=== PATIENT | male | born 1950 | race Caucasian/White ===

== ENCOUNTER 2016-12-05 16:22 | Inpatient (IN) | payer OTHER, MEDICARE ==
[~2016-12-05] VITALS: Ht 162.6 cm; Wt 85.6 kg
[~2016-12-05 16:22] MED LIST: CLOP1TAB54 PO; DOCU100C31 PO; GLIP10TA9 PO; ISOS30TA35 PO; LISI-729 PO; METF-384 PO; METO25TA56 PO; RIVA1TAB4 PO; ROSU20TA PO; VENL225T27 PO; XRL15 PO
[2016-12-05] MEDS ORDERED: SODIUM CHLORIDE 0.9% 1000ML 1,000 ML IV ONE (16:30)
--- NOTE | 2016-12-05 16:30 | EMERGENCY ROOM VISIT NOTE ---
History Report prepared by Trey: Padmini Spencer Under the Supervision of: Dr. Rashaad Meza M.D. 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 Associated symptoms include a headache and lower back pain. Per the EMS staff, the patient was found to be unresponsive in the bathroom at [facility]. Upon EMS arrival to scene, the patient was found to be awake and alert, but confused. The patient was unable to answer where he was at this time. His blood sugar was found to be 592. The patient has a history of diabetes. He denies insulin use. HPI limited d/t: AMS. 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 Past Medical & Surgical Medical Problems: (1) CAD (coronary artery disease) (2) DM type 2 (diabetes mellitus, type 2) (3) Hyperglycemia (4) Syncope Surgical Problems: (1) History of angioplasty (2) S/P CABG x 5 Family History Unknown Social History Smokeless Tobacco Use: No Drug Use: none Current/Historical Medications Scheduled Aspirin (Aspirin EC Low Dose), 81 MG PO DAILY Glipizide (Glucotrol), 10 MG PO BID Lisinopril (Prinivil), 5 MG PO DAILY Metformin Hcl (Glucophage), 1,000 MG PO DAILY Rosuvastatin Calcium (Crestor), 20 MG PO DAILY Venlafaxine Hcl (Effexor Xr), 150 MG PO DAILY Allergies Coded Allergies: No Known Allergies (Unverified , 03/23/16) Physical Exam Vital Signs Date Time Temp Pulse Resp B/P Pulse Ox O2 Delivery O2 Flow Rate FiO2 12/05/16 18:14 92 20 142/81 96 Room Air 12/05/16 17:30 91 21 165/102 97 Room Air 12/05/16 16:59 99 22 164/99 99 Room Air 12/05/16 16:33 92 Room Air 12/05/16 16:33 92 Room Air 12/05/16 16:33 36.5 103 15 181/115 93 Room Air 12/05/16 16:28 105 Physical Exam GENERAL: Patient awake, alert, oriented x 3. Patient follows commands. Patient does not appear toxic. Patient is adequately hydrated and well- nourished. SKIN: No erythema, pallor, cyanosis or rash HEENT: Right parietal scalp hematoma. pupils equal, reactive to light and accommodation. Ears normal. Oral cavity and posterior pharynx appear normal. Neck: C-collared. Nontender. No step off. Without adenopathy, no neck vein distention. LUNGS: Clear to auscultation. No wheezes, no rales, no rhonchi. HEART: No murmurs. No gallops. No rubs CHEST WALL: Large, well healed midline sternotomy scar. ABDOMEN: No masses, no rebound, no hepatomegaly or splenomegaly. EXTREMITIES: No signs of trauma. No pedal or pretibial edema. No calf or thigh tenderness. NEUROLOGIC: Confused, disoriented, frequently repeating same questions. Moves all extremities well. Appears no focal deficits. Medical Decision & Procedures ER Provider Diagnostic Interpretation: CT results are interpretations by the radiologist and per my review. CT OF THE HEAD WITHOUT CONTRAST CLINICAL HISTORY: Confusion. Head injury. COMPARISON STUDY: MRI of the brain March 25, 2016. TECHNIQUE: Helical axial images of the head were obtained without IV contrast. Automated exposure control was utilized for the study. FINDINGS: No acute intracranial hemorrhage, midline shift or mass effect is present. Ventricular system is unremarkable. Basilar cisterns are patent. There are no extra axial collections. There is an old infarct within left cerebellar hemisphere. There are scattered old lacunar infarcts. There is a left posterior scalp contusion. There is no calvarial fracture. IMPRESSION: 1. No acute intracranial findings. 2. Left posterior scalp contusion. No calvarial fracture. 3. Old left cerebellar infarct and scattered old lacunar infarcts. Electronically signed by: Lele Howard M.D. 12/05/2016 4:59 PM Dictated Date/Time: 12/05/2016 4:[address] OF THE CERVICAL SPINE WITHOUT CONTRAST CLINICAL HISTORY: Injury. COMPARISON STUDY: No previous studies for comparison. TECHNIQUE: Helical axial images of the cervical spine were obtained without IV contrast. Sagittal and coronal reconstructions were viewed. FINDINGS: Alignment of the cervical spine is anatomic. Vertebral body heights are maintained. There is no acute fracture. Craniocervical junction is intact. There is moderate disc space narrowing with osteophytosis at C5-C6. There is no prevertebral edema or pneumothorax within visualized portions of the lung apices. IMPRESSION: No acute cervical spine fracture or subluxation. Electronically signed by: Lele Howard M.D. 12/05/2016 5:05 PM Dictated Date/Time: 12/05/2016 5:02 PM X ray results are stated below per my interpretation and the radiologist's interpretation. CHEST ONE VIEW PORTABLE CLINICAL HISTORY: Confusion. COMPARISON STUDY: Chest radiograph and chest CT March 23, 2016. FINDINGS: There are median sternotomy wires. Cardiomediastinal silhouette is stable. There is no pneumothorax or pleural effusion. This study is mildly compromised by motion artifact. IMPRESSION: No acute cardiopulmonary findings. Electronically signed by: Lele Howard M.D. 12/05/2016 6:35 PM Dictated Date/Time: 12/05/2016 6:33 PM Laboratory Results 12/05/16 16:35 Red Blood Count 5.47, Mean Corpuscular Volume 88.3, Mean Corpuscular Hemoglobin 30.2, Mean Corpuscular Hemoglobin Concent 34.2, Mean Platelet Volume 9.1, Neutrophils (%) (Auto) 66.1, Lymphocytes (%) (Auto) 23.5, Monocytes (%) (Auto) 6.8, Eosinophils (%) (Auto) 2.0, Basophils (%) (Auto) 0.6, Neutrophils # (Auto) 5.51, Lymphocytes # (Auto) 1.96, Monocytes # (Auto) 0.57, Eosinophils # (Auto) 0.17, Basophils # (Auto) 0.05 12/05/16 16:35 Test 12/05/16 16:35 12/05/16 17:20 12/05/16 18:14 White Blood Count 8.34 K/uL (4.8-10.8) Red Blood Count 5.47 M/uL (4.7-6.1) Hemoglobin 16.5 g/dL (14.0-18.0) Hematocrit 48.3 % (42-52) Mean Corpuscular Volume 88.3 fL (80-100) Mean Corpuscular Hemoglobin 30.2 pg (25-34) Mean Corpuscular Hemoglobin Concent 34.2 g/dl (32-36) Platelet Count 240 K/uL (130-400) Mean Platelet Volume 9.1 fL (7.4-10.4) Neutrophils (%) (Auto) 66.1 % Lymphocytes (%) (Auto) 23.5 % Monocytes (%) (Auto) 6.8 % Eosinophils (%) (Auto) 2.0 % Basophils (%) (Auto) 0.6 % Neutrophils # (Auto) 5.51 K/uL (1.4-6.5) Lymphocytes # (Auto) 1.96 K/uL (1.2-3.4) Monocytes # (Auto) 0.57 K/uL (0.11-0.59) Eosinophils # (Auto) 0.17 K/uL (0-0.5) Basophils # (Auto) 0.05 K/uL (0-0.2) RDW Standard Deviation 40.6 fL (36.4-46.3) RDW Coefficient of Variation 12.6 % (11.5-14.5) Immature Granulocyte % (Auto) 1.0 % Immature Granulocyte # (Auto) 0.08 K/uL (0.00-0.02) Prothrombin Time 10.0 SECONDS (9.0-12.0) Prothromb Time International Ratio 0.9 (0.9-1.1) Activated Partial Thromboplast Time 23.6 SECONDS (21.0-31.0) Partial Thromboplastin Ratio 0.9 Anion Gap 9.0 mmol/L (3-11) Est Creatinine Clear Calc Drug Dose 59.3 ml/min Estimated GFR () 72.1 Estimated GFR (Non- 62.2 BUN/Creatinine Ratio 25.3 (10-20) Calcium Level 9.1 mg/dl (8.5-10.1) Total Bilirubin 0.7 mg/dl (0.2-1) Aspartate Amino Transf (AST/SGOT) 45 U/L (15-37) Alanine Aminotransferase (ALT/SGPT) 40 U/L (12-78) Alkaline Phosphatase 98 U/L (45-117) Troponin I 0.022 ng/ml (0-0.045) Total Protein 7.9 gm/dl (6.4-8.2) Albumin 3.9 gm/dl (3.4-5.0) Globulin 4.0 gm/dl (2.5-4.0) Albumin/Globulin Ratio 1.0 (0.9-2) Beta-Hydroxybutyric Acid 11.63 mg/dL (0.2-2.81) Urine Color YELLOW Urine Appearance CLEAR (CLEAR) Urine pH 5.0 (4.5-7.5) Urine Specific Alpine 1.032 (1.000-1.030) Urine Protein 1+ (NEG) Urine Glucose (UA) 3+ (NEG) Urine Ketones 1+ (NEG) Urine Occult Blood TRACE (NEG) Urine Nitrite NEG (NEG) Urine Bilirubin NEG (NEG) Urine Urobilinogen NEG (NEG) Urine Leukocyte Esterase NEG (NEG) Urine WBC (Auto) 0 /hpf (0-5) Urine RBC (Auto) 0-4 /hpf (0-4) Urine Hyaline Casts (Auto) 0 /lpf (0-5) Urine Epithelial Cells (Auto) 0-5 /lpf (0-5) Urine Bacteria (Auto) NEG (NEG) Urine Opiates Screen NEG (NEG) Urine Methadone, Qualitative NEG (NEG) Urine Barbiturates NEG (NEG) Urine Phencyclidine (PCP) Level NEG (NEG) Ur Amphetamine/Methamphetamine NEG (NEG) MDMA (Ecstasy) Screen NEG (NEG) Urine Benzodiazepines Screen NEG (NEG) Urine Cocaine Metabolite NEG (NEG) Urine Marijuana (THC) NEG (NEG) Venous Blood pH 7.38 (7.36-7.41) Venous Blood Partial Pressure CO2 42 mmHg (38.0-50.0) Venous Blood Partial Pressure O2 40 mmHg Venous Blood HCO3 24 mmol/L Venous Blood Oxygen Saturation 72.3 % Venous Blood Base Excess -0.8 mmol/L Lactic Acid Level 1.9 mmol/L (0.4-2.0) Ethyl Alcohol mg/dL < 3.0 mg/dl (0-3) Laboratory results as stated above per my review. Venous blood gas Ph within normal range. Patient not acidotic. Bicarb within normal range. Medications Administered Medications (Trade) Dose Ordered Sig/Nadine Route Start Time Stop Time Status Last Admin Dose Admin Sodium Chloride (Nss 1000ml) 1,000 ml @ 1,000 mls/hr Q1H ONCE IV 12/05/16 16:30 12/05/16 17:29 DC 12/05/16 17:02 1,000 MLS/HR Insulin Human Regular 10 units 10 units NOW STAT IV 12/05/16 17:11 12/05/16 17:13 DC 12/05/16 17:23 10 UNITS Sodium Chloride (Nss 1000ml) 1,000 ml @ 100 mls/hr Q10H IV 12/05/16 18:57 01/04/17 18:56 12/05/16 20:34 100 MLS/HR ECG Indication: syncope Rate (beats per minute): 105 Rhythm: sinus tachycardia Findings: RBBB ED Course 162: Past medical records reviewed. The patient was evaluated in room C4. A complete history and physical examination was performed. 1630: Ordered Sodium Chloride 1,000 ml @ 1,000 mls/hr IV. 171: Ordered Insulin Human Regular 10 units IV. 1713: Upon reevaluation, the patient is less confused. He is receiving insulin and fluids. 1755: I updated the patient and his family of the treatment plan. They are agreeable at this time. 181: I discussed the patient's case with Emerald Enamorado (Cristofer LEDESMA). She will evaluate the patient for further management and care. 184: Upon reevaluation, the patient's cognitive function seems to be improving. Medical Decision 66-year-old male who was found on bathroom floor in [facility]. Patient was very confused when he arrived but became much more coherent as we observed him here in the ED. Multiple labs, EKG and imaging were obtained. Differential diagnosis includes CVA, TIA, diabetes, DKA, metabolic disorder. The patient's initial blood sugar was in the mid 500s. The patient was given IV insulin and fluids. Potassium was not low. The patient is not acidotic but did have some ketones in his urine. CAT scan does not reveal any significant neuro pathology. I believe his confusion is related to the metabolic disorder and not to a direct neurologic event. I discussed care with the patient, his and the hospitalist. Consults Time Called: 1804 Consulting Physician: Emerald Enamorado (Cristofer LEDESMA) Returned Call: [phone] I discussed the patient's case with Emerald Dotson PA-C). She will evaluate the patient for further management and care. Impression Primary Impression: Diabetes mellitus out of control Additional Impression: Scalp hematoma Scribe Attestation The scribe's documentation has been prepared under my direction and personally reviewed by me in its entirety. I confirm that the note above accurately reflects all work, treatment, procedures, and medical decision making performed by me. Departure Information Dispostion Being Evaluated By Hospitalist Problem Qualifiers
--- NOTE | 2016-12-05 17:01 | DIAGNOSTIC IMAGING REPORT ---
CT OF THE HEAD WITHOUT CONTRAST CLINICAL HISTORY: Confusion. Head injury. COMPARISON STUDY: MRI of the brain March 25, 2016. TECHNIQUE: Helical axial images of the head were obtained without IV contrast. Automated exposure control was utilized for the study. FINDINGS: No acute intracranial hemorrhage, midline shift or mass effect is present. Ventricular system is unremarkable. Basilar cisterns are patent. There are no extra axial collections. There is an old infarct within left cerebellar hemisphere. There are scattered old lacunar infarcts. There is a left posterior scalp contusion. There is no calvarial fracture. IMPRESSION: 1. No acute intracranial findings. 2. Left posterior scalp contusion. No calvarial fracture. 3. Old left cerebellar infarct and scattered old lacunar infarcts. Electronically signed by: Lele Howard M.D. 12/05/2016 4:59 PM Dictated Date/Time: 12/05/2016 4:56 PM
[2016-12-05 17:07] LABS: BASO % 0.6 %; BASO ABS # 0.05 K/uL (0-0.2); COMPLETE YES; HEMATOCRIT 48.3 % (42-52); LYMPH % 23.5 %; LYMPH ABS # 1.96 K/uL (1.2-3.4); MEAN CELL VOLUME 88.3 fL (80-100); MEAN CORPUSCULAR HEMOGLOBIN 30.2 pg (25-34); MEAN CORPUSCULAR HGB CONC 34.2 g/dl (32-36); MEAN PLATELET VOLUME 9.1 fL (7.4-10.4); MONO % 6.8 %; NEUT % 66.1 %; PLATELET COUNT 240 K/uL (130-400); RED BLOOD COUNT 5.47 M/uL (4.7-6.1); WHITE BLOOD COUNT 8.34 K/uL (4.8-10.8)
--- NOTE | 2016-12-05 17:07 | DIAGNOSTIC IMAGING REPORT ---
CT OF THE CERVICAL SPINE WITHOUT CONTRAST CLINICAL HISTORY: Injury. COMPARISON STUDY: No previous studies for comparison. TECHNIQUE: Helical axial images of the cervical spine were obtained without IV contrast. Sagittal and coronal reconstructions were viewed. FINDINGS: Alignment of the cervical spine is anatomic. Vertebral body heights are maintained. There is no acute fracture. Craniocervical junction is intact. There is moderate disc space narrowing with osteophytosis at C5-C6. There is no prevertebral edema or pneumothorax within visualized portions of the lung apices. IMPRESSION: No acute cervical spine fracture or subluxation. Electronically signed by: Lele Howard M.D. 12/05/2016 5:05 PM Dictated Date/Time: 12/05/2016 5:02 PM
[2016-12-05] MEDS ORDERED: NovoLIN-R INSULIN PER UNIT CHARGE IV STA (17:11)
[2016-12-05 17:17] LABS: INR 0.9 (0.9-1.1); PARTIAL THROMBOPLASTIN RATIO 0.9
[2016-12-05 17:33] LABS: URINE APPEARANCE CLEAR (CLEAR); URINE BILIRUBIN NEG (NEG); URINE COLOR YELLOW; URINE EPITHELIAL CELL AUTO 0-5 /lpf (0-5); URINE NITRITE NEG (NEG); URINE SPECIFIC GRAVITY 1.032 (1.000-1.030); UROBILINOGEN NEG (NEG); ZZUR CULT IF INDIC CLEAN CATCH NO
[2016-12-05 17:35] LABS: MANUAL MICROSCOPIC REQUIRED? NO; REVIEW REQ? NO
[2016-12-05 17:59] LABS: BUN/CREATININE RATIO 25.3 (10-20); CALCIUM 9.1 mg/dl (8.5-10.1); CREATININE 1.2 mg/dl (0.60-1.40); POTASSIUM 4.9 mmol/L (3.5-5.1)
[2016-12-05 18:04] LABS: BENZODIAZEPINE, URINE NEG (NEG); COCAINE,URINE NEG (NEG); PHENCYCLIDINE, URINE NEG (NEG)
[2016-12-05 18:13] LABS: BETA-HYDROXYBUTYRATE 11.63 mg/dL (0.2-2.81)
[2016-12-05 18:26] LABS: VEN BLD GAS O2 SATURATION 72.3 %; VEN BLOOD GAS BASE EXCESS -0.8 mmol/L
--- NOTE | 2016-12-05 18:37 | DIAGNOSTIC IMAGING REPORT ---
CHEST ONE VIEW PORTABLE CLINICAL HISTORY: Confusion. COMPARISON STUDY: Chest radiograph and chest CT March 23, 2016. FINDINGS: There are median sternotomy wires. Cardiomediastinal silhouette is stable. There is no pneumothorax or pleural effusion. This study is mildly compromised by motion artifact. IMPRESSION: No acute cardiopulmonary findings. Electronically signed by: Lele Howard M.D. 12/05/2016 6:35 PM Dictated Date/Time: 12/05/2016 6:33 PM
[2016-12-05] MEDS ORDERED: VENL150C PO (18:45)
[2016-12-05] MEDS ORDERED: ROSU20TA PO (18:45)
[2016-12-05] MEDS ORDERED: ONDANSETRON INJ 2 MG/ML 2 ML VIAL IV PRN (19:00)
[2016-12-05] MEDS ORDERED: NITROGLYCERIN 0.4 MG SL PER TAB CHARGE SL PRN (19:00)
[2016-12-05] MEDS ORDERED: ASPEC81 PO (19:01)
[2016-12-05] MEDS ORDERED: PHARMACY GLYCEMIC MGMT CONSULT PRN (19:33)
--- NOTE | 2016-12-05 19:45 | History and Physical ---
History & Physical Date & Time of Service: Dec 05, 2016 at 19:07 Chief Complaint: Confusion Primary Care Physician: No Doctor, Assigned History of Present Illness Source: patient This is a 66y//o male with PMHx of DM 2, CAD s/p CABG, h/o CVA, HTN, Dyslipidemia who presents to the ED via EMS after he was found in a [employer] bathroom. Pt is a poor historian due to AMS and there are no witnesses to what transpire earlier today. The patient remembers feeling well earlier today when he went to the [employer]. The next thing he remembers is arriving at the emergency room. Patient was found by employees in the [employer] bathroom. He was alert but disoriented at the time. He is now complaining of headache. Pt mentions he has been drinking more than usual lately estimating he has been drinking 4 beers every day. He states he has "constant" stressors and a court date tomorrow. Pt denies recreational drug use. He has not taken his prescribed medications for at least 1 week because he has "not picked them up." Pt has a history of CAD s/p CABG x 5 in February 2016. 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 In the ED, BP elevated. Pt is afebrile with no leukocytosis. glucose 571. UA negative. Tox screen is negative. Blood gas- negative. Cervical Spine and head CT is negative. Pt received insulin and IVF in the ED. Pt will be admitted for further evaluation and treatment. Past Medical/Surgical History Medical Problems: (1) CAD (coronary artery disease) Status: Chronic (2) DM type 2 (diabetes mellitus, type 2) Status: Chronic Surgical Problems: (1) History of angioplasty Status: Chronic (2) S/P CABG x 5 Status: Chronic Family History Unknown Social History Smoking Status: Never Smoker Smokeless Tobacco Use: No Alcohol Use: 3-4 beers daily Drug Use: none Marital Status: single Housing status: lives alone Occupational Status: retired Allergies Coded Allergies: No Known Allergies (Unverified , 03/23/16) Home Medications Scheduled Aspirin (Aspirin EC Low Dose), 81 MG PO DAILY Glipizide (Glucotrol), 10 MG PO BID Lisinopril (Prinivil), 5 MG PO DAILY Metformin Hcl (Glucophage), 1,000 MG PO DAILY Rosuvastatin Calcium (Crestor), 20 MG PO DAILY Venlafaxine Hcl (Effexor Xr), 150 MG PO DAILY Review of Systems Constitutional: No chills, No fatigue, No fever, No sweats, No weakness Eyes: No diplopia, No worsening of vision ENT: No hearing loss Respiratory: No cough, No shortness of breath Cardiovascular: No chest pain, No claudication, No edema Abdomen: + nausea, No constipation, No diarrhea, No pain, No vomiting Musculoskeletal: No calf pain, No swelling Genitourinary - Male: No dysuria Neurologic: No weakness Psychiatric: No depression symptoms Endocrine: No fatigue Hematologic / Lymphatic: No abnormal bleeding/bruising Integumentary: No new/changing skin lesions Physical Exam Vital Signs Date Time Temp Pulse Resp B/P Pulse Ox O2 Delivery O2 Flow Rate FiO2 12/05/16 18:14 92 20 142/81 96 Room Air 12/05/16 17:30 91 21 165/102 97 Room Air 12/05/16 16:59 99 22 164/99 99 Room Air 12/05/16 16:33 92 Room Air 12/05/16 16:33 92 Room Air 12/05/16 16:33 36.5 103 15 181/115 93 Room Air 12/05/16 16:28 105 General Appearance: WD/WN, no apparent distress, + pertinent finding (Pt is laying in bed with daughter at bedside ) Head: normocephalic, atraumatic Eyes: normal inspection, PERRL, EOMI ENT: hearing grossly normal Neck: supple Respiratory/Chest: chest non-tender, lungs clear, normal breath sounds, no respiratory distress Cardiovascular: regular rate, rhythm, no edema, no murmur Abdomen/GI: normal bowel sounds, non tender, soft Back: normal inspection Extremities/Musculoskelatal: normal inspection, no calf tenderness, no pedal edema 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, no motor/sensory deficits, alert, normal mood/affect, + pertinent finding (only orineted to person) Skin: normal color, warm/dry Diagnostics Laboratory Results Results Past 24 Hours Test 12/05/16 16:29 12/05/16 16:35 12/05/16 17:20 12/05/16 17:50 Range/Units Bedside Glucose 516 424 70-99 mg/dl White Blood Count 8.34 4.8-10.8 K/uL Red Blood Count 5.47 4.7-6.1 M/uL Hemoglobin 16.5 14.0-18.0 g/dL Hematocrit 48.3 42-52 % Mean Corpuscular Volume 88.3 80-100 fL Mean Corpuscular Hemoglobin 30.2 25-34 pg Mean Corpuscular Hemoglobin Concent 34.2 32-36 g/dl Platelet Count 240 130-400 K/uL Mean Platelet Volume 9.1 7.4-10.4 fL Neutrophils (%) (Auto) 66.1 % Lymphocytes (%) (Auto) 23.5 % Monocytes (%) (Auto) 6.8 % Eosinophils (%) (Auto) 2.0 % Basophils (%) (Auto) 0.6 % Neutrophils # (Auto) 5.51 1.4-6.5 K/uL Lymphocytes # (Auto) 1.96 1.2-3.4 K/uL Monocytes # (Auto) 0.57 0.11-0.59 K/uL Eosinophils # (Auto) 0.17 0-0.5 K/uL Basophils # (Auto) 0.05 0-0.2 K/uL RDW Standard Deviation 40.6 36.4-46.3 fL RDW Coefficient of Variation 12.6 11.5-14.5 % Immature Granulocyte % (Auto) 1.0 % Immature Granulocyte # (Auto) 0.08 0.00-0.02 K/uL Prothrombin Time 10.0 9.0-12.0 SECONDS Prothromb Time International Ratio 0.9 0.9-1.1 Activated Partial Thromboplast Time 23.6 21.0-31.0 SECONDS Partial Thromboplastin Ratio 0.9 Sodium Level 133 136-145 mmol/L Potassium Level 4.9 3.5-5.1 mmol/L Chloride Level 98 98-107 mmol/L Carbon Dioxide Level 26 21-32 mmol/L Anion Gap 9.0 3-11 mmol/L Blood Urea Nitrogen 30 7-18 mg/dl Creatinine 1.20 0.60-1.40 mg/dl Est Creatinine Clear Calc Drug Dose 59.3 ml/min Estimated GFR () 72.1 Estimated GFR (Non- 62.2 BUN/Creatinine Ratio 25.3 10-20 Random Glucose 571 70-99 mg/dl Calcium Level 9.1 8.5-10.1 mg/dl Total Bilirubin 0.7 0.2-1 mg/dl Aspartate Amino Transf (AST/SGOT) 45 15-37 U/L Alanine Aminotransferase (ALT/SGPT) 40 12-78 U/L Alkaline Phosphatase 98 45-117 U/L Total Protein 7.9 6.4-8.2 gm/dl Albumin 3.9 3.4-5.0 gm/dl Globulin 4.0 2.5-4.0 gm/dl Albumin/Globulin Ratio 1.0 0.9-2 Beta-Hydroxybutyric Acid 11.63 0.2-2.81 mg/dL Urine Color YELLOW Urine Appearance CLEAR CLEAR Urine pH 5.0 4.5-7.5 Urine Specific Gregory 1.032 1.000-1.030 Urine Protein 1+ NEG Urine Glucose (UA) 3+ NEG Urine Ketones 1+ NEG Urine Occult Blood TRACE NEG Urine Nitrite NEG NEG Urine Bilirubin NEG NEG Urine Urobilinogen NEG NEG Urine Leukocyte Esterase NEG NEG Urine WBC (Auto) 0 0-5 /hpf Urine RBC (Auto) 0-4 0-4 /hpf Urine Hyaline Casts (Auto) 0 0-5 /lpf Urine Epithelial Cells (Auto) 0-5 0-5 /lpf Urine Bacteria (Auto) NEG NEG Urine Opiates Screen NEG NEG Urine Methadone, Qualitative NEG NEG Urine Barbiturates NEG NEG Urine Phencyclidine (PCP) Level NEG NEG Ur Amphetamine/Methamphetamine NEG NEG MDMA (Ecstasy) Screen NEG NEG Urine Benzodiazepines Screen NEG NEG Urine Cocaine Metabolite NEG NEG Urine Marijuana (THC) NEG NEG Test 12/05/16 18:14 Range/Units Venous Blood pH 7.38 7.36-7.41 Venous Blood Partial Pressure CO2 42 38.0-50.0 mmHg Venous Blood Partial Pressure O2 40 mmHg Venous Blood HCO3 24 mmol/L Venous Blood Oxygen Saturation 72.3 % Venous Blood Base Excess -0.8 mmol/L Lactic Acid Level 1.9 0.4-2.0 mmol/L Ethyl Alcohol mg/dL < 3.0 0-3 mg/dl Diagnostic Radiology CXR IMPRESSION: No acute cardiopulmonary findings. CT HEAD IMPRESSION: 1. No acute intracranial findings. 2. Left posterior scalp contusion. No calvarial fracture. 3. Old left cerebellar infarct and scattered old lacunar infarcts. CERVICAL SPINE CT IMPRESSION: No acute cervical spine fracture or subluxation Impression Assessment and Plan SUSPECTED SYNCOPE; UNWITNESSED pt found in [facility] bathroom; pt is poor historian -admit to telemetry -pt is afebrile with no leukocytosis -CT head and Cerv Spine CT is negative -obtain MRI brain for further evaluation -tox screen is negative -check EKG -obtain echo -monitor on telemetry for any arrhythmias -neuro checks q 4 hrs -monitor HYPERGLYCEMIA WITH H/O UNCONTROLLED DM 2 -glucose 571; pt received 10 units insulin in ED -blood gas-no gap -hold glipizide and metformin -start IVF -monitor BSG -pharmacy consult for glycemic mgmt CORONARY ARTERY DISEASE -s/p CABG x 15 February 2016 -cont ASA, BB and statin H/O CVA -cont ASA and statin HTN -BP stable -cont lisinopril and metoprolol -monitor DYSLIPIDEMIA -cont statin DVT PROPHYLAXIS -subq Lovenox CODE STATUS -FULL CODE per discussion with family upon admission DISPO Pt seen in collaboration with Dr. Wyman. Please see his addendum for further details. Thanks! -Pt will be seen by Dr. Ward tomorrow AM. VTE Prophylaxis VTE Risk Assessment Done? Y/N: Yes Risk Level: Moderate
[2016-12-05 19:57] VITALS: BP 171/92; PULSE 101; TEMP 36.6; O2SAT 97; BMI 31.7
--- NOTE | 2016-12-05 20:00 | Progress Note ---
Progress Note Date of Service Dec 05, 2016. Progress Note Patient was seen and evaluated with CALLIE Corbin. Patient was found in [facility] bathroom, unwitnessed. No preceding symptoms, doesnt recall what happened to him. 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 Lives in [place], came to [place] to go to his bank,. Has a court date tomorrow. Drove in his car. Denies any complaints now EXAM: GEN: AAOX3, no distress LUNGS- AEBE, no wheezing, rhonchi, crackles HEART- S1, S2 normal, No murmurs; CABG scar + NEURO- AAOX3, Power 5/5 all ext, Cranial nerves intact EXT- No edeam SKIN- CABG scar + A/P: 1. SYNCOPE- -Tele monitoring, MRI Brain, Echo, Trop -IVF 2. HYPERGLYCEMIA Secondary to not taking any medications 500s on admission, no signs of DKA -Insulin 10 units given in ER, -IVF, ISS, Pharmacy consult 3. HX OF CAD WITH CABG Not taking any of his meds and not following up with cardio or PCP -Will start him on aspirin, lisinopril, statin- got the list from his pharmacy DVT PROP Lovenox sq DISPOSITION Observation telemetry
[2016-12-05] MEDS: SODIUM CHLORIDE 0.9% 1000ML 1,000 ML IV SCH (20:34)
[2016-12-05] MEDS ORDERED: GLUCAGON FOR INJ 1 MG VIAL SQ PRN (20:45)
[2016-12-05] MEDS ORDERED: GLUCOSE 40% GEL 15 GM TUBE PO PRN (20:45)
[2016-12-05] MEDS ORDERED: DEXTROSE 50% 50 ML SYR IV PRN (20:45)
[2016-12-05] MEDS ORDERED: GLUCOSE 10 TABS/TUBE PO PRN (20:45)
--- NOTE | 2016-12-05 20:50 | Pharmacy Progress Note ---
Glycemic Control Intl Consult Date of Service Dec 05, 2016. Scope Glycemic Pharmacist consulted by Emerald Jackson PA-C on 12/05/16 for glycemic control and to write orders per [facility] inpatient glycemic control protocol Objective Weight (Kilograms): 83.000 Accuchecks BSG (last 24hrs): Test 12/05/16 16:29 12/05/16 16:35 12/05/16 17:50 12/05/16 20:18 Bedside Glucose 516 mg/dl (70-99) 424 mg/dl (70-99) 331 mg/dl (70-99) Random Glucose 571 mg/dl (70-99) Laboratory Data (last 24hrs) Test 12/05/16 16:35 Anion Gap 9.0 mmol/L BUN/Creatinine Ratio 25.3 Blood Urea Nitrogen 30 mg/dl Creatinine 1.20 mg/dl Potassium Level 4.9 mmol/L Sodium Level 133 mmol/L White Blood Count 8.34 K/uL Red Blood Count 5.47 M/uL Hemoglobin 16.5 g/dL Hematocrit 48.3 % Mean Corpuscular Volume 88.3 fL Mean Corpuscular Hemoglobin 30.2 pg Mean Corpuscular Hemoglobin Concent 34.2 g/dl Platelet Count 240 K/uL Mean Platelet Volume 9.1 fL Neutrophils (%) (Auto) 66.1 % Lymphocytes (%) (Auto) 23.5 % Monocytes (%) (Auto) 6.8 % Eosinophils (%) (Auto) 2.0 % Basophils (%) (Auto) 0.6 % Neutrophils # (Auto) 5.51 K/uL Lymphocytes # (Auto) 1.96 K/uL Monocytes # (Auto) 0.57 K/uL Eosinophils # (Auto) 0.17 K/uL Basophils # (Auto) 0.05 K/uL Recent Pertinent Medications Outpatient Anti-diabetic Regimen: * Metformin 1 g PO daily * Glipizide 10 mg PO BIDM * A1c outdated Risk Factors for Insulin Resistance: * Diet: T2DM Assessment & Plan ASSESSMENT: * 66 yo M admitted after being found down in [facility] bathroom, BSG on admission > 500 mg/dL * ED treated BSG 519 mg/dL with 10 units IV Regular insulin X 1, re-check 424 mg /dL * BHA is elevated, no signs of DKA * Suspect med noncompliance, check A1c with AM labs * Will hold oral agents for admission and utilize SQ basal bolus insulin regimen which is the recommended regimen for inpatient glycemic control. * Will initiate weight based insulin dosing (stress of 2) for insulin eduardo patient and titrate based on BSG trends. * ADA & AACE recommend a goal blood sugar range 140-180 mg/dl for the majority of critically ill & non-critically ill patients. However, more stringent targets may be selected in individual cases. Due to severe hyperglycemia, tighten to 120 -160 mg/mL to get BSGs under control. PLAN FOR INPATIENT GLYCEMIC CONTROL: * Holding outpatient oral diabetes medications * Basal insulin with LANTUS 14 units SQ BID * Correctional Insulin with NOVOLOG per scale ACHS + 00,04 to bring BSGs down * Goal Range: Low 110 mg/dL - High 150 mg/dL * Correction Factor: 30 mg/dL/unit * Nutritional / Prandial insulin per carb ratio of 1 unit per 10 grams CHO consumed * Please note that the plan above was derived based on current level of insulin resistance and hospital stress. These recommendations are appropriate for inpatient admission only. Plan of care upon discharge will need to be reassessed to avoid potential outpatient hypo/hyperglycemia. Thank you.
[2016-12-05] MEDS: INSULIN ASPART 100 UNITS/ML 3 ML PEN SC SCH (21:13)
[2016-12-05] MEDS: INSULIN GLARGINE SOLOSTAR 100 UNITS/ML 3 ML PEN SC SCH (21:13)
[2016-12-06] VITALS (8 sets, daily range): BP systolic 131–162; BP diastolic 74–124; PULSE 72–90; TEMP 36.6–37.1; O2SAT 95–98; Ht 162.6 cm; Wt 85.6 kg
[2016-12-06] MEDS: ACETAMINOPHEN 325 MG TAB PO PRN ×3 (00:12→11:45)
[2016-12-06] MEDS: INSULIN ASPART 100 UNITS/ML 3 ML PEN SC SCH ×6 (00:20→20:43)
[2016-12-06] MEDS ORDERED: GADAVIST IV PRN (00:45)
[2016-12-06] MEDS ORDERED: MECLIZINE HCL 12.5 MG TAB PO ONE (05:15)
[2016-12-06 06:16] LABS: HEMATOCRIT 44.1 % (42-52); MEAN CELL VOLUME 88.9 fL (80-100); MEAN CORPUSCULAR HEMOGLOBIN 31.3 pg (25-34); MEAN CORPUSCULAR HGB CONC 35.1 g/dl (32-36); PLATELET COUNT 226 K/uL (130-400); RED BLOOD COUNT 4.96 M/uL (4.7-6.1); WHITE BLOOD COUNT 7.49 K/uL (4.8-10.8)
[2016-12-06 06:21] LABS: ESTIMATED AVERAGE GLUCOSE 295 mg/dl; HA1C FLAG Normal (Normal)
--- NOTE | 2016-12-06 06:47 | DIAGNOSTIC IMAGING REPORT ---
MRI OF THE BRAIN WITHOUT AND WITH IV CONTRAST CLINICAL HISTORY: Syncope, head trauma, confusion. COMPARISON STUDY: Noncontrast head CT dated 12/05/2016 TECHNIQUE: MRI of the brain was performed from the vertex to the skull base utilizing various T1 and T2 weighted sequences. Following the IV administration of 8 mL of Gadavist contrast, additional enhanced images were obtained. FINDINGS: Sagittal T1, axial diffusion, proton density and T2 weighted axial, coronal FLAIR, and pre and post axial T1-weighted images were acquired. These were supplemented with post gadolinium coronal T1 weighted images. No intra or extra-axial mass lesions are visualized. There are tiny foci of restricted water diffusion within the left occipital lobe, posterior parietal lobe and centrum semiovale, consistent with acute infarcts. There is no evidence of ventricular dilatation. Proton density T2-weighted and FLAIR images reveal scattered foci of increased T2 signal within the white matter, likely on a small vessel basis. There is an old left cerebellar infarct. There are multiple old lacunar infarcts within the right cerebellar hemisphere. There was a lacunar infarct within the right basal ganglia. There are no abnormal flow voids. There is no evidence of pathologic enhancement. There is right parietal scalp edema. IMPRESSION: 1. Multiple small foci restricted water diffusion involving the left parietal lobe, left occipital lobe, and left centrum semiovale consistent with small acute infarcts 2. 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 No pathologically enhancing masses 4. Scalp edema Electronically signed by: Raul Contreras M.D. 12/06/2016 6:44 AM Dictated Date/Time: 12/06/2016 6:40 AM
[2016-12-06 06:53] LABS: BUN/CREATININE RATIO 21.2 (10-20); CALCIUM 8.5 mg/dl (8.5-10.1); CREATININE 0.82 mg/dl (0.60-1.40); POTASSIUM 3.6 mmol/L (3.5-5.1)
[2016-12-06] MEDS ORDERED: PERFLUTREN LIPID MICROSPHERE (DEFINITY) IV ONE (06:55)
[2016-12-06] MEDS: VENLAFAXINE HCL XR 150 MG CAPXR PO SCH (08:02)
[2016-12-06] MEDS: SODIUM CHLORIDE 0.9% 1000ML 1,000 ML IV SCH ×3 (08:02→20:42)
[2016-12-06] MEDS: CLOPIDOGREL BISULFATE 75 MG TAB PO SCH (08:02)
[2016-12-06] MEDS: ROSUVASTATIN CALCIUM 20 MG TAB PO SCH (08:03)
[2016-12-06] MEDS: LISINOPRIL 5 MG TAB PO SCH (08:03)
[2016-12-06] MEDS: ASPIRIN 81 MG ECTAB PO SCH (08:03)
[2016-12-06] MEDS: ENOXAPARIN 40 MG/0.4 ML SYR SC SCH (08:04)
[2016-12-06] MEDS: INSULIN GLARGINE SOLOSTAR 100 UNITS/ML 3 ML PEN SC SCH ×2 (08:07→20:43)
--- NOTE | 2016-12-06 08:35 | Clinical Documentation Query ---
CLINICAL DOCUMENTATION QUERY Dr. AGUILERA, In your clinical opinion is this patient being managed for: ( ) Small acute CVA involving the left parietal lobe, left occipital lobe, and left centrum semiovale ( ) Other explanation of clinical findings (Please Explain) ( ) Unable to determine (Please Define) ( ) Need to Discuss ( ) Not Agree The medical record reflects the following clinical findings, treatment, and risk factors. Clinical Indicators: 66 yo male presenting after being found unresponsive at local store. MRI brain showed multiple small foci restricted water diffusion involving the left parietal lobe, left occipital lobe, and left centrum semiovale consistent with small acute infarcts. BP 181/115 at time of ER presentation Treatment: tele, MRI brain, neurology consult, neuro checks, plavix, lovenox, restart home meds--lisinopril, ASA, IV fluids, Risk Factors: age, CAD, DM, medication noncompliance Please clarify and document your clinical opinion in the progress notes and discharge summary. Terms such as "probable", "suspected", "likely", "questionable", "possible", or "still to be ruled out" are acceptable. IF IN AGREEMENT, YOU MUST DOCUMENT ABOVE DIAGNOSTIC STATEMENT IN DAILY PROGRESS NOTES AND DISCHARGE SUMMARY. This document is not part of the patient's record. Thank You, Sarah Beth Meade RN [phone]
[2016-12-06 09:02] LABS: CHOLESTEROL/HDL RATIO 6.1
--- NOTE | 2016-12-06 09:29 | Pharmacy Progress Note ---
Glycemic Control: Progress Nt Date of Service Dec 06, 2016. Scope Glycemic Pharmacist consulted by Emerald Jackson on 12/05/16 for glycemic control and to write orders per [facility] inpatient glycemic control protocol. Objective Accuchecks BSG (last 24hrs): Test 12/05/16 16:29 12/05/16 16:35 12/05/16 17:50 12/05/16 20:18 Bedside Glucose 516 mg/dl (70-99) 424 mg/dl (70-99) 331 mg/dl (70-99) Random Glucose 571 mg/dl (70-99) Test 12/05/16 21:04 12/06/16 00:17 12/06/16 04:12 12/06/16 05:33 Bedside Glucose 342 mg/dl (70-99) 232 mg/dl (70-99) 180 mg/dl (70-99) Random Glucose 198 mg/dl (70-99) Test 12/06/16 06:31 Bedside Glucose 211 mg/dl (70-99) Laboratory Data (last 24hrs) Test 12/05/16 16:35 12/06/16 05:33 Anion Gap 9.0 mmol/L 8.0 mmol/L BUN/Creatinine Ratio 25.3 21.2 Blood Urea Nitrogen 30 mg/dl 17 mg/dl Creatinine 1.20 mg/dl 0.82 mg/dl Potassium Level 4.9 mmol/L 3.6 mmol/L Sodium Level 133 mmol/L 140 mmol/L White Blood Count 8.34 K/uL 7.49 K/uL Red Blood Count 5.47 M/uL Hemoglobin 16.5 g/dL Hematocrit 48.3 % Mean Corpuscular Volume 88.3 fL Mean Corpuscular Hemoglobin 30.2 pg Mean Corpuscular Hemoglobin Concent 34.2 g/dl Platelet Count 240 K/uL Mean Platelet Volume 9.1 fL Neutrophils (%) (Auto) 66.1 % Lymphocytes (%) (Auto) 23.5 % Monocytes (%) (Auto) 6.8 % Eosinophils (%) (Auto) 2.0 % Basophils (%) (Auto) 0.6 % Neutrophils # (Auto) 5.51 K/uL Lymphocytes # (Auto) 1.96 K/uL Monocytes # (Auto) 0.57 K/uL Eosinophils # (Auto) 0.17 K/uL Basophils # (Auto) 0.05 K/uL Hemoglobin A1c 11.9 % HbA1c: Test 12/06/16 05:33 Hemoglobin A1c 11.9 %(4.5-5.6) H Recent Pertinent Medications Outpatient Anti-diabetic Regimen: * metformin 1000mg PO daily (IR formulation clarified with patient's pharmacy) * glipizide 10mg PO BID patient admits to noncompliance * A1c = 7.7 % 03/2016 --> 11.9 % 11/2016 The patient is currently receiving: * Basal insulin: Lantus 14 units every 12 hours * Correctional Insulin: NovoLog Correction per scale AC/HS/ Goal Range: Low 120 mg/dL - High 160 mg/dL Correction Factor: 30 mg/dL/unit * Prandial insulin: Per carb ratio of 1 unit per 10 grams CHO consumed Risk Factors for Insulin Resistance: * IVF: NSS * Diet: T2DM/AHA * Other: Elevated A1c Assessment & Plan ASSESSMENT: Initial: * 66 yo M admitted after being found down in [facility] bathroom, BSG on admission > 500 mg/dL - BHA elevated, no signs of DKA * Suspect med noncompliance * Oral agents held on admission and utilize SQ basal bolus insulin regimen which is the recommended regimen for inpatient glycemic control. * ADA & AACE recommend a goal blood sugar range 140-180 mg/dl for the majority of critically ill & non-critically ill patients. However, more stringent targets may be selected in individual cases. Due to severe hyperglycemia, tighten to 120 -160 mg/mL to get BSGs under control. 12/06/16 * BSGs trending down nicely after SQ and IV insulin administration, not yet to goal. * Have not yet seen full effect of basal/bolus regimen * continue same doses for now and continue to monitor * A1c change shows decline in glycemic control over the past 8 months * May benefit from new regimen recommendations/care plan at discharge (GLP1 agonist for CV risk, +/- insulin) PLAN FOR INPATIENT GLYCEMIC CONTROL: * Holding outpatient oral diabetes medications * Basal insulin: * Lantus 14 units SQ BID * Bolus insulin * NovoLog SQ AC/HS/ * Goal Range: Low 110 mg/dL - High 150 mg/dL * Correction Factor: 25 mg/dL/unit * Carb ratio of 1 unit per 8 grams CHO consumed RECOMMENDATIONS FOR DISCHARGE: * awaited. * Mr. Todd is not open to the idea of insulin at this time * We may consider compliance to his current regimen +/- GLP1 with his risk of CAD + lifestyle/diet modifications * Goal A1c like around 7.5-8.5% * Please note that the plan above was derived based on current level of insulin resistance and hospital stress. These recommendations are appropriate for inpatient admission only. Plan of care upon discharge will need to be reassessed to avoid potential outpatient hypo/hyperglycemia. Thank you.
--- NOTE | 2016-12-06 10:16 | ECHOCARDIOGRAM REPORT ---
*NOTICE TO RECEIVING [employer]Y This information is strictly Confidential and protected under [place] law. [place] law prohibits you from making any further disclosure of this information unless further disclosure is expressly permitted by the written consent of the person to whom it pertains or is authorized by law. A general authorization for the release of medical or other information is not sufficient for this purpose. Hospital accepts no responsibility if the information is made available to any other person, INCLUDING THE PATIENT. Interpretation Summary * Conclusions -- * The left ventricle is grossly normal size. * Left ventricular systolic function is normal. * Ejection Fraction = 55-60%. * The right ventricular systolic function is normal. * The left atrial size is normal. * Right atrial size is normal. * No significant valvular pathology. Procedure Details * A complete two-dimensional transthoracic echocardiogram was performed (2D, M-mode, Doppler and color flow Doppler). * A contrast injection of Definity was performed to improve assessment of LV function. * Contrast was injected into an intravenous site in the right arm. * One vial of Definity ultrasound contrast was diluted in normal saline to a total volume of 10 ml. A total of '3' ml of solution was administered during imaging. * Lot # [id number] of Definity utilized for procedure. * Expiration date 11/28. Left Ventricle * The left ventricle is grossly normal size. * Ejection Fraction = 55-60%. * Left ventricular systolic function is normal. * The left ventricular wall motion is normal. Right Ventricle * The right ventricle is grossly normal size. * The right ventricular systolic function is normal. Atria * The left atrial size is normal. * Right atrial size is normal. * The interatrial septum is intact with no evidence for an atrial septal defect. Mitral Valve * The mitral valve is grossly normal. * There is trace mitral regurgitation. Tricuspid Valve * The tricuspid valve is not well visualized, but is grossly normal. * Significant tricuspid regurgitation is absent. Aortic Valve * The aortic valve is tricuspid. The leaflet thickness if normal. There is no aortic stenosis, and no significant insufficiency. * The aortic valve opens well. * There is no significant aortic regurgitation. Pulmonic Valve * The pulmonic valve is not well visualized. * There is no significant pulmonary regurgitation. Great Vessels * The aortic root and proximal ascending aorta are normal sized. Pericardium/Pleural * There is no pericardial effusion. Left Ventricular Diastolic Function * Grade I diastolic dysfunction, (abnormal relaxation pattern). MMode 2D Measurements and Calculations IVSd 1.7 cm IVSs 2.1 cm LVIDd 4.8 cm LVIDs 3.4 cm LVPWd 2.0 cm LVPWs 2.4 cm IVS/LVPW 0.84 FS 28.8 % EDV(Teich) 106.8 ml ESV(Teich) 47.7 ml EF(Teich) 55.4 % EDV(cubed) 109.6 ml ESV(cubed) 39.5 ml EF(cubed) 63.9 % % IVS thick 28.5 % % LVPW thick 19.1 % LV mass(C)d 408.0 grams LV mass(C)dI 213.2 grams/m\S\2 LV mass(C)s 378.6 grams LV mass(C)sI 197.8 grams/m\S\2 CO(Teich) 3.9 l/min CI(Teich) 2.0 l/min/m\S\2 SV(Teich) 59.1 ml SI(Teich) 30.9 ml/m\S\2 CO(cubed) 4.6 l/min CI(cubed) 2.4 l/min/m\S\2 SV(cubed) 70.1 ml SI(cubed) 36.6 ml/m\S\2 EPSS 1.2 cm ACS 1.6 cm asc Aorta Diam 3.2 cm LVOT diam 1.9 cm LVOT area 2.9 cm\S\2 LVAd ap4 34.6 cm\S\2 LVLd ap4 8.8 cm EDV(MOD-sp4) 110.0 ml LVAs ap4 21.8 cm\S\2 LVLs ap4 7.8 cm ESV(MOD-sp4) 50.0 ml EF(MOD-sp4) 54.5 % LVAd ap2 31.4 cm\S\2 LVLd ap2 8.4 cm EDV(MOD-sp2) 98.0 ml LVAs ap2 19.7 cm\S\2 LVLs ap2 7.7 cm ESV(MOD-sp2) 42.0 ml EF(MOD-sp2) 57.1 % CO(MOD-sp4) 4.0 l/min CI(MOD-sp4) 2.1 l/min/m\S\2 SV(MOD-sp4) 60.0 ml SI(MOD-sp4) 31.4 ml/m\S\2 CO(MOD-sp2) 3.7 l/min CI(MOD-sp2) 1.9 l/min/m\S\2 SV(MOD-sp2) 56.0 ml SI(MOD-sp2) 29.3 ml/m\S\2 Doppler Measurements and Calculations MV E max you 73.5 cm/sec MV A max you 99.7 cm/sec MV E/A 0.74 MV dec time 0.21 sec Ao V2 max 114.0 cm/sec Ao max PG 5.2 mmHg Ao max PG (full) 2.3 mmHg LISA(V,A) 2.2 cm\S\2 LISA(V,D) 2.2 cm\S\2 LV V1 max PG 2.9 mmHg LV V1 max 85.2 cm/sec PA V2 max 70.1 cm/sec PA max PG 2.0 mmHg TR max you 237.8 cm/sec
--- NOTE | 2016-12-06 13:02 | Progress Note ---
Medicine Progress Note Date & Time of Visit: Dec 06, 2016 at 12:32. Subjective Pt was seen and examined sitting in bed with no distress denies any chest pain, palpitation, dizziness and sob Objective Last 8 Hrs Date Time Temp Pulse Resp B/P Pulse Ox O2 Delivery O2 Flow Rate FiO2 12/06/16 12:00 Room Air 12/06/16 12:00 Room Air 12/06/16 10:37 36.9 88 20 151/74 95 Room Air 12/06/16 08:00 Room Air 12/06/16 07:48 37.1 84 20 161/87 97 161/107 Physical Exam: General-no acute distress Head- atraumatic Eyes- PERRL, EOMI ENT- oropharynx clear Neck- supple, no JVD Lungs- No wheezing Heart- regular rhythm; no murmur Abdomen- normal bowel sounds, soft Extremities- no calf tenderness Neuro- alert, oriented x 3; PERRL, EOMI; no facial palsy; no dysarthria; motor 5 /5 bilaterally Skin- warm & dry Laboratory Results: Last 24 Hours Test 12/05/16 16:29 12/05/16 16:35 12/05/16 17:20 12/05/16 17:50 Bedside Glucose 516 mg/dl 424 mg/dl White Blood Count 8.34 K/uL Red Blood Count 5.47 M/uL Hemoglobin 16.5 g/dL Hematocrit 48.3 % Mean Corpuscular Volume 88.3 fL Mean Corpuscular Hemoglobin 30.2 pg Mean Corpuscular Hemoglobin Concent 34.2 g/dl Platelet Count 240 K/uL Mean Platelet Volume 9.1 fL Neutrophils (%) (Auto) 66.1 % Lymphocytes (%) (Auto) 23.5 % Monocytes (%) (Auto) 6.8 % Eosinophils (%) (Auto) 2.0 % Basophils (%) (Auto) 0.6 % Neutrophils # (Auto) 5.51 K/uL Lymphocytes # (Auto) 1.96 K/uL Monocytes # (Auto) 0.57 K/uL Eosinophils # (Auto) 0.17 K/uL Basophils # (Auto) 0.05 K/uL RDW Standard Deviation 40.6 fL RDW Coefficient of Variation 12.6 % Immature Granulocyte % (Auto) 1.0 % Immature Granulocyte # (Auto) 0.08 K/uL Prothrombin Time 10.0 SECONDS Prothromb Time International Ratio 0.9 Activated Partial Thromboplast Time 23.6 SECONDS Partial Thromboplastin Ratio 0.9 Sodium Level 133 mmol/L Potassium Level 4.9 mmol/L Chloride Level 98 mmol/L Carbon Dioxide Level 26 mmol/L Anion Gap 9.0 mmol/L Blood Urea Nitrogen 30 mg/dl Creatinine 1.20 mg/dl Est Creatinine Clear Calc Drug Dose 59.3 ml/min Estimated GFR () 72.1 Estimated GFR (Non- 62.2 BUN/Creatinine Ratio 25.3 Random Glucose 571 mg/dl Calcium Level 9.1 mg/dl Total Bilirubin 0.7 mg/dl Aspartate Amino Transf (AST/SGOT) 45 U/L Alanine Aminotransferase (ALT/SGPT) 40 U/L Alkaline Phosphatase 98 U/L Troponin I 0.022 ng/ml Total Protein 7.9 gm/dl Albumin 3.9 gm/dl Globulin 4.0 gm/dl Albumin/Globulin Ratio 1.0 Beta-Hydroxybutyric Acid 11.63 mg/dL Urine Color YELLOW Urine Appearance CLEAR Urine pH 5.0 Urine Specific [place] 1.032 Urine Protein 1+ Urine Glucose (UA) 3+ Urine Ketones 1+ Urine Occult Blood TRACE Urine Nitrite NEG Urine Bilirubin NEG Urine Urobilinogen NEG Urine Leukocyte Esterase NEG Urine WBC (Auto) 0 /hpf Urine RBC (Auto) 0-4 /hpf Urine Hyaline Casts (Auto) 0 /lpf Urine Epithelial Cells (Auto) 0-5 /lpf Urine Bacteria (Auto) NEG Urine Opiates Screen NEG Urine Methadone, Qualitative NEG Urine Barbiturates NEG Urine Phencyclidine (PCP) Level NEG Ur Amphetamine/Methamphetamine NEG MDMA (Ecstasy) Screen NEG Urine Benzodiazepines Screen NEG Urine Cocaine Metabolite NEG Urine Marijuana (THC) NEG Test 12/05/16 18:14 12/05/16 20:18 12/05/16 21:04 12/06/16 00:17 Venous Blood pH 7.38 Venous Blood Partial Pressure CO2 42 mmHg Venous Blood Partial Pressure O2 40 mmHg Venous Blood HCO3 24 mmol/L Venous Blood Oxygen Saturation 72.3 % Venous Blood Base Excess -0.8 mmol/L Lactic Acid Level 1.9 mmol/L Ethyl Alcohol mg/dL < 3.0 mg/dl Bedside Glucose 331 mg/dl 342 mg/dl 232 mg/dl Test 12/06/16 04:12 12/06/16 05:33 12/06/16 06:31 12/06/16 11:38 Bedside Glucose 180 mg/dl 211 mg/dl 226 mg/dl White Blood Count 7.49 K/uL Red Blood Count 4.96 M/uL Hemoglobin 15.5 g/dL Hematocrit 44.1 % Mean Corpuscular Volume 88.9 fL Mean Corpuscular Hemoglobin 31.3 pg Mean Corpuscular Hemoglobin Concent 35.1 g/dl RDW Standard Deviation 42.7 fL RDW Coefficient of Variation 13.1 % Platelet Count 226 K/uL Mean Platelet Volume 9.0 fL Sodium Level 140 mmol/L Potassium Level 3.6 mmol/L Chloride Level 108 mmol/L Carbon Dioxide Level 24 mmol/L Anion Gap 8.0 mmol/L Blood Urea Nitrogen 17 mg/dl Creatinine 0.82 mg/dl Est Creatinine Clear Calc Drug Dose 85.4 ml/min Estimated GFR () 106.1 Estimated GFR (Non- 91.5 BUN/Creatinine Ratio 21.2 Random Glucose 198 mg/dl Estimated Average Glucose 295 mg/dl Hemoglobin A1c 11.9 % Calcium Level 8.5 mg/dl Troponin I 0.040 ng/ml Triglycerides Level 321 mg/dl Cholesterol Level 236 mg/dl HDL Cholesterol 39 mg/dl LDL Cholesterol, Calculated 133 mg/dl VLDL Cholesterol, Calculated 64 mg/dl Cholesterol/HDL Ratio 6.1 Assessment & Plan SYNCOPE Pt found in [place] bathroom Continue monitor in telemetry CT head and Cervical Spine CT negative MRI of the brain showed Multiple small foci restricted water diffusion involving the left parietal lobe, left occipital lobe, and left centrum semiovale consistent with small acute infarcts. Echo is normal No arrhythmia on tele monitor Continue neuro check ACUTE INFARCT LEFT PARIETAL AND OCCIPITAL AREA MRI of the brain showed Multiple small foci restricted water diffusion involving the left parietal lobe, left occipital lobe, and left centrum semiovale consistent with small acute infarcts. continue aspirin and statin was started on plavix neuro consulted- pending Will get a carotid doppler u/s of the neck Echo done today showed: Conclusions -- * The left ventricle is grossly normal size. * Left ventricular systolic function is normal. * Ejection Fraction = 55-60%. * The right ventricular systolic function is normal. * The left atrial size is normal. * Right atrial size is normal. * No significant valvular pathology. DM TYPE 2 uncontrolled Recent Hba1c 11.9 (12/06/16) Glucose on admission was 571 hold glipizide and metformin Lantus 14 units BID was started Continue monitor BSG Will consult diabetic education CORONARY ARTERY DISEASE s/p CABG x 15 February 2016 cont ASA, BB and statin asymptomatic Echo is normal H/O CVA cont ASA and statin HTN cont lisinopril and metoprolol monitor DYSLIPIDEMIA cont statin DVT PROPHYLAXIS subq Lovenox CODE STATUS FULL CODE DISPOSITION Daughter (Melida) was update about his care phone number#[phone] Consultants: Neurology Current Inpatient Medications: Current Inpatient Medications Medications (Trade) Dose Ordered Sig/Nadine Route Start Time Stop Time Status Last Admin Dose Admin Enoxaparin Sodium 40 mg 40 mg Q24H SC 12/06/16 09:00 01/05/17 08:59 12/06/16 08:04 40 MG Sodium Chloride (Nss 1000ml) 1,000 ml @ 100 mls/hr Q10H IV 12/05/16 18:57 01/04/17 18:56 12/06/16 08:02 100 MLS/HR Acetaminophen (Tylenol Tab) 650 mg Q4H PRN PO 12/05/16 19:00 01/04/17 18:59 12/06/16 11:45 650 MG Ondansetron HCl (Zofran Inj) 4 mg Q6H PRN IV 12/05/16 19:00 01/04/17 18:59 Nitroglycerin (Nitrostat Tab) 0.4 mg UD PRN SL 12/05/16 19:00 01/04/17 18:59 Miscellaneous Information (Consult Glycemic Management Pharmacy) 1 ea UD PRN N/A 12/05/16 19:33 01/04/17 19:32 Aspirin (Ecotrin Tab) 81 mg DAILY PO 12/06/16 09:00 01/05/17 08:59 12/06/16 08:03 81 MG Lisinopril (Zestril Tab) 5 mg DAILY PO 12/06/16 09:00 01/05/17 08:59 12/06/16 08:03 5 MG Rosuvastatin Calcium (Crestor Tab) 20 mg DAILY PO 12/06/16 09:00 01/05/17 08:59 12/06/16 08:03 20 MG Venlafaxine HCl (effeXOR EXTENDED REL CAP) 150 mg DAILY PO 12/06/16 09:00 01/05/17 08:59 12/06/16 08:02 150 MG Insulin Glargine (Lantus Solostar Pen) 14 unit BID SC 12/05/16 21:00 01/04/17 20:59 12/06/16 08:07 14 UNIT Glucose (Glucose 40% Gel) 15-30 GRAMS 15 GRAMS... UD PRN PO 12/05/16 20:45 01/04/17 20:44 Glucose (Glucose Chew Tab) 4-8 Tablets 4 Tabl... UD PRN PO 12/05/16 20:45 01/04/17 20:44 Dextrose (Dextrose 50% 50ML Syringe) 25-50ML OF 50% DW IV FOR... UD PRN IV 12/05/16 20:45 01/04/17 20:44 Glucagon (Glucagon Inj) 1 mg UD PRN SQ 12/05/16 20:45 01/04/17 20:44 Insulin Aspart (novoLOG ASPART) SLIDING SCALE ACHS SC 12/05/16 21:00 01/04/17 20:59 12/06/16 11:44 7 UNITS Insulin Aspart (novoLOG ASPART) SLIDING SCALE 0000,0400 SC 12/06/16 00:00 01/05/17 00:00 12/06/16 00:20 2 UNITS Gadobutrol (Gadavist) 8 mmol UD PRN IV 12/06/16 00:45 12/10/16 00:44 Clopidogrel Bisulfate (plAVix TAB) 75 mg QAM PO 12/06/16 09:00 01/05/17 08:59 12/06/16 08:02 75 MG
--- NOTE | 2016-12-06 14:38 | DIAGNOSTIC IMAGING REPORT ---
ULTRASOUND OF THE CAROTID ARTERIES CLINICAL HISTORY: Syncope. COMPARISON STUDY: No priors. TECHNIQUE: Real-time, grayscale, and color Doppler sonography of the carotid arteries is performed. Images are reviewed in the transverse and longitudinal planes. FINDINGS: Blood pressure in the right arm measures 132/73 and blood pressure in the left arm measures 195/92. The carotid arteries are patent bilaterally and demonstrate antegrade flow. There is mild/moderate echogenic shadowing atherosclerotic plaque seen bilaterally. Normal doppler arterial waveforms are seen throughout. Velocity measurements are listed below. Common carotid peak systolic velocity (cm/sec): RIGHT: 72 LEFT: 70 ICA proximal peak systolic velocity (cm/sec): RIGHT: 90 LEFT: 88 ICA mid peak systolic velocity (cm/sec): RIGHT: 88 LEFT: 67 ICA distal peak systolic velocity (cm/sec): RIGHT: 53 LEFT: 63 ICA/CC peak systolic ratio: RIGHT: 1.3 LEFT: 1.3 Antegrade flow was shown in the vertebral arteries. The external carotid arteries are patent. The subclavian arteries are patent bilaterally. Velocities in the proximal right subclavian artery appear mildly elevated measuring 255 cm/s. This suggests some degree of stenosis. IMPRESSION: 1. Atherosclerotic plaque with no sonographic evidence of hemodynamically significant stenosis in the right or left carotid arterial system. 2. Antegrade flow is shown in the vertebral arteries. Electronically signed by: Jose Rafael Tabares M.D. 12/06/2016 2:36 PM Dictated Date/Time: 12/06/2016 2:33 PM
--- NOTE | 2016-12-06 15:27 | Neurology Consultation ---
Neurology Consultation Date of Consultation: Dec 06, 2016. Attending Physician: Juan Ward M.D. Primary Care Physician: No Doctor, Assigned Reason for Consultation: CVA History of Present Illness Source: patient Solitario is a 66y//o male with PMH DM 2, CAD s/p CABG, h/o CVA, HTN, DL who was found down at [facility](no witnesses to the event) and brought to the ED. He remembers feeling well earlier in the day and getting a tea at [employer]. He does remember anything until he was in his hospital room. When he arrived in the ED he was alert but disoriented. Currently he has no complaints. He states he starting drinking 4 beers every week but ED reports 4 beers per day.He states he has "constant" stressors and a court date tomorrow and has not been sleeping well. He has not been taking his prescription medications and has not seen a MD for a while because his Dr in [place] retired. Pt has a history of CAD s/p CABG x 5 in February 2016. His blood pressure in the ED was 181/115, glucose was 571. He states he takes a baby aspirin daily and was on Plavix after his open heart surgery but was switched to aspirin only. Tox screen is negative. He state he has never had a similar event and does not have history of seizure disorder. however he states since the heart surgery he gets dizzy with standing and sometimes does not go away. denies headache, CP, SOB, abdominal pain, one sided numbness, weakness, tingling, N, V, vision changes, swallowing difficulty, word finding issues. Past Medical/Surgical History Medical Problems: (1) Diabetes mellitus out of control Status: Acute (2) Hypotension Status: Acute (3) Pulmonary embolism Status: Acute (4) Scalp hematoma Status: Acute (5) Weakness Status: Acute Social History Smokeless Tobacco Use: No Alcohol Use: 3-4 beers daily Drug Use: none Marital Status: single Housing Status: lives with family Occupation Status: retired Allergies Coded Allergies: No Known Allergies (Unverified , 03/23/16) Current Inpatient Medications Current Inpatient Medications Medications (Trade) Dose Ordered Sig/Nadine Route Start Time Stop Time Status Last Admin Dose Admin Enoxaparin Sodium 40 mg 40 mg Q24H SC 12/06/16 09:00 01/05/17 08:59 12/06/16 08:04 40 MG Sodium Chloride (Nss 1000ml) 1,000 ml @ 100 mls/hr Q10H IV 12/05/16 18:57 01/04/17 18:56 12/06/16 08:02 100 MLS/HR Acetaminophen (Tylenol Tab) 650 mg Q4H PRN PO 12/05/16 19:00 01/04/17 18:59 12/06/16 11:45 650 MG Ondansetron HCl (Zofran Inj) 4 mg Q6H PRN IV 12/05/16 19:00 01/04/17 18:59 Nitroglycerin (Nitrostat Tab) 0.4 mg UD PRN SL 12/05/16 19:00 01/04/17 18:59 Miscellaneous Information (Consult Glycemic Management Pharmacy) 1 ea UD PRN N/A 12/05/16 19:33 01/04/17 19:32 Aspirin (Ecotrin Tab) 81 mg DAILY PO 12/06/16 09:00 01/05/17 08:59 12/06/16 08:03 81 MG Lisinopril (Zestril Tab) 5 mg DAILY PO 12/06/16 09:00 01/05/17 08:59 12/06/16 08:03 5 MG Rosuvastatin Calcium (Crestor Tab) 20 mg DAILY PO 12/06/16 09:00 01/05/17 08:59 12/06/16 08:03 20 MG Venlafaxine HCl (effeXOR EXTENDED REL CAP) 150 mg DAILY PO 12/06/16 09:00 01/05/17 08:59 12/06/16 08:02 150 MG Insulin Glargine (Lantus Solostar Pen) 14 unit BID SC 12/05/16 21:00 01/04/17 20:59 12/06/16 08:07 14 UNIT Glucose (Glucose 40% Gel) 15-30 GRAMS 15 GRAMS... UD PRN PO 12/05/16 20:45 01/04/17 20:44 Glucose (Glucose Chew Tab) 4-8 Tablets 4 Tabl... UD PRN PO 12/05/16 20:45 01/04/17 20:44 Dextrose (Dextrose 50% 50ML Syringe) 25-50ML OF 50% DW IV FOR... UD PRN IV 4/25/17 20:45 01/04/17 20:44 Glucagon (Glucagon Inj) 1 mg UD PRN SQ 12/05/16 20:45 01/04/17 20:44 Insulin Aspart (novoLOG ASPART) SLIDING SCALE ACHS SC 12/05/16 21:00 01/04/17 20:59 12/06/16 11:44 7 UNITS Gadobutrol (Gadavist) 8 mmol UD PRN IV 12/06/16 00:45 12/10/16 00:44 Clopidogrel Bisulfate (plAVix TAB) 75 mg QAM PO 12/06/16 09:00 01/05/17 08:59 12/06/16 08:02 75 MG Insulin Aspart (novoLOG ASPART) SLIDING SCALE 0200 SC 12/07/16 02:00 01/06/17 01:59 Physical Exam Vital Signs (Past 24 Hrs): Date Time Temp Pulse Resp B/P Pulse Ox O2 Delivery O2 Flow Rate FiO2 12/06/16 12:00 Room Air 12/06/16 12:00 Room Air 12/06/16 10:37 36.9 88 20 151/74 95 Room Air 12/06/16 08:00 Room Air 12/06/16 07:48 37.1 84 20 161/87 97 161/107 12/06/16 04:08 36.8 79 18 151/82 96 Room Air 12/06/16 04:00 Room Air 12/06/16 00:13 36.9 90 18 162/88 97 Room Air 12/06/16 00:01 Room Air 12/05/16 19:57 36.6 101 24 171/92 97 Room Air 12/05/16 19:23 95 18 130/93 95 Room Air 12/05/16 18:14 92 20 142/81 96 Room Air 12/05/16 17:30 91 21 165/102 97 Room Air 12/05/16 16:59 99 22 164/99 99 Room Air 12/05/16 16:33 92 Room Air 12/05/16 16:33 92 Room Air 12/05/16 16:33 36.5 103 15 181/115 93 Room Air 12/05/16 16:28 105 Physical Exam: Constitutional: appearance nourished, healthy and obese Ears, Nose, Mouth and Throat: mucous membranes moist, sclera is injected Cardiovascular: normal S-1 and S-2 and regular rate and rhythm Respiratory: clear to auscultation (CTA) and no rales, rhonchi or wheeze Musculoskeletal: no peripheral edema and good distal pulses Skin: no stigmata of neurocutaneous disease noted and normal and intact Eyes: extraocular muscles intact (EOMI) and pupils equal, round and reactive to light (PERRL), miotic NEUROLOGIC EXAMINATION: Mental status: Alert and interactive Oriented to full date and location, president, [facility], he can recall everything prior to event and then in the hospital after the event Oriented to person Speech fluent with no evidence of aphasia Cranial Nerves smile and eye brow raise symmetric, tongue midline Reflexes: Deep tendon reflexes were symmetrical and graded 2/5. Plantar responses were flexor. Sensory: light touch, vibration, cool touch intact Coordination: finger to nose with out bi pass or tremor Gait/Stance: Posture lying in bed Motor: Negative for pronator drift of out stretched arms with eyes closed. Strength: biceps, triceps, deltoids, intrinsics bilaterally 5/5, hip flex patellar flex ext, plantar flex ext 5/5 bilaterally Laboratory Results Past 24 Hours: 12/06/16 05:33 12/06/16 05:33 Test 12/05/16 16:35 12/05/16 17:20 12/05/16 18:14 12/06/16 05:33 Immature Granulocyte % (Auto) 1.0 % White Blood Count 8.34 K/uL (4.8-10.8) Red Blood Count 5.47 M/uL (4.7-6.1) 4.96 M/uL (4.7-6.1) Hemoglobin 16.5 g/dL (14.0-18.0) Hematocrit 48.3 % (42-52) Mean Corpuscular Volume 88.3 fL (80-100) 88.9 fL (80-100) Mean Corpuscular Hemoglobin 30.2 pg (25-34) 31.3 pg (25-34) Mean Corpuscular Hemoglobin Concent 34.2 g/dl (32-36) 35.1 g/dl (32-36) Platelet Count 240 K/uL (130-400) Mean Platelet Volume 9.1 fL (7.4-10.4) 9.0 fL (7.4-10.4) Neutrophils (%) (Auto) 66.1 % Lymphocytes (%) (Auto) 23.5 % Monocytes (%) (Auto) 6.8 % Eosinophils (%) (Auto) 2.0 % Basophils (%) (Auto) 0.6 % Neutrophils # (Auto) 5.51 K/uL (1.4-6.5) Lymphocytes # (Auto) 1.96 K/uL (1.2-3.4) Monocytes # (Auto) 0.57 K/uL (0.11-0.59) Eosinophils # (Auto) 0.17 K/uL (0-0.5) Basophils # (Auto) 0.05 K/uL (0-0.2) Immature Granulocyte # (Auto) 0.08 K/uL (0.00-0.02) Prothrombin Time 10.0 SECONDS (9.0-12.0) Prothromb Time International Ratio 0.9 (0.9-1.1) Activated Partial Thromboplast Time 23.6 SECONDS (21.0-31.0) Partial Thromboplastin Ratio 0.9 Total Bilirubin 0.7 mg/dl (0.2-1) Aspartate Amino Transf (AST/SGOT) 45 U/L (15-37) Alanine Aminotransferase (ALT/SGPT) 40 U/L (12-78) Alkaline Phosphatase 98 U/L (45-117) Total Protein 7.9 gm/dl (6.4-8.2) Albumin 3.9 gm/dl (3.4-5.0) Globulin 4.0 gm/dl (2.5-4.0) Albumin/Globulin Ratio 1.0 (0.9-2) Beta-Hydroxybutyric Acid 11.63 mg/dL (0.2-2.81) Urine Color YELLOW Urine Appearance CLEAR (CLEAR) Urine pH 5.0 (4.5-7.5) Urine Specific [place] 1.032 (1.000-1.030) Urine Protein 1+ (NEG) Urine Glucose (UA) 3+ (NEG) Urine Ketones 1+ (NEG) Urine Occult Blood TRACE (NEG) Urine Nitrite NEG (NEG) Urine Bilirubin NEG (NEG) Urine Urobilinogen NEG (NEG) Urine Leukocyte Esterase NEG (NEG) Urine WBC (Auto) 0 /hpf (0-5) Urine RBC (Auto) 0-4 /hpf (0-4) Urine Hyaline Casts (Auto) 0 /lpf (0-5) Urine Epithelial Cells (Auto) 0-5 /lpf (0-5) Urine Bacteria (Auto) NEG (NEG) Urine Opiates Screen NEG (NEG) Urine Methadone, Qualitative NEG (NEG) Urine Barbiturates NEG (NEG) Urine Phencyclidine (PCP) Level NEG (NEG) Ur Amphetamine/Methamphetamine NEG (NEG) MDMA (Ecstasy) Screen NEG (NEG) Urine Benzodiazepines Screen NEG (NEG) Urine Cocaine Metabolite NEG (NEG) Urine Marijuana (THC) NEG (NEG) Venous Blood pH 7.38 (7.36-7.41) Venous Blood Partial Pressure CO2 42 mmHg (38.0-50.0) Venous Blood Partial Pressure O2 40 mmHg Venous Blood HCO3 24 mmol/L Venous Blood Oxygen Saturation 72.3 % Venous Blood Base Excess -0.8 mmol/L Lactic Acid Level 1.9 mmol/L (0.4-2.0) Ethyl Alcohol mg/dL < 3.0 mg/dl (0-3) RDW Standard Deviation 42.7 fL (36.4-46.3) RDW Coefficient of Variation 13.1 % (11.5-14.5) Anion Gap 8.0 mmol/L (3-11) Est Creatinine Clear Calc Drug Dose 85.4 ml/min Estimated GFR () 106.1 Estimated GFR (Non- 91.5 BUN/Creatinine Ratio 21.2 (10-20) Estimated Average Glucose 295 mg/dl Hemoglobin A1c 11.9 % (4.5-5.6) Calcium Level 8.5 mg/dl (8.5-10.1) Troponin I 0.040 ng/ml (0-0.045) Triglycerides Level 321 mg/dl (0-150) Cholesterol Level 236 mg/dl (0-200) HDL Cholesterol 39 mg/dl LDL Cholesterol, Calculated 133 mg/dl VLDL Cholesterol, Calculated 64 mg/dl Cholesterol/HDL Ratio 6.1 Test 12/06/16 11:38 Bedside Glucose 226 mg/dl (70-99) Imaging carotid doppler-Atherosclerotic plaque with no sonographic evidence of hemodynamically significant stenosis in the right or left carotid arterial system. Antegrade flow is shown in the vertebral arteries. MRI with and without brain- . Multiple small foci restricted water diffusion involving the left parietal lobe, left occipital lobe, and left centrum semiovale consistent with small acute infarcts Old left cerebellar infarct and scattered lacunar infarcts No pathologically enhancing masses Scalp edema right. CT c spine -No acute cervical spine fracture or subluxation. TTE- The left ventricle is grossly normal size. * Left ventricular systolic function is normal. * Ejection Fraction = 55-60%. * The right ventricular systolic function is normal. * The left atrial size is normal. * Right atrial size is normal. * No significant valvular pathology. NO ASD Impression 66 year old male s/p syncope unwitnessed event, CVA on MRI Plan 1. optimize DM/ HTN/ cholestrol managment 2. PT/OT speech- for discharge needs 3. orthostatic blood pressures-ordered 4. EEG- syncope event-ordered 5. currently on monitor- evaluate for irregular heart rate 6. if no afib would cardio net as out patient 7. was on aspirin prior to event, continue aspirin 81 mg daily and plavix 75 mg added, continue for 3 months and then aspirin for a lifetime. 8. MRA to evaluate for vascular causes of syncope I have seen and discussed above patient with Dr Mabel Beckman, neurology Pt seen and examined, hx reviewed. found down, amnestic, with ischemia in the L mca. Exam notable for minor L tongue lac. No speech or language dysfunction, no field cut, no hemiparesis. Imp L MCA infarct in setting of med noncompliance, severe hyperglycemia. would add EEG, mra [place]. Add Plavix to asa. As long as EEG is not frankly abnl would not treat for sz as event could have been provoked by hyperglycemia or stroke. LUIS MANUEL Beckman MD
--- NOTE | 2016-12-06 18:02 | DIAGNOSTIC IMAGING REPORT ---
Brain MRA HISTORY: stroke and syncope TECHNIQUE: 3-D [id number] MRA of the brain was performed without contrast. COMPARISON STUDY: Brain MRI 12/05/2016. FINDINGS: There is mild to moderate multifocal narrowing within the distal right intracranial internal carotid artery. There are severe focal narrowing within the left carotid siphon with additional areas of moderate multifocal narrowing within the left intracranial internal carotid artery. The vertebral arteries are faintly visualized and likely occluded distally. The proximal to mid basilar artery is not well visualized and also likely occluded. There is trace flow within the distal basilar artery. This may be due to reconstitution from the bilateral posterior communicating arteries which feed the patent bilateral EXECUTIVE ADMINISTRATIVE ASSISTANT. No significant stenosis or occlusion within the right MCA. There is mild narrowing of the proximal left MCA. The left A1 segment is only faintly visualized and may be severely stenosed. The right A1 segment is patent. The bilateral A2/A3 segments are patent. IMPRESSION: 1. Severe focal narrowing within the left carotid siphon with additional areas of moderate multifocal narrowing within the left intracranial internal carotid artery. 2. Mild/moderate multifocal narrowing within the distal right intracranial internal carotid artery. 3. 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 The posterior communicating arteries feeding the patent bilateral coverstitch elastic attacher. The distal bilateral vertebral arteries are also likely occluded. 4. Mild narrowing at the left M1 segment. 5. Severe stenosis within the left A1 segment. Electronically signed by: Esteban Lemus M.D. 12/06/2016 6:00 PM Dictated Date/Time: 12/06/2016 5:54 PM
[2016-12-07] VITALS (8 sets, daily range): BP systolic 113–147; BP diastolic 62–92; PULSE 72–90; TEMP 36.5–37.1; O2SAT 96–98
[2016-12-07] MEDS ORDERED: INSULIN ASPART 100 UNITS/ML 3 ML PEN SC SCH (02:00)
[2016-12-07] MEDS: SODIUM CHLORIDE 0.9% 1000ML 1,000 ML IV SCH ×2 (05:37→16:55)
[2016-12-07 06:15] LABS: BUN/CREATININE RATIO 17.8 (10-20); CALCIUM 8.1 mg/dl (8.5-10.1); CREATININE 0.78 mg/dl (0.60-1.40); MAGNESIUM 2.2 mg/dl (1.8-2.4); POTASSIUM 4.1 mmol/L (3.5-5.1)
[2016-12-07] MEDS: INSULIN ASPART 100 UNITS/ML 3 ML PEN SC SCH ×3 (09:28→16:55)
[2016-12-07] MEDS: INSULIN GLARGINE SOLOSTAR 100 UNITS/ML 3 ML PEN SC SCH (09:29)
[2016-12-07] MEDS: ROSUVASTATIN CALCIUM 20 MG TAB PO SCH (09:31)
[2016-12-07] MEDS: ASPIRIN 81 MG ECTAB PO SCH (09:32)
[2016-12-07] MEDS: CLOPIDOGREL BISULFATE 75 MG TAB PO SCH (09:32)
[2016-12-07] MEDS: VENLAFAXINE HCL XR 150 MG CAPXR PO SCH (09:32)
[2016-12-07] MEDS: LISINOPRIL 5 MG TAB PO SCH (09:32)
[2016-12-07] MEDS: ENOXAPARIN 40 MG/0.4 ML SYR SC SCH (09:33)
--- NOTE | 2016-12-07 10:43 | EEG Procedure Note ---
EEG Procedure Note Date of Service Dec 07, 2016. Home Medication List Scheduled Aspirin (Aspirin EC Low Dose), 81 MG PO DAILY Clopidogrel Bisulfate (Clopidogrel), 75 MG PO QAM Glipizide (Glucotrol), 10 MG PO BID Insulin Aspart (Novolog Flexpen), 0 UNITS SC ACHS Insulin Glargine (Lantus Solostar), 14 UNIT SC BID Lisinopril (Prinivil), 5 MG PO DAILY Metformin Hcl (Glucophage), 1,000 MG PO DAILY Rosuvastatin Calcium (Crestor), 20 MG PO DAILY Venlafaxine Hcl (Effexor Xr), 150 MG PO DAILY Inpatient Medication List Current Inpatient Medications Medications (Trade) Dose Ordered Sig/Nadine Route Start Time Stop Time Status Last Admin Dose Admin Enoxaparin Sodium 40 mg 40 mg Q24H SC 12/06/16 09:00 01/05/17 08:59 12/07/16 09:33 40 MG Sodium Chloride (Nss 1000ml) 1,000 ml @ 100 mls/hr Q10H IV 12/05/16 18:57 01/04/17 18:56 12/07/16 05:37 100 MLS/HR Acetaminophen (Tylenol Tab) 650 mg Q4H PRN PO 12/05/16 19:00 01/04/17 18:59 12/06/16 11:45 650 MG Ondansetron HCl (Zofran Inj) 4 mg Q6H PRN IV 12/05/16 19:00 01/04/17 18:59 Nitroglycerin (Nitrostat Tab) 0.4 mg UD PRN SL 12/05/16 19:00 01/04/17 18:59 Miscellaneous Information (Consult Glycemic Management Pharmacy) 1 ea UD PRN N/A 12/05/16 19:33 01/04/17 19:32 Aspirin (Ecotrin Tab) 81 mg DAILY PO 12/06/16 09:00 01/05/17 08:59 12/07/16 09:32 81 MG Lisinopril (Zestril Tab) 5 mg DAILY PO 12/06/16 09:00 01/05/17 08:59 12/07/16 09:32 5 MG Rosuvastatin Calcium (Crestor Tab) 20 mg DAILY PO 12/06/16 09:00 01/05/17 08:59 12/07/16 09:31 20 MG Venlafaxine HCl (effeXOR EXTENDED REL CAP) 150 mg DAILY PO 12/06/16 09:00 01/05/17 08:59 12/07/16 09:32 150 MG Insulin Glargine (Lantus Solostar Pen) 14 unit BID SC 12/05/16 21:00 01/04/17 20:59 12/07/16 09:29 14 UNIT Glucose (Glucose 40% Gel) 15-30 GRAMS 15 GRAMS... UD PRN PO 12/05/16 20:45 01/04/17 20:44 Glucose (Glucose Chew Tab) 4-8 Tablets 4 Tabl... UD PRN PO 12/05/16 20:45 01/04/17 20:44 Dextrose (Dextrose 50% 50ML Syringe) 25-50ML OF 50% DW IV FOR... UD PRN IV 12/05/16 20:45 01/04/17 20:44 Glucagon (Glucagon Inj) 1 mg UD PRN SQ 12/05/16 20:45 01/04/17 20:44 Insulin Aspart (novoLOG ASPART) SLIDING SCALE ACHS OR 12/05/16 21:00 01/04/17 20:59 12/07/16 09:28 7 UNITS Gadobutrol (Gadavist) 8 mmol UD PRN IV 12/06/16 00:45 12/10/16 00:44 Clopidogrel Bisulfate (plAVix TAB) 75 mg QAM PO 12/06/16 09:00 01/05/17 08:59 12/07/16 09:32 75 MG Insulin Aspart (novoLOG ASPART) SLIDING SCALE 0200 OR 12/07/16 02:00 01/06/17 01:59 Description This is a 21 electrode EEG with a single channel dedicated to limited EKG. The electrodes were placed in accordance with the International 10-20 system. Interpretation This is an abnormal routine EEG secondary to mild background slowing. There was no electrographic seizures or epileptiform discharges. Clinical Correlation This EEG indicates a mild encephalopathy of nonspecific etiology.
--- NOTE | 2016-12-07 10:46 | ELECTROENCEPHALOGRAPH REPORT ---
CLINICAL DIAGNOSIS: Question seizure disorder. EEG DIAGNOSIS: Essentially normal during wakefulness. DESCRIPTION OF TRACING: This EEG was obtained as a bedside recording with a simultaneous video analysis of patient movement and behavior. Photic stimulation was performed. Hyperventilation was not. Drowsiness and light sleep were not obtained. In general, the tracing was of good technical quality with few or no muscle movement artifacts. During wakefulness, there is evidence for a background rhythm in the alpha range of up to 9-10 Hz of maximum frequency and 30 microvolts of maximum amplitude. This is maximum posterior head regions and bilaterally symmetrical. Polymorphic mid frequency of modest amplitude theta activity is seen over all head regions with some predilection for the bifrontal and central regions in a symmetrical fashion. Anterior head region maximum bilaterally symmetrical low voltage fast activity in the beta range is present. Photic stimulation provokes a modest driving response without a photomyogenic or photoparoxysmal component. At no time during the waking tracing is there evidence for potentially epileptogenic activity in the form of polyspike or spike wave bursts, focal sharp waves or focal spikes. INTERPRETATION: This EEG is essentially normal during wakefulness without evidence for focal or generalized encephalopathy and without evidence for potentially epileptogenic activity.
--- NOTE | 2016-12-07 14:17 | Neurology Progress Notes ---
Neurology Progress Note Date of Service Dec 07, 2016. Junior Jerez is a 66y//o male with PMH DM 2, CAD s/p CABG, h/o CVA, HTN, DL who was found down at [facility](no witnesses to the event) and brought to the ED. He remembers feeling well earlier in the day and getting a tea at [employer]. He does remember anything until he was in his hospital room. When he arrived in the ED he was alert but disoriented. Currently he has no complaints. He states he starting drinking 4 beers every week but ED reports 4 beers per day.He states he has "constant" stressors and a court date tomorrow and has not been sleeping well. He has not been taking his prescription medications and has not seen a MD for a while because his Dr in [place] retired. Pt has a history of CAD s/p CABG x 5 in February 2016. His blood pressure in the ED was 181/115, glucose was 571. He states he takes a baby aspirin daily and was on Plavix after his open heart surgery but was switched to aspirin only. Tox screen is negative. He state he has never had a similar event and does not have history of seizure disorder. however he states since the heart surgery he gets dizzy with standing and sometimes does not go away. Today he states he is doing well. He is still getting dizzy/lightheaded with movement. no other complaints. denies headache, CP, SOB, abdominal pain, one sided numbness, weakness, tingling, N, V, vision changes, swallowing difficulty , word finding issues. Objective Date Time Temp Pulse Resp B/P Pulse Ox O2 Delivery O2 Flow Rate FiO2 12/07/16 11:29 Room Air 12/07/16 11:11 36.6 90 20 143/92 97 Room Air 12/07/16 08:07 37.1 84 20 113/73 97 Room Air 12/07/16 08:00 Room Air 12/07/16 04:05 36.6 72 22 120/62 98 Room Air 12/07/16 04:00 Room Air 12/07/16 00:14 90 143/90 12/07/16 00:10 90 141/78 12/07/16 00:04 36.5 84 19 138/82 97 Room Air 12/07/16 00:01 Room Air 12/06/16 20:00 96 Room Air 12/06/16 19:37 36.7 85 18 140/83 98 Room Air 86 131/75 90 149/84 12/06/16 16:00 95 Room Air 12/06/16 15:36 36.6 72 18 146/124 95 Room Air Last 24 Hours Test 12/06/16 16:07 12/06/16 20:05 12/07/16 01:48 12/07/16 05:22 Bedside Glucose 258 mg/dl 174 mg/dl 119 mg/dl Sodium Level 143 mmol/L Potassium Level 4.1 mmol/L Chloride Level 112 mmol/L Carbon Dioxide Level 28 mmol/L Anion Gap 3.0 mmol/L Blood Urea Nitrogen 14 mg/dl Creatinine 0.78 mg/dl Est Creatinine Clear Calc Drug Dose 89.8 ml/min Estimated GFR () 108.3 Estimated GFR (Non- 93.4 BUN/Creatinine Ratio 17.8 Random Glucose 133 mg/dl Calcium Level 8.1 mg/dl Magnesium Level 2.2 mg/dl Test 12/07/16 07:10 12/07/16 11:45 Bedside Glucose 126 mg/dl 188 mg/dl Imaging: EEG- This EEG indicates a mild encephalopathy of nonspecific etiology. MRA head- Severe focal narrowing within the left carotid siphon with additional areas of moderate multifocal narrowing within the left intracranial internal carotid artery. Mild/moderate multifocal narrowing within the distal right intracranial internal carotid artery. 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 The posterior communicating arteries feeding the patent bilateral flanging operator. The distal bilateral vertebral arteries are also likely occluded. Mild narrowing at the left M1 segment. Severe stenosis within the left A1 segment. Exam: Physical Exam: Constitutional: appearance nourished, healthy and obese Ears, Nose, Mouth and Throat: mucous membranes moist, no injection and skin normal, eyes normal Cardiovascular: normal S-1 and S-2 and regular rate and rhythm Respiratory: clear to auscultation (CTA) and no rales, rhonchi or wheeze Musculoskeletal: no peripheral edema and good distal pulses Skin: no stigmata of neurocutaneous disease noted and normal and intact Eyes: extraocular muscles intact (EOMI) and pupils equal, round and reactive to light (PERRL) NEUROLOGIC EXAMINATION: Mental status: Alert and interactive Oriented to full date and location Oriented to person Speech fluent with no evidence of aphasia Cranial Nerves smile eye brow raise symmetric, tongue midline Coordination: finger to nose with no bipass, or tremor Gait/Stance: Posture lying in bed Motor: Negative for pronator drift of out stretched arms with eyes closed. Strength: biceps triceps hand watch repair technician 5/5 bilaterally, hip flex plantar flex ext 5/5 bilaterally Current Inpatient Medications Medications (Trade) Dose Ordered Sig/Nadine Route Start Time Stop Time Status Last Admin Dose Admin Enoxaparin Sodium 40 mg 40 mg Q24H SC 12/06/16 09:00 01/05/17 08:59 12/07/16 09:33 40 MG Sodium Chloride (Nss 1000ml) 1,000 ml @ 100 mls/hr Q10H IV 12/05/16 18:57 01/04/17 18:56 12/07/16 05:37 100 MLS/HR Acetaminophen (Tylenol Tab) 650 mg Q4H PRN PO 12/05/16 19:00 01/04/17 18:59 12/06/16 11:45 650 MG Ondansetron HCl (Zofran Inj) 4 mg Q6H PRN IV 12/05/16 19:00 01/04/17 18:59 Nitroglycerin (Nitrostat Tab) 0.4 mg UD PRN SL 12/05/16 19:00 01/04/17 18:59 Miscellaneous Information (Consult Glycemic Management Pharmacy) 1 ea UD PRN N/A 12/05/16 19:33 01/04/17 19:32 Aspirin (Ecotrin Tab) 81 mg DAILY PO 12/06/16 09:00 01/05/17 08:59 12/07/16 09:32 81 MG Lisinopril (Zestril Tab) 5 mg DAILY PO 12/06/16 09:00 01/05/17 08:59 12/07/16 09:32 5 MG Rosuvastatin Calcium (Crestor Tab) 20 mg DAILY PO 12/06/16 09:00 01/05/17 08:59 12/07/16 09:31 20 MG Venlafaxine HCl (effeXOR EXTENDED REL CAP) 150 mg DAILY PO 12/06/16 09:00 01/05/17 08:59 12/07/16 09:32 150 MG Insulin Glargine (Lantus Solostar Pen) 14 unit BID SC 12/05/16 21:00 01/04/17 20:59 12/07/16 09:29 14 UNIT Glucose (Glucose 40% Gel) 15-30 GRAMS 15 GRAMS... UD PRN PO 12/05/16 20:45 01/04/17 20:44 Glucose (Glucose Chew Tab) 4-8 Tablets 4 Tabl... UD PRN PO 12/05/16 20:45 01/04/17 20:44 Dextrose (Dextrose 50% 50ML Syringe) 25-50ML OF 50% DW IV FOR... UD PRN IV 12/05/16 20:45 01/04/17 20:44 Glucagon (Glucagon Inj) 1 mg UD PRN SQ 12/05/16 20:45 01/04/17 20:44 Insulin Aspart (novoLOG ASPART) SLIDING SCALE ACHS SC 12/05/16 21:00 01/04/17 20:59 12/07/16 09:28 7 UNITS Gadobutrol (Gadavist) 8 mmol UD PRN IV 12/06/16 00:45 12/10/16 00:44 Clopidogrel Bisulfate (plAVix TAB) 75 mg QAM PO 12/06/16 09:00 01/05/17 08:59 12/07/16 09:32 75 MG Impression 66 year old male s/p syncope unwitnessed event, CVA on MRI Plan 1. optimize DM/ HTN/ cholestrol managment 2. PT/OT speech- for discharge needs 3. orthostatic blood pressures- not orthostatic 4. EEG- syncope event-no evidence of seizure activity 5. currently on monitor- evaluate for irregular heart rate 6. if no afib would cardio net as out patient 7. was on aspirin prior to event, continue aspirin 81 mg daily and plavix 75 mg added, continue for 3 months and then aspirin for a lifetime. 8. MRA to evaluate for vascular causes of syncope- severe stenosis and occlusion - likely causing dizziness, would liberalize blood pressure neurology 2-3 weeks after rehab Mabel Wren PAC schedule I have seen and discussed above patient with Dr Mabel Beckman, neurology Pt seen and examined. NO deficit of speech, language, doss, face, or motor. Symptomatic intracranial stenosis of the left carotid siphon. continue dual antiplt tx. Pt has been complaining of vague lightedness could be mildly symptomatic for basilar stenosis/occlusion if he hypoperfuses. Would avoid hypotension in this pt. He should arise slowly as well. LUIS MANUEL Beckman,
--- NOTE | 2016-12-07 17:01 | Progress Note ---
Medicine Progress Note Date & Time of Visit: Dec 07, 2016 at 16:25. Subjective Pt was seen and examined Lying in bed with no distress Pt said that he feels slightly dizzy today when standing Denies any chest pain, palpitation, SOB Objective Last 8 Hrs Date Time Temp Pulse Resp B/P Pulse Ox O2 Delivery O2 Flow Rate FiO2 12/07/16 11:29 Room Air 12/07/16 11:11 36.6 90 20 143/92 97 Room Air Physical Exam: General-no acute distress Head- atraumatic Eyes- PERRL, EOMI ENT- oropharynx clear Neck- supple, no JVD Lungs- No wheezing Heart- regular rhythm, no murmur Abdomen- normal bowel sounds, soft Extremities- no calf tenderness Neuro- alert, oriented x 3; PERRL, EOMI; no facial palsy; no dysarthria; motor 5 /5 bilaterally Skin- warm & dry Laboratory Results: Last 24 Hours Test 12/06/16 20:05 12/07/16 01:48 12/07/16 05:22 12/07/16 07:10 Bedside Glucose 174 mg/dl 119 mg/dl 126 mg/dl Sodium Level 143 mmol/L Potassium Level 4.1 mmol/L Chloride Level 112 mmol/L Carbon Dioxide Level 28 mmol/L Anion Gap 3.0 mmol/L Blood Urea Nitrogen 14 mg/dl Creatinine 0.78 mg/dl Est Creatinine Clear Calc Drug Dose 89.8 ml/min Estimated GFR () 108.3 Estimated GFR (Non- 93.4 BUN/Creatinine Ratio 17.8 Random Glucose 133 mg/dl Calcium Level 8.1 mg/dl Magnesium Level 2.2 mg/dl Test 12/07/16 11:45 Bedside Glucose 188 mg/dl Assessment & Plan SYNCOPE Pt found in [facility] bathroom Continue monitor in telemetry CT head and Cervical Spine CT negative MRI of the brain showed Multiple small foci restricted water diffusion involving the left parietal lobe, left occipital lobe, and left centrum semiovale consistent with small acute infarcts. Carotid U/S showed Atherosclerotic plaque with no sonographic evidence of hemodynamically significant stenosis in the right or left carotid arterial system. 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 Continue aspirin and statin Continue Plavix for at least 3 months No afib on tele monitor, would cardio net as out patient Echo done showed: Conclusions -- * The left ventricle is grossly normal size. * Left ventricular systolic function is normal. * Ejection Fraction = 55-60%. * The right ventricular systolic function is normal. * The left atrial size is normal. * Right atrial size is normal. * No significant valvular pathology. DIZZINESS Mildly. Possible due to Hypoperfusion from basilar and vertebral arteries occlusion Avoid hypotension Advised pt when standing to arise slowly Fall precaution DM TYPE 2 uncontrolled Recent Hba1c 11.9 (12/06/16) Glucose on admission was 571 hold glipizide and metformin during the hospital stay On Lantus 14 units BID Continue monitor BSG diabetic education consulted Will discharge on Lantus 14 units BID and titrate if needed Will D/C glipizide to avoid hypoglycemic episodes Continue Metformin Will do NovoLog ACHS for coverage with a goal of BS 110 to 150 Use Nicole Factor 25mg/dl and Carb ratio of 1 unit per 8g CORONARY ARTERY DISEASE s/p CABG x 15 February 2016 cont ASA, BB and statin asymptomatic Echo is normal H/O CVA cont ASA and statin HTN cont lisinopril and metoprolol Avoid hypotension monitor DYSLIPIDEMIA cont statin DVT PROPHYLAXIS subq Lovenox CODE STATUS FULL CODE DISPOSITION Will discharge to [facility] for rehab Daughter (Melida) was update about his care phone number#[phone] Consultants: Neurology Current Inpatient Medications: Current Inpatient Medications Medications (Trade) Dose Ordered Sig/Nadine Route Start Time Stop Time Status Last Admin Dose Admin Enoxaparin Sodium 40 mg 40 mg Q24H SC 12/06/16 09:00 01/05/17 08:59 12/07/16 09:33 40 MG Sodium Chloride (Nss 1000ml) 1,000 ml @ 100 mls/hr Q10H IV 12/05/16 18:57 01/04/17 18:56 12/07/16 05:37 100 MLS/HR Acetaminophen (Tylenol Tab) 650 mg Q4H PRN PO 12/05/16 19:00 01/04/17 18:59 12/06/16 11:45 650 MG Ondansetron HCl (Zofran Inj) 4 mg Q6H PRN IV 12/05/16 19:00 01/04/17 18:59 Nitroglycerin (Nitrostat Tab) 0.4 mg UD PRN SL 12/05/16 19:00 01/04/17 18:59 Miscellaneous Information (Consult Glycemic Management Pharmacy) 1 ea UD PRN N/A 12/05/16 19:33 01/04/17 19:32 Aspirin (Ecotrin Tab) 81 mg DAILY PO 12/06/16 09:00 01/05/17 08:59 12/07/16 09:32 81 MG Lisinopril (Zestril Tab) 5 mg DAILY PO 12/06/16 09:00 01/05/17 08:59 12/07/16 09:32 5 MG Rosuvastatin Calcium (Crestor Tab) 20 mg DAILY PO 12/06/16 09:00 01/05/17 08:59 12/07/16 09:31 20 MG Venlafaxine HCl (effeXOR EXTENDED REL CAP) 150 mg DAILY PO 12/06/16 09:00 01/05/17 08:59 12/07/16 09:32 150 MG Insulin Glargine (Lantus Solostar Pen) 14 unit BID SC 12/05/16 21:00 01/04/17 20:59 12/07/16 09:29 14 UNIT Glucose (Glucose 40% Gel) 15-30 GRAMS 15 GRAMS... UD PRN PO 12/05/16 20:45 01/04/17 20:44 Glucose (Glucose Chew Tab) 4-8 Tablets 4 Tabl... UD PRN PO 12/05/16 20:45 01/04/17 20:44 Dextrose (Dextrose 50% 50ML Syringe) 25-50ML OF 50% DW IV FOR... UD PRN IV 12/05/16 20:45 01/04/17 20:44 Glucagon (Glucagon Inj) 1 mg UD PRN SQ 12/05/16 20:45 01/04/17 20:44 Insulin Aspart (novoLOG ASPART) SLIDING SCALE ACHS SC 12/05/16 21:00 01/04/17 20:59 12/07/16 09:28 7 UNITS Gadobutrol (Gadavist) 8 mmol UD PRN IV 12/06/16 00:45 12/10/16 00:44 Clopidogrel Bisulfate (plAVix TAB) 75 mg QAM PO 12/06/16 09:00 01/05/17 08:59 12/07/16 09:32 75 MG
[2016-12-07] MEDS ORDERED: PLV75 PO (17:06)
[2016-12-07] MEDS ORDERED: INSDGIPEN SC (17:06)
[2016-12-07] MEDS ORDERED: NVLGIPEN SC (17:06)
--- NOTE | 2016-12-07 17:17 | Discharge Instructions ---
Discharge Instructions Date of Service Dec 07, 2016. Admission Reason for Admission: Hyperglycemia, Syncope Discharge Discharge Diagnosis / Problem: ACUTE INFARCT LEFT PARIETAL AND OCCIPITAL AREA, Uncontrolled DM II, Syncope Discharge Goals Goal(s): Decrease discomfort, Improve function, Improve disease control Activity Recommendations Activity Limitations: resume your previous activity (as tolerated) . Instructions / Follow-Up Instructions / Follow-Up Discharge to [facility] Schedule follow up appointment with your PCP once discharge from rehab Follow up appointment with Neurology Dr. Beckman in 2- 3 weeks after discharge from rehab Continue PT/OT Fall precaution Continue Plavix and aspirin Advised pt to arise slowly when standing to avoid any fall due to dizziness Follow up a low Carb diet and limited concentrated sugar Monitor blood sugar Starting on insulin (lantus), your physician will titrate it up or down according with your blood sugar Current Hospital Diet Patient's current hospital diet: Diabetes Type 2 Diet, AHA Diet (Heart Healthy) Discharge Diet Recommended Diet: AHA Diet (Heart Healthy), Diabetes Type 2 Diet Pending Studies Studies pending at discharge: no Laboratory Results Hemoglobin A1c Test 12/06/16 05:33 Range/Units Estimated Average Glucose 295 mg/dl Hemoglobin A1c 11.9 H 4.5-5.6 % Lipid Panel Test 12/06/16 05:33 Range/Units Triglycerides Level 321 H 0-150 mg/dl Cholesterol Level 236 H 0-200 mg/dl HDL Cholesterol 39 mg/dl Cholesterol/HDL Ratio 6.1 LDL Cholesterol, Calculated 133 mg/dl Medical Emergencies . Who to Call and When: Medical Emergencies: If at any time you feel your situation is an emergency, please call 911 immediately. . Non-Emergent Contact Non-Emergency issues call your: Primary Care Provider . . "Provider Documentation" section prepared by Juan Ward. . VTE Core Measure Inpt VTE Proph given/why not?: Enoxaparin (Lovenox)SQ
--- NOTE | 2016-12-09 18:10 | Discharge Summary ---
Discharge Summary Date of Service Dec 09, 2016. Discharge Summary Admission Date: Dec 05, 2016 at 19:00 Discharge Date: Dec 07, 2016 Discharge Disposition: Rehab Principal Diagnosis: ACUTE INFARCT LEFT PARIETAL AND OCCIPITAL AREA Secondary Diagnoses/Problems: Uncontrolled DM II Syncope CORONARY ARTERY DISEASE H/o CVA Dizziness HTN Dyslipidemia Procedures: Brain MRA HISTORY: stroke and syncope TECHNIQUE: 3-D [id number] MRA of the brain was performed without contrast. COMPARISON STUDY: Brain MRI 12/05/2016. FINDINGS: There is mild to moderate multifocal narrowing within the distal right intracranial internal carotid artery. There are severe focal narrowing within the left carotid siphon with additional areas of moderate multifocal narrowing within the left intracranial internal carotid artery. The vertebral arteries are faintly visualized and likely occluded distally. The proximal to mid basilar artery is not well visualized and also likely occluded. There is trace flow within the distal basilar artery. This may be due to reconstitution from the bilateral posterior communicating arteries which feed the patent bilateral GEOGRAPHIC ANALYST. No significant stenosis or occlusion within the right MCA. There is mild narrowing of the proximal left MCA. The left A1 segment is only faintly visualized and may be severely stenosed. The right A1 segment is patent. The bilateral A2/A3 segments are patent. IMPRESSION: 1. Severe focal narrowing within the left carotid siphon with additional areas of moderate multifocal narrowing within the left intracranial internal carotid artery. 2. Mild/moderate multifocal narrowing within the distal right intracranial internal carotid artery. 3. 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 The posterior communicating arteries feeding the patent bilateral production control scheduler. The distal bilateral vertebral arteries are also likely occluded. 4. Mild narrowing at the left M1 segment. 5. Severe stenosis within the left A1 segment. Electronically signed by: Esteban Lemus M.D. 12/06/2016 6:00 PM Dictated Date/Time: 12/06/2016 5:54 PM ULTRASOUND OF THE CAROTID ARTERIES CLINICAL HISTORY: Syncope. COMPARISON STUDY: No priors. TECHNIQUE: Real-time, grayscale, and color Doppler sonography of the carotid arteries is performed. Images are reviewed in the transverse and longitudinal planes. FINDINGS: Blood pressure in the right arm measures 132/73 and blood pressure in the left arm measures 195/92. The carotid arteries are patent bilaterally and demonstrate antegrade flow. There is mild/moderate echogenic shadowing atherosclerotic plaque seen bilaterally. Normal doppler arterial waveforms are seen throughout. Velocity measurements are listed below. Common carotid peak systolic velocity (cm/sec): RIGHT: 72 LEFT: 70 ICA proximal peak systolic velocity (cm/sec): RIGHT: 90 LEFT: 88 ICA mid peak systolic velocity (cm/sec): RIGHT: 88 LEFT: 67 ICA distal peak systolic velocity (cm/sec): RIGHT: 53 LEFT: 63 ICA/CC peak systolic ratio: RIGHT: 1.3 LEFT: 1.3 Antegrade flow was shown in the vertebral arteries. The external carotid arteries are patent. The subclavian arteries are patent bilaterally. Velocities in the proximal right subclavian artery appear mildly elevated measuring 255 cm/s. This suggests some degree of stenosis. IMPRESSION: 1. Atherosclerotic plaque with no sonographic evidence of hemodynamically significant stenosis in the right or left carotid arterial system. 2. Antegrade flow is shown in the vertebral arteries. Electronically signed by: Jose Rafael Tabares M.D. 12/06/2016 2:36 PM Dictated Date/Time: 12/06/2016 2:33 PM MRI OF THE BRAIN WITHOUT AND WITH IV CONTRAST CLINICAL HISTORY: Syncope, head trauma, confusion. COMPARISON STUDY: Noncontrast head CT dated 12/05/2016 TECHNIQUE: MRI of the brain was performed from the vertex to the skull base utilizing various T1 and T2 weighted sequences. Following the IV administration of 8 mL of Gadavist contrast, additional enhanced images were obtained. FINDINGS: Sagittal T1, axial diffusion, proton density and T2 weighted axial, coronal FLAIR, and pre and post axial T1-weighted images were acquired. These were supplemented with post gadolinium coronal T1 weighted images. No intra or extra-axial mass lesions are visualized. There are tiny foci of restricted water diffusion within the left occipital lobe, posterior parietal lobe and centrum semiovale, consistent with acute infarcts. There is no evidence of ventricular dilatation. Proton density T2-weighted and FLAIR images reveal scattered foci of increased T2 signal within the white matter, likely on a small vessel basis. There is an old left cerebellar infarct. There are multiple old lacunar infarcts within the right cerebellar hemisphere. There was a lacunar infarct within the right basal ganglia. There are no abnormal flow voids. There is no evidence of pathologic enhancement. There is right parietal scalp edema. IMPRESSION: 1. Multiple small foci restricted water diffusion involving the left parietal lobe, left occipital lobe, and left centrum semiovale consistent with small acute infarcts 2. 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 No pathologically enhancing masses 4. Scalp edema Electronically signed by: Raul Contreras M.D. 12/06/2016 6:44 AM Dictated Date/Time: 12/06/2016 6:[address] OF THE CERVICAL SPINE WITHOUT CONTRAST CLINICAL HISTORY: Injury. COMPARISON STUDY: No previous studies for comparison. TECHNIQUE: Helical axial images of the cervical spine were obtained without IV contrast. Sagittal and coronal reconstructions were viewed. FINDINGS: Alignment of the cervical spine is anatomic. Vertebral body heights are maintained. There is no acute fracture. Craniocervical junction is intact. There is moderate disc space narrowing with osteophytosis at C5-C6. There is no prevertebral edema or pneumothorax within visualized portions of the lung apices. IMPRESSION: No acute cervical spine fracture or subluxation. Electronically signed by: Lele Howard M.D. 12/05/2016 5:05 PM Dictated Date/Time: 12/05/2016 5:[address] OF THE HEAD WITHOUT CONTRAST CLINICAL HISTORY: Confusion. Head injury. COMPARISON STUDY: MRI of the brain March 25, 2016. TECHNIQUE: Helical axial images of the head were obtained without IV contrast. Automated exposure control was utilized for the study. FINDINGS: No acute intracranial hemorrhage, midline shift or mass effect is present. Ventricular system is unremarkable. Basilar cisterns are patent. There are no extra axial collections. There is an old infarct within left cerebellar hemisphere. There are scattered old lacunar infarcts. There is a left posterior scalp contusion. There is no calvarial fracture. IMPRESSION: 1. No acute intracranial findings. 2. Left posterior scalp contusion. No calvarial fracture. 3. Old left cerebellar infarct and scattered old lacunar infarcts. Electronically signed by: Lele Howard M.D. 12/05/2016 4:59 PM Dictated Date/Time: 12/05/2016 4:56 PM CHEST ONE VIEW PORTABLE CLINICAL HISTORY: Confusion. COMPARISON STUDY: Chest radiograph and chest CT March 23, 2016. FINDINGS: There are median sternotomy wires. Cardiomediastinal silhouette is stable. There is no pneumothorax or pleural effusion. This study is mildly compromised by motion artifact. IMPRESSION: No acute cardiopulmonary findings. Electronically signed by: Leel Howard M.D. 12/05/2016 6:35 PM Dictated Date/Time: 12/05/2016 6:33 PM Consultations: Neurology Medication Reconciliation New Medications: Clopidogrel Bisulfate (Clopidogrel) 75 Mg Tab 75 MG PO QAM for 30 Days, #30 TAB Insulin Aspart (Novolog Flexpen) 100 Units/Ml Inj 0 UNITS SC ACHS for 30 Days Insulin Glargine (Lantus Solostar) 100 Unit/Ml Inj 14 UNIT SC BID for 30 Days Continued Medications: Aspirin (Aspirin EC Low Dose) 81 Mg Ectab 81 MG PO DAILY Lisinopril (Prinivil) 5 Mg Tab 5 MG PO DAILY, TAB Metformin Hcl (Glucophage) 1,000 Mg Tab 1000 MG PO DAILY, TAB Rosuvastatin Calcium (Crestor) 20 Mg Tab 20 MG PO DAILY, TAB Venlafaxine Hcl (Effexor Xr) 150 Mg Cap 150 MG PO DAILY for 30 Days, #30 CAP 2 Refills Discontinued Medications: Glipizide (Glucotrol) 10 Mg Tab 10 MG PO BID, TAB Admission Information HPI (per Admitting provider): This is a 66y//o male with PMHx of DM 2, CAD s/p CABG, h/o CVA, HTN, Dyslipidemia who presents to the ED via EMS after he was found in a [employer] bathroom. Pt is a poor historian due to AMS and there are no witnesses to what transpire earlier today. The patient remembers feeling well earlier today when he went to the [employer]. The next thing he remembers is arriving at the emergency room. Patient was found by employees in the [employer] bathroom. He was alert but disoriented at the time. He is now complaining of headache. Pt mentions he has been drinking more than usual lately estimating he has been drinking 4 beers every day. He states he has "constant" stressors and a court date tomorrow. Pt denies recreational drug use. He has not taken his prescribed medications for at least 1 week because he has "not picked them up." Pt has a history of CAD s/p CABG x 5 in February 2016. 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 In the ED, BP elevated. Pt is afebrile with no leukocytosis. glucose 571. UA negative. Tox screen is negative. Blood gas- negative. Cervical Spine and head CT is negative. Pt received insulin and IVF in the ED. Pt will be admitted for further evaluation and treatment. 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 Carotid U/S showed Atherosclerotic plaque with no sonographic evidence of hemodynamically significant stenosis in the right or left carotid arterial system. 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 Continue aspirin and statin Continue Plavix for at least 3 months No afib on tele monitor, would cardio net as out patient Echo done showed: Conclusions -- * The left ventricle is grossly normal size. * Left ventricular systolic function is normal. * Ejection Fraction = 55-60%. * The right ventricular systolic function is normal. * The left atrial size is normal. * Right atrial size is normal. * No significant valvular pathology. DIZZINESS Mildly. Possible due to Hypoperfusion from basilar and vertebral arteries occlusion Avoid hypotension Advised pt when standing to arise slowly Fall precaution DM TYPE 2 uncontrolled Recent Hba1c 11.9 (12/06/16) Glucose on admission was 571 hold glipizide and metformin during the hospital stay On Lantus 14 units BID Continue monitor BSG diabetic education consulted Will discharge on Lantus 14 units BID and titrate if needed Will D/C glipizide to avoid hypoglycemic episodes Continue Metformin Will do NovoLog ACHS for coverage with a goal of BS 110 to 150 Use Nicole Factor 25mg/dl and Carb ratio of 1 unit per 8g CORONARY ARTERY DISEASE s/p CABG x 15 February 2016 cont ASA, BB and statin asymptomatic Echo is normal H/O CVA cont ASA and statin HTN cont lisinopril and metoprolol Avoid hypotension monitor DYSLIPIDEMIA cont statin DVT PROPHYLAXIS subq Lovenox CODE STATUS FULL CODE DISPOSITION Will discharge to [facility] for rehab Daughter (Melida) was update about his care phone number#[phone] Total time spent on discharge = 35 minutes This includes examination of the patient, discharge planning, medication reconciliation, and communication with other providers. Discharge Instructions Discharge Instructions Date of Service Dec 07, 2016. Admission Reason for Admission: Hyperglycemia, Syncope Discharge Discharge Diagnosis / Problem: ACUTE INFARCT LEFT PARIETAL AND OCCIPITAL AREA, Uncontrolled DM II, Syncope Discharge Goals Goal(s): Decrease discomfort, Improve function, Improve disease control Activity Recommendations Activity Limitations: resume your previous activity (as tolerated) . Instructions / Follow-Up Instructions / Follow-Up Discharge to [facility] Schedule follow up appointment with your PCP once discharge from rehab Follow up appointment with Neurology Dr. Beckman in 2- 3 weeks after discharge from rehab Continue PT/OT Fall precaution Continue Plavix and aspirin Advised pt to arise slowly when standing to avoid any fall due to dizziness Follow up a low Carb diet and limited concentrated sugar Monitor blood sugar Starting on insulin (lantus), your physician will titrate it up or down according with your blood sugar Current Hospital Diet Patient's current hospital diet: Diabetes Type 2 Diet, AHA Diet (Heart Healthy) Discharge Diet Recommended Diet: AHA Diet (Heart Healthy), Diabetes Type 2 Diet Pending Studies Studies pending at discharge: no Laboratory Results Hemoglobin A1c Test 12/06/16 05:33 Range/Units Estimated Average Glucose 295 mg/dl Hemoglobin A1c 11.9 H 4.5-5.6 % Lipid Panel Test 12/06/16 05:33 Range/Units Triglycerides Level 321 H 0-150 mg/dl Cholesterol Level 236 H 0-200 mg/dl HDL Cholesterol 39 mg/dl Cholesterol/HDL Ratio 6.1 LDL Cholesterol, Calculated 133 mg/dl Medical Emergencies . Who to Call and When: Medical Emergencies: If at any time you feel your situation is an emergency, please call 911 immediately. . Non-Emergent Contact Non-Emergency issues call your: Primary Care Provider . . "Provider Documentation" section prepared by Juan Ward. . VTE Core Measure Inpt VTE Proph given/why not?: Enoxaparin (Lovenox)SQ [facility] [place]
== END 2016-12-07 18:13 | DRG 66 ==
LOC: ENRESERVTM → ENRESERVDT → EDBD 16:22 → C.EDC 16:23 → C.2E 19:00
PROVIDERS: ADMIT Internal Medicine; ATTEND Internal Medicine
DX: I63.9 Cerebral infarction, unspecified (principal); R55 Syncope and collapse; Z68.32 Body mass index [BMI] 32.0-32.9, adult; Z95.1 Presence of aortocoronary bypass graft; I25.10 Atherosclerotic heart disease of native coronary artery without angina pectoris; Z86.73 Personal history of transient ischemic attack (TIA), and cerebral infarction without residual deficits; I10 Essential (primary) hypertension; E78.5 Hyperlipidemia, unspecified; Z79.82 Long term (current) use of aspirin; Z79.84 Long term (current) use of oral hypoglycemic drugs; Z79.899 Other long term (current) drug therapy; E11.65 Type 2 diabetes mellitus with hyperglycemia; Z86.711 Personal history of pulmonary embolism; E66.9 Obesity, unspecified

== ENCOUNTER 2020-08-21 15:30 | Inpatient (IN) ==
--- OUTSIDE RECORDS SUMMARY | 2020-08-21 15:33 | External Medical Summary | Continuity of Care Document ---
:1950 Author Name Marcial M.DLin Address Unavailable Unavailable , Care Team Providers Name Role Phone Unavailable Unavailable Unavailable MRIANDA, A Unavailable Unavailable Unavailable Unavailable Unavailable Problems H/O: stroke (V12.54) (Z86.73) Mild cognitive impairment (331.83) (G31.84) Pure hypercholesterolemia (272.0) (E78.00) Essential hypertension (401.9) (I10) Type 2 diabetes mellitus (250.00) (E11.9) Coronary atherosclerosis (414.00) (I25.10) DM (diabetes mellitus), type 2, uncontrolled (250.02) (E11.6 5) Cerebral artery occlusion (434.90) (I66.9) Syncope and collapse (780.2) (R55) Acute cerebrovascular insufficiency (437.1) (I67.81) Hypertensive heart disease without CHF ( congestive heart failure) (402.90) (I11.9) Diabetes mellitus with autonomic neuropathy (250.60) (E11.43 ) Allergies and Adverse Reactions No Known Drug Allergies (Allergy) Medications Venlafaxine HCl ER 150 MG Oral Capsule E xtended Release 24 Hour; TAKE 1 CAPSULE ONCE DAILY WITH FOOD. , M.D. Refills: 0 Nitrostat 0.4 MG Sublingual Tablet Sublingual , M.D. Refills: 0 metFORMIN HCl - 1000 MG Oral Tablet; TAKE 1 TABLET TWICE ALIDA LY. , M.D. Quantity: 180 Refills: 0 Crestor 20 MG Oral Tablet; TAKE 1 TABLET DAILY. , M.D. Refills: 0 Lantus SoloStar 100 UNIT/ML SOLN; INJECT 25 UNIT Bedtime , M .D. Refills: 0 Donepezil HCl - 10 MG Oral Tablet; Take 1 tablet daily , M.D . Refills: 0 Aspirin 81 81 MG Oral Tablet Delayed Release; TAKE 1 TABLET DAILY. , M.D. Refills: 0 Vitamin D3 25 MCG (1000 UT) Oral Tablet; TAKE 1 TABLET DAILY . , M.D. Quantity: 90 Refills: 3 Procedures History of coronary artery bypass graft Status: Completed 27-Dec-2016 0:00 Immunizations Immunizations not documented Family History Unknown Family Member Family history of Adopted child Status: Active Comments : Family History Plan of Treatment Planned Observations Planned Goals not documented Results No Known Results Results not documented
[2020-08-21] MEDS ORDERED: PIPERACILL/TAZOBAC CONSULT ACTIVE PRN (16:07)
[2020-08-21] MEDS ORDERED: VANCOMYCIN HCL 1,750 MG in SODIUM CHLORIDE 0.9% 500 ML IV ONE (16:07)
[2020-08-21] MEDS ORDERED: PIPERACILLIN/TAZOBACTAM 4.5 GM/120 ML BAG IV ONE (16:07)
[2020-08-21] MEDS ORDERED: VANCOMYCIN CONSULT ACTIVE PRN (16:07)
[2020-08-21] MEDS ORDERED: DEXAMETHASONE SOD INJ 10 MG/ML VIAL IV ONE (16:08)
[2020-08-21 17:02] LABS: Hematocrit (blood only) 38.2 % (42-52); Hemoglobin 12.4 g/dL (14.0-18.0); Mean Corpuscular Hemoglobin 30.7 pg (25-34); Mean Corpuscular Hgb Conc 32.5 g/dL (32-36); Mean Corpuscular Volume 94.6 fL (80-100); Mean Platelet Volume 9.5 fL (7.4-10.4); Platelet Count 373 K/uL (130-400); RDW Coefficient of Variation 14.6 % (11.5-14.5); RDW Standard Deviation 50.8 fL (36.4-46.3); Red Blood Count 4.04 M/uL (4.7-6.1); White Blood Count 10.13 K/uL (4.8-10.8)
[2020-08-21 17:06] LABS: Base Excess VBG -2.1 mEq/L; HCO3 VBG 22 mmol/L; PCO2 VBG 36 mmHg (38-50); PO2 VBG 23 mmHg; pH VBG 7.41 (7.36-7.41)
[2020-08-21 17:07] LABS: Oxygen Saturation VBG < 60.0 %
[2020-08-21 17:14] LABS: INR 1.2 (0.9-1.1); Partial Thromboplastin Ratio 1.2; Partial Thromboplastin Time 32.8 Seconds (21.0-31.0); Prothrombin Time 12.3 Seconds (9.0-12.0)
[2020-08-21 17:20] LABS: Alanine Aminotransferase 65 U/L (12-78); Albumin Level 1.8 gm/dl (3.4-5.0); Aspartate Aminotransferase 113 U/L (15-37); BUN Creatinine Ratio 11.5 (10-20); Bilirubin Direct < 0.1 mg/dl (0-0.2); Blood Urea Nitrogen 13 mg/dl (7-18); Calcium 7.9 mg/dl (8.5-10.1); Carbon Dioxide 25 mmol/L (21-32); Chloride 117 mmol/L (98-107); Creatinine Clr Calc Pharmacy 56.5 ml/min; Glucose 196 mg/dl (70-99); Magnesium 2.2 mg/dl (1.8-2.4); Potassium 3.4 mmol/L (3.5-5.1); Sodium 150 mmol/L (136-145)
[2020-08-21 17:28] LABS: Basophils # (auto) 0.02 K/uL (0-0.2); Basophils % (auto) 0.2 %; Eosinophils # (auto) 0.01 K/uL (0-0.5); Eosinophils % (auto) 0.1 %; Immature Granulocytes # (auto) 0.07 K/uL (0.00-0.02); Immature Granulocytes % (auto) 0.7 %; Lymphocytes # (auto) 1.16 K/uL (1.2-3.4); Lymphocytes % (auto) 11.5 %; Monocytes # (auto) 0.33 K/uL (0.11-0.59); Monocytes % (auto) 3.3 %; Neutrophils # (auto) 8.54 K/uL (1.4-6.5); Neutrophils % (auto) 84.2 %
--- NOTE | 2020-08-21 17:29 | XRay Report ---
XR chest 1V portable HISTORY: 70 years-old Male SEPSIS acute sepsis. COVID Positive. COMPARISON: Chest radiograph 12/05/2016 TECHNIQUE: Portable AP view of the chest FINDINGS: Cardiac silhouette is enlarged. Prior median sternotomy. Calcified plaque of the thoracic aorta. No p neumothorax. Moderate scattered multifocal alveolar opacities, left greater than right. No pneumothor ax, or large pleural effusion. Degenerative changes of the shoulders and spine. IMPRESSION: Bilateral alveolar opacities are compatible with multifocal pneumonia. ACT 112: Negative or not required by law. The above report was generated using voice recognition software. It may contain grammatical, syntax o r spelling errors. Electronically signed by: José Miguel Zurita M.D. 08/21/2020 5:28 PM
--- NOTE | 2020-08-21 17:34 | Emergency Department Note ---
Impression & Plan Acute respiratory failure with hypoxia, Pneumonia due to COVID-19 virus, Elevated lactic acid level, Hypoalbuminemia, History of cerebrovascular accident with residual effects ED Provider Note NAME: LOU TSANG AGE: 70 SEX: M ARRIVES VIA: Ambulance INFORMANT: Patient, ED PROVIDER(S): Pj Lo MD CHIEF COMPLAINT: Hypoxia PLAN: Disposition: Admit MEDICAL DECISION MAKING: The patient is a 70-year-old gentleman with a complicated past medical history of prior CVA with recent large right-sided hemispheric MCA territory stroke in July admitted to [facility] who presents emergency department from [facility] where he has been since August 11 but subsequently was diagnosed with COVID-19 approximately 5 days ago and now was referred to the emergency department because of worsening respiratory status and hypoxia to the mid 80s on room air. It was also noted that the patient was appearing more edematous. Of note, the patient is DNR per paperwork accompanying him. Further I did confirm with the patient's daughter over the phone that he is DNR/DNI. She did agree with admission given his worsening respiratory status. On arrival the patient is chronically ill-appearing, minimally to nonverbal mildly dyspneic but in no acute distress with temperature of 37.7, respiratory rate mid 20s to low 30s and heart rate in the 100s with blood pressure stable. O2 saturation would improve to mid 90s on nasal cannula but change to oxime mask given the patient is mouth breathing with O2 saturation 100%. On exam the pat ient has subtle rhonchi and intermittent wheeze at the bases. Patient's abdomen is benign. Patient has flaccid weakness of his left upper and left lower extremity which is his baseline. Patient does have notable peripheral edema of his upper and lower extremities as well as anasarca. EKG without overt ST elevation or depression. Chest x-ray demonstrates multifocal pneumonia which is consistent with COVID-19 pneumonia given the patient's known positive COVID-19 status. WBC within normal limits. H/H 12.4/30.2 without prior values for comparison. Place within normal limits. VBG is unremarkable without acidemia. Chemistry without metabolic acidosis. Initial lactate 2.4 with repeat lactate 1.2 following IV fluid hydration, empiric Antibiotics and O2 supplementation. Sodium is 150 with a estimated free water deficit between 2-3 L which suggests component of intravascular depletion and peripheral edema is more likely related to third spacing given the patient's albumin is 1.8. The patient does have a mild troponin elevation of 0.5 without prior values for comparison and BNP 10K of unclear significance given the patient's hypernatremia. Procalcitonin 0.28, nonspecific. UA performed after replacement of indwelling Chandler catheter and was negative for bacteria albeit with WBCs though with epithelial cells present. CT of the head was performed and findings are most likely subacute related to his stroke in July when compared to description in [facility] from August 11. CTA of the chest negative for PE though suboptimal given motion artifact. However multifocal pneumonia again characterized likely related to Covid-19. There is suggestion of possible cholecystitis however given the patient's lack of GI symptoms and unremarkable LFTs suspect surrounding edema and pericholecystic fluid more likely related to third spacing in the setting of hypoalbuminemia. Given the patient's presentation concerning for sepsis with possible superimposed bacterial infection he was treated empirically with Zosyn and vancomycin. Given the patient's worsening clinical status reasonable to meet the patient for further management. Case was discussed with Dr. Meraz, [facility] hospitalist, who will evaluate the patient for admission. Triage Nursing notes reviewed and agree them. Additional history obtained from [facility] records. Daughter via phone Prior medical records reviewed Vital Signs: reviewed and remarkable for hypoxia. Differential diagnosis: Reactive airway disease, pneumonia, pneumothorax, COPD, CHF, infections, cardiac ischemia, pulmonary embolism, musculoskeletal, gastrointestinal, as well as other pathologies. ER treatment provided: See below. Diagnostics interpreted by me: ECG: Normal sinus rhythm, 95 bpm, left axis deviation, right bundle branch block, no overt ST elevation or depression, QTC 475, QRS 136. Cardiac Monitoring: An order for continuous cardiac monitoring was placed and demonstrated normal sinus rhythm, 95 bpm, no ectopy. Laboratory studies: See below Imaging studies: XR chest 1V portable HISTORY: 70 years-old Male SEPSIS acute sepsis. COVID Positive. COMPARISON: Chest radiograph 12/05/2016 TECHNIQUE: Portable AP view of the chest FINDINGS: Cardiac silhouette is enlarged. Prior median sternotomy. Calcified plaque of the thoracic aorta. No pneumothorax. Moderate scattered multifocal alveolar opacities, left greater than right. No pneumothorax, or large pleural effusion. Degenerative changes of the shoulders and spine. IMPRESSION: Bilateral alveolar opacities are compatible with multifocal pneumonia. -- CT head/brain wo con CLINICAL HISTORY: 70 years-old Male with recent cva, ams, [id number]/sepsis. Acute strokelike symptoms with altered mental status. TECHNIQUE: Multiple axial CT images of the head were obtained without contrast. A dose lowering technique was utilized adhering to the principles of ALARA. CT DOSE: 2392.95 mGy.cm COMPARISON: Head CT 12/05/2016.. FINDINGS: There is a large subacute appearing infarct of the right MCA territory with cytotoxic edema measuring up to 13 cm in AP dimension. Cortically based areas of petechial hemorrhage/laminar necrosis also noted within this distribution. Subacute to chronic appearing infarct of the left occipital lobe is new from comparison. Age-related involutional changes. No midline shift or herniation. Encephalomalacia with remote infarct of the inferior left cerebellar hemisphere. No acute calvarial fracture. Mastoid air cells and middle ear cavities are clear. Unremarkable soft tissues and orbits. IMPRESSION: 1. Large subacute appearing infarct of the right MCA territory with multifocal cortically based areas of petechial hemorrhage. 2. No midline shift, hydrocephalus or herniation. 3. Subacute versus chronic infarct of the left occipital lobe, new from 2017. 4. Encephalomalacia with remote infarct of the left inferior cerebellar hemisphere. Findings were discussed with Dr. Lo on 08/21/2020 at 6:40 PM. -- CT angio chest PE protocol, CT abd pelvis IV con only HISTORY: 70 years-old Male with PE. Acute shortness of breath with generalized abdominal pain. COVID Positive. TECHNIQUE: Multiple CTA images of the chest were obtained after the intravenous administration of 119 ml Optiray 320. Coronal and sagittal MIPS were obtained from the axial data set and were submitted for review. All measurements were obtained according to NASCET criteria. CT abdomen pelvis with IV contrast only was also obtained. A dose lowering technique was utilized adhering to the principles of ALARA. COMPARISON: CTA chest 03/23/2016. FINDINGS: CTA: Moderate cardiomegaly. Prior median sternotomy and CABG with moderate to extensive [place] coronary artery calcifications. Moderate mixed plaque of the thoracic aortic arch with patency of the imaged proximal great vessels. The pulmonary artery segmental and subsegmental branches are suboptimally evaluated secondary to respiratory motion artifact. No central pulmonary emboli are identified. CT CHEST: No large thyroid nodule. Mildly prominent mediastinal and hilar lymph nodes are likely reactive. No pathologically enlarged lymph nodes. Small layering pleural effusions. Respiratory motion artifact limits evaluation of the lungs. No pneumothorax. Moderate multifocal bilateral groundglass and alveolar opacities. Central airways appear patent. No acute fracture. suspicious bone lesion. CT ABDOMEN/PELVIS: Degraded exam secondary to upper extremity positioning and respiratory motion artifact. No pneumatosis or pneumoperitoneum. Spleen, mildly atrophic pancreas, adrenal glands and liver appear unremarkable. Patency of the hepatic and portal veins. Moderately distended gallbladder with mucosal hyperemia, wall thickening and trace pericholecystic edema. No definite cholelithiasis identified. No associated biliary ductal dilation. Probable cyst of the interpolar right kidney anteriorly, 1.5 cm. No obstructive uropathy. Urinary bladder wall thickening. Partial distention of the urinary bladder with Chandler catheter. Air is noted within the bladder lumen. Prostamegaly. Mixed plaque of the abdominal aorta without aneurysm. No adenopathy. Trace layering free fluid within the dependent pelvis. No bowel obstruction or bowel wall thickening identified. The appendix is not definitively seen. Left iliopsoas bursitis. Degenerative changes of the spine, pelvis and hips. Remote bilateral L5 pars defects with grade 1 spondylolisthesis. IMPRESSION: 1. Limited exam as above. No pulmonary emboli. 2. Moderate bilateral intermixed groundglass and alveolar opacities are suggestive of multifocal pneumonia. 3. Small pleural effusions. 4. Findings suggestive of acute cholecystitis. No associated biliary ductal dila tion. 5. No bowel obstruction or bowel wall thickening. 6. Additional findings as above. ACT 112: Negative or not required by law. -- CT angio chest PE protocol, CT abd pelvis IV con only HISTORY: 70 years-old Male with PE. Acute shortness of breath with generalized abdominal pain. COVID Positive. TECHNIQUE: Multiple CTA images of the chest were obtained after the intravenous administration of 119 ml Optiray 320. Coronal and sagittal MIPS were obtained from the axial data set and were submitted for review. All measurements were obtained according to NASCET criteria. CT abdomen pelvis with IV contrast only was also obtained. A dose lowering technique was utilized adhering to the principles of ALARA. COMPARISON: CTA chest 03/23/2016. FINDINGS: CTA: Moderate cardiomegaly. Prior median sternotomy and CABG with moderate to extensive [place] coronary artery calcifications. Moderate mixed plaque of the thoracic aortic arch with patency of the imaged proximal great vessels. The pulmonary artery segmental and subsegmental branches are suboptimally evaluated secondary to respiratory motion artifact. No central pulmonary emboli are identified. CT CHEST: No large thyroid nodule. Mildly prominent mediastinal and hilar lymph nodes are likely reactive. No pathologically enlarged lymph nodes. Small layering pleural effusions. Respiratory motion artifact limits evaluation of the lungs. No pneumothorax. Moderate multifocal bilateral groundglass and alveolar opacities. Central airways appear patent. No acute fracture. suspicious bone lesion. CT ABDOMEN/PELVIS: Degraded exam secondary to upper extremity positioning and respiratory motion artifact. No pneumatosis or pneumoperitoneum. Spleen, mildly atrophic pancreas, adrenal glands and liver appear unremarkable. Patency of the hepatic and portal veins. Moderately distended gallbladder with mucosal hyperemia, wall thickening and trace pericholecystic edema. No definite cholelithiasis identified. No associated biliary ductal dilation. Probable cyst of the interpolar right kidney anteriorly, 1.5 cm. No obstructive uropathy. Urinary bladder wall thickening. Partial distention of the urinary bladder with Chandler catheter. Air is noted within the bladder lumen. Prostamegaly. Mixed plaque of the abdominal aorta without aneurysm. No adenopathy. Trace layering free fluid within the dependent pelvis. No bowel obstruction or bowel wall thickening identified. The appendix is not definitively seen. Left iliopsoas bursitis. Degenerative changes of the spine, pelvis and hips. Remote bilateral L5 pars defects with grade 1 spondylolisthesis. IMPRESSION: 1. Limited exam as above. No pulmonary emboli. 2. Moderate bilateral intermixed groundglass and alveolar opacities are suggestive of multifocal pneumonia. 3. Small pleural effusions. 4. Findings suggestive of acute cholecystitis. No associated biliary ductal dila tion. 5. No bowel obstruction or bowel wall thickening. 6. Additional findings as above. ACT 112: Negative or not required by law. The above report was generated using voice recognition software. It may contain grammatical, syntax or spelling errors. Consultation(s): Case was discussed with Dr. Meraz, [facility] hospitalist, who will evaluate the patient for admission. HPI: The patient is a 70-year-old gentleman with a complicated past medical history of prior CVA with recent large right-sided hemispheric MCA territory stroke in July admitted to [facility] who [facility] emergency department [facility] where he has been since August 11 but subsequently was diagnosed with COVID-19 approximately 5 days ago and now was referred to the emergency department because of worsening respiratory status and hypoxia to the mid 80s on room air. It was also noted that the patient was appearing more edematous. Of note, the patient is DNR per paperwork accompanying him. Further I did confirm with the patient's daughter over the phone that he is DNR/DNI. She did agree with admission given his worsening respiratory status. ROS: See above HPI for pertinent positives & negatives. A total of 10 systems reviewed and were otherwise negative. PAST MEDICAL HISTORY:See Below PAST SURGICAL HISTORY:See Below FAMILY HISTORY:See Below SOCIAL HISTORY:See Below HOME MEDICATIONS:See Below ALLERGIES:See Below VITALS:See Below PHYSICAL EXAMINATION: GENERAL: Awake, acute on chronically-appearing, in no acute distress HENT: Normocephalic, atraumatic. Oropharynx with dry mucous membranes and otherwise unremarkable. EYES: Normal conjunctiva. Sclera non-icteric. NECK: Supple. No nuchal rigidity. FROM. No JVD. RESPIRATORY: Rhonchi and intermittent wheezes of lower lung doss. Mild increased work of breathing but no acute distress. CARDIAC: Tachycardic rate, normal rhythm. Extremities warm and well perfused. Pulses equal. ABDOMEN: Soft, non-distended. No tenderness to palpation. No rebound or guarding . No masses. Anasarca present. RECTAL: Deferred. MUSCULOSKELETAL: Chest examination reveals no tenderness. The back is symmetrical on inspection without obvious abnormality. ~4cm decubitis ulcer with overlying eschar. No significant surrounding erythema or warmth. No discharge or crepitus. There is no CVA tenderness to palpation. No joint edema. EXTREMITIES: Plus bilateral upper extremity edema. Calves are equal size bilaterally and non-tender. 2+ bilateral lower extremity edema. No discoloration. NEURO: Nonverbal and left-sided flaccid weakness which is the patient's baseline per EMS report. SKIN: No rash or jaundice noted. ED COURSE: Critical Care: I have personally spent greater than 45 minutes of critical care time in the direct management of this patient. This includes bedside care, interpretation of diagnostic studies, and testing, discussion with consultants, patient, and family members, and other required patient management activities. This 45 minutes is in excess of all separately billable procedures. 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 Required: No Beliefs That Will Affect Care: None Current Living Situation: Rehab Other Information That Helps Us Care for You: No Feels Safe at Home: Yes Allergies Allergies Allergy/AdvReac Type Severity Reaction Status Date / Time No Known Allergies Allergy Verified 08/21/20 16:22 Home Meds Home Medications Medication Instructions Recorded Confirmed acetaminophen 325 mg PO Q4H PRN 08/21/20 08/21/20 ascorbic acid (vitamin C) [Vitamin 500 mg PO BID 08/21/20 08/21/20 C] aspirin 81 mg PO DAILY 08/21/20 08/21/20 atorvastatin 80 mg PO HS 08/21/20 08/21/20 bisacodyl 10 mg ME DAILY PRN 08/21/20 08/21/20 cholecalciferol (vitamin D3) 50 mcg PO DAILY 08/21/20 08/21/20 [Vitamin D3] clopidogrel 75 mg PO DAILY 08/21/20 08/21/20 docusate sodium 100 mg PO BID 08/21/20 08/21/20 enoxaparin [Lovenox] 60 mg SUBCUT DAILY 08/21/20 08/21/20 escitalopram oxalate [Lexapro] 10 mg PO DAILY 08/21/20 08/21/20 famotidine 20 mg PO DAILY 08/21/20 08/21/20 insulin glargine [Lantus U-100 10 unit SUBCUT HS 08/21/20 08/21/20 Insulin] lisinopril 5 mg PO DAILY 08/21/20 08/21/20 magnesium hydroxide [Milk of 30 ml PO DAILY PRN 08/21/20 08/21/20 Magnesia] melatonin 3 mg PO HS 08/21/20 08/21/20 metformin 500 mg PO BIDM 08/21/20 08/21/20 polyethylene glycol 3350 [Miralax] 17 g PO QDL PRN 08/21/20 08/21/20 sennosides [senna] 17.2 mg PO HS 08/21/20 08/21/20 sennosides-docusate sodium 1 tab PO QDL PRN 08/21/20 08/21/20 [Senokot-S] sodium phosphates [Fleet Enema] 133 ml ME DAILY PRN 08/21/20 08/21/20 tamsulosin 0.4 mg PO QDD 08/21/20 08/21/20 zinc sulfate 220 mg PO DAILY 08/21/20 08/21/20 Results & Data (ED) Vital Signs Vital Signs - 24 hr 08/21/20 15:20 08/21/20 15:37 08/21/20 15:57 Temperature 37.7 C H Temperature Source Axillary Pulse Rate 88 86 Pulse Rate from SpO2 Sensor 86 Pulse Rhythm Respiratory Rate 30 H 34 H Respiratory Depth Normal Respiratory Pattern Rapid/Shallow Blood Pressure 162/70 H 162/70 H Blood Pressure Mean 100 114 Blood Pressure Position Lying Pulse Oximetry 88 L 94 88 L Oxygen Delivery Method Room Air Room Air Nasal Cannula Oxygen Flow Rate Sepsis Recent Fever Within 48 Hours Yes Sepsis New/Unexplained Change in Mental Status No Sepsis Action Taken by Nursing No Action Required Oxygen Flow Rate - Titration 5 Pulse Oximetry Post Tiitration 92 08/21/20 16:00 08/21/20 16:05 08/21/20 16:35 Temperature Temperature Source Pulse Rate 90 86 Pulse Rate from SpO2 Sensor 89 Pulse Rhythm Regular Respiratory Rate 33 H 34 H 34 H Respiratory Depth Respiratory Pattern Blood Pressure 125/60 Blood Pressure Mean 79 Blood Pressure Position Pulse Oximetry 89 L 94 94 Oxygen Delivery Method Oxymask Oxymask Oxygen Flow Rate 8 8 Sepsis Recent Fever Within 48 Hours Sepsis New/Unexplained Change in Mental Status Sepsis Action Taken by Nursing Oxygen Flow Rate - Titration Pulse Oximetry Post Tiitration 08/21/20 16:54 08/21/20 17:00 08/21/20 17:05 Temperature Temperature Source Pulse Rate 101 H 98 H Pulse Rate from SpO2 Sensor 100 H 97 H Pulse Rhythm Respiratory Rate 35 H 35 H 34 H Respiratory Depth Respiratory Pattern Blood Pressure 164/89 H 177/81 H Blood Pressure Mean 105 125 Blood Pressure Position Pulse Oximetry 92 94 94 Oxygen Delivery Method Oxymask Oxygen Flow Rate 8 Sepsis Recent Fever Within 48 Hours Sepsis New/Unexplained Change in Mental Status Sepsis Action Taken by Nursing Oxygen Flow Rate - Titration Pulse Oximetry Post Tiitration 08/21/20 17:31 08/21/20 18:00 08/21/20 18:01 Temperature Temperature Source Pulse Rate 91 H 88 Pulse Rate from SpO2 Sensor 91 H 87 Pulse Rhythm Respiratory Rate 26 H 30 H 24 Respiratory Depth Respiratory Pattern Blood Pressure 121/73 161/70 H Blood Pressure Mean 84 91 Blood Pressure Position Pulse Oximetry 95 100 98 Oxygen Delivery Method Oxymask Oxygen Flow Rate 8 Sepsis Recent Fever Within 48 Hours Sepsis New/Unexplained Change in Mental Status Sepsis Action Taken by Nursing Oxygen Flow Rate - Titration Pulse Oximetry Post Tiitration 08/21/20 19:00 08/21/20 19:30 08/21/20 20:00 Temperature Temperature Source Pulse Rate 76 78 74 Pulse Rate from SpO2 Sensor 76 79 73 Pulse Rhythm Respiratory Rate 31 H 30 H 25 H Respiratory Depth Respiratory Pattern Blood Pressure 154/73 H 145/74 H 124/66 Blood Pressure Mean 124 108 89 Blood Pressure Position Pulse Oximetry 91 96 93 Oxygen Delivery Method Oxymask Oxymask Oxygen Flow Rate 8 8 Sepsis Recent Fever Within 48 Hours Sepsis New/Unexplained Change in Mental Status Sepsis Action Taken by Nursing Oxygen Flow Rate - Titration Pulse Oximetry Post Tiitration 08/21/20 20:30 08/21/20 21:00 Temperature Temperature Source Pulse Rate 70 72 Pulse Rate from SpO2 Sensor 71 73 Pulse Rhythm Respiratory Rate 30 H 31 H Respiratory Depth Respiratory Pattern Blood Pressure 152/64 H 122/71 Blood Pressure Mean 89 90 Blood Pressure Position Pulse Oximetry 100 97 Oxygen Delivery Method Oxymask Oxygen Flow Rate 8 Sepsis Recent Fever Within 48 Hours Sepsis New/Unexplained Change in Mental Status Sepsis Action Taken by Nursing Oxygen Flow Rate - Titration Pulse Oximetry Post Tiitration Laboratory Data Attestation: I reviewed the patient's lab results. Result diagrams: 08/21/20 16:37 08/21/20 16:37 Lab Results 08/21/20 08/21/20 08/21/20 Range/Units 16:37 16:37 16:37 WBC 10.13 (4.8-10.8) K/uL RBC 4.04 L (4.7-6.1) M/uL Hgb 12.4 L (14.0-18.0) g/dL Hct 38.2 L (42-52) % MCV 94.6 (80-100) fL MCH 30.7 (25-34) pg MCHC 32.5 (32-36) g/dL RDW Std Deviation 50.8 H (36.4-46.3) fL RDW Coeff of Javid 14.6 H (11.5-14.5) % Plt Count 373 (130-400) K/uL MPV 9.5 (7.4-10.4) fL Immature Gran % (Auto) 0.7 % Neut % (Auto) 84.2 % Lymph % (Auto) 11.5 % [place] % (Auto) 3.3 % Eos % (Auto) 0.1 % Baso % (Auto) 0.2 % Neut # (Auto) 8.54 H (1.4-6.5) K/uL Lymph # (Auto) 1.16 L (1.2-3.4) K/uL [place] # (Auto) 0.33 (0.11-0.59) K/uL Eos # (Auto) 0.01 (0-0.5) K/uL Baso # (Auto) 0.02 (0-0.2) K/uL Immature Gran # (Auto) 0.07 H (0.00-0.02) K/uL PT (9.0-12.0) Seconds INR (0.9-1.1) APTT (21.0-31.0) Seconds PTT Ratio VBG pH (7.36-7.41) VBG pCO2 (38-50) mmHg VBG pO2 mmHg VBG HCO3 mmol/L VBG O2 Saturation % VBG Base Excess mEq/L Barometric Pressure mm/Hg Sodium 150 H (136-145) mmol/L Potassium 3.4 L (3.5-5.1) mmol/L Chloride 117 H (98-107) mmol/L Carbon Dioxide 25 (21-32) mmol/L Anion Gap 8.0 (3-11) BUN 13 (7-18) mg/dl Creatinine 1.16 (0.6-1.4) mg/dl Est Cr Clr Drug Dosing 56.5 ml/min Est GFR ( Amer) 73.0 Est GFR (Non-Af Amer) 63.0 BUN/Creatinine Ratio 11.5 (10-20) Glucose 196 H (70-99) mg/dl Lactate (0.4-2.0) mmol/L Calcium 7.9 L (8.5-10.1) mg/dl Phosphorus 2.3 L (2.5-4.9) mg/dl Magnesium 2.2 (1.8-2.4) mg/dl Total Bilirubin 0.3 (0.2-1) mg/dl Direct Bilirubin < 0.1 (0-0.2) mg/dl AST 113 H (15-37) U/L ALT 65 (12-78) U/L Alkaline Phosphatase 113 (45-117) U/L Troponin I 0.566 H* (0-0.045) ng/ml NT-Pro-B Natriuret Pep 45193 H (0-900) pg/ml Total Protein 7.4 (6.4-8.2) gm/dl Albumin 1.8 L (3.4-5.0) gm/dl Globulin 5.6 H (2.5-4.0) gm/dl Albumin/Globulin Ratio 0.3 L (0.9-2) Procalcitonin 0.28 (0-0.5) ng/ml Urine Color Urine Appearance (Clear) Urine pH (4.5-7.5) Ur Specific [place] (1.000-1.030) Urine Protein (Negative) Urine Glucose (UA) (Negative) Urine Ketones (Negative) Urine Blood (Negative) Urine Nitrite (Negative) Urine Bilirubin (Negative) Urine Urobilinogen (Negative) Ur Leukocyte Esterase (Negative) Urine WBC (Auto) (0-5) /hpf Urine RBC (Auto) (0-4) /hpf U Hyaline Cast (Auto) (0-5) /lpf U Epithel Cells (Auto) (0-5) /lpf Urine Bacteria (Auto) (Negative) Ur Renal Epithelial Cell Amorphous Sediment (None Prsent) Urine Yeast 08/21/20 08/21/20 08/21/20 Range/Units 16:37 16:52 16:52 WBC (4.8-10.8) K/uL RBC (4.7-6.1) M/uL Hgb (14.0-18.0) g/dL Hct (42-52) % MCV (80-100) fL MCH (25-34) pg MCHC (32-36) g/dL RDW Std Deviation (36.4-46.3) fL RDW Coeff of Javid (11.5-14.5) % Plt Count (130-400) K/uL MPV (7.4-10.4) fL Immature Gran % (Auto) % Neut % (Auto) % Lymph % (Auto) % [place] % (Auto) % Eos % (Auto) % Baso % (Auto) % Neut # (Auto) (1.4-6.5) K/uL Lymph # (Auto) (1.2-3.4) K/uL [place] # (Auto) (0.11-0.59) K/uL Eos # (Auto) (0-0.5) K/uL Baso # (Auto) (0-0.2) K/uL Immature Gran # (Auto) (0.00-0.02) K/uL PT 12.3 H (9.0-12.0) Seconds INR 1.2 H (0.9-1.1) APTT 32.8 H (21.0-31.0) Seconds PTT Ratio 1.2 VBG pH 7.41 (7.36-7.41) VBG pCO2 36 L (38-50) mmHg VBG pO2 23 mmHg VBG HCO3 22 mmol/L VBG O2 Saturation < 60.0 % VBG Base Excess -2.1 mEq/L Barometric Pressure 735.8 mm/Hg Sodium (136-145) mmol/L Potassium (3.5-5.1) mmol/L Chloride (98-107) mmol/L Carbon Dioxide (21-32) mmol/L Anion Gap (3-11) BUN (7-18) mg/dl Creatinine (0.6-1.4) mg/dl Est Cr Clr Drug Dosing ml/min Est GFR ( Amer) Est GFR (Non-Af Amer) BUN/Creatinine Ratio (10-20) Glucose (70-99) mg/dl Lactate 2.4 H* (0.4-2.0) mmol/L Calcium (8.5-10.1) mg/dl Phosphorus (2.5-4.9) mg/dl Magnesium (1.8-2.4) mg/dl Total Bilirubin (0.2-1) mg/dl Direct Bilirubin (0-0.2) mg/dl AST (15-37) U/L ALT (12-78) U/L Alkaline Phosphatase (45-117) U/L Troponin I (0-0.045) ng/ml NT-Pro-B Natriuret Pep (0-900) pg/ml Total Protein (6.4-8.2) gm/dl Albumin (3.4-5.0) gm/dl Globulin (2.5-4.0) gm/dl Albumin/Globulin Ratio (0.9-2) Procalcitonin (0-0.5) ng/ml Urine Color Urine Appearance (Clear) Urine pH (4.5-7.5) Ur Specific [place] (1.000-1.030) Urine Protein (Negative) Urine Glucose (UA) (Negative) Urine Ketones (Negative) Urine Blood (Negative) Urine Nitrite (Negative) Urine Bilirubin (Negative) Urine Urobilinogen (Negative) Ur Leukocyte Esterase (Negative) Urine WBC (Auto) (0-5) /hpf Urine RBC (Auto) (0-4) /hpf U Hyaline Cast (Auto) (0-5) /lpf U Epithel Cells (Auto) (0-5) /lpf Urine Bacteria (Auto) (Negative) Ur Renal Epithelial Cell Amorphous Sediment (None Prsent) Urine Yeast 08/21/20 08/21/20 Range/Units 17:35 19:02 WBC (4.8-10.8) K/uL RBC (4.7-6.1) M/uL Hgb (14.0-18.0) g/dL Hct (42-52) % MCV (80-100) fL MCH (25-34) pg MCHC (32-36) g/dL RDW Std Deviation (36.4-46.3) fL RDW Coeff of Javid (11.5-14.5) % Plt Count (130-400) K/uL MPV (7.4-10.4) fL Immature Gran % (Auto) % Neut % (Auto) % Lymph % (Auto) % [place] % (Auto) % Eos % (Auto) % Baso % (Auto) % Neut # (Auto) (1.4-6.5) K/uL Lymph # (Auto) (1.2-3.4) K/uL [place] # (Auto) (0.11-0.59) K/uL Eos # (Auto) (0-0.5) K/uL Baso # (Auto) (0-0.2) K/uL Immature Gran # (Auto) (0.00-0.02) K/uL PT (9.0-12.0) Seconds INR (0.9-1.1) APTT (21.0-31.0) Seconds PTT Ratio VBG pH (7.36-7.41) VBG pCO2 (38-50) mmHg VBG pO2 mmHg VBG HCO3 mmol/L VBG O2 Saturation % VBG Base Excess mEq/L Barometric Pressure mm/Hg Sodium (136-145) mmol/L Potassium (3.5-5.1) mmol/L Chloride (98-107) mmol/L Carbon Dioxide (21-32) mmol/L Anion Gap (3-11) BUN (7-18) mg/dl Creatinine (0.6-1.4) mg/dl Est Cr Clr Drug Dosing ml/min Est GFR ( Amer) Est GFR (Non-Af Amer) BUN/Creatinine Ratio (10-20) Glucose (70-99) mg/dl Lactate 1.2 (0.4-2.0) mmol/L Calcium (8.5-10.1) mg/dl Phosphorus (2.5-4.9) mg/dl Magnesium (1.8-2.4) mg/dl Total Bilirubin (0.2-1) mg/dl Direct Bilirubin (0-0.2) mg/dl AST (15-37) U/L ALT (12-78) U/L Alkaline Phosphatase (45-117) U/L Troponin I (0-0.045) ng/ml NT-Pro-B Natriuret Pep (0-900) pg/ml Total Protein (6.4-8.2) gm/dl Albumin (3.4-5.0) gm/dl Globulin (2.5-4.0) gm/dl Albumin/Globulin Ratio (0.9-2) Procalcitonin (0-0.5) ng/ml Urine Color Yellow Urine Appearance Turbid A (Clear) Urine pH 5.0 (4.5-7.5) Ur Specific [place] 1.024 (1.000-1.030) Urine Protein 2+ H (Negative) Urine Glucose (UA) 2+ H (Negative) Urine Ketones Negative (Negative) Urine Blood 3+ H (Negative) Urine Nitrite Negative (Negative) Urine Bilirubin Negative (Negative) Urine Urobilinogen Negative (Negative) Ur Leukocyte Esterase Negative (Negative) Urine WBC (Auto) >30 H (0-5) /hpf Urine RBC (Auto) >30 H (0-4) /hpf U Hyaline Cast (Auto) 0 (0-5) /lpf U Epithel Cells (Auto) >30 H (0-5) /lpf Urine Bacteria (Auto) Negative (Negative) Ur Renal Epithelial Cell Not Reportable Amorphous Sediment Present A (None Prsent) Urine Yeast Not Reportable Administered Medications Potassium Chloride/Dextrose/Sod Cl (D5nss + 20meq Kcl) 20 meq in 1,000 mls @ 125 mls/hr IV .Q8H DUDLEY Stop: 09/21/20 00:05 Last Admin: 08/22/20 01:00 Dose: 125 mls/hr Documented by: [id number] Remdesivir 200 mg/ Sodium (Chloride) 250 mls @ 125 mls/hr IV ONE ONE; Protocol Stop: 08/22/20 02:59 Last Admin: 08/22/20 01:00 Dose: 125 mls/hr Documented by: [id number] Potassium Phosphate 15 mmol/ (Sodium Chloride) 255 mls @ 88 mls/hr IV ONE ONE Stop: 08/22/20 03:23 Last Admin: 08/22/20 01:00 Dose: 88 mls/hr Documented by: [id number] Piperacillin Sod/Tazobactam (Sod 3.375 gm/ Dextrose) 115 mls @ 28.75 mls/hr IV Q8H DUDLEY; Protocol Stop: 08/29/20 00:59 Last Admin: 08/22/20 01:00 Dose: 28.8 mls/hr Documented by: [id number] Discontinued Medications Dexamethasone (Dexamethasone Sod Inj 10 Mg/Ml Vial) 6 mg IV NOW ONE Stop: 08/21/20 16:09 Last Admin: 08/21/20 16:54 Dose: 6 mg Documented by: [id number] Piperacillin Sod/Tazobactam Sod (Zosyn) 4.5 gm in 120 mls @ 240 mls/hr IV NOW ONE Stop: 08/21/20 16:36 Last Infusion: 08/21/20 17:39 Dose: 0 mls/hr Documented by: [id number] Admin: 08/21/20 16:56 Dose: 240 mls/hr Documented by: [id number] Vancomycin HCl 1,750 mg/ (Sodium Chloride) 535 mls @ 200 mls/hr IV NOW ONE Stop: 08/21/20 18:47 Last Infusion: 08/21/20 20:00 Dose: 0 mls/hr Documented by: [id number] Admin: 08/21/20 17:15 Dose: 200 mls/hr Documented by: [id number] Sodium Chloride (Nss) 500 mls @ 999 mls/hr IV .Q31M ONE Stop: 08/21/20 19:57 Last Infusion: 08/21/20 20:39 Dose: 0 mls/hr Documented by: [id number] Admin: 08/21/20 20:08 Dose: 999 mls/hr Documented by: [id number] Ioversol (Optiray 320 125ml) 119 ml IV ONCE ONE Stop: 08/21/20 18:27 Last Admin: 08/21/20 18:26 Dose: 119 ml Documented by: [id number] Discharge Plan Visit Data Chief Complaint: Illness Stated Complaint: FLUID RETENTION, PAIN, COVID + ED Provider: Pj Lo Discharge Problem: Acute respiratory failure with hypoxia, Pneumonia due to COVID-19 virus, Elevated lactic acid level, Hypoalbuminemia, History of cerebrovascular accident with residual effects Patient Disposition: Admitted As Inpatient Discharge Instructions Interventions: ED Discharge Assessment Last Done: 08/21/20 22:31
[2020-08-21 17:40] LABS: Albumin Globulin Ratio 0.3 (0.9-2); Alkaline Phosphatase 113 U/L (45-117); Bilirubin,Total 0.3 mg/dl (0.2-1); Globulin 5.6 gm/dl (2.5-4.0); NT Pro B Type Natriuretic Pept 10482 pg/ml (0-900); Phosphorus 2.3 mg/dl (2.5-4.9); Total Protein 7.4 gm/dl (6.4-8.2); Troponin I 0.566 ng/ml (0-0.045)
[2020-08-21 17:50] LABS: Appearance Urine Turbid (Clear); Bacteria Urine Automated Negative (Negative); Bilirubin Urine Negative (Negative); Blood Urine 3+ (Negative); Color Urine Yellow; Epithelial Cell Urine Auto >30 /lpf (0-5); Glucose Urine UA 2+ (Negative); Ketones Urine Negative (Negative); Leukocyte Esterase Urine Negative (Negative); Nitrite Urine Negative (Negative); Protein Urine 2+ (Negative); Specific Gravity Urine 1.024 (1.000-1.030); Urobilinogen Urine Negative (Negative); WBC Urine Automated >30 /hpf (0-5)
[2020-08-21 18:07] LABS: RBC Urine Automated >30 /hpf (0-4)
[2020-08-21 18:08] LABS: Amorphous Sediment Urine Present (None Prsent); Cast Urine Automated 0 /lpf (0-5)
[2020-08-21] MEDS ORDERED: OPTIRAY 320 125ml IV ONE (18:26)
--- NOTE | 2020-08-21 18:44 | CT Scan Report ---
CT head/brain wo con CLINICAL HISTORY: 70 years-old Male with recent cva, ams, [id number]/sepsis. Acute strokelike sympto ms with altered mental status. TECHNIQUE: Multiple axial CT images of the head were obtained without contrast. A dose lowering tech nique was utilized adhering to the principles of ALARA. CT DOSE: 2392.95 mGy.cm COMPARISON: Head CT 12/05/2016.. FINDINGS: There is a large subacute appearing infarct of the right MCA territory with cytotoxic edema measuring up to 13 cm in AP dimension. Cortically based areas of petechial hemorrhage/laminar necros is also noted within this distribution. Subacute to chronic appearing infarct of the left occipital l obe is new from comparison. Age-related involutional changes. No midline shift or herniation. Encepha lomalacia with remote infarct of the inferior left cerebellar hemisphere. No acute calvarial fracture. Mastoid air cells and middle ear cavities are clear. Unremarkable soft t issues and orbits. IMPRESSION: 1. Large subacute appearing infarct of the right MCA territory with multifocal cortically based areas of petechial hemorrhage. 2. No midline shift, hydrocephalus or herniation. 3. Subacute versus chronic infarct of the left occipital lobe, new from 2017. 4. Encephalomalacia with remote infarct of the left inferior cerebellar hemisphere. Findings were discussed with Dr. Lo on 08/21/2020 at 6:40 PM. ACT 112: Negative or not required by law. The above report was generated using voice recognition software. It may contain grammatical, syntax o r spelling errors. Electronically signed by: José Miguel Zurita M.D. 08/21/2020 6:43 PM
--- NOTE | 2020-08-21 19:04 | CT Scan Report ---
CT angio chest PE protocol, CT abd pelvis IV con only HISTORY: 70 years-old Male with PE. Acute shortness of breath with generalized abdominal pain. COVI D Positive. TECHNIQUE: Multiple CTA images of the chest were obtained after the intravenous administration of 119 ml Optiray 320. Coronal and sagittal MIPS were obtained from the axial data set and were submitted for review. All measurements were obtained according to NASCET criteria. CT abdomen pelvis with IV c ontrast only was also obtained. A dose lowering technique was utilized adhering to the principles of ALARA. COMPARISON: CTA chest 03/23/2016. FINDINGS: CTA: Moderate cardiomegaly. Prior median sternotomy and CABG with moderate to extensive [place] coronary ar tarm calcifications. Moderate mixed plaque of the thoracic aortic arch with patency of the imaged pro ximal great vessels. The pulmonary artery segmental and subsegmental branches are suboptimally evalua jorje secondary to respiratory motion artifact. No central pulmonary emboli are identified. CT CHEST: No large thyroid nodule. Mildly prominent mediastinal and hilar lymph nodes are likely reactive. No p athologically enlarged lymph nodes. Small layering pleural effusions. Respiratory motion artifact payne its evaluation of the lungs. No pneumothorax. Moderate multifocal bilateral groundglass and alveolar opacities. Central airways appear patent. No acute fracture. suspicious bone lesion. CT ABDOMEN/PELVIS: Degraded exam secondary to upper extremity positioning and respiratory motion artifact. No pneumatosi s or pneumoperitoneum. Spleen, mildly atrophic pancreas, adrenal glands and liver appear unremarkable . Patency of the hepatic and portal veins. Moderately distended gallbladder with mucosal hyperemia, wall thickening and trace pericholecystic ed jimena. No definite cholelithiasis identified. No associated biliary ductal dilation. Probable cyst of t he interpolar right kidney anteriorly, 1.5 cm. No obstructive uropathy. Urinary bladder wall thickeni ng. Partial distention of the urinary bladder with Chandler catheter. Air is noted within the bladder saumya men. Prostamegaly. Mixed plaque of the abdominal aorta without aneurysm. No adenopathy. Trace layering free fluid within the dependent pelvis. No bowel obstruction or bowel wall thickening identified. The appendix is not definitively seen. Left iliopsoas bursitis. Degenerative changes of t he spine, pelvis and hips. Remote bilateral L5 pars defects with grade 1 spondylolisthesis. IMPRESSION: 1. Limited exam as above. No pulmonary emboli. 2. Moderate bilateral intermixed groundglass and alveolar opacities are suggestive of multifocal pneu monia. 3. Small pleural effusions. 4. Findings suggestive of acute cholecystitis. No associated biliary ductal dilation. 5. No bowel obstruction or bowel wall thickening. 6. Additional findings as above. ACT 112: Negative or not required by law. The above report was generated using voice recognition software. It may contain grammatical, syntax o r spelling errors. Electronically signed by: José Miguel Zurita M.D. 08/21/2020 7:03 PM
[2020-08-21] MEDS ORDERED: SODIUM CHLORIDE 0.9% 500 ML IV ONE (19:27)
[2020-08-22] MEDS ORDERED: SOD PHOSPHATE/SOD BIPHOSPHATE ENEMA 132 ML BTL PR PRN (00:06)
[2020-08-22] MEDS ORDERED: DOCUSATE SODIUM/SENNA 50/8.6MG TAB PO PRN (00:06)
[2020-08-22] MEDS ORDERED: bisacodyL 10 MG SUPP PR PRN (00:06)
[2020-08-22] MEDS ORDERED: ONDANSETRON INJ 2 MG/ML 2 ML VIAL IV PRN (00:06)
[2020-08-22] MEDS ORDERED: D5NSS + 20MEQ KCL 20 MEQ/1,000 ML BAG IV SCH (00:06)
[2020-08-22] MEDS ORDERED: NITROGLYCERIN SL 0.4 MG/TAB TAB SL PRN (00:06)
[2020-08-22] MEDS ORDERED: ACETAMINOPHEN 1000 MG/100 ML IV IV PRN (00:06)
[2020-08-22] MEDS ORDERED: POTASSIUM PHOS 3 MMOL/1 ML INFUSION IV STA (00:06)
[2020-08-22] MEDS ORDERED: POTASSIUM PHOSPHATE 15 MMOL in SODIUM CHLORIDE 0.9% 250 ML IV ONE (00:30)
[2020-08-22] MEDS ORDERED: REMDESIVIR 200 MG in SODIUM CHLORIDE 0.9% 210 ML IV ONE (01:00)
[2020-08-22] MEDS: PIPERACILLIN/TAZOBACTAM 3.375 GM in DEXTROSE 5% 100 ML IV SCH ×3 (01:00→17:20)
--- NOTE | 2020-08-22 02:10 | History and Physical Report ---
DATE OF ADMISSION: 08/21/2020 CHIEF COMPLAINT: COVID pneumonia, hypoxia. HISTORY OF PRESENT ILLNESS: This is a 70-year-old male with past medical history significant for diabetes, CAD status post CABG, history of CVA in the past, hypertension, hyperlipidemia, who was recently at [facility] with a stroke and left-sided weakness and at that time the family says they were considering comfort care, but he recovered. He was able to converse. He is not able to ambulate. He was sent to [facility] on 08/10/2020. During the hospitalization in the [facility], one of his daughters was power of employment attorney and the patient was initially decided to be DNR/DNI. As per the family, since he came to [facility] he is declining. Last Sunday on 08/16/2020, he was diagnosed with COVID. He can stand with support, but could not ambulate and he is on pureed diet .Today was brought in because of worsening respiratory status and hypoxia. Oxygen saturation of 80% on room air and also the patient seemed to be more edematous. The patient is currently drowsy and opens eyes on calling. Moves extremities to painful stimuli, but not able to talk or give any history. As per the family, since coming to [facility], he is not talking much, but he could recognize family members and today when daughter called him, he told that he is having pain. He is also having severe decubitus ulcers in the back. In the ER, he was tachypneic, respiratory rate in is 20s to 30s and tachycardia,with his heart rate is in 100s, on OxyMask he is saturating okay. Has mild bibasilar crackles on examination. Initial lactate was 2.4, repeat was 1.2. ER started on empiric antibiotics. Sodium was 150. INR 1.2, potassium 3.4, phosphorus 2.3, calcium 7.9. Troponin was 0.5. BNP 10,480. Procalcitonin 0.2. CT of the head is showing large subacute appearing infarct in the right MCA territory with multifocal cortical based areas of petechial hemorrhage, no midline shift or hydrocephalus or herniation seen, and subacute versus chronic infarct in the left occipital lobe. Encephalomalacia with remote infarct in the inferior cerebellar hemisphere and also on CTA of the chest, there was no PE, but showing multifocal pneumonia. CT of the abdomen and pelvis showed possible cholecystitis. EKG was okay. The patient was DNR/DNI, but daughters want to keep him full code for now. Talked to two daughters one seems to be power of employment attorney and also another daughter. One daughter says that when he is at [facility], the patient might be thinking about changing his code status to full code, so they want to keep him full code for now until further discussion with the family members. ALLERGIES: No known drug allergies. PAST MEDICAL HISTORY: As mentioned above. PAST SURGICAL HISTORY: CABG, history of angioplasty. FAMILY HISTORY: Currently unknown. SOCIAL HISTORY: As per records, no smoking history. As per records used to drink alcohol, used to drink beer. Currently living at [facility]. REVIEW OF SYSTEMS: Unobtainable at this time. MEDICATIONS: The patient is on Tylenol 325 mg p.o. q. 4 hours p.r.n., vitamin C 500 mg p.o. b.i.d., aspirin 81 mg p.o. daily, atorvastatin 80 mg p.o. at bedtime, bisacodyl 10 mg p.o. daily p.r.n., vitamin D 550 mcg p.o. daily, Plavix 75 mg p.o. daily, Colace 100 mg p.o. b.i.d., Lovenox 60 mg subcutaneous daily, Lexapro 10 mg p.o. daily, famotidine 20 mg p.o. daily, Lantus 10 units subcutaneous at bedtime, lisinopril 5 mg p.o. daily, milk of magnesia 30 mL p.o. daily p.r.n., melatonin 3 mg p.o. at bedtime, metformin 500 mg p.o. b.i.d., MiraLax 17 grams p.o. daily p.r.n., senna 17.2 mg p.o. at bedtime, Senokot S 1 tablet p.o. daily p.r.n., Fleet enema daily p.r.n., Flomax 0.4 mg p.o. daily, zinc 220 mg p.o. daily. PHYSICAL EXAMINATION: GENERAL: The patient is lethargic, opens eyes on calling. Seems to be in mild respiratory distress. VITAL SIGNS: Temperature 37.7, pulse 62, respiratory rate 30, blood pressure 109/43, oxygen 99% on 6 liters OxyMask. HEENT: Pupils are equal and slightly sluggish to react. NECK: No neck masses seen. CARDIOVASCULAR: S1, S2 heard. Regular rate and rhythm. No murmur, no gallop. RESPIRATORY SYSTEM: Normal AP diameter, mild tachypnea. No wheezing. Mild bibasilar crackles. ABDOMEN: Soft, bowel sounds present. No distention. CENTRAL NERVOUS SYSTEM: Drowsy, opens eyes on calling and does not obey commands. Moves extremities for painful stimuli. EXTREMITIES: Mild pedal edema present. LABORATORY DATA: WBC 10, hemoglobin 12.4, hematocrit 38.2, platelets 373. PT 12.3, INR 1.2, APTT 32.8. Venous blood gas, pH of 7.4, pCO2 of 36, pO2 of 23, bicarbonate 22. Sodium 150, potassium 3.4, chloride 117, CO2 of 25, BUN 13, creatinine 1.1, serum glucose 196. Lactate 1.9, calcium 7.9, phosphorus 2.3, magnesium 2.2, total bilirubin 0.3, direct bilirubin less than 0.1, AST 113, ALT 65, alkaline phosphatase 113. Troponin 1 of 0.56. BNP 10,482. Procalcitonin 0.28. Urinalysis negative. IMAGING DATA: CT of the head, large subacute appearing infarct of the right MCA territory with multifocal cortical based areas of petechial hemorrhage. No midline shift, hydrocephalus or herniation. Subacute versus chronic infarct of the left occipital lobe, new from 2017. Encephalomalacia with remote infarct of the left inferior cerebellar hemisphere. CTA of the chest, no pulmonary emboli, moderate bilateral intermixed ground-glass and alveolar opacities suggestive of multifocal pneumonia, small pleural effusions. Findings suggestive of acute cholecystitis. No associated biliary ductal dilatation. No bowel obstruction or bowel wall thickening. CT of the abdomen and pelvis as above. Chest x-ray, bilateral alveolar opacities are compatible with multifocal pneumonia. EKG: Normal sinus rhythm with a rate of 95, right bundle branch block, no acute ST changes seen. ASSESSMENT AND PLAN: This is a 70-year-old male who presents with worsening mental status and hypoxia, mild respiratory distress. 1. COVID-19 multifocal pneumonia and hypoxia, requiring oxygen supplementation. Diagnosed with COVID on 08/16/2020 at [facility]. The patient meets criteria for remdesivir. His kidney function and LFTs are okay. We will start him on IV remdesivir and also IV Decadron 6 mg daily. Follow the remdesivir labs. Continue oxygen supplementation. The patient was recently made DNR/DNI, but family wants to be full code for now until further discussions. Closely monitor in the tele floor. 2. Possible cholecystitis on CAT scan. ER started on antibiotics of Zosyn and vancomycin, which will continue. Consult surgery in the a.m. Currently n.p.o. and on intravenous fluids. 3. Hypernatremia: Sodium of 150. Started on D5 of normal saline with 20 of KCl. We will follow the repeat labs. 4. Hypokalemia and hypophosphatemia: We will replace. 5. Mild elevation of troponin, could be demand ischemia from hypoxemia. We will follow serial enzymes. 6. Recent stroke and also history of strokes in the past: CAT scan is showing large subacute appearing infarct in the right MCA territory with multifocal cortical based areas of petechial hemorrhage. As per the radiology spoken by ER there is no hemorrhagic conversion. We will continue his home aspirin, Plavix, and statin. Will consult neurology for any possible hemorrhagic conversion. Close monitor. 7. History of coronary artery disease, status post coronary artery bypass graft. Continue his aspirin, Plavix, statin. 8. Diabetes: Hold his Lantus and metformin, placed on insulin sliding scale. Follow the blood sugars. Adjust the insulin based on blood sugars. 9. Hyperlipidemia: Continue statin. 10. Benign prostatic hypertrophy: Continue Flomax. 11. Nutrition: The patient is on pureed diet and needs help him with feeding at [facility] as per daughter. Currently, the patient is drowsy. Placed on clear liquid diet. Speech evaluation when the patient is more stable. If he is not taking any p.o., we will get a speech evaluation in the a.m. 12. Depression: Continue his Lexapro. 13. Stage IV decubitus ulcers with blackish discoloration of his buttock region with open wounds. Antibiotics as above. Consult wound care and wound care nurse and follow the cultures. 14. Deep vein thrombosis prophylaxis: He was placed on Lovenox at [facility], but holding for now for possible hemorrhagic conversion on CT scan of the head.scds DISPOSITION: Closely monitor in the tele floor. Code status, full code as per my discussion with the daughters. PT and OT prior to discharge. Social service to help with discharge planning.Prognosis guarded to poor. Addendum: Patient oxygen kristyn went down. Requiring increased oxygenation. Will follow cxr. stoped fluids. Will place on high flow oxygen. Dose of iv Lasix ordered. Pulmonary consult. MTDD
[2020-08-22] MEDS ORDERED: FUROSEMIDE 20 MG in SYRINGE 0 ML IV ONE (05:18)
[2020-08-22] MEDS ORDERED: FUROSEMIDE 40 MG in SYRINGE 0 ML IV ONE ×3 (05:20→21:00)
[2020-08-22] MEDS: VANCOMYCIN HCL 1,000 MG in SODIUM CHLORIDE 0.9% 250 ML IV SCH ×2 (05:28→17:19)
[2020-08-22] MEDS ORDERED: FUROSEMIDE 40 MG/4 ML VIAL IV ONE ×2 (05:33→18:53)
[2020-08-22 06:02] LABS: Hematocrit (blood only) 38.8 % (42-52); Hemoglobin 12.4 g/dL (14.0-18.0); Mean Corpuscular Hemoglobin 30.1 pg (25-34); Mean Corpuscular Volume 94.2 fL (80-100); Mean Platelet Volume 9.6 fL (7.4-10.4); Platelet Count 334 K/uL (130-400); RDW Coefficient of Variation 14.8 % (11.5-14.5); Red Blood Count 4.12 M/uL (4.7-6.1); White Blood Count 9.79 K/uL (4.8-10.8)
[2020-08-22 06:33] LABS: Basophils # (auto) 0.02 K/uL (0-0.2); Basophils % (auto) 0.2 %; Immature Granulocytes # (auto) 0.07 K/uL (0.00-0.02); Immature Granulocytes % (auto) 0.7 %; Lymphocytes # (auto) 1.05 K/uL (1.2-3.4); Lymphocytes % (auto) 10.7 %; Monocytes # (auto) 0.23 K/uL (0.11-0.59); Monocytes % (auto) 2.3 %; Neutrophils # (auto) 8.42 K/uL (1.4-6.5); Neutrophils % (auto) 86.1 %
[2020-08-22 06:57] LABS: Albumin Level 1.5 gm/dl (3.4-5.0); BUN Creatinine Ratio 13.2 (10-20); Bilirubin Direct 0.1 mg/dl (0-0.2); Bilirubin,Total 0.5 mg/dl (0.2-1); Calcium 7.7 mg/dl (8.5-10.1); Creatinine Clr Calc Pharmacy 60.1 ml/min; Est GFR (African American) 78.7; Est GFR (Non-African American) 67.9; Magnesium 1.8 mg/dl (1.8-2.4); Potassium 3.6 mmol/L (3.5-5.1); Total Protein 6.8 gm/dl (6.4-8.2); Troponin I 0.459 ng/ml (0-0.045)
[2020-08-22 07:11] LABS: Beta-Hydroxybutyrate 12.46 mg/dl (0.2-2.81)
--- NOTE | 2020-08-22 08:03 | XRay Report ---
XR chest 1V portable CLINICAL HISTORY: hypoxia COMPARISON STUDY: 08/21/2020 FINDINGS: There are postsurgical changes of a midline sternotomy. There are progressive bilateral pul monary airspace opacities consistent with a multifocal pneumonia.[ IMPRESSION: Worsening bilateral pulmonary airspace opacities consistent with a multifocal pneumonia ACT 112: Negative or not required by law. Electronically signed by: Raul Contreras M.D. 08/22/2020 8:02 AM
[2020-08-22] MEDS: INSULIN ASPART 100 UNITS/ML 3 ML PEN SC SCH ×5 (08:42→23:58)
[2020-08-22] MEDS ORDERED: CHOLECALCIFEROL 1,000 UNITS 25 MCG TAB PO SCH (09:00)
[2020-08-22] MEDS ORDERED: CLOPIDOGREL BISULFATE 75 MG TAB PO SCH (09:00)
[2020-08-22] MEDS ORDERED: DOCUSATE SODIUM 100 MG CAP PO SCH (09:00)
[2020-08-22] MEDS ORDERED: FAMOTIDINE 20 MG TAB PO SCH (09:00)
[2020-08-22] MEDS ORDERED: ZINC SULFATE 220 MG CAPSULE PO SCH (09:00)
[2020-08-22] MEDS ORDERED: lisinopril 5 MG TAB PO SCH (09:00)
[2020-08-22] MEDS ORDERED: ESCITALOPRAM OXALATE 10 MG TAB PO SCH (09:00)
[2020-08-22] MEDS ORDERED: ASPIRIN 81 MG ECTAB PO SCH (09:00)
--- NOTE | 2020-08-22 09:10 | Pulmonary Consultation ---
Date of Consultation August 22, 2020 Assessment & Plan (1) Acute respiratory failure with hypoxia: CT chest 08/21/2020 personally reviewed: Diffuse groundglass opacities appreciated bilaterally upper and lower lobes, mild pleural effusions bilateral, fluid in the fissure on the right side No mediastinal lymphadenopathy. --Acute hypoxic respiratory failure Secondary to multilobar pneumonia from COVID-19 There is also a component of heart failure Lymphopenia, COVID-19 was diagnosed 08/16/2020 Procalcitonin 0.28 BNP 10,500 Continue with remdesivir Continue with dexamethasone for total of 10 days Lovenox Plan: I think there is a component of heart failure also playing a role given bilateral mild pleural effusion as well as BNP of 10,500 Patient also seems to be in DKA with beta hydroxybutyric acid on the higher side likely from the dexamethasone that been giving him. It is very tricky here as the patient is hypernatremic, DKA and with component of CHF Recommend to keep him euvolemic. For hypernatremia would recommend half NS and free water if possible by mouth. Close monitoring of in and out and give Lasix as needed. Pro calcitonin 0.28. Would recommend discontinuing broad-spectrum antibiotics if the reason of them was pneumonia. Given alk phos is within normal limits I doubt cholecystitis playing a role here. Overall patient's quality of life it is very poor He has history of recent CVA with hemiplegia. He has stage IV decubitus ulcer Overall prognosis of the patient is guarded I do not think escalation of care for the patient would be appropriate. Recommend palliative care consult to decide goals of care Case was discussed with Dr Correa Pulmonary will follow peripherally. Please call directly with any questions. Please note the above document was generated using voice recognition software. It may contain grammatical, syntax or spelling errors.Any formal questions or concerns about the content, text or information contained within the body of this dictation should be directly addressed to the provider for clarification. (2) Pneumonia due to COVID-19 virus: History of Present Illness Attending Physician: Kim Correa MD History of Present Illness 70-year-old male with past medical history of diabetes, coronary artery disease s/p CABG, recent CVA with left-sided hemiplegia was brought to the hospital be cause of altered mental status. Patient was in the ED saturating 80% was lethargic. Pulmonary consulted because of high oxygenation need. Of note patient was DNR/DNI since discharge from previous hospitalization. Currently patient is full code At the time of examination patient was lying on his right side he had facemask on his saturation was 97% on 6 L. Went down to 4 L. Patient was answering questions appropriately. He denied any chest pain. He stated that his breathing is better compared to when he came to the hospital. No blurry vision. Denies any abdominal pain. No nausea or vomiting. No dysuria. Allergies Allergy/AdvReac Type Severity Reaction Status Date / Time No Known Allergies Allergy Verified 08/21/20 16:22 Home Medications Medication Instructions Recorded Confirmed Type acetaminophen 325 mg PO Q4H PRN 08/21/20 08/21/20 History ascorbic acid (vitamin C) [Vitamin 500 mg PO BID 08/21/20 08/21/20 History C] aspirin 81 mg PO DAILY 08/21/20 08/21/20 History atorvastatin 80 mg PO HS 08/21/20 08/21/20 History bisacodyl 10 mg GA DAILY PRN 08/21/20 08/21/20 History cholecalciferol (vitamin D3) 50 mcg PO DAILY 08/21/20 08/21/20 History [Vitamin D3] clopidogrel 75 mg PO DAILY 08/21/20 08/21/20 History docusate sodium 100 mg PO BID 08/21/20 08/21/20 History enoxaparin [Lovenox] 60 mg SUBCUT DAILY 08/21/20 08/21/20 History escitalopram oxalate [Lexapro] 10 mg PO DAILY 08/21/20 08/21/20 History famotidine 20 mg PO DAILY 08/21/20 08/21/20 History insulin glargine [Lantus U-100 10 unit SUBCUT HS 08/21/20 08/21/20 History Insulin] lisinopril 5 mg PO DAILY 08/21/20 08/21/20 History magnesium hydroxide [Milk of 30 ml PO DAILY PRN 08/21/20 08/21/20 History Magnesia] melatonin 3 mg PO HS 08/21/20 08/21/20 History metformin 500 mg PO BIDM 08/21/20 08/21/20 History polyethylene glycol 3350 [Miralax] 17 g PO QDL PRN 08/21/20 08/21/20 History sennosides [senna] 17.2 mg PO HS 08/21/20 08/21/20 History sennosides-docusate sodium 1 tab PO QDL PRN 08/21/20 08/21/20 History [Senokot-S] sodium phosphates [Fleet Enema] 133 ml GA DAILY PRN 08/21/20 08/21/20 History tamsulosin 0.4 mg PO QDD 08/21/20 08/21/20 History zinc sulfate 220 mg PO DAILY 08/21/20 08/21/20 History Patient History Medical History CAD (coronary artery disease) DM type 2 (diabetes mellitus, type 2) History of cerebrovascular accident with residual effects Surgical History History of angioplasty S/P CABG x 5 Social History Smoking Status: Unknown if ever smoked Preferred Language: Hungarian Communication Ability: Effective Production Sanitizer Required: No Beliefs That Will Affect Care: None Current Living Situation: Rehab Other Information That Helps Us Care for You: No Feels Safe at Home: Yes Assistive Devices: Oxygen - Continuous Review of Systems Review of Systems: All systems reviewed & are unremarkable except as noted in HPI & below Physical Exam Physical Exam: Constitutional: No acute distress HEENT: EOMI, PERRLA Respiratory system: Decreased air entry bilaterally, positive crackles bilateral lower lobes, no wheeze, no rhonchi CVS: S1-S2 positive Abdomen: Soft, nontender, nondistended, positive bowel sounds x4 Extremities: +2 pulses bilaterally radialis/ dorsalis pedis, no cyanosis, no edema, left-sided hemiplegia Neuro: Awake alert oriented to self and place Psych: Normal mood and affect G/U: Positive Chandler Skin: no rashes, warm and dry Lymphatic: no cervical or axillary lymphadenopathy Results & Data Results & Data ([facility]) Vital Signs (Past 12 Hours) Vital Signs Temp Pulse Pulse Resp BP BP BP 08/22/20 07:16 36.8 C 87 22 117/60 08/22/20 06:23 08/22/20 05:42 08/22/20 05:17 08/22/20 05:16 150/82 H 08/22/20 03:22 36.8 C 71 26 H 147/80 H 08/21/20 22:55 36.5 C 63 26 H 138/69 08/21/20 22:31 62 31 H 109/43 L 08/21/20 22:00 62 31 H 109/43 L 08/21/20 21:30 63 32 H 139/60 Pulse Ox 08/22/20 07:16 93 08/22/20 06:23 99 08/22/20 05:42 91 08/22/20 05:17 86 L 08/22/20 05:16 08/22/20 03:22 94 08/21/20 22:55 95 08/21/20 22:31 99 08/21/20 22:00 99 08/21/20 21:30 98 08/22/20 05:45 08/22/20 05:45 PG Care Time/CCT Total # of Minutes Spent Total Time Spent with Patient: Total time spent is greater than 50% in coordination of care (as documented) at patient's floor/unit and/or counseling patient: Coding Level of Care Code 08596 Initial Inpt Care Lvl 3 Diagnoses Acute respiratory failure with hypoxia J96.01 Pneumonia due to COVID-19 virus U07.1; J12.82
[2020-08-22] MEDS ORDERED: PHARMACY GLYCEMIC MGMT CONSULT PRN (09:12)
[2020-08-22] MEDS ORDERED: DOXYCYCLINE HYCLATE 100 MG CAP PO SCH (09:15)
[2020-08-22] MEDS: DEXAMETHASONE SOD PHOSPHATE 6 MG in SYRINGE 0 ML IV SCH (09:45)
--- NOTE | 2020-08-22 10:10 | Surgery Consultation ---
Date of Consultation August 22, 2020 Assessment & Plan (1) Abnormal findings on diagnostic imaging of gallbladder: 70-year-old male with multiple medical problems and current Covid pneumonia. On his CT scan which I reviewed personally there is some hyperemia of the gallbladder wall, but he has no GI symptoms, normal white count, and has no abdominal tenderness on exam. If there is further concern for acute cholecystitis, we would recommend a HIDA scan without ejection fraction to [facility] evaluate. In the setting of his multiple comorbidities and his acute illness, he would not be a good candidate for surgery at this time. If acute a calculus cholecystitis was determined to be present, we would recommend transfer for percutaneous cholecystostomy tube. Surgery will sign off, call with questions or concerns. (2) Acute respiratory failure with hypoxia: (3) Pneumonia due to COVID-19 virus: (4) S/P CABG x 5: (5) History of angioplasty: (6) CAD (coronary artery disease): (7) DM type 2 (diabetes mellitus, type 2): (8) History of cerebrovascular accident with residual effects: (9) Hypoalbuminemia: (10) Hyperglycemia: History of Present Illness Attending Physician: Kim Correa MD History of Present Illness 70-year-old male with multiple medical problems and recent CVA, complicated by Covid infection, presented to the ER with hypoxia and respiratory distress. During his evaluation a CT scan of his abdomen and pelvis was performed and showed some hyperemia of the gallbladder with some possible thickening. The patient is a poor historian, but denies any abdominal pain. He denies any postprandial abdominal pain in the past. History of CABG, stroke, diabetes, and current Covid infection. Allergies Allergy/AdvReac Type Severity Reaction Status Date / Time No Known Allergies Allergy Verified 08/21/20 16:22 Home Medications Medication Instructions Recorded Confirmed Type acetaminophen 325 mg PO Q4H PRN 08/21/20 08/21/20 History ascorbic acid (vitamin C) [Vitamin 500 mg PO BID 08/21/20 08/21/20 History C] aspirin 81 mg PO DAILY 08/21/20 08/21/20 History atorvastatin 80 mg PO HS 08/21/20 08/21/20 History bisacodyl 10 mg MO DAILY PRN 08/21/20 08/21/20 History cholecalciferol (vitamin D3) 50 mcg PO DAILY 08/21/20 08/21/20 History [Vitamin D3] clopidogrel 75 mg PO DAILY 08/21/20 08/21/20 History docusate sodium 100 mg PO BID 08/21/20 08/21/20 History enoxaparin [Lovenox] 60 mg SUBCUT DAILY 08/21/20 08/21/20 History escitalopram oxalate [Lexapro] 10 mg PO DAILY 08/21/20 08/21/20 History famotidine 20 mg PO DAILY 08/21/20 08/21/20 History insulin glargine [Lantus U-100 10 unit SUBCUT HS 08/21/20 08/21/20 History Insulin] lisinopril 5 mg PO DAILY 08/21/20 08/21/20 History magnesium hydroxide [Milk of 30 ml PO DAILY PRN 08/21/20 08/21/20 History Magnesia] melatonin 3 mg PO HS 08/21/20 08/21/20 History metformin 500 mg PO BIDM 08/21/20 08/21/20 History polyethylene glycol 3350 [Miralax] 17 g PO QDL PRN 08/21/20 08/21/20 History sennosides [senna] 17.2 mg PO HS 08/21/20 08/21/20 History sennosides-docusate sodium 1 tab PO QDL PRN 08/21/20 08/21/20 History [Senokot-S] sodium phosphates [Fleet Enema] 133 ml MO DAILY PRN 08/21/20 08/21/20 History tamsulosin 0.4 mg PO QDD 08/21/20 08/21/20 History zinc sulfate 220 mg PO DAILY 08/21/20 08/21/20 History Patient History Medical History CAD (coronary artery disease) DM type 2 (diabetes mellitus, type 2) History of cerebrovascular accident with residual effects Surgical History History of angioplasty S/P CABG x 5 Social History Smoking Status: Unknown if ever smoked Preferred Language: [place] Citizen Communication Ability: Effective It Generalist Required: No Beliefs That Will Affect Care: None Current Living Situation: Rehab Other Information That Helps Us Care for You: No Feels Safe at Home: Yes Review of Systems Review of Systems: Unobtainable due to cognitive status Physical Exam Constitutional: Vitals as above, no acute distress, frail-appearing Gastrointestinal (Abdomen): normal bowel sounds, soft, nontender, no hepatosplenomegaly Results & Data ([facility]) Vital Signs (Past 12 Hours) Vital Signs Temp Pulse Pulse Resp BP BP BP 08/22/20 07:16 36.8 C 87 22 117/60 08/22/20 06:23 08/22/20 05:42 08/22/20 05:17 08/22/20 05:16 150/82 H 08/22/20 03:22 36.8 C 71 26 H 147/80 H 08/21/20 22:55 36.5 C 63 26 H 138/69 08/21/20 22:31 62 31 H 109/43 L 08/21/20 22:00 62 31 H 109/43 L Pulse Ox 08/22/20 07:16 93 08/22/20 06:23 99 08/22/20 05:42 91 08/22/20 05:17 86 L 08/22/20 05:16 08/22/20 03:22 94 08/21/20 22:55 95 08/21/20 22:31 99 08/21/20 22:00 99 Laboratory Results Laboratory Results - last 24 hr 08/21/20 08/21/20 08/21/20 16:37 16:37 16:37 WBC 10.13 RBC 4.04 L Hgb 12.4 L Hct 38.2 L MCV 94.6 MCH 30.7 MCHC 32.5 RDW Std Deviation 50.8 H RDW Coeff of Javid 14.6 H Plt Count 373 MPV 9.5 Immature Gran % (Auto) 0.7 Neut % (Auto) 84.2 Lymph % (Auto) 11.5 Mower % (Auto) 3.3 Eos % (Auto) 0.1 Baso % (Auto) 0.2 Neut # (Auto) 8.54 H Lymph # (Auto) 1.16 L Mower # (Auto) 0.33 Eos # (Auto) 0.01 Baso # (Auto) 0.02 Immature Gran # (Auto) 0.07 H PT INR APTT PTT Ratio VBG pH VBG pCO2 VBG pO2 VBG HCO3 VBG O2 Saturation VBG Base Excess Barometric Pressure Sodium 150 H Potassium 3.4 L Chloride 117 H Carbon Dioxide 25 Anion Gap 8.0 BUN 13 Creatinine 1.16 Est Cr Clr Drug Dosing 56.5 Est GFR ( Amer) 73.0 Est GFR (Non-Af Amer) 63.0 BUN/Creatinine Ratio 11.5 Glucose 196 H POC Glucose Estimat Average Glucose Hemoglobin A1c Lactate Calcium 7.9 L Phosphorus 2.3 L Magnesium 2.2 Total Bilirubin 0.3 Direct Bilirubin < 0.1 AST 113 H ALT 65 Alkaline Phosphatase 113 Troponin I 0.566 H* NT-Pro-B Natriuret Pep 14386 H Total Protein 7.4 Albumin 1.8 L Globulin 5.6 H Albumin/Globulin Ratio 0.3 L Beta-Hydroxybutyric Acd Procalcitonin 0.28 Urine Color Urine Appearance Urine pH Ur Specific [place] Urine Protein Urine Glucose (UA) Urine Ketones Urine Blood Urine Nitrite Urine Bilirubin Urine Urobilinogen Ur Leukocyte Esterase Urine WBC (Auto) Urine RBC (Auto) U Hyaline Cast (Auto) U Epithel Cells (Auto) Urine Bacteria (Auto) Ur Renal Epithelial Cell Amorphous Sediment Urine Yeast 08/21/20 08/21/20 08/21/20 16:37 16:52 16:52 WBC RBC Hgb Hct MCV MCH MCHC RDW Std Deviation RDW Coeff of Javid Plt Count MPV Immature Gran % (Auto) Neut % (Auto) Lymph % (Auto) Mower % (Auto) Eos % (Auto) Baso % (Auto) Neut # (Auto) Lymph # (Auto) Mower # (Auto) Eos # (Auto) Baso # (Auto) Immature Gran # (Auto) PT 12.3 H INR 1.2 H APTT 32.8 H PTT Ratio 1.2 VBG pH 7.41 VBG pCO2 36 L VBG pO2 23 VBG HCO3 22 VBG O2 Saturation < 60.0 VBG Base Excess -2.1 Barometric Pressure 735.8 Sodium Potassium Chloride Carbon Dioxide Anion Gap BUN Creatinine Est Cr Clr Drug Dosing Est GFR ( Amer) Est GFR (Non-Af Amer) BUN/Creatinine Ratio Glucose POC Glucose Estimat Average Glucose Hemoglobin A1c Lactate 2.4 H* Calcium Phosphorus Magnesium Total Bilirubin Direct Bilirubin AST ALT Alkaline Phosphatase Troponin I NT-Pro-B Natriuret Pep Total Protein Albumin Globulin Albumin/Globulin Ratio Beta-Hydroxybutyric Acd Procalcitonin Urine Color Urine Appearance Urine pH Ur Specific Ames Urine Protein Urine Glucose (UA) Urine Ketones Urine Blood Urine Nitrite Urine Bilirubin Urine Urobilinogen Ur Leukocyte Esterase Urine WBC (Auto) Urine RBC (Auto) U Hyaline Cast (Auto) U Epithel Cells (Auto) Urine Bacteria (Auto) Ur Renal Epithelial Cell Amorphous Sediment Urine Yeast 08/21/20 08/21/20 08/22/20 17:35 19:02 05:45 WBC 9.79 RBC 4.12 L Hgb 12.4 L Hct 38.8 L MCV 94.2 MCH 30.1 MCHC 32.0 RDW Std Deviation 51.0 H RDW Coeff of Javid 14.8 H Plt Count 334 MPV 9.6 Immature Gran % (Auto) 0.7 Neut % (Auto) 86.1 Lymph % (Auto) 10.7 Mower % (Auto) 2.3 Eos % (Auto) 0.0 Baso % (Auto) 0.2 Neut # (Auto) 8.42 H Lymph # (Auto) 1.05 L Mower # (Auto) 0.23 Eos # (Auto) 0.00 Baso # (Auto) 0.02 Immature Gran # (Auto) 0.07 H PT INR APTT PTT Ratio VBG pH VBG pCO2 VBG pO2 VBG HCO3 VBG O2 Saturation VBG Base Excess Barometric Pressure Sodium Potassium Chloride Carbon Dioxide Anion Gap BUN Creatinine Est Cr Clr Drug Dosing Est GFR ( Amer) Est GFR (Non-Af Amer) BUN/Creatinine Ratio Glucose POC Glucose Estimat Average Glucose Hemoglobin A1c Lactate 1.2 Calcium Phosphorus Magnesium Total Bilirubin Direct Bilirubin AST ALT Alkaline Phosphatase Troponin I NT-Pro-B Natriuret Pep Total Protein Albumin Globulin Albumin/Globulin Ratio Beta-Hydroxybutyric Acd Procalcitonin Urine Color Yellow Urine Appearance Turbid A Urine pH 5.0 Ur Specific Ames 1.024 Urine Protein 2+ H Urine Glucose (UA) 2+ H Urine Ketones Negative Urine Blood 3+ H Urine Nitrite Negative Urine Bilirubin Negative Urine Urobilinogen Negative Ur Leukocyte Esterase Negative Urine WBC (Auto) >30 H Urine RBC (Auto) >30 H U Hyaline Cast (Auto) 0 U Epithel Cells (Auto) >30 H Urine Bacteria (Auto) Negative Ur Renal Epithelial Cell Not Reportable Amorphous Sediment Present A Urine Yeast Not Reportable 08/22/20 08/22/20 08/22/20 05:45 05:45 07:37 WBC RBC Hgb Hct MCV MCH MCHC RDW Std Deviation RDW Coeff of Javid Plt Count MPV Immature Gran % (Auto) Neut % (Auto) Lymph % (Auto) Mower % (Auto) Eos % (Auto) Baso % (Auto) Neut # (Auto) Lymph # (Auto) Mower # (Auto) Eos # (Auto) Baso # (Auto) Immature Gran # (Auto) PT INR APTT PTT Ratio VBG pH VBG pCO2 VBG pO2 VBG HCO3 VBG O2 Saturation VBG Base Excess Barometric Pressure Sodium 151 H Potassium 3.6 Chloride 123 H Carbon Dioxide 18 L Anion Gap 10.0 BUN 14 Creatinine 1.09 Est Cr Clr Drug Dosing 60.1 Est GFR ( Amer) 78.7 Est GFR (Non-Af Amer) 67.9 BUN/Creatinine Ratio 13.2 Glucose 303 H* POC Glucose 316 H* Estimat Average Glucose Pending Hemoglobin A1c Pending Lactate Calcium 7.7 L Phosphorus Magnesium 1.8 Total Bilirubin 0.5 Direct Bilirubin 0.1 AST 100 H ALT 58 Alkaline Phosphatase 103 Troponin I 0.459 H* NT-Pro-B Natriuret Pep Total Protein 6.8 Albumin 1.5 L Globulin Albumin/Globulin Ratio Beta-Hydroxybutyric Acd 12.46 H Procalcitonin Urine Color Urine Appearance Urine pH Ur Specific Ames Urine Protein Urine Glucose (UA) Urine Ketones Urine Blood Urine Nitrite Urine Bilirubin Urine Urobilinogen Ur Leukocyte Esterase Urine WBC (Auto) Urine RBC (Auto) U Hyaline Cast (Auto) U Epithel Cells (Auto) Urine Bacteria (Auto) Ur Renal Epithelial Cell Amorphous Sediment Urine Yeast Diagnostic Findings CT angio chest PE protocol, CT abd pelvis IV con only HISTORY: 70 years-old Male with PE. Acute shortness of breath with generalized abdominal pain. COVID Positive. TECHNIQUE: Multiple CTA images of the chest were obtained after the intravenous administration of 119 ml Optiray 320. Coronal and sagittal MIPS were obtained from the axial data set and were submitted for review. All measurements were obtained according to NASCET criteria. CT abdomen pelvis with IV contrast only was also obtained. A dose lowering technique was utilized adhering to the principles of ALARA. COMPARISON: CTA chest 03/23/2016. FINDINGS: CTA: Moderate cardiomegaly. Prior median sternotomy and CABG with moderate to extensive [place] coronary artery calcifications. Moderate mixed plaque of the thoracic aortic arch with patency of the imaged proximal great vessels. The pulmonary artery segmental and subsegmental branches are suboptimally evaluated secondary to respiratory motion artifact. No central pulmonary emboli are identified. CT CHEST: No large thyroid nodule. Mildly prominent mediastinal and hilar lymph nodes are likely reactive. No pathologically enlarged lymph nodes. Small layering pleural effusions. Respiratory motion artifact limits evaluation of the lungs. No pneumothorax. Moderate multifocal bilateral groundglass and alveolar opacities. Central airways appear patent. No acute fracture. suspicious bone lesion. CT ABDOMEN/PELVIS: Degraded exam secondary to upper extremity positioning and respiratory motion artifact. No pneumatosis or pneumoperitoneum. Spleen, mildly atrophic pancreas, adrenal glands and liver appear unremarkable. Patency of the hepatic and portal veins. Moderately distended gallbladder with mucosal hyperemia, wall thickening and trace pericholecystic edema. No definite cholelithiasis identified. No associated biliary ductal dilation. Probable cyst of the interpolar right kidney anteriorly, 1.5 cm. No obstructive uropathy. Urinary bladder wall thickening. Partial distention of the urinary bladder with Chandler catheter. Air is noted within the bladder lumen. Prostamegaly. Mixed plaque of the abdominal aorta without aneurysm. No adenopathy. Trace layering free fluid within the dependent pelvis. No bowel obstruction or bowel wall thickening identified. The appendix is not definitively seen. Left iliopsoas bursitis. Degenerative changes of the spine, pelvis and hips. Remote bilateral L5 pars defects with grade 1 spondylolisthesis. IMPRESSION: 1. Limited exam as above. No pulmonary emboli. 2. Moderate bilateral intermixed groundglass and alveolar opacities are suggestive of multifocal pneumonia. 3. Small pleural effusions. 4. Findings suggestive of acute cholecystitis. No associated biliary ductal dilation. 5. No bowel obstruction or bowel wall thickening. 6. Additional findings as above. PG Care Time/CCT Total # of Minutes Spent Total Time Spent with Patient: Total time spent is greater than 50% in coordination of care (as documented) at patient's floor/unit and/or counseling patient: Coding Level of Care Code 67490 Initial Inpt Care Lvl 3 Diagnoses Abnormal findings on diagnostic imaging of gallbladder R93.2 Acute respiratory failure with hypoxia J96.01 Pneumonia due to COVID-19 virus U07.1; J12.82 S/P CABG x 5 Z95.1 History of angioplasty Z98.62 CAD (coronary artery disease) I25.10 DM type 2 (diabetes mellitus, type 2) E11.9 History of cerebrovascular accident with residual effects I69.90 Hypoalbuminemia E88.09 Hyperglycemia R73.9
[2020-08-22] MEDS ORDERED: INSULIN GLARGINE SOLOSTAR 100 UNITS/ML 3 ML PEN SC ONE (11:00)
[2020-08-22] MEDS ORDERED: INSULIN ASPART 100 UNITS/ML 3 ML PEN SQ SCH (11:00)
--- NOTE | 2020-08-22 11:03 | Electrocardiogram Report ---
Test Reason : Blood Pressure : / mmHG Vent. Rate : 095 BPM Atrial Rate : 095 BPM P-R Int : 148 ms QRS Dur : 136 ms QT Int : 378 ms P-R-T Axes : 053 -82 086 degrees QTc Int : 475 ms Poor data quality, interpretation may be adversely affected Normal sinus rhythm Left anterior fascicular block Right bundle branch block Poor R wave progression, consider anterior OH vs. lead placement vs. LVH Abnormal ECG Confirmed by Nathaniel Alvares ([id number]) on 08/22/2020 11:03:01 AM Referred By: [facility] Confirmed By:Chris Alvares
--- NOTE | 2020-08-22 11:41 | Communication Note ---
Date of Service: August 22, 2020 such as the development of a seizure I was asked to do a neurological consultation on Mr. Todd because of a CT scan done to evaluate his declining mental status, shows evidence for some petechial hemorrhages in the zone of the large right hemisphere recent middle cerebral artery distribution CVA that he suffered apparently about 10 days ago and for w melvin he was hospitalized at [facility] in [place]. I do not have access to these hospital records and therefore cannot state the cause of the infarction but he was apparently discharged on 2 antiplatelet drugs implying to me that this was due to either high-grade ipsilateral carotid artery stenosis/occlusion or intracranial disease and was not due to an embolic event from a cardiogenic source. All this however is conjectural not supported by any data which I have asked He subsequently went to [facility] apparently contracted COVID-19 at some point and then began to decline with chest x-ray showing multiple small areas of pneumonitis consistent with the diagnosis of COVID-19 and hypoxemia Radiology has specifically stated that there was no true hemorrhagic conversion but the admitting physician wanted neurology to sign off on this I have reviewed the images and agree that the petechial bleeds are part of a normal evolutionary process that we see in ridging studies of large infarctions and in and of themselves probably do not pose a significant risk for hemorrhagic conversion but beyond the safe side 1 could easily drop one of the 2 antiplatelet drugs either Plavix or aspirin in this case His prognosis for significant neurologic quality covering is limited and the use of dual antiplatelet therapy here likely has marginal benefit over single antiplatelet Furthermore his overall prognosis in light of COVID-19 with this impressive pneumonia is poor Dr. Garcia and I have discussed the case and my recommendations would be to simply switch to a single antiplatelet agent, provide supportive care, treat the COVID-19 appropriately and neurology would be happy to evaluate him on a [id number] basis should there be any significant changes such as the development of a seizure Aron Godwin MD
[2020-08-22] MEDS ORDERED: NovoLIN-N (NPH) PER UNIT CHARGE SQ ONE (11:45)
--- NOTE | 2020-08-22 16:23 | Communication Note ---
Date of Service: August 22, 2020 Patient admitted earlier today please refer to history and physical by Dr. Ryan Meraz for detail. This is a unfortunate 70-year-old male with complex medical history /had right MCA stroke with left-sided paralysis was treated at [facility].-Few weeks back Transferred to [facility] for acute rehab on 08/10/2020. At the rehab: Was diagnosed with COVID-19 on 08/16/2020. Admitted last night with acute hypoxemic respiratory failure. Oxygen saturation was 80% in room air oxygen 10-11 L via oxygen mask Acute hypoxemic respiratory failure secondary to COVID-19 pneumonia, patient was tachycardic tachypneic in the ER CT chest shows moderate bilateral groundglass and alveolar opacities suggestive of multifocal pneumonia. Pulmonary congestion Patient was lymphopenic due to COVID-19 Appreciate input from pulmonology Acute CHF with unknown ventricular function. Elevated proBNP, pulmonary congestion suggestive of CHF Possible contributing factor hypoxia/ tachycardia /tachypnea/bradycardia failure/ acute illness with COVID-19 pneumonia Patient was given 60 mg of IV Lasix, monitor volume status, Transthoracic echocardiogram not ordered to limit COVID-19 infection, Doing an echocardiogram may not change treatment plan or outcome significantly at this point. Continue to monitor in telemetry Continue to diuresis intermittently to improve pulmonary congestion/hypoxia Elevation of troponin, Possible type II non-ST elevated MO/demand ischemia in the setting of decompensated CHF, hypoxemic respiratory failure Continue treatment for COVID-19 pneumonia, oxygen supplement for respiratory failure, diuresis to improve volume status/pulmonary congestion Echocardiogram not ordered as explained above Acute cholecystitis CT abdomen pelvis suggestive of acute cholecystitis with no associated biliary ductal dilatation. On IV Zosyn Appreciate input from surgery, not take surgical candidate for cholecystectomy. If family is willing for aggressive treatment surgery team suggests transfer to tertiary care for cholecystostomy tube placement Type 2 diabetes with hyperglycemia/DKA elevated beta hydroxybutyrate history of type 2 diabetes, hyperglycemic episode possibly secondary to acute illnes Given dexamethasone for COVID-19 pneumonia /acute hypoxemic respiratory failure Pharmacy consulted for glycemic management, started with insulin drip Stage IV sacral decubitus ulcer present on admission, broad-spectrum antibiotic for possible infection, wound care consult/wound culture ordered Recent right MCA CVA/ left hemiplegia: CT head noncontrast shows large subacute appearing infarct on the right MCA territory with multifocal cortically based area of petechial hemorrhage. No midline shift or hydrocephalus or high reaction Appreciate input from neurology Petechiae hemorrhage possible natural evaluation of prior large stroke recommends to reduce antiplatelets to single agent, No benefit with dual agent at this setting other than increasing risk for bleeding Plavix discontinued, Patient will be continued with aspirin 81 mg Overall long-term prognosis remains extremely poor Electrolyte imbalance with hypernatremia possible secondary to intravascular volume depletion/dehydration. Given IV Lasix IV fluid not ordered secondary to decompensated CHF/volume overload Nephrology consulted, repeat BMP ordered at 6 PM Goal of care/prognosis Discussed with patient's daughter MIRIAM Zuniga ([phone]) over phone. Updated regarding patient's current clinical condition and treatment plan, all questions answered Patient is full code per daughter Explained to daughter: With all the supportive care if patient's condition continues to decline-doing all aggressive resuscitative measures, CPR defibrillation /intubation /mechanical ventilation possibly will not change the outcome. In the event of cardiac arrest: Due to multiorgan failure, high likelihood of from that insult , if miraculously survives -may remain in persistent vegetative state with mechanical support until he expires Daughter wants to speak with rest of her siblings-before changing CODE STATUS and addressing goal of care Family will call back tomorrow around 3 PM - At present patient remains FULL CODE Kim Correa MD
[2020-08-22] MEDS ORDERED: TAMSULOSIN HCL 0.4 MG CAP PO SCH (16:30)
[2020-08-22 17:24] LABS: BUN Creatinine Ratio 15.9 (10-20); Calcium 8.2 mg/dl (8.5-10.1); Creatinine Clr Calc Pharmacy 53.7 ml/min; Est GFR (African American) 68.7; Est GFR (Non-African American) 59.3; Potassium 3.4 mmol/L (3.5-5.1)
[2020-08-22] MEDS ORDERED: Nursing to Pharmacy Communication SCH (17:30)
--- NOTE | 2020-08-22 18:35 | Communication Note ---
Date of Service: August 22, 2020 pt developed worsening of respiratory failure Na worsened 154 pt remains full code per my discussion with daughter ordered for to place pt on Bipap stat ABG , stat chest xray hypernatremia : Na 154 D/w Dr Gonzales IV dextrose not ordered as pt appears to be in congestive heart failure Lasix 40 mg IV tx pt to ICU updated ICU team Kim Correa MD
[2020-08-22 19:07] LABS: HCO3 ABG 23 mmol/L (19-24); Oxygen Saturation ABG 92.3 % (90-95); PCO2 ABG 31 mmHg (35-46); PO2 ABG 62 mmHg (80-95); pH ABG 7.48 (7.35-7.45)
[2020-08-22 19:12] LABS: Allen Test Pos (Pos)
--- NOTE | 2020-08-22 19:18 | XRay Report ---
XR chest 1V portable CLINICAL HISTORY: Shortness of breath COMPARISON STUDY: Earlier in the day FINDINGS: The cardiac and mediastinal contours remain stable. There are postsurgical changes of midli ne sternotomy. There are extensive bilateral pulmonary airspace opacities consistent with a multifoca l pneumonia.[ IMPRESSION: Extensive bilateral pulmonary airspace opacities consistent with a multifocal pneumonia. These remain similar to the prior study. ACT 112: Negative or not required by law. Electronically signed by: Raul Contreras M.D. 08/22/2020 7:17 PM
--- NOTE | 2020-08-22 19:20 | Communication Note ---
Date of Service: August 22, 2020 stat chest xray shows progression of pulmonary effusion /infiltrate on left lung field lasix 40 mg Iv ordered pt seen on bedside on Bipap /awake , moving right arm , left hemiplegia , speech fluent says " yes " when asked if he short of breath explained that his breathing is getting worse , we had to use this heavy mask ( BiPAP) if he get worse will need to be on ventilator pt says" yes " again , not sure how much he comprehended called Pt's daughter Shelby -updated regarding pt's worsening of resp status , on Bipap , may need intubation if resp status does not improve Shelby wants all siblings to have a zoom meeting with dad ,and decide family leaning towards full code so far pt will be in ICU , ICU attending Dr crow updated Kim Correa MD
[2020-08-22] MEDS: POTASSIUM CHLORIDE / WTR 10 MEQ/100 ML PLCT IV SCH ×2 (19:39→20:46)
[2020-08-22 19:58] LABS: BUN Creatinine Ratio 17.3 (10-20); Calcium 8.2 mg/dl (8.5-10.1); Est GFR (African American) 73.8; Est GFR (Non-African American) 63.7; Potassium 3.3 mmol/L (3.5-5.1)
[2020-08-22] MEDS ORDERED: DEXAMETHASONE SOD INJ 10 MG/ML VIAL IV SCH (20:00)
[2020-08-22] MEDS ORDERED: REMDESIVIR 100 MG in SODIUM CHLORIDE 0.9% 230 ML IV SCH (20:00)
--- NOTE | 2020-08-22 20:38 | Critical Care Consultation ---
Date of Consultation August 22, 2020 Assessment & Plan (1) Pneumonia due to COVID-19 virus: Reason Critically Ill: 70-year-old male with recent history of RIGHT hemispheric MCA stroke with small areas of petechial hemorrhage with LEFT upper extremity flaccid paralysis presenting with respiratory failure with hypoxia secondary to COVID-19 pneumonia requiring close monitoring and possible need for invasive airway ventilatory techniques. NEURO - * MCA CVA: * Diagnosed in early July at [facility]. 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 * Able to answer yes/no questions, but does not contribute to HPI otherwise. * Continue per neurology recommendations for antiplatelet therapy. CARDIAC/VASCULAR - * NSTEMI: * Secondary to demand in the setting of Covid-19 pneumonia w/ contributing hypoxia. * Not surprising in the CAD patient. * Trend troponins. * EKG w/o significant changes. * CHF: * Agree w/ aggressive diuresis as tolerated. * Consider echocardiogram for the sake of evaluation completeness in the CAD pt w/ worsening CHF and elevated troponin in the setting of significant lung infiltrative changes. * Monitor on telemetry. RESPIRATORY - * Respiratory failure w/ Hypoxia 2/2 COVID-19 pneumonia w/ likely superimposed pulmonary edema from heart failure. * Agree w/ BiPAP for oxygenation/positive pressure. * Titrate BiPAP settings as tolerated. * Would agree with pulmonary attending regarding escalation of care. * Agree with Palliative Care consultation with realistic goals of care in this patient w/ recent significant decline from baseline status. * To this point, patient remains a FULL CODE and would proceed w/ endotracheal intubation if respiratory status were to significantly decline. * Currently on favorable noninvasive settings at this time, however. GI/NUTRITION - * NPO while BiPAP in use. RENAL/LYTES - * Hypernatremia: * Appears to be trending down. * Certainly difficult to treat w/ hopes of avoiding additional free water. * Consider small aliquots of free water as suggested by pulmonary if felt necessary. * Would avoid additional IVF 2/2 c/o volume overload. - * Chandler in place - Strict I&Os. ENDO - * DMII w/ hyperglycemia: * BSGs per unit protocol. ISS --> gtt per unit policy. HEME - * Stable H&H ID - * COVID-19 Pneumonia: * PCT not elevated. * Without fevers. * Agree w/ holding ABX at this time. * Consider addition for pulmonary coverage in the setting of new fevers, etc. * Continue Remdesivir/Decadron per current guidelines. LINES/IV ACCESS - * PIVs x2 * Chandler DVT PROPHYLAXIS - * Heparin sq * Not contraindicated in the setting of petechial hemorrhage alone. * SCDs Thank you for allowing us to participate in the care of this patient. Please refer to my attending physician's documentation for any further recommendations. (2) Acute respiratory failure with hypoxia: (3) History of cerebrovascular accident with residual effects: (4) DM type 2 (diabetes mellitus, type 2): (5) CAD (coronary artery disease): (6) Abnormal findings on diagnostic imaging of gallbladder: History of Present Illness Attending Physician: Kim Correa MD Patient is a 70-year-old male with a significant past medical history of diabetes, coronary artery disease status post CABG x5, with recent history of large RIGHT-sided hemispheric MCA stroke in July. Patient was treated primarily at [facility]. He was subsequently discharged to a rehabilitation facility where he had remained up until presentation to our emergency facility on 08/21. Apparently, the patient had tested positive for COVID-19 5 days prior to arrival at our institution. Patient developed hypoxia with worsening respiratory status requiring supplemental oxygen. He was diagnosed with COVID- 19 pneumonia with initial diagnosis date on 08/16/2020. Patient was started on re mdesivir as well as Decadron per current guidelines. Patient remains with LEFT- sided upper extremity flaccid paralysis. CT of the head/brain in the emergency department demonstrated large subacute infarct in the RIGHT MCA territory with small areas of petechial hemorrhage. There was no hemorrhagic conversion noted at that point. Patient was also apparently started on vancomycin and Zosyn secondary to concerns for CT findings of possible cholecystitis. In review of documentation, it appears as though the patient initially was DNR/DNI on presentation which had been confirmed by emergency department physician with patient's daughter. This was subsequently changed per hospitalist's order after conversation with the patient's daughter. Patient was seen by pulmonary earlier today with concerns for possible contribution of heart failure in addition to COVID-19 pneumonia. Additionally, the patient was noted to be hypernatremic. He was evaluated by general surgery today as well without recommendation for emergent surgical intervention. Patient is without abdominal pain or tender abdomen on exam. Neurology reviewed the patient's case with recommendations for placing the patient on a single antiplatelet therapy at this point. In all, consultations agree with supportive management for diagnosis of COVID-19 pneumonia in conjunction with the patient's family's wishes to maintain full CODE STATUS at this time. On evaluation at bedside, the patient is awake and alert. He knows that he is in the hospital. He is unable to provide additional historical information. Allergies Allergy/AdvReac Type Severity Reaction Status Date / Time No Known Allergies Allergy Verified 08/21/20 16:22 Home Medications Medication Instructions Recorded Confirmed Type acetaminophen 325 mg PO Q4H PRN 08/21/20 08/21/20 History ascorbic acid (vitamin C) [Vitamin 500 mg PO BID 08/21/20 08/21/20 History C] aspirin 81 mg PO DAILY 08/21/20 08/21/20 History atorvastatin 80 mg PO HS 08/21/20 08/21/20 History bisacodyl 10 mg [place] DAILY PRN 08/21/20 08/21/20 History cholecalciferol (vitamin D3) 50 mcg PO DAILY 08/21/20 08/21/20 History [Vitamin D3] clopidogrel 75 mg PO DAILY 08/21/20 08/21/20 History docusate sodium 100 mg PO BID 08/21/20 08/21/20 History enoxaparin [Lovenox] 60 mg SUBCUT DAILY 08/21/20 08/21/20 History escitalopram oxalate [Lexapro] 10 mg PO DAILY 08/21/20 08/21/20 History famotidine 20 mg PO DAILY 08/21/20 08/21/20 History insulin glargine [Lantus U-100 10 unit SUBCUT HS 08/21/20 08/21/20 History Insulin] lisinopril 5 mg PO DAILY 08/21/20 08/21/20 History magnesium hydroxide [Milk of 30 ml PO DAILY PRN 08/21/20 08/21/20 History Magnesia] melatonin 3 mg PO HS 08/21/20 08/21/20 History metformin 500 mg PO BIDM 08/21/20 08/21/20 History polyethylene glycol 3350 [Miralax] 17 g PO QDL PRN 08/21/20 08/21/20 History sennosides [senna] 17.2 mg PO HS 08/21/20 08/21/20 History sennosides-docusate sodium 1 tab PO QDL PRN 08/21/20 08/21/20 History [Senokot-S] sodium phosphates [Fleet Enema] 133 ml [place] DAILY PRN 08/21/20 08/21/20 History tamsulosin 0.4 mg PO QDD 08/21/20 08/21/20 History zinc sulfate 220 mg PO DAILY 08/21/20 08/21/20 History Patient History Medical History CAD (coronary artery disease) DM type 2 (diabetes mellitus, type 2) History of cerebrovascular accident with residual effects Surgical History History of angioplasty S/P CABG x 5 Social History Smoking Status: Unknown if ever smoked Preferred Language: Wolof Communication Ability: Effective Block Piler Required: No Beliefs That Will Affect Care: None Current Living Situation: Rehab Other Information That Helps Us Care for You: No Feels Safe at Home: Yes Assistive Devices: Oxygen - Continuous Review of Systems Review of Systems: Unobtainable due to reduced consciousness Physical Exam Physical Exam: VITAL SIGNS - Vital signs and nursing notes were reviewed. GENERAL - 70-year-old male appearing his stated age who is in no acute distress. Currently saturating well on BiPAP. Able to answer simple yes/no questions. Unab le to participate in HPI otherwise. SKIN -decubitus ulcers HEAD - NC/AT. EYES - PERRL with EOMI bilaterally. Sclera anicteric. EARS - No deformities of external structures noted on gross examination b ilaterally. NOSE - Midline and without cyanosis. MOUTH/OROPHARYNX - Without perioral cyanosis. B NECK - Neck with FROM. Supple to palpation. No nuchal rigidity. LUNGS - RR appropriate. No tachypnea. Coarse breath sounds noted throughout. CARDIAC - RRR with S1/S2. No murmur, rubs, or gallops appreciated. ABDOMEN - Abdominal contour obese without pulsations or visible masses. BS normoactive all four quadrants. No tenderness, palpable masses, hepatosplenomegaly, or ascites noted. EXTREMITIES - No clubbing or peripheral cyanosis. b/l pretibial edema. Palpable peripheral pulses. NEUROLOGIC -patient with LEFT upper extremity flaccid paralysis. Trolley Worker strength appropriate on the RIGHT. Decreased range of motion of the LEFT lower extremity. Range of motion of the RIGHT lower extremity appreciated. PSYCH - Patient is awake and alert to self and location. Answers yes/no questions appropriately. Results & Data Results & Data ([facility]) Vital Signs (Past 12 Hours) Vital Signs Temp Pulse Pulse Resp BP BP Pulse Ox 08/22/20 20:00 78 19 164/79 H 94 08/22/20 19:31 74 27 H 152/82 H 94 08/22/20 19:08 82 31 H 96 08/22/20 18:31 37.6 C H 75 30 H 134/74 91 08/22/20 15:34 37.4 C 78 23 143/88 H 92 08/22/20 11:30 37.5 C 75 18 135/77 93 Coding Level of Care Code 02703 Inpt Consult Level 5 Diagnoses Pneumonia due to COVID-19 virus U07.1; J12.82 Acute respiratory failure with hypoxia J96.01 History of cerebrovascular accident with residual effects I69.90 DM type 2 (diabetes mellitus, type 2) E11.9 CAD (coronary artery disease) I25.10 Abnormal findings on diagnostic imaging of gallbladder R93.2 Time Spent (min) 35
[2020-08-22] MEDS: HEPARIN SOD 5,000 UNIT/0.5 ML VIAL SQ SCH (20:50)
[2020-08-22] MEDS: SODIUM CHLORIDE 0.9% 10ML FLUSH IV SCH (20:52)
[2020-08-22] MEDS ORDERED: MELATONIN 3 MG TAB PO SCH (21:00)
[2020-08-22] MEDS ORDERED: ATORVASTATIN 40 MG TAB PO SCH (21:00)
[2020-08-22] MEDS ORDERED: INSULIN GLARGINE SOLOSTAR 100 UNITS/ML 3 ML PEN SC SCH (21:00)
[2020-08-23 00:12] LABS: BUN Creatinine Ratio 16.8 (10-20); Calcium 8.5 mg/dl (8.5-10.1); Creatinine Clr Calc Pharmacy 53.3 ml/min; Est GFR (Non-African American) 58.7; Potassium 4.4 mmol/L (3.5-5.1)
[2020-08-23] MEDS: PIPERACILLIN/TAZOBACTAM 3.375 GM in DEXTROSE 5% 100 ML IV SCH ×2 (01:07→09:02)
[2020-08-23] MEDS ORDERED: INSULIN ASPART 100 UNITS/ML 3 ML PEN SC SCH ×2 (03:00)
[2020-08-23 04:24] LABS: Hematocrit (blood only) 38.4 % (42-52); Hemoglobin 12.2 g/dL (14.0-18.0); Mean Corpuscular Hemoglobin 29.7 pg (25-34); Mean Corpuscular Hgb Conc 31.8 g/dL (32-36); Mean Corpuscular Volume 93.4 fL (80-100); Platelet Count 315 K/uL (130-400); RDW Coefficient of Variation 14.5 % (11.5-14.5); RDW Standard Deviation 49.8 fL (36.4-46.3); Red Blood Count 4.11 M/uL (4.7-6.1)
[2020-08-23 04:48] LABS: BUN Creatinine Ratio 16.3 (10-20); Calcium 8.6 mg/dl (8.5-10.1); Creatinine Clr Calc Pharmacy 44.9 ml/min; Est GFR (African American) 55.3; Est GFR (Non-African American) 47.7; Potassium 4.9 mmol/L (3.5-5.1)
[2020-08-23 04:49] LABS: Basophils # (auto) 0.02 K/uL (0-0.2); Basophils % (auto) 0.2 %; Immature Granulocytes # (auto) 0.14 K/uL (0.00-0.02); Immature Granulocytes % (auto) 1.2 %; Lymphocytes # (auto) 1.28 K/uL (1.2-3.4); Lymphocytes % (auto) 10.9 %; Monocytes # (auto) 0.37 K/uL (0.11-0.59); Monocytes % (auto) 3.2 %; Neutrophils # (auto) 9.89 K/uL (1.4-6.5); Neutrophils % (auto) 84.5 %
[2020-08-23] MEDS ORDERED: VANCOMYCIN TROUGH ONE (05:30)
[2020-08-23] MEDS: INSULIN ASPART 100 UNITS/ML 3 ML PEN SC SCH ×3 (05:55→18:14)
[2020-08-23 06:06] LABS: Estimated Average Glucose 223 mg/dl; Hemoglobin A1C 9.4 % (4.5-5.6)
[2020-08-23] MEDS ORDERED: INSULIN HUMAN NPH SC ONE (07:45)
[2020-08-23 08:30] LABS: BUN Creatinine Ratio 19.1 (10-20); Beta-Hydroxybutyrate 1.59 mg/dl (0.2-2.81); Calcium 8.6 mg/dl (8.5-10.1); Creatinine Clr Calc Pharmacy 52.4 ml/min; Est GFR (African American) 66.7; Est GFR (Non-African American) 57.6; Potassium 3.1 mmol/L (3.5-5.1)
--- NOTE | 2020-08-23 08:37 | Nephrology Progress Note ---
Date of Service August 23, 2020 Assessment & Plan Admission and Anticipated Discharge Date Admission Date: August 21, 2020 Results & Data ([facility]) Vital Signs (Past 12 Hours) Vital Signs Temp Pulse Pulse Resp BP BP Pulse Ox 08/23/20 08:09 37.4 C 67 14 116/58 L 94 08/23/20 08:00 66 08/23/20 07:23 75 21 95 08/23/20 06:00 61 23 111/56 L 96 08/23/20 05:00 75 20 102/66 96 08/23/20 04:23 36.6 C 80 18 98/54 L 98 08/23/20 04:08 58 L 22 98 08/23/20 03:01 72 21 106/51 L 97 08/23/20 02:01 70 19 110/62 98 08/23/20 01:00 77 23 170/75 H 94 08/23/20 00:00 60 26 H 118/77 95 08/22/20 23:19 61 24 95 08/22/20 23:01 75 25 H 156/66 H 96 08/22/20 22:00 36.6 C 83 23 173/99 H 96 08/22/20 21:00 73 23 167/82 H 97 Laboratory Results 08/23/20 03:47 08/23/20 07:14
--- NOTE | 2020-08-23 08:55 | Communication Note ---
Date of Service: August 23, 2020 chart Review done: Patient's respiratory status remained stable overnight Remains on BiPAP, respiratory rate 15 with resolution of tachycardia tachypnea, patient is afebrile Repeat chest x-ray ordered for a.m. Hypernatremia noted sodium 154 Patient has been receiving IV Lasix, Creatinine has improved to baseline, BSG improved with IV insulin, with resolution of DKA, normal beta hydroxybutyrate will discuss with daughter regarding goals of care, Plan to have NG tube which will allow free water flush, TF feeding for nutrition dietary consulted for tube feeding recommendation, Patient's overall prognosis remains poor, Continue supportive care for now. Kim Correa MD
[2020-08-23] MEDS ORDERED: FUROSEMIDE 40 MG in SYRINGE 0 ML IV SCH (09:00)
[2020-08-23] MEDS: DEXAMETHASONE SOD PHOSPHATE 6 MG in SYRINGE 0 ML IV SCH (09:00)
[2020-08-23] MEDS: HEPARIN SOD 5,000 UNIT/0.5 ML VIAL SQ SCH (09:01)
[2020-08-23] MEDS: POTASSIUM CHLORIDE / WTR 10 MEQ/100 ML PLCT IV SCH ×2 (09:01→10:57)
--- NOTE | 2020-08-23 09:53 | Electrocardiogram Report ---
Test Reason : Blood Pressure : / mmHG Vent. Rate : 066 BPM Atrial Rate : 066 BPM P-R Int : 138 ms QRS Dur : 142 ms QT Int : 498 ms P-R-T Axes : 018 -83 125 degrees QTc Int : 522 ms Normal sinus rhythm Left anterior fascicular block Right bundle branch block T wave abnormality, consider lateral ischemia Abnormal ECG When compared with ECG of 21-AUG-2020 16:16, Criteria for Anteroseptal infarct are no longer Present Confirmed by Randy Lewis ([id number]) on 08/23/2020 9:52:57 AM Referred By: [facility] Confirmed By:Randy Lewis
--- NOTE | 2020-08-23 09:53 | XRay Report ---
XR chest 1V portable HISTORY: 70 years-old Male CHF acute shortness of breath with congestive heart failure and pneumonia COMPARISON: Chest radiograph 08/22/2020, CTA chest 08/21/2020 TECHNIQUE: Portable AP view of the chest FINDINGS: Cardiac silhouette is enlarged. Prior median sternotomy and CABG. Mild right hemidiaphragmatic elevat ion. No pneumothorax or large pleural effusion. Mild to moderate improved aeration of the lungs with persistent ill-defined bilateral pulmonary opacities. Degenerative changes of the shoulders and spine . IMPRESSION: Cardiomegaly with mild to moderately improved aeration of the lungs. Findings are suggest clarissa of resolving pneumonia. ACT 112: Negative or not required by law. The above report was generated using voice recognition software. It may contain grammatical, syntax o r spelling errors. Electronically signed by: José Miguel Zurita M.D. 08/23/2020 9:51 AM
--- NOTE | 2020-08-23 10:00 | Communication Note ---
Date of Service: August 23, 2020 received call from Pt's Daughter Gladys -she and her siblings had a zoom meeting to see their father last night 2 of the sisters -wants all possible measures to be done pt remains full code discuss regarding option of temporary NG /Coresafe tube to provide free water ( to improve Hypernatremia ) , tube feeding for nutrition and allow oral meds to provide Daughter is agreeable ordered for Coresafe placement /portable chest xray to assess feeding tube position nephrology updated , will follow recommendation for free water flushes dietary consulted for TF recommendation Family aware of the poor prognosis , and high likelihood of imminent or near future clinical decline of the patient's status Daughter is willing for Palliative care consult to address goals of care-ordered Kim Correa MD
--- NOTE | 2020-08-23 10:31 | Palliative Care Consultation ---
Date of Consultation August 23, 2020 Assessment & Plan (1) Palliative care encounter: This is a 70 year old who was diagnosed with COVID Pneumonia on 08/16/20. He started to have hypoxia and worsening respiratory status, with his SpO2 down to 80%. Additional PMH includes DM2, CAD s/p CABD, CVA, HTN, HLD and was recently admitted to [facility] with a CVA and left sided weakness and was at [facility] where he started to have symptoms. A head CT was obtained and results indicated a large subacute appearing infarct of the right MCA territory with multifocal cortical based areas of petechial hemorrhage. No midline shift, hydrocephalus or herniation. Subacute versus chronic infarct of the left occipital lobe, which is new from 2017. He has remained stable over the weekend from a respiratory standpoint on BiPAP, but is also hypernatremic. The hospitalist did discuss placing an NGT for free water flushes; however, his overall condition remains poor. Palliative care was consulted to discuss goals of care, including code status. When I entered the COVID unit, the patients nurse was on the phone with Shelby, the patients , who wanted to do an ipad visit. I did speak with her in detail about his current condition. He has been off of Bipap all morning and has been showing some small steps forward, at least requiring less monitoring, resulting in his downgrade to PCU level status. He is able to talk with me and did say hello and that he was not having pain. That being said, no further meaningful conversation. I do not feel that he would be able to participate in medical decision making. He was not able to tell me that you would need to stop at a red light when driving. An internal family meeting did occur between Shelby and her two brothers. Another meeting with Dr. Correa was held on the phone and all agreed to continue current treatment, including full code status at this time. Palliative care will follow along with this gentlemans progression throughout his hospitalization. (2) Hypoxia: (3) Confusion: (4) Pneumonia due to COVID-19 virus: (5) CAD (coronary artery disease): History of Present Illness Reason for Consultation: Goals of care Requesting Physician: Dr. Correa Attending Physician: Kim Correa MD History of Present Illness This is a 70 year old who was diagnosed with COVID Pneumonia on 08/16/20. He started to have hypoxia and worsening respiratory status, with his SpO2 down to 80%. Additional PMH includes DM2, CAD s/p CABD, CVA, HTN, HLD and was recently admitted to [facility] with a CVA and left sided weakness and was at [facility] where he started to have symptoms. A head CT was obtained and results indicated a large subacute appearing infarct of the right MCA territory with multifocal cortical based areas of petechial hemorrhage. No midline shift, hydrocephalus or herniation. Subacute versus chronic infarct of the left occipital lobe, which is new from 2017. He has remained stable over the weekend from a respiratory standpoint on BiPAP, but is also hypernatremic. The hospitalist did discuss placing an NGT for free water flushes; however, his overall condition remains poor. Palliative care was consulted to discuss goals of care, including code status. Please see A/P for further details. Thank you kindly for involving palliative care. Allergies Allergy/AdvReac Type Severity Reaction Status Date / Time No Known Allergies Allergy Verified 08/21/20 16:22 Home Medications Medication Instructions Recorded Confirmed Type acetaminophen 325 mg PO Q4H PRN 08/21/20 08/21/20 History ascorbic acid (vitamin C) [Vitamin 500 mg PO BID 08/21/20 08/21/20 History C] aspirin 81 mg PO DAILY 08/21/20 08/21/20 History atorvastatin 80 mg PO HS 08/21/20 08/21/20 History bisacodyl 10 mg MO DAILY PRN 08/21/20 08/21/20 History cholecalciferol (vitamin D3) 50 mcg PO DAILY 08/21/20 08/21/20 History [Vitamin D3] clopidogrel 75 mg PO DAILY 08/21/20 08/21/20 History docusate sodium 100 mg PO BID 08/21/20 08/21/20 History enoxaparin [Lovenox] 60 mg SUBCUT DAILY 08/21/20 08/21/20 History escitalopram oxalate [Lexapro] 10 mg PO DAILY 08/21/20 08/21/20 History famotidine 20 mg PO DAILY 08/21/20 08/21/20 History insulin glargine [Lantus U-100 10 unit SUBCUT HS 08/21/20 08/21/20 History Insulin] lisinopril 5 mg PO DAILY 08/21/20 08/21/20 History magnesium hydroxide [Milk of 30 ml PO DAILY PRN 08/21/20 08/21/20 History Magnesia] melatonin 3 mg PO HS 08/21/20 08/21/20 History metformin 500 mg PO BIDM 08/21/20 08/21/20 History polyethylene glycol 3350 [Miralax] 17 g PO QDL PRN 08/21/20 08/21/20 History sennosides [senna] 17.2 mg PO HS 08/21/20 08/21/20 History sennosides-docusate sodium 1 tab PO QDL PRN 08/21/20 08/21/20 History [Senokot-S] sodium phosphates [Fleet Enema] 133 ml MO DAILY PRN 08/21/20 08/21/20 History tamsulosin 0.4 mg PO QDD 08/21/20 08/21/20 History zinc sulfate 220 mg PO DAILY 08/21/20 08/21/20 History Patient History Medical History (Updated 08/23/20 @ 15:39 by Halley Baca MD, PhD) CAD (coronary artery disease) Confusion DM type 2 (diabetes mellitus, type 2) History of cerebrovascular accident with residual effects Hypoxia Palliative care encounter Surgical History History of angioplasty S/P CABG x 5 Social History Smoking Status: Unknown if ever smoked Preferred Language: Albanian Communication Ability: Effective 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 Beliefs That Will Affect Care: None Current Living Situation: Rehab Other Information That Helps Us Care for You: No Feels Safe at Home: Yes Assistive Devices: Oxygen - Continuous Review of Systems Review of Systems: Unobtainable due to cognitive status [place] System Assessment System Pain: 0/3 Shortness of breath: 1/3 Anxiety: 0/3 Palliative Performance Scale: 30% Physical Exam Constitutional: + ill appearing and + frail appearing Respiratory: + labored breathing Auscultation: + diminished lung sounds and + rhonchi Cardiovascular: RRR, no murmur, no edema Gastrointestinal (Abdomen): normal bowel sounds, soft, nontender, no hepatosplenomegaly Skin: + pallor Psychiatric: Orientation: alert, oriented to person and cooperative Insight: + limited insight Judgement: + limited judgement Results & Data ([facility]) Vital Signs (Past 12 Hours) Vital Signs Temp Pulse Pulse Resp BP BP Pulse Ox 08/23/20 09:44 37.2 C 74 18 126/58 L 95 08/23/20 08:09 37.4 C 67 14 116/58 L 94 08/23/20 08:00 66 08/23/20 07:23 75 21 95 08/23/20 06:00 61 23 111/56 L 96 08/23/20 05:00 75 20 102/66 96 08/23/20 04:23 36.6 C 80 18 98/54 L 98 08/23/20 04:08 58 L 22 98 08/23/20 03:01 72 21 106/51 L 97 08/23/20 02:01 70 19 110/62 98 08/23/20 01:00 77 23 170/75 H 94 08/23/20 00:00 60 26 H 118/77 95 08/22/20 23:19 61 24 95 08/22/20 23:01 75 25 H 156/66 H 96 PG Care Time/CCT Total # of Minutes Spent Total Time Spent with Patient: Total time spent is greater than 50% in coordination of care (as documented) at patient's floor/unit and/or counseling patient: 70 Coding Level of Care Code 74489 Inpt Consult Level 3 Diagnoses Palliative care encounter Z51.5 Hypoxia R09.02 Confusion R41.0 Pneumonia due to COVID-19 virus U07.1; J12.82 CAD (coronary artery disease) I25.10 Time Spent (min) 70 Time Spent Midlevel Total time spent 70 minutes with > 50% of that time spent assessing the patient, discussing goals of care with family and collaborating with IDT
[2020-08-23 12:46] LABS: Calcium 8.3 mg/dl (8.5-10.1); Creatinine Clr Calc Pharmacy 51.6 ml/min; Est GFR (African American) 65.4; Est GFR (Non-African American) 56.5; Potassium 3.9 mmol/L (3.5-5.1)
--- NOTE | 2020-08-23 12:49 | Nephrology Consultation ---
Date of Consultation August 23, 2020 Assessment & Plan (1) Hypernatremia: sodium 150 on presentation, peaked at 154; ranged from 151-154 since admission basically. Pt is NPO d/t concerns regarding gallbladder which surgery does not feel needs acute intervention. he has severe hypoxic respiratory failure and has had lasix w/ diuresis and improved repsiratory findings on XR and in terms of 02 needs. 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 Other PMH includes CAD s/p cabg, DM, HTN, HL. He has very slowed psychomotor skills to day and is unable to answer questions meaningfully or even a few simple yes/no questions when I evaluated him at 1220pm. I am unable for example to obtain family hx from this patient. A palliative care consult is pending. His admission sodium was 150; however trended up to peak at 154 this am, 151 at noon today just before I saw him. he is currently on lasix 20 mg iv bid: he was 4.2L negative yesterday and is 1.1 L negative so far today. Allergies Allergy/AdvReac Type Severity Reaction Status Date / Time No Known Allergies Allergy Verified 08/21/20 16:22 Home Medications Medication Instructions Recorded Confirmed Type acetaminophen 325 mg PO Q4H PRN 08/21/20 08/21/20 History ascorbic acid (vitamin C) [Vitamin 500 mg PO BID 08/21/20 08/21/20 History C] aspirin 81 mg PO DAILY 08/21/20 08/21/20 History atorvastatin 80 mg PO HS 08/21/20 08/21/20 History bisacodyl 10 mg NE DAILY PRN 08/21/20 08/21/20 History cholecalciferol (vitamin D3) 50 mcg PO DAILY 08/21/20 08/21/20 History [Vitamin D3] clopidogrel 75 mg PO DAILY 08/21/20 08/21/20 History docusate sodium 100 mg PO BID 08/21/20 08/21/20 History enoxaparin [Lovenox] 60 mg SUBCUT DAILY 08/21/20 08/21/20 History escitalopram oxalate [Lexapro] 10 mg PO DAILY 08/21/20 08/21/20 History famotidine 20 mg PO DAILY 08/21/20 08/21/20 History insulin glargine [Lantus U-100 10 unit SUBCUT HS 08/21/20 08/21/20 History Insulin] lisinopril 5 mg PO DAILY 08/21/20 08/21/20 History magnesium hydroxide [Milk of 30 ml PO DAILY PRN 08/21/20 08/21/20 History Magnesia] melatonin 3 mg PO HS 08/21/20 08/21/20 History metformin 500 mg PO BIDM 08/21/20 08/21/20 History polyethylene glycol 3350 [Miralax] 17 g PO QDL PRN 08/21/20 08/21/20 History sennosides [senna] 17.2 mg PO HS 08/21/20 08/21/20 History sennosides-docusate sodium 1 tab PO QDL PRN 08/21/20 08/21/20 History [Senokot-S] sodium phosphates [Fleet Enema] 133 ml NE DAILY PRN 08/21/20 08/21/20 History tamsulosin 0.4 mg PO QDD 08/21/20 08/21/20 History zinc sulfate 220 mg PO DAILY 08/21/20 08/21/20 History Patient History Medical History (Updated 08/23/20 @ 15:39 by Halley Baca MD, PhD) CAD (coronary artery disease) Confusion DM type 2 (diabetes mellitus, type 2) History of cerebrovascular accident with residual effects Hypoxia Palliative care encounter Surgical History History of angioplasty S/P CABG x 5 Social History Smoking Status: Unknown if ever smoked Preferred Language: Swedish Communication Ability: Effective Blemish Remover Required: No Beliefs That Will Affect Care: None Current Living Situation: Rehab Other Information That Helps Us Care for You: No Feels Safe at Home: Yes Assistive Devices: Oxygen - Continuous Review of Systems Review of Systems: Other (unobtainable d/t clinical condition) Physical Exam Constitutional: well developed and + thin; no acute distress Eyes: EOM intact bilaterally ENMT: Ears: no external ear abnormality Nose: no external nose abnormality Mouth: + dry oral mucous membranes Neck: no nuchal rigidity Respiratory: normal respiratory effort Auscultation: + diminished lung sounds Cardiovascular: Rate/Rhythm: regular rate and regular rhythm Extremities: no edema Gastrointestinal (Abdomen): Inspection/Auscultation: normal bowel sounds Percussion/Palpation: abdomen soft; abdomen nontender Musculoskeletal: Extremities: + abnormal strength (L arm not moving ) Skin: no rashes, warm and dry Neurologic: very limited speech > takes 15-20 seconds to process and answer if he answers Genitourinary: selby w/ ample light yellow urine Results & Data ([facility]) Vital Signs (Past 12 Hours) Vital Signs Temp Pulse Pulse Resp BP BP Pulse Ox 08/23/20 09:44 37.2 C 74 18 126/58 L 95 08/23/20 08:09 37.4 C 67 14 116/58 L 94 08/23/20 08:00 66 08/23/20 07:23 75 21 95 08/23/20 06:00 61 23 111/56 L 96 08/23/20 05:00 75 20 102/66 96 08/23/20 04:23 36.6 C 80 18 98/54 L 98 08/23/20 04:08 58 L 22 98 08/23/20 03:01 72 21 106/51 L 97 08/23/20 02:01 70 19 110/62 98 08/23/20 01:00 77 23 170/75 H 94 Laboratory Results 08/23/20 03:47 08/23/20 11:56 Diagnostic Findings cxr this am Cardiomegaly with mild to moderately improved aeration of the lungs. Findings are suggestive of resolving pneumonia.
--- NOTE | 2020-08-23 14:36 | Critical Care Progress Note ---
Date of Service August 23, 2020 Assessment & Plan (1) Hypoxia: (2) Pneumonia due to COVID-19 virus: (3) Acute respiratory failure with hypoxia: (4) Confusion: Impression: 70-year-old male with prior history of CVA initially on palliative care brought to the emergency room with decreasing mental status and recent diagnosis of Covid August 16. Oxygen saturations were 80% on room air and the patient had increasing edema with decubitus ulcers. Pulmonary consultation was initially obtained and felt findings were consistent with fluid overload. It was recommended that antibiotics be discontinued. Overall prognosis was poor and palliative care was recommended. The patient then had a surgical consultation obtained due to hyperemia of the gallbladder wall. Surgery felt the patient was not an appropriate candidate and signed off. There was concerned about the patient declining and he was placed on BiPAP. ICU was consulted for critical care consultation. 24-hour events: The patient was initially placed on BiPAP and is now been weaned off. Nephrology consultation was initiated as well as palliative care. Recommendations: 1. Hypoxemic respiratory failure: Suspect this is more likely related to fluid overload given the patient's increasing troponin, elevated BNP, and edematous status. He is improved with diuresis and I would recommend continued aggressive diuresis as tolerated by kidney function. Wean oxygen as tolerated. If the patient requires noninvasive positive pressure ventilation, could consider CPAP rather than BiPAP as this appears to be hydrostatic. 2. The patient was well documented to be DNR status and has been declining. I do not think aggressive care is warranted as noted by Dr. Fortune in the initial pulmonary consultation. The patient previously was a DNR status and I think that would be appropriate. Will defer to palliative care and the patient's primary service to address however I do not think intubation mechanical ventilation would be in this patient's long-term best interest. 3. Recent diagnosis of Covid: The patient is now 6 days out and I think it is unlikely he would benefit from remdesivir to prevent viral replication so I will stop this medication. It is unclear if he would benefit from dexamethasone as an anti-inflammatory agent. Given his diabetes and borderline DKA on presentation, it is possible that dexamethasone may actually worsen the patient's overall prognosis. In addition it may also contribute to fluid retention. Discussion should be had with the patient's power of trade mark attorney prior to continuing this medication. 4. There is no indication for antimicrobial agents and they have been appropriately discontinued at this point time. 5. Hypernatremia: The patient requires free water. This can be administered enterally or parenterally depending on the patient's ability to swallow. I would not favor an NG tube or feeding tube in this patient with a stroke on antiplatelet agents with an uncertain prognosis. Case was discussed with the ICU nurse at bedside. No family available. The patient is stable to transfer out of the intensive care unit per the admitting hospitalist service. We will see how he does from a pulmonary standpoint over the next 24 hours with diuresis. Admission and Anticipated Discharge Date Admission Date: August 21, 2020 Subjective Patient seen and examined. Discussed with ICU nurse and with pulmonary and critical care service. The patient is status post stroke and is unable to provide much in the way of significant history. He denies any shortness of breath or chest pain currently. Review of Systems Review of Systems: Unobtainable due to cognitive status Physical Exam Constitutional: no acute distress Neck: trachea midline, no thyromegaly Respiratory: normal respiratory effort Auscultation: + crackles Cardiovascular: RRR, no murmur, no edema Gastrointestinal (Abdomen): normal bowel sounds, soft, nontender, no hepatosplenomegaly Musculoskeletal: Extremities: extremities normal to inspection Skin: no rashes, warm and dry Neurologic: Nonfocal exam Lymphatic: no cervical lymphadenopathy Results & Data Results & Data ([facility]) Vital Signs (Past 12 Hours) Vital Signs Temp Pulse Pulse Resp BP BP Pulse Ox 08/23/20 12:00 37.2 C 70 24 133/70 94 08/23/20 09:44 37.2 C 74 18 126/58 L 95 08/23/20 08:09 37.4 C 67 14 116/58 L 94 08/23/20 08:00 66 08/23/20 07:23 75 21 95 08/23/20 06:00 61 23 111/56 L 96 08/23/20 05:00 75 20 102/66 96 08/23/20 04:23 36.6 C 80 18 98/54 L 98 08/23/20 04:08 58 L 22 98 08/23/20 03:01 72 21 106/51 L 97 Laboratory Results 08/23/20 03:47 08/23/20 11:56 BNP elevated over 10,000 Diagnostic Findings Chest x-ray was independently reviewed. Coding Level of Care Code 95586 Subseq Hosp Care Lvl 3 Diagnoses Hypoxia R09.02 Pneumonia due to COVID-19 virus U07.1; J12.82 Acute respiratory failure with hypoxia J96.01 Confusion R41.0
[2020-08-23] MEDS: DEXTROSE 5% 1,000 ML IV SCH (16:24)
[2020-08-23] MEDS: INSULIN GLARGINE SOLOSTAR 100 UNITS/ML 3 ML PEN SC SCH (18:14)
[2020-08-23] MEDS: SODIUM CHLORIDE 0.9% 10ML FLUSH IV SCH (20:22)
[2020-08-23] MEDS: FUROSEMIDE 10 MG in SYRINGE 0 ML IV SCH (20:44)
--- NOTE | 2020-08-23 20:49 | Communication Note ---
Date of Service: August 23, 2020 family meeting over phone with POA daughter Shelby Zuniga and rest of the 4 siblings . 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 aware of palliative care role , Son and daughter are very involved in pt's care , should pt's condition decline in future they would want to be notified right away All family members agree that they will not want to see their father suffer or in pain but as long as he is able to tolerate without any discomfort and shows improvement , want to proceed with the treatment . Kim Correa MD
[2020-08-23] MEDS ORDERED: FUROSEMIDE 20 MG in SYRINGE 0 ML IV SCH (21:00)
--- NOTE | 2020-08-23 21:00 | Hospitalist Progress Note ---
Date of Service August 23, 2020 Assessment & Plan (1) History of cerebrovascular accident with residual effects: recent large rt MCA infacrt with CT evidence of subacute left occipital lobe infract leading to left hemiplegia and left vision cut admitted with sepsis -multiple source -COVID 19 pneumonia , ac cholecystitis , stage 4 sacral decub ulcer (2) Acute respiratory failure with hypoxia: due to COVID 19 pneumonia , and contributing factors -acute CHF with possible diastolic dysfunction continue supportive care pt required Bipap briefly , was treated with IV Lasix over all prognosis remains guarded NSTEMI: possible due to hypoxemia , respiratory failure , troponin elevation noted 0.04-> 1.0->1.3 cont aspirin , will be changed to RI can not do anticoagulation /IV heparin as very high risk for hge transformation of large Rt MCA infraction zone ( already noted to have petechiae bleed with necrosis due to evolution of infarction ) cardiology eval requested Dysphagia : due to acute CVA was on Pureed diet at [facility] at present NPO for resp failure /increased aspiration risk with acute illness Speech eval requested Hypernatremia : due to intravascular vol depletion , poor PO intake , severe dysphagia post CVA appreciate input form Nephrology pt is ordered combination of IV dextrose and low dose Lasix to prevent pulm vascular congestion follow BMP closely -to assess gradual correction Acute renal failure : pre -renal /vol depletion , acute illness , sepsis renal function improved with supportive care Nephrology eval appreciated 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 plan of care updated to family members in detail , all questions answered , family comfortable and agreeable with current treatment plan (3) Pneumonia due to COVID-19 virus: Admission and Anticipated Discharge Date Admission Date: August 21, 2020 Subjective follow up visit for COVID pneumonia /ac respiratory failure /large rt sided MCA infarction with left hemiplegia /hypernatremia : pt is seen in COVID unit room 204 awake , can say his name , minimally conversive left sided flaccid paralysis holding up right hand , no over sign of discomfort noted remains on oxymask on 10 L 02 spo2 92% /facial droop on rt side remains NPO -with concern for severe dysphagia /aspiration risk HR /BP has been stable so far , no fever or tachypnea Review of Systems Review of Systems: Unobtainable due to cognitive status Physical Exam Constitutional: WD/WN, vitals as above Respiratory: Auscultation: + diminished lung sounds, + rales and + wheezes Cardiovascular: RRR, no murmur, no edema Gastrointestinal (Abdomen): Percussion/Palpation: abdomen soft Musculoskeletal: left sided flaccid paralysis Neurologic: awake left hemiplegia Results & Data Results & Data ([facility]) Vital Signs (Past 12 Hours) Vital Signs Temp Pulse Resp BP Pulse Ox 08/23/20 19:33 36.6 C 72 18 116/90 92 08/23/20 18:32 37.2 C 71 23 112/81 92 08/23/20 15:35 37.1 C 73 26 H 168/83 H 92 08/23/20 12:00 37.2 C 70 24 133/70 94 08/23/20 09:44 37.2 C 74 18 126/58 L 95
[2020-08-24] MEDS: INSULIN ASPART 100 UNITS/ML 3 ML PEN SC SCH ×4 (00:10→17:19)
[2020-08-24 00:56] LABS: BUN Creatinine Ratio 24.5 (10-20); Calcium 8.1 mg/dl (8.5-10.1); Creatinine Clr Calc Pharmacy 51.6 ml/min; Est GFR (African American) 65.4; Est GFR (Non-African American) 56.5; Potassium 3.1 mmol/L (3.5-5.1)
[2020-08-24] MEDS: POTASSIUM CHLORIDE / WTR 10 MEQ/100 ML PLCT IV SCH ×4 (01:33→04:33)
[2020-08-24] MEDS: DEXTROSE 5% 1,000 ML IV SCH ×2 (04:53→22:05)
[2020-08-24 06:28] LABS: Basophils # (auto) 0.01 K/uL (0-0.2); Basophils % (auto) 0.1 %; Hematocrit (blood only) 36.3 % (42-52); Hemoglobin 11.8 g/dL (14.0-18.0); Immature Granulocytes # (auto) 0.09 K/uL (0.00-0.02); Lymphocytes # (auto) 1.03 K/uL (1.2-3.4); Mean Corpuscular Hemoglobin 29.8 pg (25-34); Mean Corpuscular Hgb Conc 32.5 g/dL (32-36); Mean Corpuscular Volume 91.7 fL (80-100); Mean Platelet Volume 9.7 fL (7.4-10.4); Monocytes # (auto) 0.28 K/uL (0.11-0.59); Neutrophils # (auto) 7.96 K/uL (1.4-6.5); Neutrophils % (auto) 84.9 %; Platelet Count 339 K/uL (130-400); RDW Coefficient of Variation 14.2 % (11.5-14.5); Red Blood Count 3.96 M/uL (4.7-6.1); White Blood Count 9.37 K/uL (4.8-10.8)
[2020-08-24 07:13] LABS: BUN Creatinine Ratio 27.6 (10-20); Calcium 8.5 mg/dl (8.5-10.1); Creatinine Clr Calc Pharmacy 60.7 ml/min; Est GFR (African American) 79.6; Est GFR (Non-African American) 68.7; Potassium 3.9 mmol/L (3.5-5.1)
[2020-08-24] MEDS ORDERED: INSULIN HUMAN NPH SC ONE (08:00)
--- NOTE | 2020-08-24 09:16 | Nephrology Progress Note ---
Date of Service August 24, 2020 Assessment & Plan (1) Hypernatremia: sodium 150 on presentation, peaked at 154; ranged from 151-154 since admission basically until today down to 148. He is only 200 negative so far today but ws 4.2L negative yesterday. Pt is NPO d/t aspiration risk w/ severe PNA. he has severe hypoxic respiratory failure and has had lasix w/ diuresis and improved repsiratory findings on XR and in terms of 02 needs. >reevaluate NPO status as clinically appropriate >lowered D5W to 50 mL hourly -continue lower lasix dose 10 mg IV bid -recheck bmp ordered for 1600>>repeat Na 146; cont current care -follow up goals of care recommendations Care coordinated w/ Dr Correa Admission and Anticipated Discharge Date Admission Date: August 21, 2020 Subjective pt to remain full code for now; palliative following; diuresing well > over 4L yesterday Review of Systems Review of Systems: Unobtainable due to reduced consciousness Physical Exam Constitutional: well developed and + thin; no acute distress on ventimask Eyes: EOM intact bilaterally ENMT: Ears: no external ear abnormality Nose: no external nose abnormality Mouth: + dry oral mucous membranes Neck: no nuchal rigidity Respiratory: normal respiratory effort Auscultation: + diminished lung sounds Cardiovascular: Rate/Rhythm: regular rate and regular rhythm Extremities: no edema Gastrointestinal (Abdomen): Inspection/Auscultation: normal bowel sounds Percussion/Palpation: abdomen soft; abdomen nontender Musculoskeletal: Extremities: + abnormal strength (L arm not moving ) Skin: no rashes, warm and dry Neurologic: very lethargic still and not interactive/tracking w/ me; opens eyes briefly late in eval Results & Data ([facility]) Vital Signs (Past 12 Hours) Vital Signs Temp Pulse Pulse Resp BP Pulse Ox 08/24/20 07:06 37.3 C 81 18 166/65 H 98 08/24/20 03:22 94 H 19 98 08/24/20 03:15 37 C 85 22 159/91 H 96 08/24/20 01:42 83 08/24/20 00:03 37.0 C 75 20 135/76 95 08/23/20 22:22 79 15 97 Laboratory Results 08/24/20 05:50 08/24/20 05:50
--- NOTE | 2020-08-24 10:05 | Pulmonology Progress Note ---
Date of Service August 24, 2020 Assessment & Plan (1) Pneumonia due to COVID-19 virus: Reason Critically Ill: 70-year-old male with recent history of RIGHT hemispheric MCA stroke with small areas of petechial hemorrhage with LEFT upper extremity flaccid paralysis presenting with respiratory failure with hypoxia secondary to COVID-19 pneumonia requiring close monitoring and possible need for invasive airway ventilatory techniques. Recommendations: 1. MCA CVA: Patient was diagnosed in early July [facility]. He has no verbal response other than 1 word responses. He is able to move his right foot and squeeze his right hand. He was also able to stick out his tongue partially and open his eyes. Otherwise, he follows no simple commands. Continue with antiplatelet therapy per neurology. Anticipate need for assisted facility or acute rehab. 2. NSTEMI: Secondary to demand ischemia from COVID-19 pneumonia and hypoxia. Continue diuresis as tolerated secondary to CHF. 3. Hypoxemic respiratory failure: Multifactorial to COVID-19 as well as CHF and fluid overload. proBNP on admission was 10,482. Chest x-ray 08/23/2020 shows improvement to the aeration of the lungs. Continues with multifocal pattern of most likely resolving pneumonia. Patient still requires Oxymask with 10 L of supplemental O2 per minute. Continue to titrate oxygen as tolerated. Continue diuresis per cardiology as tolerated. 4. Hypernatremia: Sodium was 154. Is slowly trending down. Today is at 146. Continue free water aliquots. Continue to monitor serial labs. Watch for fluid overload secondary to CHF. 5. COVID-19 Pneumonia: Diagnosed 08/16/2020. Procalcitonin was 0.28. No indication for antibiotics. Patient currently receiving dexamethasone 6 mg daily. Patient currently is outside of the prescribed time for remdesivir. He is currently afebrile. Continue supportive care. Would not recommend proning this patient without complete supervision as patient is nonverbal and I would worry about airway occlusion. 6. DVT PROPHYLAXIS: No chemical prophylaxis secondary to risk for hemorrhagic transformation from acute CVA. Continue SCDs as tolerated. Thank you for including us in the care of this patient. At this time the pulmonary service will sign off. If you require anything further please feel free to reconsult. (2) Hypoxia: (3) Acute respiratory failure with hypoxia: (4) Confusion: (5) CAD (coronary artery disease): (6) DM type 2 (diabetes mellitus, type 2): (7) Hypernatremia: Admission and Anticipated Discharge Date Admission Date: August 21, 2020 Supervising Physician Co-Signing Physician Notes Chart reviewed and discussed with critical care MARY JANE. Agree with assessment and plan as noted. The patient's oxygenation is stabilized at 10 L facemask. He was on BiPAP briefly overnight. Formal cardiology consultation is currently pending. Palliative care notes were reviewed. He diuresed about 4 L on the . Chest x-ray demonstrates persistent bilateral hazy opacities, possibly secondary to fluid overload. Agree with recommendations to continue diuretics and wean oxygen as tolerated. Based on the patient's prior significant stroke, if his respiratory status were to worsen to the point that we would be considering intubation mechanical ventilation, I would be worried about the patient's ability to recover long- term. Apparently the family has decided to continue current interventions but should the patient have a clinical turn for the worse they are open to reevaluating possibilities and I would strongly recommend this be conducted before proceeding to intubation mechanical ventilation. We will sign off. Feel free to contact us with questions or concerns Subjective Attending: Dr. Frazier Patient seen and examined in the Covid unit in room 2040. He is awake and alert but not very responsive. He is able to follow very few commands. He was only able to squeeze with his right hand but would not like help. He would stick his tongue out partially. He opened his eyes. He wiggle the toes on his right foot. Otherwise, he follows no simple commands. He denies any shortness of breath. He denies any pain. He denies any headache. Other than 1 word answers, he is nonverbal. Review of Systems Review of Systems: All systems reviewed & are unremarkable except as noted in Subjective Physical Exam Physical Exam: GENERAL : No acute distress EYES: No icterus, gaze conjugate NOSE: No evidence of epistaxis MOUTH: No lesions or candidiasis NECK: Supple LUNGS: CTA B/L, no wheezes, rales or rhonchi HEART: Regular, rate controlled ABDOMEN: Soft, NT, ND, BS Present EXTREMITIES: No LE edema, pedal pulses intact NEURO: Awake. Patient only sticks out tongue, wiggles toes on right foot, squeezes with right hand but will not release, opens eyes. Does not follow any other simple commands. Verbal responses are one-word. No use of sentences. Toes are upgoing on the left foot. Patient does respond to pain on the entire left side. No intentional use of left arm or left leg. Results & Data Results & Data ([facility]) Vital Signs (Past 12 Hours) Vital Signs Temp Pulse Pulse Resp BP Pulse Ox 08/24/20 07:06 37.3 C 81 18 166/65 H 98 08/24/20 03:22 94 H 19 98 08/24/20 03:15 37 C 85 22 159/91 H 96 08/24/20 01:42 83 08/24/20 00:03 37.0 C 75 20 135/76 95 08/23/20 22:22 79 15 97 Laboratory Results 08/24/20 05:50 08/24/20 05:50 Diagnostic Findings XR chest 1V portable HISTORY: 70 years-old Male CHF acute shortness of breath with congestive heart failure and pneumonia COMPARISON: Chest radiograph 08/22/2020, CTA chest 08/21/2020 TECHNIQUE: Portable AP view of the chest FINDINGS: Cardiac silhouette is enlarged. Prior median sternotomy and CABG. Mild right hemidiaphragmatic elevation. No pneumothorax or large pleural effusion. Mild to moderate improved aeration of the lungs with persistent ill-defined bilateral pulmonary opacities. Degenerative changes of the shoulders and spine. IMPRESSION: Cardiomegaly with mild to moderately improved aeration of the lungs. Findings are suggestive of resolving pneumonia. ACT 112: Negative or not required by law. The above report was generated using voice recognition software. It may contain grammatical, syntax or spelling errors. Electronically signed by: José Miguel Zurita M.D. 08/23/2020 9:51 AM PG Care Time/CCT Total # of Minutes Spent Total Time Spent with Patient: Total time spent is greater than 50% in coordination of care (as documented) at patient's floor/unit and/or counseling patient:25 minutes Coding Level of Care Code 32396 Subseq Hosp Care Lvl 2 Diagnoses Pneumonia due to COVID-19 virus U07.1; J12.82 Hypoxia R09.02 Acute respiratory failure with hypoxia J96.01 Confusion R41.0 CAD (coronary artery disease) I25.10 DM type 2 (diabetes mellitus, type 2) E11.9 Hypernatremia E87.0
--- NOTE | 2020-08-24 10:08 | Palliative Care Progress Note ---
Date of Service August 24, 2020 Assessment & Plan (1) Palliative care encounter: This patient still is able to communicate some, but no real meaningful conversation. He is able to answer some simple yes and no questions. Family meeting held yesterday and the conclusion of the meeting was that the family (5 siblings) agree that they would want to continue with him being a Full Code and proceed with further treatment, including aggressive treatment if necessary. Should the patients condition decline in future they would consider transitioning to comfort measures. In discussion with the hospitalist, palliative care will follow peripherally for now. please contact us should this gentleman's condition change. (2) Hypoxia: (3) Confusion: (4) Pneumonia due to COVID-19 virus: (5) CAD (coronary artery disease): Admission and Anticipated Discharge Date Admission Date: August 21, 2020 Subjective remains on oxymask on 10 L 02 spo2 92% /facial droop on rt side remains NPO -with concern for severe dysphagia /aspiration risk HR /BP has been stable so far Review of Systems Review of Systems: [place] System Assessment System Pain: 0/3 Shortness of breath: 1/3 Anxiety: 0/3 Palliative Performance Scale: 30% Physical Exam Constitutional: + ill appearing and + frail appearing Respiratory: + labored breathing Auscultation: + diminished lung sounds and + rhonchi Cardiovascular: RRR, no murmur, no edema Gastrointestinal (Abdomen): normal bowel sounds, soft, nontender, no hepatosplenomegaly Skin: + pallor Psychiatric: Orientation: alert, oriented to person and cooperative Insight: + limited insight Judgement: + limited judgement Results & Data ([facility]) Vital Signs (Past 12 Hours) Vital Signs Temp Pulse Pulse Resp BP Pulse Ox 08/24/20 07:06 37.3 C 81 18 166/65 H 98 08/24/20 03:22 94 H 19 98 08/24/20 03:15 37 C 85 22 159/91 H 96 08/24/20 01:42 83 08/24/20 00:03 37.0 C 75 20 135/76 95 08/23/20 22:22 79 15 97 PG Care Time/CCT Total # of Minutes Spent Total Time Spent with Patient: Total time spent is greater than 50% in coordination of care (as documented) at patient's floor/unit and/or counseling patient: 25 Coding Level of Care Code 65658 Subseq Hosp Care Lvl 2 Diagnoses Palliative care encounter Z51.5 Hypoxia R09.02 Confusion R41.0 Pneumonia due to COVID-19 virus U07.1; J12.82 CAD (coronary artery disease) I25.10 Time Spent (min) 25 Time Spent Midlevel Total time spent 25 minutes with > 50% of that time spent assessing the patient, discussing goals of care with IDT and collaborating as needed
--- NOTE | 2020-08-24 10:15 | Cardiology Consultation ---
Date of Consultation August 24, 2020 Assessment & Plan (1) NSTEMI (non-ST elevated myocardial infarction): (2) DKA (diabetic ketoacidoses): (3) Hypernatremia: (4) Confusion: (5) Hypoxia: (6) CAD (coronary artery disease): (7) History of cerebrovascular accident with residual effects: (8) Pneumonia due to COVID-19 virus: (9) Acute respiratory failure with hypoxia: Given the above clinical context I doubt that the minimal troponin elevation represents an acute ischemic event. However more likely explainable given the acute respiratory failure and subsequent myocardial strain along with renal failure and DKA EKG on admission shows normal sinus rhythm with bifascicular block but no ST segment elevations. Given the lack of meaningful recovery no further cardiac testing or intervention would be of benefit nor will be performed at this time. Input from palliative care team appreciated, agree that the possibility of significant recovery at this point is borderline futile. History of Present Illness Reason for Consultation: NSTEMI Requesting Physician: Dr. Correa Attending Physician: Kim Correa MD History of Present Illness Consultation performed via review of medical records. Patient is not previously known to our cardiology service. He presented to [facility] on 08/21/2020 from outpatient rehab facility with reports of hypoxemia in the setting of known COVID-19 infection. The patient recently suffered a very large right MCA territory infarct with petechial hemorrhaging. He was admitted and initiated on appropriate therapy. However, during hospitalization his troponin level was checked and noticed to increase slightly. Cardiology was consulted. Again, nursing reports no meaningful conversation from the patient. No complaints verbalized. Allergies Allergy/AdvReac Type Severity Reaction Status Date / Time No Known Allergies Allergy Verified 08/21/20 16:22 Home Medications Medication Instructions Recorded Confirmed Type acetaminophen 325 mg PO Q4H PRN 08/21/20 08/21/20 History ascorbic acid (vitamin C) [Vitamin 500 mg PO BID 08/21/20 08/21/20 History C] aspirin 81 mg PO DAILY 08/21/20 08/21/20 History atorvastatin 80 mg PO HS 08/21/20 08/21/20 History bisacodyl 10 mg OH DAILY PRN 08/21/20 08/21/20 History cholecalciferol (vitamin D3) 50 mcg PO DAILY 08/21/20 08/21/20 History [Vitamin D3] clopidogrel 75 mg PO DAILY 08/21/20 08/21/20 History docusate sodium 100 mg PO BID 08/21/20 08/21/20 History enoxaparin [Lovenox] 60 mg SUBCUT DAILY 08/21/20 08/21/20 History escitalopram oxalate [Lexapro] 10 mg PO DAILY 08/21/20 08/21/20 History famotidine 20 mg PO DAILY 08/21/20 08/21/20 History insulin glargine [Lantus U-100 10 unit SUBCUT HS 08/21/20 08/21/20 History Insulin] lisinopril 5 mg PO DAILY 08/21/20 08/21/20 History magnesium hydroxide [Milk of 30 ml PO DAILY PRN 08/21/20 08/21/20 History Magnesia] melatonin 3 mg PO HS 08/21/20 08/21/20 History metformin 500 mg PO BIDM 08/21/20 08/21/20 History polyethylene glycol 3350 [Miralax] 17 g PO QDL PRN 08/21/20 08/21/20 History sennosides [senna] 17.2 mg PO HS 08/21/20 08/21/20 History sennosides-docusate sodium 1 tab PO QDL PRN 08/21/20 08/21/20 History [Senokot-S] sodium phosphates [Fleet Enema] 133 ml OH DAILY PRN 08/21/20 08/21/20 History tamsulosin 0.4 mg PO QDD 08/21/20 08/21/20 History zinc sulfate 220 mg PO DAILY 08/21/20 08/21/20 History Patient History Medical History CAD (coronary artery disease) Confusion DM type 2 (diabetes mellitus, type 2) History of cerebrovascular accident with residual effects Hypoxia Palliative care encounter Surgical History History of angioplasty S/P CABG x 5 Social History Smoking Status: Unknown if ever smoked Preferred Language: Yakut Communication Ability: Effective Disability Insurance Hearing Officer Required: No Beliefs That Will Affect Care: None Current Living Situation: Rehab Other Information That Helps Us Care for You: No Feels Safe at Home: Yes Assistive Devices: Oxygen - Continuous Review of Systems Review of Systems: Unobtainable due to cognitive status Results & Data ([facility]) Vital Signs (Past 12 Hours) Vital Signs Temp Pulse Pulse Resp BP Pulse Ox 08/24/20 07:06 37.3 C 81 18 166/65 H 98 08/24/20 03:22 94 H 19 98 08/24/20 03:15 37 C 85 22 159/91 H 96 08/24/20 01:42 83 08/24/20 00:03 37.0 C 75 20 135/76 95 08/23/20 22:22 79 15 97
[2020-08-24] MEDS: DEXAMETHASONE SOD PHOSPHATE 6 MG in SYRINGE 0 ML IV SCH (10:43)
[2020-08-24] MEDS: FUROSEMIDE 10 MG in SYRINGE 0 ML IV SCH ×2 (10:43→22:04)
--- NOTE | 2020-08-24 11:12 | Pharmacy Report ---
Glycemic Control Consultation - Date of Service August 24, 2020 - Scope Scope: Glycemic Pharmacist consulted for glycemic control and to write orders per [facility] inpatient glycemic control protocol. - Objective Weight: 75 kg Accuchecks BSG (last 24hrs): 08/23/20 08/23/20 08/23/20 11:51 11:56 17:36 Glucose 169 H POC Glucose 133 H 250 H 08/23/20 08/24/20 08/24/20 23:57 00:17 05:50 Glucose 198 H 159 H POC Glucose 146 H 08/24/20 08/24/20 05:56 07:50 Glucose POC Glucose 167 H 164 H Laboratory Data (last 24hrs): 08/23/20 08/24/20 08/24/20 11:56 00:17 05:50 Potassium 3.9 D 3.1 L D 3.9 D Carbon Dioxide 28 29 28 Anion Gap 7.0 7.0 6.0 Creatinine 1.27 1.27 1.08 Est Cr Clr Drug Dosing 51.6 51.6 60.7 HbA1c: Hemoglobin A1c 9.4 % (4.5-5.6) H 08/22/20 05:45 - Recent Pertinent Medications Outpatient Anti-diabetic Regimen: * Lantus 10 units SC qHS * Metformin * A1c = 9.4 % 08/22/20 The patient is currently receiving: * Basal insulin: NPH 10 units qAM, Lantus 10-20 units every qPM hours * Correctional Insulin: Novolog Correction per scale ACHS Goal Range: Low 110 mg/dL - High 140 mg/dL Correction Factor: 20 mg/dL/unit * Prandial insulin: Per carb ratio of 1 unit per 8 grams CHO consumed * Oral Agents: On hold Risk Factors for Insulin Resistance: * Steroids: Dexamethasone 6 mg IV daily * Infection: COVID * IVF: D5W @ 80 mL/hr * Diet: NPO - Assessment & Plan Assessment & Plan: ASSESSMENT: * 70 yo M with T2DM. BSG's responded nicely to glycemic interventions on 08/22. However, in the afternoon on 08/23, BSG's increased again likely 2nd initiation of D5W infusion for hypernatremia * Will continue current regimen as it seemed to have been controlling BSG's well prior to D5W infusion, but will count carbs in D5W in CHO count for Novolog to account for dextrose IVF PLAN FOR INPATIENT GLYCEMIC CONTROL: * Hold outpatient oral diabetes medications * Basal insulin * NPH 10 units SC qAM * Lantus 10-20 units SQ qPM (consistent with outpatient HS administration) * Bolus insulin * NovoLog per scale ACHS or Q6hrs while NPO * Goal Range: Low 110 mg/dL - High 140 mg/dL * Correction Factor: 20 mg/dL/unit * Nutritional / Prandial insulin per carb ratio of 1 unit per 8 grams CHO consumed (including D5W infusion) * Please note that the plan above was derived based on current level of insulin resistance and hospital stress. These recommendations are appropriate for inpatient admission only. Plan of care upon discharge will need to be reassessed to avoid potential outpatient hypo/hyperglycemia. Thank you.
[2020-08-24] MEDS: ASPIRIN 300 MG SUPP PR SCH (12:34)
--- NOTE | 2020-08-24 14:38 | Communication Note ---
Date of Service: August 24, 2020 Patient remained clinically stable overnight: A.m. labs reviewed: Leukocytosis has resolved, normal white count 9.3K today. Hemoglobin remains stable at 12.211.8 Mild lymphopenia secondary to COVID-19 viral infection. Improvement of electrolytes, hypernatremia almost resolved, sodium 148 today. Creatinine normalized improved to patient's baseline 1.08, GFR 68 CKD stage III. Renal function stable Appreciate input from nephrology for close monitoring and correction of electrolytes. Patient remained persistently hypoxic requiring 2 L oxygen via oxygen mask, no deterioration of respiratory status noted in last 24 hours Chest x-ray on yesterday on 08/23/2020 Cardiomegaly with mild to moderately improved aeration of the lungs, findings of suggestive of resolving pneumonia. Daughter MIRIAM Zuniga updated over phone All questions answered, family is in agreement and comfortable with current treatment plan. Kim Correa MD
[2020-08-24 15:35] LABS: Allen Test Pos (Pos); Base Excess ABG 3.8 mEq/L (-9-1.8); HCO3 ABG 27 mmol/L (19-24); Oxygen Saturation ABG 96.8 % (90-95); PCO2 ABG 38 mmHg (35-46); PO2 ABG 87 mmHg (80-95); pH ABG 7.48 (7.35-7.45)
[2020-08-24 15:53] LABS: BUN Creatinine Ratio 29.3 (10-20); Calcium 8.1 mg/dl (8.5-10.1); Creatinine Clr Calc Pharmacy 64.3 ml/min; Est GFR (African American) 85.3; Est GFR (Non-African American) 73.6; Potassium 3.5 mmol/L (3.5-5.1)
[2020-08-24] MEDS: INSULIN GLARGINE SOLOSTAR 100 UNITS/ML 3 ML PEN SC SCH (17:16)
--- NOTE | 2020-08-24 17:36 | XRay Report ---
XR chest 1V portable HISTORY: 70 years-old Male CHF /Covid 19 pneumonia acute shortness breath with congestive heart fail ure. COVID Positive. COMPARISON: Chest radiograph 08/23/2020 TECHNIQUE: Portable AP view of the chest FINDINGS: Cardiac silhouette is enlarged. Prior median sternotomy. Right hemidiaphragmatic elevation. No pneumo thorax or large pleural effusion. Reticular opacities are noted with ill-defined left lung predominan t airspace opacities. There is mildly improved aeration of the right lung. Degenerative changes of th e shoulders and spine. IMPRESSION: Cardiomegaly with persistent bilateral pulmonary opacities. There is mildly improved aera tion of the right lung. ACT 112: Negative or not required by law. The above report was generated using voice recognition software. It may contain grammatical, syntax o r spelling errors. Electronically signed by: José Miguel Zurita M.D. 08/24/2020 5:35 PM
--- NOTE | 2020-08-24 19:00 | Communication Note ---
Date of Service: August 24, 2020 Follow up visit for acute hypoxemic resp failure /COVID 19 pneumonia /acute/subacute CVA /hypernatremia : pt was placed on Bipap -as noted to be more lethargic through out the day ABG shows pH 7.48 /pco2 38 /po2 87 pt placed on Bipap Chest xray shows some improvement in pulmonary congestion and airway Na level improved to 146 at 3 pm labs troponin level improved 1.0-0.3 overall pt remains high risk for respiratory failure-continue all supportive care Speech therapy input appreciated -pt did poorly given current circumstances improvement of swallowing function -very unlikely over all prognosis remains poor Daughter Shelby and her other sisters updated over phone Kim Correa MD
[2020-08-24] MEDS ORDERED: REMDESIVIR 200 MG in SODIUM CHLORIDE 0.9% 210 ML IV ONE (19:15)
[2020-08-24] MEDS: SODIUM CHLORIDE 0.9% 10ML FLUSH IV SCH (22:04)
[2020-08-25] MEDS: INSULIN ASPART 100 UNITS/ML 3 ML PEN SC SCH ×5 (01:02→21:13)
[2020-08-25] MEDS ORDERED: ALBUT/IPRATROP 3MG/0.5MG NEB 3 ML VIAL ONE (06:16)
[2020-08-25] MEDS ORDERED: XOPENEX/ATROVENT 1.25mg/0.5MG NEB COMBO NEB PRN (06:24)
[2020-08-25] MEDS ORDERED: ALBUT/IPRATROP 3MG/0.5MG NEB 3 ML VIAL NEB STA (06:25)
[2020-08-25] MEDS ORDERED: ALBUT/IPRATROP 3MG/0.5MG NEB 3 ML VIAL NEB PRN ×2 (06:25→06:37)
[2020-08-25] MEDS ORDERED: LEVALBUTEROL 1.25MG/0.5ML NEB INH SCH (06:30)
[2020-08-25] MEDS ORDERED: IPRATROPIUM BROMIDE NEB SOLN 0.02% 2.5 ML VIAL INH SCH (06:30)
[2020-08-25] MEDS: ASPIRIN 300 MG SUPP PR SCH (07:45)
[2020-08-25 07:59] LABS: BUN Creatinine Ratio 33.9 (10-20); Calcium 8.8 mg/dl (8.5-10.1); Creatinine Clr Calc Pharmacy 68.3 ml/min; Est GFR (African American) 91.8; Est GFR (Non-African American) 79.2
--- NOTE | 2020-08-25 08:06 | Nephrology Progress Note ---
Date of Service August 25, 2020 Assessment & Plan (1) Hypernatremia: sodium 150 on presentation, peaked at 154; ranged from 151-154 since admission basically until today down to 146. He is only 200 negative yesterday but is 600 mL negative so far today. Pt is NPO d/t aspiration risk w/ severe PNA. he has severe hypoxic respiratory failure and has had lasix w/ diuresis and improved repsiratory findings on XR and in terms of 02 needs. >reevaluate NPO status as clinically appropriate >continue D5W at 50 mL hourly -continue lower lasix dose 10 mg IV bid >>if respiratory status worsens, stop IVF and double lasix dose -daily bmp -follow up goals of care recommendations Admission and Anticipated Discharge Date Admission Date: August 21, 2020 Subjective seen on rounds at about 1245pm; gives me one full sentence greeting then no further speech Review of Systems Review of Systems: Unobtainable due to cognitive status Physical Exam Constitutional: well developed and + thin; no acute distress Eyes: EOM intact bilaterally ENMT: Ears: no external ear abnormality Nose: no external nose abnormality Mouth: + dry oral mucous membranes Neck: no nuchal rigidity Respiratory: normal respiratory effort Auscultation: + diminished lung sounds on VM Cardiovascular: Rate/Rhythm: regular rate and regular rhythm Extremities: no edema Gastrointestinal (Abdomen): Inspection/Auscultation: normal bowel sounds Percussion/Palpation: abdomen soft; abdomen nontender Musculoskeletal: Extremities: + abnormal strength (L arm not moving ) Skin: no rashes, warm and dry Neurologic: Speech / Cognition: + abnormal cognition Motor/Sensory: + abnormal movement Genitourinary: selby w/ ample yello wurine Results & Data ([facility]) Vital Signs (Past 12 Hours) Vital Signs Temp Pulse Pulse Resp BP Pulse Ox 08/25/20 07:41 52 L 08/25/20 06:19 49 L 20 95 08/25/20 06:18 49 L 20 95 08/25/20 03:51 37.0 C 79 20 154/81 H 96 08/25/20 03:33 65 18 97 08/24/20 23:41 36.8 C 62 21 123/103 H 96 08/24/20 23:12 49 L 18 94 Laboratory Results 08/24/20 05:50 08/25/20 06:13 k = 3.9
[2020-08-25] MEDS: FUROSEMIDE 10 MG in SYRINGE 0 ML IV SCH ×2 (08:16→21:48)
[2020-08-25 08:48] LABS: Potassium 3.9 mmol/L (3.5-5.1)
--- NOTE | 2020-08-25 11:55 | Pharmacy Report ---
Pharmacy Glycemic Short Note 2 - Date of Service August 25, 2020 - Glycemic Short BSG Results (Last 24 hours): 08/24/20 08/24/20 08/24/20 15:14 16:28 20:14 Glucose 194 H POC Glucose 184 H 183 H 08/25/20 08/25/20 08/25/20 00:59 05:58 06:13 Glucose 124 H POC Glucose 163 H 122 H 08/25/20 11:33 Glucose POC Glucose 99 Outpatient Anti-diabetic Regimen: * Lantus 10 units SC qHS * Metformin * A1c = 9.4 % 08/22/20 Risk Factors for Insulin Resistance: * Steroids: Dexamethasone 6 mg IV daily (discontinued - no current dose scheduled today) * Infection: COVID-19 * IVF: D5W @ 80 mL/hr (decreased to 50 mL/hr on 08/24 late evening) * Diet: NPO ASSESSMENT: 08/25 * D5W infusion decreased in rate and steroids stopped today. Discussed w Dr. Fischer - potential risk of steroids may outweigh benefit. Plans to discuss with pulmonology. * BSG's with post-prandial elevations yesterday. Anticipate that stopping steroids and decreasing dextrose IVF may be sufficient to increase insulin sensitivity and decrease BSG's. Noon BSG also with notable trend down from AM therefore will loosen Novolog parameters. * Will stop NPH now that steroids have stopped. Will continue Lantus, but at a lower dose. 08/24 * 70 yo M with T2DM. BSG's responded nicely to glycemic interventions on 08/22. However, in the afternoon on 08/23, BSG's increased again likely 2nd initiation of D5W infusion for hypernatremia * Will continue current regimen as it seemed to have been controlling BSG's well prior to D5W infusion, but will count carbs in D5W in CHO count for Novolog to account for dextrose IVF PLAN FOR INPATIENT GLYCEMIC CONTROL: * Hold outpatient oral diabetes medications * Basal insulin * Discontinue NPH * Decrease Lantus 10-15 units SQ qPM (consistent with outpatient HS administration) * Bolus insulin * NovoLog per scale ACHS or Q6hrs while NPO * Goal Range: Low 110 mg/dL - High 140 mg/dL * Loosen Correction Factor: 25 mg/dL/unit * Loosen Nutritional / Prandial insulin per carb ratio of 1 unit per 10 grams CHO consumed (including D5W infusion)
--- NOTE | 2020-08-25 16:43 | Hospitalist Progress Note ---
Date of Service August 25, 2020 Assessment & Plan (1) History of cerebrovascular accident with residual effects: H/O recent large right MCA infarct with CT evidence of subacute left occipital lobe infract 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 Poor prognosis Continue aspirin for now Plan to resume atorvastatin, Plavix if able to tolerate diet Needs follow-up with nephrology as outpatient Sepsis Multiple source -COVID 19 pneumonia , acute cholecystitis , stage 4 sacral decub ulcer COVID-19 pneumonia Acute respiratory failure with hypoxia Continue high flow oxygen; also on BiPAP at bedtime Titrate oxygen as able Received dexamethasone, Zosyn Also on remdesivir Appreciate pulmonology input Needs to address goals of care Afebrile off antibiotics Normal procalcitonin (2) Acute respiratory failure with hypoxia: Multifactorial: COVID 19 pneumonia , Also contributing factors -acute CHF with possible diastolic dysfunction Continue IV diuretics as per nephrology Monitor volume status Continue supplemental oxygen as needed Elevated Troponin Likely secondary to type II [place]--demand Ischemia Troponin levels trended down Patient denies chest pain Appreciate Cardiology Input Dysphagia: Due to acute CVA Speech therapy evaluated Continue aspiration precautions Advance diet as tolerated Hypernatremia : Monitor sodium levels Continue IV fluids, Lasix Inpatient nephrology input Acute renal failure : Likely prerenal Cr: 1.46>0.96 Monitor renal function Nephrology Input Appreciated Code Status Full code for now Disposition intermission coordinator prognosis remains guarded Need to readdress goals of care, CODE STATUS on daily basis (3) Pneumonia due to COVID-19 virus: Admission and Anticipated Discharge Date Admission Date: August 21, 2020 Subjective Patient is seen and examined at bedside Denies any shortness of breath, chest pain, cough Less lethargic today Continues to be on high flow oxygen, on BiPAP overnight Tries to follow simple commands Poor historian Started on pured diet today Review of Systems Review of Systems: Other Physical Exam Physical Exam: Physical Exam: Vitals signs as noted above General Appearance:Moderately built and nourished, no apparent distress Head: normocephalic, Atraumatic Eyes: normal inspection Neck: supple, Trachea midline Respiratory/Chest: Decreased breath sounds, CTA Cardiovascular: S1, S2, No murmur Abdomen/GI:Soft, Non tender, Bowel sounds present Extremities/Musculoskelatal:normal inspection, no edema Neurologic/Psych:Alert, awake, tries to follow simple commands, left-sided paralysis, right-sided hemiparesis, +Facial droop. +Slurred speech Skin: normal color, warm Results & Data Results & Data ([place]) Vital Signs (Past 12 Hours) Vital Signs Temp Pulse Pulse Resp BP Pulse Ox 08/25/20 16:17 37.1 C 76 24 152/92 H 100 08/25/20 11:40 37.3 C 74 20 160/72 H 93 08/25/20 10:00 54 L 20 91 08/25/20 08:07 37.1 C 08/25/20 08:05 51 L 20 123/54 L 94 08/25/20 07:41 52 L 08/25/20 06:19 49 L 20 95 08/25/20 06:18 49 L 20 95 Laboratory Results BMP 08/25/20 08/25/20 06:13 08:17 Sodium 146 H Potassium 3.9 Chloride 113 H Carbon Dioxide 28 BUN 32 H Creatinine 0.96 Glucose 124 H Calcium 8.8 Cardiac Enzymes 08/24/20 Range/Units 15:14 Troponin I 0.360 H* (0-0.045) ng/ml Liver Function 08/25/20 08/25/20 Range/Units 06:13 08:17 AST 78 H (15-37) U/L ALT 56 (12-78) U/L
[2020-08-25] MEDS: INSULIN GLARGINE SOLOSTAR 100 UNITS/ML 3 ML PEN SC SCH (18:19)
[2020-08-25] MEDS ORDERED: REMDESIVIR 100 MG in SODIUM CHLORIDE 0.9% 230 ML IV SCH (20:00)
[2020-08-25] MEDS: SODIUM CHLORIDE 0.9% 10ML FLUSH IV SCH (22:50)
[2020-08-25] MEDS: DEXTROSE 5% 1,000 ML IV SCH (23:57)
[2020-08-26] MEDS ORDERED: FUROSEMIDE 40 MG/4 ML VIAL IV ONE (01:30)
[2020-08-26] MEDS: DEXTROSE 5% 1,000 ML IV SCH (04:35)
[2020-08-26 06:34] LABS: Hematocrit (blood only) 37.2 % (42-52); Hemoglobin 12.2 g/dL (14.0-18.0); Mean Corpuscular Hemoglobin 30.2 pg (25-34); Mean Corpuscular Hgb Conc 32.8 g/dL (32-36); Mean Corpuscular Volume 92.1 fL (80-100); Mean Platelet Volume 9.8 fL (7.4-10.4); Platelet Count 394 K/uL (130-400); RDW Coefficient of Variation 14.1 % (11.5-14.5); RDW Standard Deviation 47.7 fL (36.4-46.3); Red Blood Count 4.04 M/uL (4.7-6.1); White Blood Count 8.97 K/uL (4.8-10.8)
[2020-08-26 07:10] LABS: BUN Creatinine Ratio 29.3 (10-20); Calcium 8.5 mg/dl (8.5-10.1); Creatinine Clr Calc Pharmacy 75.3 ml/min; Est GFR (African American) 100.6; Est GFR (Non-African American) 86.8; Potassium 3.2 mmol/L (3.5-5.1)
[2020-08-26] MEDS: INSULIN ASPART 100 UNITS/ML 3 ML PEN SC SCH ×4 (07:36→21:33)
[2020-08-26] MEDS: ASPIRIN 300 MG SUPP PR SCH (07:37)
[2020-08-26] MEDS ORDERED: POTASSIUM CHLORIDE 20 MEQ/15 ML UDC PO ONE ×2 (07:52→18:00)
[2020-08-26] MEDS: predniSONE 20 MG TAB PO SCH (10:09)
[2020-08-26] MEDS ORDERED: INSULIN HUMAN NPH SC STA (12:09)
--- NOTE | 2020-08-26 12:13 | Pharmacy Report ---
Pharmacy Glycemic Short Note 2 - Date of Service August 26, 2020 - Glycemic Short BSG Results (Last 24 hours): 08/25/20 08/25/20 08/26/20 16:10 20:09 05:38 Glucose 140 H POC Glucose 128 H 101 H 08/26/20 08/26/20 07:32 11:38 Glucose POC Glucose 135 H 219 H Outpatient Anti-diabetic Regimen: * Lantus 10 units SC qHS * Metformin * A1c = 9.4 % 08/22/20 Risk Factors for Insulin Resistance: * Steroids: Dexamethasone 6 mg IV daily from 08/21 to 08/24. Prednisone 40 mg po daily started 08/26 * Infection: COVID-19 * IVF: D5W @ 50 mL/hr * Diet: T2DM ASSESSMENT: 08/26 * Steroids resumed today - equivalent dose as prior, but po prednisone. Diet ordered but no CHO intake charted. D5W infusion remains at 50 mL/hr * Will give one-time dose of NPH (similar to previous) * Will tighten Novolog parameters 08/25 * D5W infusion decreased in rate and steroids stopped today. Discussed w Dr. Fischer - potential risk of steroids may outweigh benefit. Plans to discuss with pulmonology. * BSG's with post-prandial elevations yesterday. Anticipate that stopping steroids and decreasing dextrose IVF may be sufficient to increase insulin sensitivity and decrease BSG's. Noon BSG also with notable trend down from AM therefore will loosen Novolog parameters. * Will stop NPH now that steroids have stopped. Will continue Lantus, but at a lower dose. 08/24 * 70 yo M with T2DM. BSG's responded nicely to glycemic interventions on 08/22. However, in the afternoon on 08/23, BSG's increased again likely 2nd initiation of D5W infusion for hypernatremia * Will continue current regimen as it seemed to have been controlling BSG's well prior to D5W infusion, but will count carbs in D5W in CHO count for Novolog to account for dextrose IVF PLAN FOR INPATIENT GLYCEMIC CONTROL: * Hold outpatient oral diabetes medications * Basal insulin * Resume NPH 10 units SC x1 * Decrease Lantus 0-10 units SQ qPM (consistent with outpatient HS administration) * Bolus insulin * NovoLog per scale ACHS or Q6hrs while NPO * Goal Range: Low 110 mg/dL - High 140 mg/dL * Tighten Correction Factor: 20 mg/dL/unit * Tighten Nutritional / Prandial insulin per carb ratio of 1 unit per 9 grams CHO consumed
--- NOTE | 2020-08-26 16:30 | Hospitalist Progress Note ---
Date of Service August 26, 2020 Assessment & Plan (1) History of cerebrovascular accident with residual effects: H/O recent large right MCA infarct with CT evidence of subacute left occipital lobe infract 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 Poor prognosis Continue aspirin, Plavix, atorvastatin Needs follow-up with Neurology as outpatient Sepsis Multiple source -COVID 19 pneumonia , acute cholecystitis , stage 4 sacral decub ulcer COVID-19 pneumonia Acute respiratory failure with hypoxia Continue high flow oxygen; also on BiPAP at bedtime Titrate oxygen as able Received dexamethasone, Zosyn, remdesivir for few doses Remdesivir discontinued as likely will provide no clinical benefit as per pulmonary Appreciate pulmonology input Needs to address goals of care Afebrile off antibiotics Normal procalcitonin Started on prednisone for now (2) Acute respiratory failure with hypoxia: Multifactorial: COVID 19 pneumonia , Also contributing factors -acute CHF with possible diastolic dysfunction Continue IV diuretics as per nephrology Monitor volume status Requiring 8 L of supplemental oxygen to maintain saturations Elevated Troponin Likely secondary to type II [place]--demand Ischemia Troponin levels trended down Patient denies chest pain Appreciate Cardiology Input Dysphagia: Due to acute CVA Speech therapy evaluated Continue aspiration precautions Continue pured diet for now Hypernatremia : Monitor sodium levels Continue IV fluids, Lasix Inpatient nephrology input Sodium levels normalized Acute renal failure : Likely prerenal Cr: 1.46>0.96 Monitor renal function Nephrology Input Appreciated Hypokalemia Likely due to diuretics, poor oral intake Check magnesium levels Replete electrolytes as needed Code Status Full code for now Disposition shelter prognosis remains guarded Need to readdress goals of care, CODE STATUS on daily basis (3) Pneumonia due to COVID-19 virus: Admission and Anticipated Discharge Date Admission Date: August 21, 2020 Subjective Patient is seen and examined at bedside Tolerating pured diet Discussed with patient's family over the phone in detail Lying comfortably in bed Poor historian Sodium levels normalized Hypokalemia noted on labs, replaced potassium levels today Denies any shortness of breath, chest pain, cough Requiring 8 L of supplemental oxygen to maintain saturations Review of Systems Review of Systems: Other Physical Exam Physical Exam: Physical Exam: Vitals signs as noted above General Appearance:Moderately built and nourished, no apparent distress Head: normocephalic, Atraumatic Eyes: normal inspection Neck: supple, Trachea midline Respiratory/Chest: Decreased breath sounds, CTA Cardiovascular: S1, S2, No murmur Abdomen/GI:Soft, Non tender, Bowel sounds present Extremities/Musculoskelatal:normal inspection, no edema Neurologic/Psych:Alert, awake, tries to follow simple commands, left-sided paralysis, right-sided hemiparesis, +Facial droop. +Slurred speech Skin: normal color, warm Results & Data Results & Data ([facility]) Vital Signs (Past 12 Hours) Vital Signs Temp Pulse Pulse Resp BP Pulse Ox 08/26/20 15:51 36.9 C 80 21 138/59 L 94 08/26/20 11:43 37.2 C 99 H 26 H 140/77 95 08/26/20 11:02 108 H 22 96 08/26/20 07:38 36.8 C 81 24 109/73 94 Laboratory Results Short CBC 08/26/20 Range/Units 05:38 WBC 8.97 (4.8-10.8) K/uL Hgb 12.2 L (14.0-18.0) g/dL Hct 37.2 L (42-52) % Plt Count 394 (130-400) K/uL BMP 08/26/20 05:38 Sodium 145 Potassium 3.2 L D Chloride 108 H Carbon Dioxide 34 H BUN 25 H Creatinine 0.87 Glucose 140 H Calcium 8.5 Liver Function 08/26/20 Range/Units 05:38 AST 68 H (15-37) U/L ALT 51 (12-78) U/L
[2020-08-26] MEDS ORDERED: POTASSIUM CHLORIDE 40 MEQ in DEXTROSE 5% 1,000 ML IV SCH (17:47)
--- NOTE | 2020-08-26 17:47 | Nephrology Progress Note ---
Date of Service August 26, 2020 Assessment & Plan (1) Hypernatremia: sodium 150 on presentation, peaked at 154; ranged from 151-154 since admission basically until today down to 146. He is only 200 negative yesterday but is 600 mL negative so far today. Pt is NPO d/t aspiration risk w/ severe PNA. he has severe hypoxic respiratory failure and has had lasix w/ diuresis and improved repsiratory findings on XR and in terms of 02 needs. >reevaluate NPO status as clinically appropriate >continue D5W at 50 mL hourly -continue lower lasix dose 10 mg IV bid --had K 40 po x 1; will give another K elixir 40 x 1 again this evening >>if respiratory status worsens, stop IVF and give another /extra 10 mg iv lasix dose (looke that he had one last evening) -daily bmp -follow up goals of care recommendations Admission and Anticipated Discharge Date Admission Date: August 21, 2020 Subjective more alert today -sat on side of bed w/ PT; speaking in some full sentences though still struggles to answer; per nursing struggling w/ depression; taking po better Review of Systems Review of Systems: Unobtainable due to cognitive status (ROS still limited here) Physical Exam 2 Constitutional: well developed and + thin; no acute distress Eyes: EOM intact bilaterally ENMT: Ears: no external ear abnormality Nose: no external nose abnormality Mouth: + dry oral mucous membranes Neck: no nuchal rigidity Respiratory: normal respiratory effort (on 8L NC) Auscultation: + diminished lung sounds Cardiovascular: Rate/Rhythm: regular rate and regular rhythm Extremities: no edema Gastrointestinal (Abdomen): Inspection/Auscultation: normal bowel sounds Pe rcussion/Palpation: abdomen soft; abdomen nontender Musculoskeletal: Extremities: + abnormal strength (L arm not moving ) Skin: no rashes, warm and dry Neurologic: Speech / Cognition: + abnormal cognition Motor/Sensory: + a bnormal movement Genitourinary: selby w/ ample urine lt yellow Results & Data ([facility]) Vital Signs (Past 12 Hours) Vital Signs Temp Pulse Pulse Resp BP Pulse Ox 08/26/20 15:51 36.9 C 80 21 138/59 L 94 08/26/20 11:43 37.2 C 99 H 26 H 140/77 95 08/26/20 11:02 108 H 22 96 08/26/20 07:38 36.8 C 81 24 109/73 94 Laboratory Results 08/26/20 05:38 08/26/20 05:38
[2020-08-26] MEDS ORDERED: DEXTROSE 5% 1,000 ML IV SCH (18:00)
[2020-08-26] MEDS: FUROSEMIDE 10 MG in SYRINGE 0 ML IV SCH (20:17)
[2020-08-26] MEDS: ATORVASTATIN 40 MG TAB PO SCH (20:19)
[2020-08-26] MEDS: INSULIN GLARGINE SOLOSTAR 100 UNITS/ML 3 ML PEN SC SCH (21:30)
[2020-08-27 06:15] LABS: Hematocrit (blood only) 35.4 % (42-52); Hemoglobin 11.6 g/dL (14.0-18.0); Mean Corpuscular Hemoglobin 30.1 pg (25-34); Mean Corpuscular Hgb Conc 32.8 g/dL (32-36); Mean Corpuscular Volume 91.9 fL (80-100); Mean Platelet Volume 9.8 fL (7.4-10.4); Platelet Count 399 K/uL (130-400); RDW Coefficient of Variation 14.1 % (11.5-14.5); RDW Standard Deviation 47.4 fL (36.4-46.3); Red Blood Count 3.85 M/uL (4.7-6.1); White Blood Count 9.79 K/uL (4.8-10.8)
[2020-08-27 06:50] LABS: BUN Creatinine Ratio 29.1 (10-20); Calcium 8.4 mg/dl (8.5-10.1); Est GFR (African American) 104.7; Est GFR (Non-African American) 90.3; Magnesium 2.1 mg/dl (1.8-2.4); Potassium 3.5 mmol/L (3.5-5.1)
[2020-08-27] MEDS ORDERED: POTASSIUM CHLORIDE 20 MEQ/15 ML UDC PO ONE (08:59)
[2020-08-27] MEDS: FUROSEMIDE 10 MG in SYRINGE 0 ML IV SCH (09:07)
--- NOTE | 2020-08-27 09:10 | Nephrology Progress Note ---
Date of Service August 27, 2020 Assessment & Plan (1) Hypernatremia: sodium 150 on presentation, peaked at 154; ranged from 151-154 since admission basically until today down to 144, first day it has normalized. Pt had been NPO d/t aspiration risk w/ severe PNA but now taking nectar thick. he has severe hypoxic respiratory failure and has had lasix w/ diuresis>> notably today w/ higher 02 needs again. >stopped D5W at 50 mL hourly -increased low lasix dose from 10 mg IV bid to 20 mg tid --started K elixir 20 mEq bid >>above is due to worsened respiratory status -daily bmp -follow up goals of care recommendations Admission and Anticipated Discharge Date Admission Date: August 21, 2020 Subjective 400 mL negative yesterday; much less interractive/not interactive today; on 15L per hr 02 overnight Review of Systems Review of Systems: Unobtainable due to reduced consciousness Physical Exam Constitutional: well developed and + thin; no acute distress Eyes: EOM intact bilaterally ENMT: Ears: no external ear abnormality Nose: no external nose abnormality Mouth: + dry oral mucous membranes Neck: no nuchal rigidity Respiratory: normal respiratory effort (on 8L NC) Auscultation: + diminished lung sounds Cardiovascular: Rate/Rhythm: regular rate and regular rhythm Extremities: no edema Gastrointestinal (Abdomen): Inspection/Auscultation: normal bowel sounds Percussion/Palpation: abdomen soft; abdomen nontender Musculoskeletal: Extremities: + abnormal strength (L arm not moving ) Skin: no rashes, warm and dry Neurologic: Speech / Cognition: + abnormal cognition Motor/Sensory: + abnormal movement Results & Data ([facility]) Vital Signs (Past 12 Hours) Vital Signs Temp Pulse Pulse Resp BP Pulse Ox 08/27/20 07:59 90 22 92 08/27/20 07:35 36.9 C 84 16 113/60 94 08/27/20 03:11 37.1 C 88 19 103/72 92 08/26/20 23:45 36.9 C 85 21 132/68 90 Laboratory Results 08/27/20 05:46 08/27/20 05:46
[2020-08-27] MEDS: FAMOTIDINE 20 MG TAB PO SCH (09:11)
[2020-08-27] MEDS: INSULIN ASPART 100 UNITS/ML 3 ML PEN SC SCH ×4 (09:12→20:31)
[2020-08-27] MEDS: ASPIRIN 81 MG ECTAB PO SCH (09:12)
[2020-08-27] MEDS: CLOPIDOGREL BISULFATE 75 MG TAB PO SCH (09:12)
[2020-08-27] MEDS: INSULIN HUMAN NPH SC SCH (09:15)
[2020-08-27] MEDS: predniSONE 20 MG TAB PO SCH (09:31)
[2020-08-27] MEDS: POTASSIUM CHLORIDE 20 MEQ/15 ML UDC PO SCH ×2 (09:32→19:52)
--- NOTE | 2020-08-27 09:35 | XRay Report ---
XR chest 1V portable HISTORY: 70 years-old Male COVID acute shortness of breath. COVID Positive. COMPARISON: Chest radiograph 08/24/2020 TECHNIQUE: Portable AP view of the chest FINDINGS: Cardiac silhouette is enlarged. Prior median sternotomy. Calcified plaque of the thoracic aorta. No p neumothorax. Mild blunting of the costophrenic angles. No large pleural effusion. There is moderately improved aeration of the lungs with mild persistent reticular opacities. Ill-defined bibasilar densi ties persist. There is decreased right hemidiaphragmatic elevation. Degenerative changes of the shoul ders and spine. IMPRESSION: 1. Moderately improved aeration of the lungs with mild persistent reticular opacities with ill-define d bibasilar densities. Pulmonary edema versus residual interstitial pneumonitis considered. 2. Cardiomegaly. ACT 112: Negative or not required by law. The above report was generated using voice recognition software. It may contain grammatical, syntax o r spelling errors. Electronically signed by: José Miguel Zurita M.D. 08/27/2020 9:33 AM
[2020-08-27] MEDS: FUROSEMIDE 20 MG in SYRINGE 0 ML IV SCH ×3 (09:40→19:51)
--- NOTE | 2020-08-27 11:30 | Pharmacy Report ---
Pharmacy Glycemic Short Note 2 - Date of Service August 27, 2020 - Glycemic Short BSG Results (Last 24 hours): 08/26/20 08/26/20 08/26/20 11:38 16:16 20:40 Glucose POC Glucose 219 H 179 H 171 H 08/27/20 08/27/20 05:46 07:22 Glucose 158 H POC Glucose 150 H Outpatient Anti-diabetic Regimen: * Lantus 10 units SC qHS * Metformin * A1c = 9.4 % 08/22/20 Risk Factors for Insulin Resistance: * Steroids: Dexamethasone 6 mg IV daily from 08/21 to 08/24. Prednisone 40 mg po daily started 08/26 * Infection: COVID-19 * IVF: D5W @ 50 mL/hr * Diet: T2DM ASSESSMENT: 08/27 * BSG's ranged 135-219 mg/dL yesterday. Post-prandial elevations noted. Will tighten CHO ratio * AM fasting BSG slightly above goal today at 150 mg/dL after reduced Lantus dose yesterday PM. However, D5W was discontinued so will leave basal as-is 08/26 * Steroids resumed today - equivalent dose as prior, but po prednisone. Diet ordered but no CHO intake charted. D5W infusion remains at 50 mL/hr * Will give one-time dose of NPH (similar to previous) * Will tighten Novolog parameters 08/25 * D5W infusion decreased in rate and steroids stopped today. Discussed w Dr. Fischer - potential risk of steroids may outweigh benefit. Plans to discuss with pulmonology. * BSG's with post-prandial elevations yesterday. Anticipate that stopping steroids and decreasing dextrose IVF may be sufficient to increase insulin sensitivity and decrease BSG's. Noon BSG also with notable trend down from AM therefore will loosen Novolog parameters. * Will stop NPH now that steroids have stopped. Will continue Lantus, but at a lower dose. PLAN FOR INPATIENT GLYCEMIC CONTROL: * Hold outpatient metformin * Basal insulin * NPH 10 units SC x1 * Lantus 0-10 units SQ qPM (consistent with outpatient HS administration) * Bolus insulin * NovoLog per scale ACHS or Q6hrs while NPO * Goal Range: Low 110 mg/dL - High 140 mg/dL * Correction Factor: 20 mg/dL/unit * Tighten Nutritional / Prandial insulin per carb ratio of 1 unit per 8 grams CHO consumed
[2020-08-27] MEDS: ESCITALOPRAM OXALATE 10 MG TAB PO SCH (12:29)
--- NOTE | 2020-08-27 16:50 | Hospitalist Progress Note ---
Date of Service August 27, 2020 Assessment & Plan (1) History of cerebrovascular accident with residual effects: H/O recent large right MCA infarct with CT evidence of subacute left occipital lobe infract 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 Poor prognosis Continue aspirin, Plavix, atorvastatin Needs follow-up with Neurology as outpatient Tolerating Pureed diet Sepsis Multiple source -COVID 19 pneumonia , acute cholecystitis , stage 4 sacral decub ulcer COVID-19 pneumonia Acute respiratory failure with hypoxia Continue high flow oxygen; also on BiPAP PRN Titrate oxygen as able Received dexamethasone, Zosyn, remdesivir for few doses Remdesivir discontinued as likely will provide no clinical benefit as per pulmonary Appreciate pulmonology input Needs to address goals of care Afebrile off antibiotics Normal procalcitonin Continue prednisone (2) Acute respiratory failure with hypoxia: Multifactorial: COVID 19 pneumonia , Also contributing factors -acute CHF with possible diastolic dysfunction Continue IV diuretics as per nephrology Monitor volume status Requiring 8 L of supplemental oxygen to maintain saturations Elevated Troponin Likely secondary to type II [place]--demand Ischemia Troponin levels trended down Patient denies chest pain Appreciate Cardiology Input Dysphagia: Due to acute CVA Speech therapy evaluated Continue aspiration precautions Continue pured diet as tolerated Hypernatremia : Monitor sodium levels IV fluids discontinued Lasix increased to 20mg BID Inpatient nephrology input Sodium levels normalized Acute renal failure : Likely prerenal Cr: 1.46>0.96> 0.79 Monitor renal function Nephrology Input Appreciated Hypokalemia Likely due to diuretics, poor oral intake Check magnesium levels Replete electrolytes as needed Code Status Full code for now Disposition joy operator prognosis remains guarded Need to readdress goals of care, CODE STATUS on daily basis (3) Pneumonia due to COVID-19 virus: Admission and Anticipated Discharge Date Admission Date: August 21, 2020 Subjective Patient is seen and examined at bedside Transiently placed on Bipap this morning given increased oxygen requirement CXR today showed moderately improved aeration of the lungs, findings suggestive of possible pulmonary edema versus residual interstitial pneumonitis. Poor oral intake today Denies chest pain, dyspnea Poor historian secondary to CVA Sodium levels stable Review of Systems Review of Systems: All systems reviewed & are unremarkable except as noted in HPI & below Physical Exam Physical Exam: Physical Exam: Vitals signs as noted above General Appearance:Moderately built and nourished, no apparent distress Head: normocephalic, Atraumatic Eyes: normal inspection Neck: supple, Trachea midline Respiratory/Chest: Decreased breath sounds, CTA Cardiovascular: S1, S2, No murmur Abdomen/GI:Soft, Non tender, Bowel sounds present Extremities/Musculoskelatal:normal inspection, no edema Neurologic/Psych:Alert, awake, tries to follow simple commands, left-sided paralysis, right-sided hemiparesis, +Facial droop. +Slurred speech Skin: normal color, warm Results & Data Results & Data ([facility]) Vital Signs (Past 12 Hours) Vital Signs Temp Pulse Pulse Pulse Resp BP Pulse Ox 08/27/20 15:50 37.1 C 84 21 88/47 L 93 08/27/20 12:30 20 94 08/27/20 12:05 95 H 20 79 L 08/27/20 11:28 37.6 C H 83 23 146/81 H 97 08/27/20 07:59 90 22 92 08/27/20 07:35 36.9 C 84 16 113/60 94 Laboratory Results Short CBC 08/27/20 Range/Units 05:46 WBC 9.79 (4.8-10.8) K/uL Hgb 11.6 L (14.0-18.0) g/dL Hct 35.4 L (42-52) % Plt Count 399 (130-400) K/uL BMP 08/27/20 05:46 Sodium 144 Potassium 3.5 Chloride 109 H Carbon Dioxide 32 BUN 23 H Creatinine 0.79 Glucose 158 H Calcium 8.4 L
[2020-08-27] MEDS: ATORVASTATIN 40 MG TAB PO SCH (19:51)
[2020-08-27] MEDS: INSULIN GLARGINE SOLOSTAR 100 UNITS/ML 3 ML PEN SC SCH (20:35)
--- NOTE | 2020-08-27 23:21 | Electrocardiogram Report ---
Test Reason : Blood Pressure : / mmHG Vent. Rate : 114 BPM Atrial Rate : 114 BPM P-R Int : 140 ms QRS Dur : 128 ms QT Int : 376 ms P-R-T Axes : 046 269 090 degrees QTc Int : 518 ms Sinus tachycardia Right bundle branch block Anteroseptal infarct , age undetermined T wave abnormality, consider lateral ischemia Abnormal ECG When compared with ECG of 23-AUG-2020 07:34, Vent. rate has increased BY 48 BPM Anteroseptal infarct is now Present Confirmed by Randy Lewis ([id number]) on 08/27/2020 11:20:57 PM Referred By: [facility] Confirmed By:Randy Lewis
[2020-08-28] MEDS: FUROSEMIDE 20 MG in SYRINGE 0 ML IV SCH ×3 (07:44→19:49)
[2020-08-28] MEDS: POTASSIUM CHLORIDE 20 MEQ/15 ML UDC PO SCH ×2 (07:44→19:30)
[2020-08-28] MEDS: CLOPIDOGREL BISULFATE 75 MG TAB PO SCH (07:45)
[2020-08-28] MEDS: FAMOTIDINE 20 MG TAB PO SCH (07:45)
[2020-08-28] MEDS: ESCITALOPRAM OXALATE 10 MG TAB PO SCH (07:45)
[2020-08-28] MEDS: predniSONE 20 MG TAB PO SCH (07:45)
[2020-08-28] MEDS: ASPIRIN 81 MG ECTAB PO SCH (07:45)
[2020-08-28 08:39] LABS: BUN Creatinine Ratio 31.2 (10-20); Creatinine Clr Calc Pharmacy 66.9 ml/min; Est GFR (African American) 89.5; Est GFR (Non-African American) 77.3; Magnesium 2.4 mg/dl (1.8-2.4)
[2020-08-28] MEDS: INSULIN ASPART 100 UNITS/ML 3 ML PEN SC SCH ×4 (08:52→20:38)
[2020-08-28] MEDS: INSULIN HUMAN NPH SC SCH (08:52)
--- NOTE | 2020-08-28 10:43 | Pharmacy Report ---
Glycemic Control Progress Note - Date of Service August 28, 2020 - Scope Glycemic Pharmacist consulted for glycemic control to write orders per [facility] inpatient glycemic control protocol. - Objective Accuchecks BSG(last 24 hours):: 08/27/20 08/27/20 08/27/20 11:26 16:24 20:29 Glucose POC Glucose 262 H 196 H 188 H 08/28/20 08/28/20 07:01 07:25 Glucose 141 H POC Glucose 149 H HbA1c:: Hemoglobin A1c 9.4 % (4.5-5.6) H 08/22/20 05:45 - Recent Pertinent Medications The patient is currently receiving: * Basal insulin: Lantus 5 units every 24 hours plus NPH 10 units daily * Correctional Insulin: Novolog Correction per scale ACHS Goal Range: Low 110 mg/dL - High 140 mg/dL Correction Factor: 20 mg/dL/unit * Prandial insulin: Per carb ratio of 1 unit per 8 grams CHO consumed - Outpatient Anti-Diabetic Meds Lantus 10 units HS [id number] BID - Assessment & Plan ASSESSMENT: * See progress note from 08/24/20 for more background info, in short: * Pt receiving SQ basal bolus insulin regimen for hyperglycemia secondary to baseline DM (outpatient regimen on hold). Patient is COVID + and is on prednisone 40 mg daily. * Patient is currently receiving an average of 43 units of insulin per day * 15 units of basal insulin * 28 units of prandial/correctional insulin * BSGs ranging 150 - 262 mg/dl over the past 24hrs * Changes needed to insulin regimen: * AM Fasting BSG = 149 mg/dl. This is slightly goal range for patient based on inpatient targets and co-morbidities. Therefore Basal insulin will be increased by 20% to 8 units. BSGs did trend upwards yesterday so will also increase NPH to 15 units. * Post-prandial BSGs were elevated yesterday. Increased NPH but will also tighten CR as steroids primarily affect postprandial BSGs. * Total daily dose = 40-50 units. PLAN FOR INPATIENT GLYCEMIC CONTROL: * INCREASING Lantus to 8 units SQ HS and NPH to 15 units qAM * Continuing correction factor of 20 mg/dl/unit * TIGHTENING carb ratio to 1 unit per 6 grams CHO consumed * Continuing goal range of Low 110 mg/dL - High 140 mg/dL * Please note that the plan above was derived based on current level of insulin resistance and hospital stress. These recommendations are appropriate for inpatient admission only. Plan of care upon discharge will need to be reassessed to avoid potential outpatient hypo/hyperglycemia. Thank you.
--- NOTE | 2020-08-28 11:00 | Nephrology Progress Note ---
Date of Service August 28, 2020 Assessment & Plan (1) Hypernatremia: sodium 150 on presentation, peaked at 154; ranged from 151-154 since admission basically until today down to 144, yesterday and has remained 144 today. Pt had been NPO d/t aspiration risk w/ severe PNA but now taking nectar thick. he has severe hypoxic respiratory failure and has had lasix w/ diuresis>> due to higher 02 needs again. >stopped D5W at 50 mL hourly -increased low lasix dose from 10 mg IV bid to 20 mg tid, continue on the same dose for now, UOP 1700 mls today. --Continue on K elixir 20 mEq bid, when on lasix -daily bmp -follow up goals of care recommendations, may need to start D5w if sodium starts to climb again. Admission and Anticipated Discharge Date Admission Date: August 21, 2020 Subjective Patient is seen for Hyper Na, difficult to engage due to CVA. Review of Systems Review of Systems: Other Difficult to engage due to CVA Physical Exam Physical Exam: General: no distress, WDWN Head: normocephalic, atraumatic Eyes: PERRL, EOM's intact, conjunctiva non-injected, anicteric ENT: normal inspection external ears, nose, mucous membranes moist Neck: supple, trachea midline Lungs: clear, no respiratory distress, no wheezing/rhonchi/rales CV: bradycardia, rate 52, regular rhythm, no JVD, no pretibial edema Abd: normal BS, soft, non-tender Ext: no cyanosis, no calf tenderness Results & Data ([facility]) Vital Signs (Past 12 Hours) Vital Signs Temp Pulse Pulse Resp BP BP Pulse Ox 08/28/20 10:40 36.6 C 83 22 140/75 92 08/28/20 08:30 101 H 08/28/20 08:00 104 H 88 L 08/28/20 07:30 84 94 08/28/20 07:28 86 127/74 93 08/28/20 07:26 36.6 C 88 22 127/74 92 08/28/20 07:00 86 92 08/28/20 06:30 72 89 L 08/28/20 06:00 93 H 92 08/28/20 05:30 92 H 90 08/28/20 05:00 93 H 95 08/28/20 04:30 70 95 08/28/20 04:00 72 95 08/28/20 03:30 77 94 08/28/20 03:00 87 92 08/28/20 02:58 37.2 C 88 88 23 120/74 120/74 93 08/28/20 02:30 72 90 08/28/20 02:00 79 90 08/28/20 01:30 91 H 90 08/28/20 01:00 91 H 89 L 08/28/20 00:30 84 91 08/28/20 00:05 73 08/28/20 00:00 77 93 08/27/20 23:52 36.5 C 80 80 20 136/77 136/77 87 L 08/27/20 23:30 73 24 87 L 08/27/20 23:00 66 21 91 Laboratory Results 08/27/20 05:46 08/28/20 07:01
[2020-08-28] MEDS ORDERED: POLYETHYLENE (MIRALAX) 17 GM PACK PO PRN (13:14)
--- NOTE | 2020-08-28 16:00 | Hospitalist Progress Note ---
Date of Service August 28, 2020 Assessment & Plan (1) History of cerebrovascular accident with residual effects: H/O recent large right MCA infarct with CT evidence of subacute left occipital lobe infract 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 Poor prognosis Continue aspirin, Plavix, atorvastatin Needs follow-up with Neurology as outpatient On Pureed diet Sepsis Multiple source -COVID 19 pneumonia , acute cholecystitis , stage 4 sacral decub ulcer COVID-19 pneumonia Acute respiratory failure with hypoxia Received dexamethasone, Zosyn, remdesivir for few doses Remdesivir discontinued as likely will provide no clinical benefit as per pulmonary Appreciate pulmonology input Needs to address goals of care Afebrile off antibiotics Normal procalcitonin Continue prednisone Day # 3 Continue high flow oxygen; also on BiPAP PRN (2) Acute respiratory failure with hypoxia: Multifactorial: COVID 19 pneumonia , Also contributing factors -acute CHF with possible diastolic dysfunction Continue IV diuretics as per nephrology Monitor volume status Management as above Elevated Troponin Likely secondary to type II [place]--demand Ischemia Troponin levels trended down Patient denies chest pain Appreciate Cardiology Input Dysphagia: Due to acute CVA Speech therapy evaluated Continue aspiration precautions Continue pured diet as tolerated Hypernatremia : Monitor sodium levels IV fluids discontinued Continue Lasix as per Nephrology Appreciate nephrology input Sodium levels: 144 May need to restart IV fluids if sodium levels worsen Acute renal failure : Likely prerenal Cr: 1.46>0.98 Monitor renal function Nephrology Input Appreciated Hypokalemia Likely due to diuretics, poor oral intake Normal magnesium levels Replete electrolytes as needed Code Status Full code for now Disposition residential prognosis remains guarded Need to readdress goals of care, CODE STATUS on daily basis (3) Pneumonia due to COVID-19 virus: Admission and Anticipated Discharge Date Admission Date: August 21, 2020 Subjective Patient is seen and examined at bedside On High Flow and Bipap intermittently Reports constipation No distress during my exam Denies chest pain, dyspnea Poor historian secondary to CVA Renal function, sodium levels stable Remains Critical Review of Systems Review of Systems: All systems reviewed & are unremarkable except as noted in HPI & below Physical Exam Physical Exam: Physical Exam: Vitals signs as noted above General Appearance:Moderately built and nourished, no apparent distress Head: normocephalic, Atraumatic Eyes: normal inspection Neck: supple, Trachea midline Respiratory/Chest: Decreased breath sounds, CTA Cardiovascular: S1, S2, No murmur Abdomen/GI:Soft, Non tender, Bowel sounds present Extremities/Musculoskelatal:normal inspection, no edema Neurologic/Psych:Alert, awake, tries to follow simple commands, left-sided paralysis, right-sided hemiparesis, +Facial droop. +Slurred speech Skin: normal color, warm Results & Data Results & Data ([facility]) Vital Signs (Past 12 Hours) Vital Signs Temp Pulse Pulse Resp BP BP Pulse Ox 08/28/20 15:23 37.0 C 87 20 114/84 93 08/28/20 10:40 36.6 C 83 22 140/75 92 08/28/20 08:30 101 H 08/28/20 08:00 104 H 88 L 08/28/20 07:30 84 94 08/28/20 07:28 86 127/74 93 08/28/20 07:26 36.6 C 88 22 127/74 92 08/28/20 07:00 86 92 08/28/20 06:30 72 89 L 08/28/20 06:00 93 H 92 08/28/20 05:30 92 H 90 08/28/20 05:00 93 H 95 08/28/20 04:30 70 95 08/28/20 04:00 72 95 Laboratory Results BMP 08/28/20 07:01 Sodium 144 Potassium 4.0 Chloride 108 H Carbon Dioxide 28 BUN 31 H Creatinine 0.98 Glucose 141 H Calcium 9.0
[2020-08-28] MEDS: ATORVASTATIN 40 MG TAB PO SCH (19:48)
[2020-08-28] MEDS ORDERED: INSULIN GLARGINE SOLOSTAR 100 UNITS/ML 3 ML PEN SC SCH (21:00)
[2020-08-29] MEDS: ASPIRIN 81 MG ECTAB PO SCH (07:56)
[2020-08-29] MEDS: POTASSIUM CHLORIDE 20 MEQ/15 ML UDC PO SCH ×2 (07:56→20:08)
[2020-08-29] MEDS: predniSONE 20 MG TAB PO SCH (07:57)
[2020-08-29] MEDS: CLOPIDOGREL BISULFATE 75 MG TAB PO SCH (07:57)
[2020-08-29] MEDS: FAMOTIDINE 20 MG TAB PO SCH (07:57)
[2020-08-29] MEDS: ESCITALOPRAM OXALATE 10 MG TAB PO SCH (07:57)
[2020-08-29] MEDS: FUROSEMIDE 20 MG in SYRINGE 0 ML IV SCH ×3 (07:57→20:08)
[2020-08-29] MEDS: INSULIN HUMAN NPH SC SCH (08:15)
[2020-08-29] MEDS: INSULIN ASPART 100 UNITS/ML 3 ML PEN SC SCH ×4 (08:17→20:36)
[2020-08-29 08:45] LABS: BUN Creatinine Ratio 32.4 (10-20); Calcium 9.2 mg/dl (8.5-10.1); Creatinine Clr Calc Pharmacy 56.9 ml/min; Est GFR (African American) 77.9; Est GFR (Non-African American) 67.2; Potassium 4.5 mmol/L (3.5-5.1)
--- NOTE | 2020-08-29 10:27 | Nephrology Progress Note ---
Date of Service August 29, 2020 Assessment & Plan (1) Hypernatremia: sodium 150 on presentation, peaked at 154; ranged from 151-154 since admission basically until today down to 144, yesterday ,146 today. Pt had been NPO d/t aspiration risk w/ severe PNA but now taking nectar thick. he has severe hypoxic respiratory failure and has had lasix w/ diuresis>> due to higher 02 needs again. -Watch for 1 more day , if sodium continues to rise again , restart on D5W at 50 mL hourly -Continue on Lasix 20 mg tid, UOP has improved --Continue on K elixir 20 mEq bid, when on lasix - daily bmp Admission and Anticipated Discharge Date Admission Date: August 21, 2020 Subjective Patient seen for hyponatremia, FABY(resolved). Admitted with large right MCA infarct with some acute left occipital lobe infarct On High Flow and Bipap intermittently No acute distress, Review of Systems Review of Systems: All systems reviewed & are unremarkable except as noted in HPI & below Physical Exam Physical Exam: General: no distress, WDWN Head: normocephalic, atraumatic Eyes: PERRL, EOM's intact, conjunctiva non-injected, anicteric ENT: normal inspection external ears, nose, mucous membranes moist Neck: supple, trachea midline Lungs: clear, no respiratory distress, no wheezing/rhonchi/rales CV: bradycardia, rate 52, regular rhythm, no JVD, no pretibial edema Abd: normal BS, soft, non-tender Ext: no cyanosis, no calf tenderness Results & Data ([facility]) Vital Signs (Past 12 Hours) Vital Signs Temp Pulse Pulse Resp BP Pulse Ox 08/29/20 08:00 101 H 08/29/20 07:19 36.9 C 78 24 130/74 95 08/29/20 02:43 36.5 C 88 22 132/79 93 08/29/20 00:19 82 08/28/20 23:14 36.8 C 84 22 132/69 95 08/28/20 22:48 82 22 93 Laboratory Results 08/27/20 05:46 08/29/20 06:38
[2020-08-29] MEDS ORDERED: Nursing to Pharmacy Communication SCH ×2 (14:15→14:45)
--- NOTE | 2020-08-29 14:50 | Hospitalist Progress Note ---
Date of Service August 29, 2020 Assessment & Plan (1) History of cerebrovascular accident with residual effects: H/O recent large right MCA infarct with CT evidence of subacute left occipital lobe infract 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 Poor prognosis Continue aspirin, Plavix, atorvastatin Needs follow-up with Neurology as outpatient On Pureed diet Poor oral intake today Will request palliative to readdress goals of care tomorrow Sepsis Multiple source -COVID 19 pneumonia , acute cholecystitis , stage 4 sacral decub ulcer COVID-19 pneumonia Acute respiratory failure with hypoxia Received dexamethasone, Zosyn, remdesivir for few doses Remdesivir discontinued as likely will provide no clinical benefit as per pulmonary Appreciate pulmonology input Needs to address goals of care Afebrile off antibiotics Normal procalcitonin Continue prednisone Day # 4 Continue high flow oxygen/BiPAP PRN Remains Critical (2) Acute respiratory failure with hypoxia: Multifactorial: COVID 19 pneumonia , Also contributing factors -acute CHF with possible diastolic dysfunction Continue IV diuretics as per nephrology Monitor volume status Management as above Elevated Troponin Likely secondary to type II [place]--demand Ischemia Troponin levels trended down Patient denies chest pain Appreciate Cardiology Input Dysphagia: Due to acute CVA Speech therapy evaluated Continue aspiration precautions Continue pured diet as tolerated Hypernatremia : Monitor sodium levels IV fluids discontinued Continue Lasix as per Nephrology Appreciate nephrology input Sodium levels: 144>146 May need to restart IV fluids if sodium levels continue to worsen Acute renal failure : Likely prerenal Cr: 1.46>0.98>1.1 Monitor renal function Nephrology Input Appreciated Hypokalemia Likely due to diuretics, poor oral intake Normal magnesium levels Replete electrolytes as needed Code Status Full code for now Disposition intermediate prognosis remains guarded Need to readdress goals of care, CODE STATUS on daily basis (3) Pneumonia due to COVID-19 virus: Admission and Anticipated Discharge Date Admission Date: August 21, 2020 Subjective Patient is seen and examined at bedside Desaturated while on High Flow oxygen, Currently on BiPAP Poor oral intake today Sodium level 146 today Patient unable to provide much history Updated patient's family over the phone Denies chest pain, abd pain Remains Critical, No distress on exam Review of Systems Review of Systems: Other Physical Exam Physical Exam: Physical Exam: Vitals signs as noted above General Appearance:Moderately built and nourished, no apparent distress Head: normocephalic, Atraumatic Eyes: normal inspection Neck: supple, Trachea midline Respiratory/Chest: Decreased breath sounds, CTA Cardiovascular: S1, S2, No murmur Abdomen/GI:Soft, Non tender, Bowel sounds present Extremities/Musculoskelatal:normal inspection, no edema Neurologic/Psych:Alert, awake, tries to follow simple commands, left-sided paralysis, right-sided hemiparesis, +Facial droop. +Slurred speech Skin: normal color, warm Results & Data Results & Data ([facility]) Vital Signs (Past 12 Hours) Vital Signs Temp Pulse Pulse Resp BP Pulse Ox 08/29/20 11:19 37.1 C 101 H 22 139/61 89 L 08/29/20 08:00 101 H 08/29/20 07:19 36.9 C 78 24 130/74 95 Laboratory Results [facility] 08/29/20 06:38 Sodium 146 H Potassium 4.5 Chloride 110 H Carbon Dioxide 31 BUN 36 H Creatinine 1.10 Glucose 171 H Calcium 9.2
[2020-08-29] MEDS ORDERED: D5W AND 1/2NSS 1,000 ML IV SCH (15:00)
[2020-08-29] MEDS: ATORVASTATIN 40 MG TAB PO SCH (20:17)
[2020-08-29] MEDS ORDERED: INSULIN GLARGINE SOLOSTAR 100 UNITS/ML 3 ML PEN SC SCH (21:00)
[2020-08-30] MEDS: D5W AND 1/2NSS 1,000 ML IV SCH ×2 (03:10→23:58)
[2020-08-30 07:04] LABS: BUN Creatinine Ratio 35.2 (10-20); Calcium 8.9 mg/dl (8.5-10.1); Est GFR (African American) 80.5; Est GFR (Non-African American) 69.5; Magnesium 2.6 mg/dl (1.8-2.4); Potassium 3.8 mmol/L (3.5-5.1)
[2020-08-30] MEDS: FUROSEMIDE 20 MG in SYRINGE 0 ML IV SCH ×3 (07:28→22:13)
[2020-08-30] MEDS: ATORVASTATIN 40 MG TAB PO SCH (07:29)
[2020-08-30] MEDS: ESCITALOPRAM OXALATE 10 MG TAB PO SCH (07:29)
[2020-08-30] MEDS: FAMOTIDINE 20 MG TAB PO SCH (07:30)
[2020-08-30] MEDS: ASPIRIN 81 MG ECTAB PO SCH (07:30)
[2020-08-30] MEDS: predniSONE 20 MG TAB PO SCH (07:30)
[2020-08-30] MEDS: CLOPIDOGREL BISULFATE 75 MG TAB PO SCH (07:31)
[2020-08-30] MEDS: POTASSIUM CHLORIDE 20 MEQ/15 ML UDC PO SCH ×2 (07:31→22:10)
[2020-08-30] MEDS: INSULIN HUMAN NPH SC SCH (07:58)
[2020-08-30] MEDS: INSULIN ASPART 100 UNITS/ML 3 ML PEN SC SCH ×4 (07:58→21:52)
--- NOTE | 2020-08-30 08:47 | XRay Report ---
XR chest 1V portable CLINICAL HISTORY: COVID, Hypoxia COMPARISON STUDY: 08/27/2020 FINDINGS: The cardiac and mediastinal contours remain stable. There are postsurgical changes of a mid line sternotomy. There is mild interstitial thickening. There is no lobar consolidation. There are no significant pleural effusions.[ IMPRESSION: Persistent nonspecific interstitial thickening. No evidence of lobar consolidation. ACT 112: Negative or not required by law. Electronically signed by: Raul Contreras M.D. 08/30/2020 8:45 AM
[2020-08-30] MEDS ORDERED: INSULIN GLARGINE SOLOSTAR 100 UNITS/ML 3 ML PEN SC SCH (09:00)
--- NOTE | 2020-08-30 10:14 | Palliative Care Progress Note ---
Date of Service August 30, 2020 Assessment & Plan (1) Palliative care encounter: This patient still is able to communicate some, but no real meaningful conversation. He is able to answer some simple yes and no questions. His chest xray today shows improvement, pulmonary did suggest ruling out a shunt vs PE with echo/bubble study, which likely will take place tomorrow. Patients condition with overall deterioration. He has been back and forth between BiPAP and High Flow oxygen and does have a stage IV sacral decubitus that will receive a surgical consultation tomorrow. Lengthy conversations with family on multiple occasions today regarding his current condition. Discussed code status at length. At this time, all family in agreement to transition to DNR/DNI, which now is reflected in the computer. For now, continue supportive treatment, including oxygen. No escalation in care, but ok for additional diagnostic testing if necessary. Pt family ok with BiPAP and high flow oxygen for now. Overall prognosis is poor. Palliative care will follow. (2) Hypoxia: (3) Confusion: (4) Pneumonia due to COVID-19 virus: (5) CAD (coronary artery disease): Admission and Anticipated Discharge Date Admission Date: August 21, 2020 Subjective Patient was seen at the bedside. Patient does awaken easily to voice and says some one word answers. Patient has been changed to High Flow from BiPAP. [id number] goal is 89-91% See A/P for further information Review of Systems Review of Systems: [place]augen System Assessment System Pain: 0/3 Shortness of breath: 1/3 Anxiety: 0/3 Palliative Performance Scale: 30% Physical Exam Constitutional: + ill appearing and + frail appearing Respiratory: + labored breathing Auscultation: + diminished lung sounds and + rhonchi Cardiovascular: RRR, no murmur, no edema Gastrointestinal (Abdomen): normal bowel sounds, soft, nontender, no hepatosplenomegaly Skin: + pallor Psychiatric: Orientation: alert, oriented to person and cooperative Insight: + limited insight Judgement: + limited judgement Results & Data ([facility]) Vital Signs (Past 12 Hours) Vital Signs Temp Pulse Pulse Pulse Resp BP Pulse Ox 08/30/20 07:44 104 H 24 89 L 08/30/20 07:07 36.5 C 85 20 146/85 H 95 08/30/20 03:30 36.5 C 91 H 30 H 155/70 H 89 L 08/30/20 03:20 93 H 26 H 90 08/30/20 00:13 59 L 08/29/20 23:33 36.6 C 64 22 116/69 93 08/29/20 23:14 59 L 18 97 PG Care Time/CCT Total # of Minutes Spent Total Time Spent with Patient: Total time spent is greater than 50% in coordination of care (as documented) at patient's floor/unit and/or counseling patient: 45 Coding Level of Care Code 24517 Subseq Hosp Care Lvl 3 Diagnoses Palliative care encounter Z51.5 Hypoxia R09.02 Confusion R41.0 Pneumonia due to COVID-19 virus U07.1; J12.82 CAD (coronary artery disease) I25.10 Time Spent (min) 45 Time Spent Midlevel Total time spent 45 minutes with > 50% of that time spent assessing the patient, discussing goals of care, and collaborating with IDT
--- NOTE | 2020-08-30 10:58 | Pharmacy Report ---
Pharmacy Glycemic Short Note 2 - Date of Service August 30, 2020 - Glycemic Short BSG Results (Last 24 hours): 08/29/20 08/29/20 08/29/20 12:19 16:20 20:22 Glucose POC Glucose 232 H 188 H 200 H 08/30/20 08/30/20 05:51 07:07 Glucose 271 H POC Glucose 241 H Outpatient Anti-diabetic Regimen: * Lantus 10 units SC qHS * Metformin * A1c = 9.4 % 08/22/20 Risk Factors for Insulin Resistance: * Steroids: Dexamethasone 6 mg IV daily from 08/21 to 08/24. Prednisone 40 mg po daily started 08/26 * Infection: COVID-19 * IVF: D5W @ 50 mL/hr * Diet: T2DM ASSESSMENT: 08/30: * BSGs ranging from 177-271 over the past ~24 hours on 39 units of insulin * Of note, dextrose infusion was restarted last evening for hypernatremia and continues today at 50 mL/hr, likely contributing to hyperglycemia. * An additional 5 units of Lantus was given this morning and a scale will be ordered for this evening. Will continue on NPH 15 units to cover prednisone 40mg. * Novolog scale will tightened starting today at lunchtime. Lunch BSG did trend down nicely. 08/27 * BSG's ranged 135-219 mg/dL yesterday. Post-prandial elevations noted. Will tighten CHO ratio * AM fasting BSG slightly above goal today at 150 mg/dL after reduced Lantus dose yesterday PM. However, D5W was discontinued so will leave basal as-is 08/26 * Steroids resumed today - equivalent dose as prior, but po prednisone. Diet ordered but no CHO intake charted. D5W infusion remains at 50 mL/hr * Will give one-time dose of NPH (similar to previous) * Will tighten Novolog parameters 08/25 * D5W infusion decreased in rate and steroids stopped today. Discussed w Dr. Fischer - potential risk of steroids may outweigh benefit. Plans to discuss with pulmonology. * BSG's with post-prandial elevations yesterday. Anticipate that stopping steroids and decreasing dextrose IVF may be sufficient to increase insulin sensitivity and decrease BSG's. Noon BSG also with notable trend down from AM therefore will loosen Novolog parameters. * Will stop NPH now that steroids have stopped. Will continue Lantus, but at a lower dose. PLAN FOR INPATIENT GLYCEMIC CONTROL: * Hold outpatient metformin * Basal insulin * NPH 15 units SC qam * Lantus 5 units this morning X1 * [id number] units SQ qPM - SEE MAR for details * Bolus insulin * NovoLog per scale ACHS or Q6hrs while NPO * Goal Range: Low 110 mg/dL - High 140 mg/dL * Correction Factor: 15 mg/dL/unit * Tighten Nutritional / Prandial insulin per carb ratio of 1 unit per 5 grams CHO consumed
--- NOTE | 2020-08-30 14:45 | Hospitalist Progress Note ---
Date of Service August 30, 2020 Assessment & Plan (1) History of cerebrovascular accident with residual effects: H/O recent large right MCA infarct with CT evidence of subacute left occipital lobe infract 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 Poor prognosis Continue aspirin, Plavix, atorvastatin Needs follow-up with Neurology as outpatient On Pureed diet Poor oral intake Palliative Care following Sepsis Multiple source -COVID 19 pneumonia , acute cholecystitis , stage 4 sacral decub ulcer COVID-19 pneumonia Acute respiratory failure with hypoxia Received dexamethasone, Zosyn, remdesivir for few doses Remdesivir discontinued as likely will provide no clinical benefit as per pulmonary Appreciate pulmonology input Afebrile off antibiotics Normal procalcitonin Continue prednisone Day # 5 Continue high flow oxygen/BiPAP PRN Remains Critical Currently on BiPAP---60%Fio2 Needs to address goals of care Request pulmonary to reevaluate (2) Acute respiratory failure with hypoxia: Multifactorial: COVID 19 pneumonia , Also contributing factors -acute CHF with possible diastolic dysfunction Continue IV diuretics as per nephrology Monitor volume status Management as above Elevated Troponin Likely secondary to type II [place]--demand Ischemia Troponin levels trended down Patient denies chest pain Appreciate Cardiology Input Dysphagia: Due to acute CVA Speech therapy evaluated Continue aspiration precautions Continue pured diet as tolerated Very poor oral intake Hypernatremia : Monitor sodium levels IV fluids discontinued Continue Lasix as per Nephrology Appreciate nephrology input Sodium levels: 144>146>147 Resumed D5W at 50 mL hourly Acute renal failure : Likely prerenal Cr: 1.46>0.98>1.07 Monitor renal function Nephrology Input Appreciated Hypokalemia Likely due to diuretics, poor oral intake Normal magnesium levels Replete electrolytes as needed Code Status Full code currently Disposition [facility] prognosis remains guarded Need to readdress goals of care, CODE STATUS on daily basis (3) Pneumonia due to COVID-19 virus: Admission and Anticipated Discharge Date Admission Date: August 21, 2020 Subjective Patient is seen and examined at bedside Remains critical Currently on BiPAP Chest x-ray today showed persistent nonspecific interstitial thickening. No evidence of lobar consolidation Discussed with palliative care, pulmonology today Family planning-- for a zoom meeting today afternoon Sodium level 147 today Patient unable to provide history Denies chest pain, abd pain Review of Systems Review of Systems: Other Physical Exam Physical Exam: Physical Exam: Vitals signs as noted above General Appearance:Moderately built and nourished, no apparent distress Head: normocephalic, Atraumatic Eyes: normal inspection Neck: supple, Trachea midline Respiratory/Chest: Decreased breath sounds, CTA Cardiovascular: S1, S2, No murmur Abdomen/GI:Soft, Non tender, Bowel sounds present Extremities/Musculoskelatal:normal inspection, no edema Neurologic/Psych:Alert, awake, left-sided paralysis, right-sided hemiparesis, +Facial droop. +Slurred speech Skin: normal color, warm Results & Data Results & Data ([facility]) Vital Signs (Past 12 Hours) Vital Signs Temp Pulse Pulse Pulse Resp BP Pulse Ox 08/30/20 11:36 36.5 C 84 21 119/59 L 96 08/30/20 11:10 80 18 94 08/30/20 07:44 104 H 24 89 L 08/30/20 07:07 36.5 C 85 20 146/85 H 95 08/30/20 03:30 36.5 C 91 H 30 H 155/70 H 89 L 08/30/20 03:20 93 H 26 H 90 Laboratory Results [facility] 08/30/20 05:51 Sodium 147 H Potassium 3.8 D Chloride 109 H Carbon Dioxide 31 BUN 38 H Creatinine 1.07 Glucose 271 H Calcium 8.9
--- NOTE | 2020-08-30 15:53 | Pulmonology Progress Note ---
Date of Service August 30, 2020 Assessment & Plan (1) Pneumonia due to COVID-19 virus: (2) Hypoxia: (3) Acute respiratory failure with hypoxia: CT chest 08/21/2020 personally reviewed: Diffuse groundglass opacities appreciated bilaterally upper and lower lobes, mild pleural effusions bilateral, fluid in the fissure on the right side No mediastinal lymphadenopathy. --Acute hypoxic respiratory failure Secondary to multilobar pneumonia from COVID-19 There is also a component of heart failure Lymphopenia, COVID-19 was diagnosed 08/16/2020 Procalcitonin 0.28 BNP 10,500 on presentation s/p dexamethasone. Currently on prednisone. -- Metabolic encephalopathy from CVA on top of Hypernatraemia and Covid 19 aspiration precautions Plan: In/out: +26, urine output 900 Patient is -6.9 L since coming to the hospital Chest x-ray 08/30/2020: Poor inspiratory effort, bilateral costophrenic angle and cardiophrenic angle are clean, increased cardiac silhouette, retrocardiac opacity cannot be ruled out. Overall chest x-ray shows good aeration compared to when he presented to the hospital. Pulmonary were reconsulted today as patient was on continuous BiPAP. Chest x-ray has been showing improvement. Patient is -6 L. Other etiologies for hypoxia like possible shunt as well as PE should be thought into. Patient has not been on any anticoagulation for possible hemorrhagic conversion of the recent MCA stroke Recommend to echo with bubble study to make sure there is no intracardiac shunt. High flow to keep oxygen saturation greater than 88%. Recommend tapering the prednisone of in the next 4 days. Overall prognosis of the patient is not good. If there is any clinical deterioration when it comes to his breathing intubation will be needed. Given poor mental status to begin with and immobility with stage IV sacral decub, prolonged care with no good conclusion anticipated. Case was discussed with Dr Fischer and RN Please note the above document was generated using voice recognition software. It may contain grammatical, syntax or spelling errors.Any formal questions or concerns about the content, text or information contained within the body of this dictation should be directly addressed to the provider for clarification. Admission and Anticipated Discharge Date Admission Date: August 21, 2020 Subjective Patient seen and examined at bedside. He was on 15 L nasal cannula at the time of examination saturating 92%. He was breathing in the low 20s to high teens. Not in any acute distress. Patient's nurse was also present at bedside. He answers very simple questions with yes and no. Review of Systems Review of Systems: Unobtainable due to mental health condition and Unobtainable due to cognitive status Physical Exam Physical Exam: Constitutional: No acute distress HEENT: PERRLA Respiratory system: Decreased air entry bilaterally, positive crackles bilateral lower lobes, no wheeze, no rhonchi CVS: S1-S2 positive Abdomen: Soft, nontender, nondistended, positive bowel sounds x4 Extremities: +2 pulses bilaterally radialis/ dorsalis pedis, no cyanosis, no edema, left-sided hemiplegia Neuro: Awake alert oriented to self Psych: Unable to assess G/U: Positive [place] Skin: no rashes, warm and dry Lymphatic: no cervical or axillary lymphadenopathy Results & Data Results & Data ([facility]) Vital Signs (Past 12 Hours) Vital Signs Temp Pulse Pulse Pulse Resp BP Pulse Ox 08/30/20 15:25 98 H 19 90 08/30/20 11:36 36.5 C 84 21 119/59 L 96 08/30/20 11:10 80 18 94 08/30/20 07:44 104 H 24 89 L 08/30/20 07:07 36.5 C 85 20 146/85 H 95 08/27/20 05:46 08/30/20 05:51 PG Care Time/CCT Total # of Minutes Spent Total Time Spent with Patient: Total time spent is greater than 50% in coordination of care (as documented) at patient's floor/unit and/or counseling patient: Coding Level of Care Code 74210 Subseq Hosp Care Lvl 3 Diagnoses Pneumonia due to COVID-19 virus U07.1; J12.82 Hypoxia R09.02 Acute respiratory failure with hypoxia J96.01
[2020-08-30] MEDS ORDERED: GLUCOSE 10 TABS/TUBE PO PRN (16:15)
[2020-08-30] MEDS ORDERED: CARBOHYDRATES FOR HYPOGLYCEMIA PO PRN (16:15)
[2020-08-30] MEDS ORDERED: DEXTROSE 50% 50 ML SYRINGE IV PRN (16:15)
[2020-08-30] MEDS ORDERED: GLUCAGON FOR INJ 1 MG VIAL IM PRN (16:15)
[2020-08-30] MEDS ORDERED: GLUCOSE 40% GEL 15 GM TUBE PO PRN (16:15)
--- NOTE | 2020-08-30 16:18 | Communication Note ---
Date of Service: August 30, 2020 Appreciate pulmonary input. Given persistent hypoxia, will consider to rule out PE. Will get CT for PE as able. Will start on therapeutic Lovenox for now. We will also obtain echo with bubble study to rule out shunt. Patient currently DNI DNR status. We will also obtain surgical evaluation for sacral wound.
[2020-08-30] MEDS: ENOXAPARIN 80 MG/0.8 ML SYR SQ SCH (17:48)
[2020-08-30] MEDS: INSULIN GLARGINE SOLOSTAR 100 UNITS/ML 3 ML PEN SC SCH (21:52)
[2020-08-30] MEDS ORDERED: methylPREDNISolone 20 MG in SYRINGE 0 ML IV STA (23:00)
[2020-08-30] MEDS: LEVALBUTEROL TARTRATE 15 GM HFA.AER.AD INH SCH (23:23)
[2020-08-31] MEDS: LEVALBUTEROL TARTRATE 15 GM HFA.AER.AD INH SCH ×2 (00:52→07:40)
[2020-08-31] MEDS: ENOXAPARIN 80 MG/0.8 ML SYR SQ SCH ×2 (04:59→17:28)
[2020-08-31 07:34] LABS: BUN Creatinine Ratio 38.1 (10-20); Calcium 8.7 mg/dl (8.5-10.1); Creatinine Clr Calc Pharmacy 55.2 ml/min; Magnesium 2.6 mg/dl (1.8-2.4); Potassium 3.3 mmol/L (3.5-5.1)
[2020-08-31] MEDS: FUROSEMIDE 20 MG in SYRINGE 0 ML IV SCH ×2 (08:04→17:28)
[2020-08-31] MEDS: predniSONE 20 MG TAB PO SCH (08:05)
[2020-08-31] MEDS: POTASSIUM CHLORIDE 20 MEQ/15 ML UDC PO SCH ×2 (08:05→21:03)
[2020-08-31] MEDS: CLOPIDOGREL BISULFATE 75 MG TAB PO SCH (08:06)
[2020-08-31] MEDS: ESCITALOPRAM OXALATE 10 MG TAB PO SCH (08:06)
[2020-08-31] MEDS: FAMOTIDINE 20 MG TAB PO SCH (08:06)
[2020-08-31] MEDS: ASPIRIN 81 MG ECTAB PO SCH (08:07)
--- NOTE | 2020-08-31 08:09 | Pulmonology Progress Note ---
Date of Service August 31, 2020 Assessment & Plan (1) Pneumonia due to COVID-19 virus: CT chest 08/21/2020 personally reviewed: Diffuse groundglass opacities appreciated bilaterally upper and lower lobes, mild pleural effusions bilateral, fluid in the fissure on the right side No mediastinal lymphadenopathy. --Acute hypoxic respiratory failure Secondary to multilobar pneumonia from COVID-19 There is also a component of heart failure Lymphopenia, COVID-19 was diagnosed 08/16/2020 Procalcitonin 0.28 BNP 10,500 on presentation s/p dexamethasone. Currently on prednisone. -- Metabolic encephalopathy from CVA on top of Hypernatraemia and Covid 19 aspiration precautions --DNR Plan: Continue with therapeutic Lovenox till CTA is done to make sure there is no PE 2D echo bubble study to make sure there is no shunt Continue with prednisone taper over the next 3 days and then stop. High flow to keep oxygen saturation greater than 88%. Pulmonary will sign off. Please call with any questions. Please note the above document was generated using voice recognition software. It may contain grammatical, syntax or spelling errors.Any formal questions or concerns about the content, text or information contained within the body of this dictation should be directly addressed to the provider for clarification. (2) Hypoxia: (3) Acute respiratory failure with hypoxia: Admission and Anticipated Discharge Date Admission Date: August 21, 2020 Subjective Patient seen and examined at bedside. No acute distress. No adverse events overnight. Patient was on high flow 80%, 40 L we were saturating 94%. Went down to 70% FiO2 when he was still saturating 92%. Denied any chest pain. Says that he felt okay. Denied any headache. Review of Systems Review of Systems: Unobtainable due to mental health condition and Unobtainable due to cognitive status Physical Exam Physical Exam: Constitutional: No acute distress HEENT: PERRLA Respiratory system: Decreased air entry bilaterally, positive crackles bilateral lower lobes, no wheeze, no rhonchi CVS: S1-S2 positive Abdomen: Soft, nontender, nondistended, positive bowel sounds x4 Extremities: +2 pulses bilaterally radialis/ dorsalis pedis, no cyanosis, no edema, left-sided hemiplegia Neuro: Awake alert oriented to self Psych: Unable to assess G/U: Positive [place] Skin: no rashes, warm and dry Lymphatic: no cervical or axillary lymphadenopathy Results & Data Results & Data ([facility]) Vital Signs (Past 12 Hours) Vital Signs Temp Pulse Pulse Pulse Resp BP Pulse Ox 08/31/20 07:41 85 20 91 08/31/20 07:40 85 20 91 08/31/20 07:23 36.5 C 88 25 H 145/78 H 92 08/31/20 04:11 36.8 C 70 22 127/70 94 08/31/20 03:22 85 22 92 08/31/20 00:54 84 20 93 08/31/20 00:53 84 20 93 08/31/20 00:25 72 08/30/20 23:41 36.9 C 92 H 30 H 138/70 88 L 08/30/20 23:23 88 20 92 08/30/20 23:12 70 20 94 08/27/20 05:46 08/31/20 06:00 PG Care Time/CCT Total # of Minutes Spent Total Time Spent with Patient: Total time spent is greater than 50% in coordination of care (as documented) at patient's floor/unit and/or counseling patient: Coding Level of Care Code 44028 Subseq Hosp Care Lvl 3 Diagnoses Pneumonia due to COVID-19 virus U07.1; J12.82 Hypoxia R09.02 Acute respiratory failure with hypoxia J96.01
[2020-08-31] MEDS: INSULIN ASPART 100 UNITS/ML 3 ML PEN SC SCH ×4 (08:59→20:58)
[2020-08-31] MEDS: INSULIN HUMAN NPH SC SCH (09:01)
[2020-08-31] MEDS ORDERED: LEVALBUTEROL TARTRATE 15 GM HFA.AER.AD INH PRN (09:02)
--- NOTE | 2020-08-31 11:07 | Progress Notes ---
DATE: 08/31/2020 NEPHROLOGY PROGRESS NOTE SUBJECTIVE: It is hard to get any history from the patient as he is not talking at all with eyes closed. OBJECTIVE: VITAL SIGNS: Blood pressure 145/78, pulse rate 84, temperature 36.5, oxygen saturation 91% with 2 liters oxygen. CHEST: Decreased breath sounds, but very, very poor inspiratory effort. CARDIOVASCULAR: S1, S2 regular. ABDOMEN: Soft, nontender. EXTREMITIES: Show no edema. LABORATORY TEST: From this morning was reviewed in detail. Sodium is 148. ASSESSMENT AND PLAN: A 70-year-old male whom we have been following for hypernatremia. Sodium was 154 at the peak, it was trending down, but then now is rising again. RECOMMENDATIONS: 1. Stop D5 half normal saline. 2. Use D5 water at 60 mL per hour. 3. Agree with decreasing Lasix to twice daily from the current dose of 3 times daily. 4. BMP once daily is enough at this time.
[2020-08-31] MEDS: DEXTROSE 5% 1,000 ML IV SCH (11:20)
--- NOTE | 2020-08-31 12:05 | Palliative Care Progress Note ---
Date of Service August 31, 2020 Assessment & Plan (1) Palliative care encounter: This patient still is able to communicate some, but no real meaningful conversation. He is able to answer some simple yes and no questions. His chest xray today shows improvement, pulmonary did suggest ruling out a shunt vs PE with echo/bubble study, which likely will take place today. Patients condition with overall deterioration,with some agitation noted. He has been back and forth between BiPAP and High Flow oxygen, currently on 80% 40L Hi-Flow with and does have a stage IV sacral decubitus that will receive a surgical consultation today. I do have concerns about him being transported from a stability standpoint of him being able to lie flat for a CT scan. Family member, Shelby, updated by JUNIOR Tate. For now, continue supportive treatment, including oxygen. No escalation in care, but ok for additional diagnostic testing if necessary. Pt family ok with BiPAP and high flow oxygen for now. Overall prognosis is poor. Palliative care will follow. (2) Hypoxia: (3) Confusion: (4) Pneumonia due to COVID-19 virus: (5) CAD (coronary artery disease): Admission and Anticipated Discharge Date Admission Date: August 21, 2020 Subjective Patient was seen at the bedside. Patient does awaken easily to voice and says some one word answers. Patient remains on High Flow from BiPAP. E1Ctsevcaifd goal is 89-91% See A/P for further information Review of Systems Review of Systems: [place] System Assessment System Pain: 0/3 Shortness of breath: 1/3 Anxiety: 0/3 Palliative Performance Scale: 30% Physical Exam Constitutional: + ill appearing and + frail appearing Respiratory: + labored breathing Auscultation: + diminished lung sounds and + rhonchi Cardiovascular: RRR, no murmur, no edema Gastrointestinal (Abdomen): normal bowel sounds, soft, nontender, no hepatosplenomegaly Skin: + pallor Psychiatric: Orientation: alert, oriented to person and cooperative Insight: + limited insight Judgement: + limited judgement Results & Data ([facility]) Vital Signs (Past 12 Hours) Vital Signs Temp Pulse Pulse Pulse Resp BP Pulse Ox 08/31/20 11:13 36.3 C L 88 19 103/58 L 95 08/31/20 10:00 84 08/31/20 07:41 85 20 91 08/31/20 07:40 85 20 91 08/31/20 07:23 36.5 C 88 25 H 145/78 H 92 08/31/20 04:11 36.8 C 70 22 127/70 94 08/31/20 03:22 85 22 92 08/31/20 00:54 84 20 93 08/31/20 00:53 84 20 93 08/31/20 00:25 72 PG Care Time/CCT Total # of Minutes Spent Total Time Spent with Patient: Total time spent is greater than 50% in coordination of care (as documented) at patient's floor/unit and/or counseling patient: 35 Coding Level of Care Code 19931 Subseq Hosp Care Lvl 3 Diagnoses Palliative care encounter Z51.5 Hypoxia R09.02 Confusion R41.0 Pneumonia due to COVID-19 virus U07.1; J12.82 CAD (coronary artery disease) I25.10 Time Spent (min) 35 Time Spent Midlevel Total time spent 35 minutes with > 50% of that time spent assessing the patient and collaborating with IDT
[2020-08-31] MEDS ORDERED: INSULIN GLARGINE SOLOSTAR 100 UNITS/ML 3 ML PEN SC STA (12:20)
--- NOTE | 2020-08-31 13:06 | Surgery Consultation ---
Date of Consultation August 31, 2020 Assessment & Plan (1) Unstageable pressure ulcer of sacral region: 70-year-old male with recent stroke, multiple medical problems, and Covid related pneumonia. He is currently DNR/DNI. He requires high flow oxygen or BiPAP to maintain his saturations in the high 80s to low 90s. He also is currently on Plavix for stroke and therapeutic Lovenox for question of a possible PE or shunt. His sacral pressure ulcer is unstageable but does not appear infected and does not appear very deep at this time. At this point he is not a good surgical candidate. We would be unable to safely debride the wound while on therapeutic Lovenox and Plavix. Also he would require potential debridement in the operating room which would likely require general anesthesia and endotracheal intubation. I do not think he would be able to come off of the vent after the surgery. He is currently DNR/DNI, and there is no acute indication for debridement at this time. Would recommend local wound care. If patient's condition improves, then may consider debridement in the future when off of Covid precautions, off of therapeutic anticoagulation, and able to tolerate prone positioning with likely endotracheal anesthesia. Surgery will sign off, call with questions or concerns. (2) Pneumonia due to COVID-19 virus: (3) History of cerebrovascular accident with residual effects: (4) DM type 2 (diabetes mellitus, type 2): (5) CAD (coronary artery disease): (6) S/P CABG x 5: History of Present Illness Attending Physician: Bryn Fischer MD History of Present Illness 70-year-old male status post stroke in mid July, was diagnosed with Covid and has been here for the past 2 weeks for Covid pneumonia. We saw him previously for question of cholecystitis which does not appear evident at the time. He has a sacral decubitus ulcer and we were asked to see in consultation for possible debridement. Wound care has been following but has not seen him in several days. He is currently requiring either high flow oxygen or BiPAP. He was recently made DNR/DNI by his family. He is also on Plavix for his stroke and therapeutic Lovenox for question of a possible shunt or PE. He does not communicate much due to cognitive status from disease state. Allergies Allergy/AdvReac Type Severity Reaction Status Date / Time No Known Allergies Allergy Verified 08/21/20 16:22 Home Medications Medication Instructions Recorded Confirmed Type acetaminophen 325 mg PO Q4H PRN 08/21/20 08/21/20 History ascorbic acid (vitamin C) [Vitamin 500 mg PO BID 08/21/20 08/21/20 History C] aspirin 81 mg PO DAILY 08/21/20 08/21/20 History atorvastatin 80 mg PO HS 08/21/20 08/21/20 History bisacodyl 10 mg MO DAILY PRN 08/21/20 08/21/20 History cholecalciferol (vitamin D3) 50 mcg PO DAILY 08/21/20 08/21/20 History [Vitamin D3] clopidogrel 75 mg PO DAILY 08/21/20 08/21/20 History docusate sodium 100 mg PO BID 08/21/20 08/21/20 History enoxaparin [Lovenox] 60 mg SUBCUT DAILY 08/21/20 08/21/20 History escitalopram oxalate [Lexapro] 10 mg PO DAILY 08/21/20 08/21/20 History famotidine 20 mg PO DAILY 08/21/20 08/21/20 History insulin glargine [Lantus U-100 10 unit SUBCUT HS 08/21/20 08/21/20 History Insulin] lisinopril 5 mg PO DAILY 08/21/20 08/21/20 History magnesium hydroxide [Milk of 30 ml PO DAILY PRN 08/21/20 08/21/20 History Magnesia] melatonin 3 mg PO HS 08/21/20 08/21/20 History metformin 500 mg PO BIDM 08/21/20 08/21/20 History polyethylene glycol 3350 [Miralax] 17 g PO QDL PRN 08/21/20 08/21/20 History sennosides [senna] 17.2 mg PO HS 08/21/20 08/21/20 History sennosides-docusate sodium 1 tab PO QDL PRN 08/21/20 08/21/20 History [Senokot-S] sodium phosphates [Fleet Enema] 133 ml MO DAILY PRN 08/21/20 08/21/20 History tamsulosin 0.4 mg PO QDD 08/21/20 08/21/20 History zinc sulfate 220 mg PO DAILY 01/09/21 01/09/21 History Patient History Medical History CAD (coronary artery disease) Confusion DM type 2 (diabetes mellitus, type 2) History of cerebrovascular accident with residual effects Hypoxia Palliative care encounter Surgical History History of angioplasty S/P CABG x 5 Social History Smoking Status: Unknown if ever smoked Preferred Language: Citizen Of [place] Communication Ability: 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 There is an eschar that appears somewhat thin overlying the main portion of the sacral decubitus. There is no evidence of infection. This does not appear to be extremely deep, but with eschar is currently unstageable. Results & Data ([facility]) Vital Signs (Past 12 Hours) Vital Signs Temp Pulse Pulse Pulse Resp BP Pulse Ox 08/31/20 12:00 84 20 91 08/31/20 11:13 36.3 C L 88 19 103/58 L 95 08/31/20 10:00 84 08/31/20 07:41 85 20 91 08/31/20 07:40 85 20 91 08/31/20 07:23 36.5 C 88 25 H 145/78 H 92 08/31/20 04:11 36.8 C 70 22 127/70 94 08/31/20 03:22 85 22 92 PG Care Time/CCT Total # of Minutes Spent Total Time Spent with Patient: Total time spent is greater than 50% in coordination of care (as documented) at patient's floor/unit and/or counseling patient: Coding Level of Care Code 26505 Initial Inpt Care Lvl 2 Diagnoses Unstageable pressure ulcer of sacral region L89.150 Pneumonia due to COVID-19 virus U07.1; J12.82 History of cerebrovascular accident with residual effects I69.90 DM type 2 (diabetes mellitus, type 2) E11.9 CAD (coronary artery disease) I25.10 S/P CABG x 5 Z95.1
--- NOTE | 2020-08-31 15:13 | Pharmacy Report ---
Pharmacy Glycemic Short Note 2 - Date of Service August 31, 2020 - Glycemic Short BSG Results (Last 24 hours): 08/30/20 08/30/20 08/31/20 16:28 20:35 06:00 Glucose 215 H POC Glucose 78 113 H 08/31/20 08/31/20 08:02 11:43 Glucose POC Glucose 240 H 294 H Outpatient Anti-diabetic Regimen: * Lantus 10 units SC qHS * Metformin * A1c = 9.4 % 08/22/20 Risk Factors for Insulin Resistance: * Steroids: Dexamethasone 6 mg IV daily from 08/21 to 08/24. Prednisone 40 mg po daily started 08/26 * Infection: COVID-19 * IVF: D5W @ 50 mL/hr * Diet: T2DM ASSESSMENT: 08/31 * Blood sugars were very well controlled yesterday and were even down trending (with the exception of the fasting BSG). However BSGs have remained elevated in the 200s today. * The NPH dose was decreased given BSG of 78 at dinner yesterday and as per RN, patient eating very little. * An additional 5 units of lantus was given at lunchtime and a scale ordered for this evening to increase total dose of basal insulin * Patient continues on a dextrose infusion, increased to 60 mL/hr today. Prednisone continues, but dose decreased to 30mg starting tomorrow. 08/30: * BSGs ranging from 177-271 over the past ~24 hours on 39 units of insulin * Of note, dextrose infusion was restarted last evening for hypernatremia and continues today at 50 mL/hr, likely contributing to hyperglycemia. * An additional 5 units of Lantus was given this morning and a scale will be ordered for this evening. Will continue on NPH 15 units to cover prednisone 40mg. * Novolog scale will tightened starting today at lunchtime. Lunch BSG did trend down nicely. 08/27 * BSG's ranged 135-219 mg/dL yesterday. Post-prandial elevations noted. Will tighten CHO ratio * AM fasting BSG slightly above goal today at 150 mg/dL after reduced Lantus dose yesterday PM. However, D5W was discontinued so will leave basal as-is 08/26 * Steroids resumed today - equivalent dose as prior, but po prednisone. Diet ordered but no CHO intake charted. D5W infusion remains at 50 mL/hr * Will give one-time dose of NPH (similar to previous) * Will tighten Novolog parameters 08/25 * D5W infusion decreased in rate and steroids stopped today. Discussed w Dr. Fischer - potential risk of steroids may outweigh benefit. Plans to discuss with pulmonology. * BSG's with post-prandial elevations yesterday. Anticipate that stopping steroids and decreasing dextrose IVF may be sufficient to increase insulin sensitivity and decrease BSG's. Noon BSG also with notable trend down from AM therefore will loosen Novolog parameters. * Will stop NPH now that steroids have stopped. Will continue Lantus, but at a lower dose. PLAN FOR INPATIENT GLYCEMIC CONTROL: * Hold outpatient metformin * Basal insulin * NPH 10 units SC qam * Lantus 5 units at lunch X1 * [id number] units SQ qPM - SEE MAR for details * Bolus insulin * NovoLog per scale ACHS or Q6hrs while NPO * Goal Range: Low 110 mg/dL - High 140 mg/dL * Correction Factor: 18 mg/dL/unit * Tighten Nutritional / Prandial insulin per carb ratio of 1 unit per 6 grams CHO consumed
--- NOTE | 2020-08-31 15:45 | Hospitalist Progress Note ---
Date of Service August 31, 2020 Assessment & Plan (1) History of cerebrovascular accident with residual effects: H/O recent large right MCA infarct with CT evidence of subacute left occipital lobe infract 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 Poor prognosis Continue aspirin, Plavix, atorvastatin Needs follow-up with Neurology as outpatient On Pureed diet Poor oral intake Palliative Care following Sepsis Multiple source -COVID 19 pneumonia , acute cholecystitis , stage 4 sacral decub ulcer COVID-19 pneumonia Acute respiratory failure with hypoxia Received dexamethasone, Zosyn, remdesivir for few doses Remdesivir discontinued as likely will provide no clinical benefit as per pulmonary Appreciate pulmonology input Afebrile off antibiotics Normal procalcitonin Continue prednisone Day # 6--Taper off of steroids as able Continue high flow oxygen/BiPAP PRN Remains Critical Given persistent hypoxia, started on therapeutic Lovenox until PE ruled out Plan to get CTA to R/O PE as able and ECHO to R/O shunt Very poor prognosis (2) Acute respiratory failure with hypoxia: Multifactorial: COVID 19 pneumonia , Also contributing factors -acute CHF with possible diastolic dysfunction Continue IV diuretics as per nephrology Monitor volume status Management as above DNI/DNR status Elevated Troponin Likely secondary to type II [place]--demand Ischemia Troponin levels trended down Patient denies chest pain Appreciate Cardiology Input Dysphagia: Due to acute CVA Speech therapy evaluated Continue aspiration precautions Continue pured diet as tolerated Very poor oral intake Hypernatremia : Monitor sodium levels Continue Lasix as per Nephrology Appreciate nephrology input Sodium levels: 144>146>147>148 Increased D5W to 60 mL/hr Decreased lasix to 20mg BID Acute renal failure : Likely prerenal Cr: 1.46>0.98>1.07>1.1 Monitor renal function Nephrology Input Appreciated Hypokalemia Likely due to diuretics, poor oral intake Normal magnesium levels Replete electrolytes as needed Code Status DNI/DNR 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 Palliative care on board (3) Pneumonia due to COVID-19 virus: Admission and Anticipated Discharge Date Admission Date: August 21, 2020 Subjective Patient is seen and examined at bedside Remains critical Alert, awake but mostly non verbal Currently on High flow oxygen Discussed with Nephrology today Sodium level 148 today Lasix dose decreased to BID Started on d5w at 60/hr Appreciate surgery input Review of Systems Review of Systems: All systems reviewed & are unremarkable except as noted in HPI & below Physical Exam Physical Exam: Physical Exam: Vitals signs as noted above General Appearance:Moderately built and nourished, no apparent distress Head: normocephalic, Atraumatic Eyes: normal inspection Neck: supple, Trachea midline Respiratory/Chest: Decreased breath sounds, CTA Cardiovascular: S1, S2, No murmur Abdomen/GI:Soft, Non tender, Bowel sounds present Extremities/Musculoskelatal:normal inspection, no edema Neurologic/Psych:Alert, awake, left-sided paralysis, right-sided hemiparesis, +Facial droop. +Slurred speech Skin: normal color, warm Results & Data Results & Data ([facility]) Vital Signs (Past 12 Hours) Vital Signs Temp Pulse Pulse Resp BP Pulse Ox 08/31/20 15:30 87 08/31/20 15:21 36.8 C 86 18 158/73 H 92 08/31/20 14:30 87 20 90 08/31/20 12:00 84 20 91 08/31/20 11:13 36.3 C L 88 19 103/58 L 95 08/31/20 10:00 84 08/31/20 07:41 85 20 91 08/31/20 07:40 85 20 91 08/31/20 07:23 36.5 C 88 25 H 145/78 H 92 08/31/20 04:11 36.8 C 70 22 127/70 94 Laboratory Results BMP 08/31/20 06:00 Sodium 148 H Potassium 3.3 L Chloride 111 H Carbon Dioxide 30 BUN 44 H Creatinine 1.16 Glucose 215 H Calcium 8.7
[2020-08-31] MEDS: INSULIN GLARGINE SOLOSTAR 100 UNITS/ML 3 ML PEN SC SCH (21:00)
[2020-08-31] MEDS: ATORVASTATIN 40 MG TAB PO SCH (21:03)
[2020-09-01] MEDS: DEXTROSE 5% 1,000 ML IV SCH ×2 (04:44→20:33)
[2020-09-01] MEDS: ENOXAPARIN 80 MG/0.8 ML SYR SQ SCH ×2 (06:08→17:11)
[2020-09-01 06:20] LABS: Hematocrit (blood only) 35.1 % (42-52); Hemoglobin 11.2 g/dL (14.0-18.0); Mean Corpuscular Hemoglobin 29.9 pg (25-34); Mean Corpuscular Hgb Conc 31.9 g/dL (32-36); Mean Corpuscular Volume 93.6 fL (80-100); Mean Platelet Volume 9.8 fL (7.4-10.4); Platelet Count 476 K/uL (130-400); RDW Coefficient of Variation 14.2 % (11.5-14.5); RDW Standard Deviation 48.4 fL (36.4-46.3); Red Blood Count 3.75 M/uL (4.7-6.1); White Blood Count 16.14 K/uL (4.8-10.8)
[2020-09-01 06:39] LABS: BUN Creatinine Ratio 41.3 (10-20); Calcium 8.6 mg/dl (8.5-10.1); Creatinine Clr Calc Pharmacy 56.8 ml/min; Est GFR (African American) 74.6; Est GFR (Non-African American) 64.3; Potassium 3.2 mmol/L (3.5-5.1)
[2020-09-01] MEDS ORDERED: POTASSIUM CHLORIDE 20 MEQ/15 ML UDC PO ONE (07:45)
[2020-09-01] MEDS: FAMOTIDINE 20 MG TAB PO SCH (08:54)
[2020-09-01] MEDS: ASPIRIN 81 MG ECTAB PO SCH (08:55)
[2020-09-01] MEDS: CLOPIDOGREL BISULFATE 75 MG TAB PO SCH (08:55)
[2020-09-01] MEDS: ESCITALOPRAM OXALATE 10 MG TAB PO SCH (08:55)
[2020-09-01] MEDS: INSULIN ASPART 100 UNITS/ML 3 ML PEN SC SCH ×4 (08:56→20:26)
[2020-09-01] MEDS ORDERED: INSULIN GLARGINE SOLOSTAR 100 UNITS/ML 3 ML PEN SC SCH (09:00)
[2020-09-01] MEDS: INSULIN HUMAN NPH SC SCH ×2 (09:00→09:44)
[2020-09-01] MEDS ORDERED: predniSONE 10 MG TABLET PO SCH (09:00)
[2020-09-01] MEDS: FUROSEMIDE 20 MG in SYRINGE 0 ML IV SCH (09:05)
[2020-09-01] MEDS: POTASSIUM CHLORIDE 20 MEQ/15 ML UDC PO SCH ×2 (09:05→20:32)
--- NOTE | 2020-09-01 16:59 | Hospitalist Progress Note ---
Date of Service September 01, 2020 Assessment & Plan (1) History of cerebrovascular accident with residual effects: H/O recent large right MCA infarct with CT evidence of subacute left occipital lobe infract 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 Poor prognosis Continue aspirin, Plavix, atorvastatin Needs follow-up with Neurology as outpatient On Pureed diet Poor oral intake Palliative Care following Sepsis Multiple source -COVID 19 pneumonia , acute cholecystitis , stage 4 sacral decub ulcer COVID-19 pneumonia Acute respiratory failure with hypoxia Received dexamethasone, Zosyn, remdesivir for few doses Remdesivir discontinued as likely will provide no clinical benefit as per pulmonary Appreciate pulmonology input Afebrile off antibiotics Normal procalcitonin Continue prednisone Day # 7--Taper off of steroids Continue high flow oxygen Remains Critical Given persistent hypoxia, started on therapeutic Lovenox until PE ruled out Plan to get CTA to R/O PE as able and ECHO to R/O shunt Very poor prognosis Continue current management (2) Acute respiratory failure with hypoxia: Multifactorial: COVID 19 pneumonia , Also contributing factors -acute CHF with possible diastolic dysfunction Continue IV diuretics as per nephrology Monitor volume status Management as above DNI/DNR status Elevated Troponin Likely secondary to type II [place]--demand Ischemia Troponin levels trended down Patient denies chest pain Appreciate Cardiology Input Dysphagia: Due to acute CVA Speech therapy evaluated Continue aspiration precautions Continue pured diet as tolerated Very poor oral intake Hypernatremia : Monitor sodium levels Continue Lasix as per Nephrology Appreciate nephrology input Sodium levels: 144>146>147>148>147 Continue D5W to 60 mL/hr Hold lasix today Acute renal failure : Likely prerenal Cr: 1.46>0.98>1.07>1.1 Monitor renal function Nephrology Input Appreciated Hypokalemia Likely due to diuretics, poor oral intake Normal magnesium levels Replete electrolytes as needed Code Status DNI/DNR 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 Palliative care on board (3) Pneumonia due to COVID-19 virus: Admission and Anticipated Discharge Date Admission Date: August 21, 2020 Subjective Patient is seen and examined at bedside No specific complaints Had breakfast but refused lunch per RN "I am OK" On High flow oxygen currently Discussed with nephrology today Also discussed with patient's daughter over the phone No distress on exam Sodium levels trending down Plan to hold evening dose of lasix Review of Systems Review of Systems: All systems reviewed & are unremarkable except as noted in HPI & below Physical Exam Physical Exam: Physical Exam: Vitals signs as noted above General Appearance:Moderately built and nourished, no apparent distress Head: normocephalic, Atraumatic Eyes: normal inspection Neck: supple, Trachea midline Respiratory/Chest: Decreased breath sounds, CTA Cardiovascular: S1, S2, No murmur Abdomen/GI:Soft, Non tender, Bowel sounds present Extremities/Musculoskelatal:normal inspection, no edema Neurologic/Psych:Alert, awake, left-sided paralysis, right-sided hemiparesis, +Facial droop. +Slurred speech Skin: normal color, warm Results & Data Results & Data ([facility]) Vital Signs (Past 12 Hours) Vital Signs Temp Pulse Resp BP Pulse Ox 09/01/20 15:16 36.6 C 82 21 109/67 96 09/01/20 15:01 97 H 20 92 09/01/20 11:29 36.9 C 94 H 20 129/73 92 09/01/20 11:11 87 20 94 09/01/20 07:53 62 20 92 09/01/20 07:28 36.9 C 88 19 111/64 90 Laboratory Results Short CBC 09/01/20 Range/Units 05:19 WBC 16.14 H (4.8-10.8) K/uL Hgb 11.2 L (14.0-18.0) g/dL Hct 35.1 L (42-52) % Plt Count 476 H (130-400) K/uL BMP 09/01/20 05:19 Sodium 147 H Potassium 3.2 L Chloride 110 H Carbon Dioxide 34 H BUN 47 H Creatinine 1.14 Glucose 128 H Calcium 8.6
[2020-09-01] MEDS: INSULIN GLARGINE SOLOSTAR 100 UNITS/ML 3 ML PEN SC SCH (20:32)
[2020-09-01] MEDS: ATORVASTATIN 40 MG TAB PO SCH (20:32)
[2020-09-02] MEDS: ENOXAPARIN 80 MG/0.8 ML SYR SQ SCH ×2 (04:30→18:09)
[2020-09-02 06:26] LABS: Hematocrit (blood only) 34.2 % (42-52); Mean Corpuscular Hemoglobin 29.6 pg (25-34); Mean Corpuscular Hgb Conc 32.2 g/dL (32-36); Mean Corpuscular Volume 91.9 fL (80-100); Mean Platelet Volume 9.7 fL (7.4-10.4); Platelet Count 508 K/uL (130-400); RDW Standard Deviation 47.2 fL (36.4-46.3); Red Blood Count 3.72 M/uL (4.7-6.1); White Blood Count 13.76 K/uL (4.8-10.8)
[2020-09-02 06:49] LABS: BUN Creatinine Ratio 33.3 (10-20); Calcium 8.1 mg/dl (8.5-10.1); Creatinine Clr Calc Pharmacy 67.7 ml/min; Est GFR (Non-African American) 80.2; Magnesium 2.6 mg/dl (1.8-2.4); Potassium 3.2 mmol/L (3.5-5.1)
[2020-09-02] MEDS: CLOPIDOGREL BISULFATE 75 MG TAB PO SCH (08:54)
[2020-09-02] MEDS: ESCITALOPRAM OXALATE 10 MG TAB PO SCH (08:54)
[2020-09-02] MEDS: FAMOTIDINE 20 MG TAB PO SCH (08:54)
[2020-09-02] MEDS: ASPIRIN 81 MG ECTAB PO SCH (08:54)
[2020-09-02] MEDS: POTASSIUM CHLORIDE 20 MEQ/15 ML UDC PO SCH ×2 (08:55→20:41)
[2020-09-02] MEDS: INSULIN HUMAN NPH SC SCH (08:58)
[2020-09-02] MEDS ORDERED: predniSONE 20 MG TAB PO SCH (09:00)
[2020-09-02] MEDS: INSULIN ASPART 100 UNITS/ML 3 ML PEN SC SCH ×4 (09:22→21:41)
[2020-09-02] MEDS: INSULIN GLARGINE SOLOSTAR 100 UNITS/ML 3 ML PEN SC SCH ×2 (09:25→21:41)
[2020-09-02] MEDS: DEXTROSE 5% 1,000 ML IV SCH (12:50)
--- NOTE | 2020-09-02 13:46 | Hospitalist Progress Note ---
Date of Service September 02, 2020 Assessment & Plan (1) History of cerebrovascular accident with residual effects: H/O recent large right MCA infarct with CT evidence of subacute left occipital lobe infract 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 Continue aspirin, Plavix, atorvastatin On Pureed diet Poor oral intake Palliative Care on board Needs follow-up with Neurology upon discharge Poor prognosis Sepsis Multiple source -COVID 19 pneumonia , acute cholecystitis , stage 4 sacral decub ulcer COVID-19 pneumonia Acute respiratory failure with hypoxia Received dexamethasone, Zosyn, remdesivir for few doses Remdesivir discontinued as likely will provide no clinical benefit as per pulmonary Appreciate pulmonology input Afebrile off antibiotics Normal procalcitonin Continue prednisone Taper Continue high flow oxygen Remains Critical Given persistent hypoxia, started on therapeutic Lovenox until PE ruled out Plan to get CTA to R/O PE as able and ECHO to R/O shunt Very poor prognosis (2) Acute respiratory failure with hypoxia: Multifactorial: COVID 19 pneumonia , Also contributing factors -acute CHF with possible diastolic dysfunction Continue IV diuretics as per nephrology Monitor volume status Management as above DNI/DNR status Elevated Troponin Likely secondary to type II [place]--demand Ischemia Troponin levels trended down Patient denies chest pain Appreciate Cardiology Input Dysphagia: Due to acute CVA Speech therapy evaluated Continue aspiration precautions Continue pured diet as tolerated Very poor oral intake Hypernatremia : Monitor sodium levels Continue Lasix as per Nephrology Appreciate nephrology input Sodium levels: 144>146>147>148>147>144 Decrease D5W to 40 mL/hr Continue to hold lasix for now Acute renal failure : Likely prerenal Cr: 1.46>0.98>1.07>1.1>0.95 Monitor renal function Nephrology Input Appreciated Hypokalemia Likely due to diuretics, poor oral intake Normal magnesium levels Replete electrolytes as needed Code Status 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 Palliative care on board (3) Pneumonia due to COVID-19 virus: Admission and Anticipated Discharge Date Admission Date: August 21, 2020 Subjective Patient is seen and examined at bedside Remains on high flow oxygen Poor oral intake No distress on exam Sodium levels better today on 35L, 80% FiO2 Updated patient's daughter over the phone Review of Systems Review of Systems: All systems reviewed & are unremarkable except as noted in HPI & below Physical Exam Physical Exam: Physical Exam: Vitals signs as noted above General Appearance:Moderately built and nourished, no apparent distress Head: normocephalic, Atraumatic Eyes: normal inspection Neck: supple, Trachea midline Respiratory/Chest: Decreased breath sounds, CTA Cardiovascular: S1, S2, No murmur Abdomen/GI:Soft, Non tender, Bowel sounds present Extremities/Musculoskelatal:normal inspection, no edema Neurologic/Psych:Alert, awake, left-sided paralysis, right-sided hemiparesis, +Facial droop. +Slurred speech Skin: normal color, warm Results & Data Results & Data ([facility]) Vital Signs (Past 12 Hours) Vital Signs Temp Pulse Pulse Pulse Resp BP Pulse Ox 09/02/20 11:36 83 95 09/02/20 11:33 37.6 C H 78 19 132/71 94 09/02/20 09:00 95 H 09/02/20 07:27 37.5 C 102 H 23 147/79 H 94 09/02/20 07:16 100 H 23 92 09/02/20 03:30 37.2 C 82 16 108/71 95 09/02/20 03:27 87 22 94 Laboratory Results Short CBC 09/02/20 Range/Units 05:49 WBC 13.76 H (4.8-10.8) K/uL Hgb 11.0 L (14.0-18.0) g/dL Hct 34.2 L (42-52) % Plt Count 508 H (130-400) K/uL BMP 09/02/20 05:49 Sodium 144 Potassium 3.2 L Chloride 109 H Carbon Dioxide 34 H BUN 32 H Creatinine 0.95 Glucose 144 H Calcium 8.1 L
--- NOTE | 2020-09-02 14:43 | Pharmacy Report ---
Pharmacy Glycemic Short Note 2 - Date of Service September 02, 2020 - Glycemic Short BSG Results (Last 24 hours): 09/01/20 09/01/20 09/02/20 16:16 19:53 03:30 Glucose POC Glucose 127 H 116 H 141 H 09/02/20 09/02/20 09/02/20 05:49 07:30 11:42 Glucose 144 H POC Glucose 159 H 171 H Outpatient Anti-diabetic Regimen: * Lantus 10 units SC qHS * Metformin * A1c = 9.4 % 08/22/20 Risk Factors for Insulin Resistance: * Steroids: Dexamethasone 6 mg IV daily from 08/21 to 08/24. Prednisone 40 mg po daily started 08/26 * Infection: COVID-19 * IVF: D5W @ 50 mL/hr * Diet: T2DM ASSESSMENT: 09/02: * Blood sugars much improved over the past 24 hours on 39 units of total insulin * NPH dose has been adjusted to reflect prednisone taper * Post prandials have been much better controlled. Will continue current scale. * Fasting BSGs have been adequate, will redistribute for a more equal BID dosing regimen * Patient is eating, PO intake minimal thus far today 08/31 * Blood sugars were very well controlled yesterday and were even down trending (with the exception of the fasting BSG). However BSGs have remained elevated in the 200s today. * The NPH dose was decreased given BSG of 78 at dinner yesterday and as per RN, patient eating very little. * An additional 5 units of lantus was given at lunchtime and a scale ordered for this evening to increase total dose of basal insulin * Patient continues on a dextrose infusion, increased to 60 mL/hr today. Prednisone continues, but dose decreased to 30mg starting tomorrow. 08/30: * BSGs ranging from 177-271 over the past ~24 hours on 39 units of insulin * Of note, dextrose infusion was restarted last evening for hypernatremia and continues today at 50 mL/hr, likely contributing to hyperglycemia. * An additional 5 units of Lantus was given this morning and a scale will be ordered for this evening. Will continue on NPH 15 units to cover prednisone 40mg. * Novolog scale will tightened starting today at lunchtime. Lunch BSG did trend down nicely. 08/27 * BSG's ranged 135-219 mg/dL yesterday. Post-prandial elevations noted. Will tighten CHO ratio * AM fasting BSG slightly above goal today at 150 mg/dL after reduced Lantus d ose yesterday PM. However, D5W was discontinued so will leave basal as-is 08/26 * Steroids resumed today - equivalent dose as prior, but po prednisone. Diet ordered but no CHO intake charted. D5W infusion remains at 50 mL/hr * Will give one-time dose of NPH (similar to previous) * Will tighten Novolog parameters 08/25 * D5W infusion decreased in rate and steroids stopped today. Discussed w Dr. Fischer - potential risk of steroids may outweigh benefit. Plans to discuss with pulmonology. * BSG's with post-prandial elevations yesterday. Anticipate that stopping steroids and decreasing dextrose IVF may be sufficient to increase insulin sensitivity and decrease BSG's. Noon BSG also with notable trend down from AM therefore will loosen Novolog parameters. * Will stop NPH now that steroids have stopped. Will continue Lantus, but at a lower dose. PLAN FOR INPATIENT GLYCEMIC CONTROL: * Hold outpatient metformin * Basal insulin * NPH 7 units SC qam * Lantus 10 units BID * Bolus insulin * NovoLog per scale ACHS or Q6hrs while NPO * Goal Range: Low 110 mg/dL - High 140 mg/dL * Correction Factor: 15 mg/dL/unit * Tighten Nutritional / Prandial insulin per carb ratio of 1 unit per 6 grams CHO consumed
[2020-09-02] MEDS: ATORVASTATIN 40 MG TAB PO SCH (20:44)
[2020-09-03] MEDS ORDERED: FUROSEMIDE 40 MG in SYRINGE 0 ML IV ONE (01:50)
[2020-09-03] MEDS ORDERED: FUROSEMIDE 40 MG/4 ML VIAL IV ONE ×2 (01:54→13:15)
[2020-09-03 04:11] LABS: iSTAT Allen Test Pass; iSTAT Art Bld Gas pCO2 Correct 35 mmHg (35-46); iSTAT Art Bld Gas pH Corrected 7.561 (7.35-7.45); iSTAT Arterial Blood Gas HCO3 31 meg/L (19-24); iSTAT Arterial Blood Gas pCO2 35 mmHg (35-46); iSTAT Arterial Blood Gas pH 7.56 (7.35-7.45); iSTAT Arterial Blood Gas pO2 40 mmHg (80-95); iSTAT Arterial Blood Gas pO2 C 40; iSTAT Carbon Dioxide 32 mmol/L (24-31); iSTAT FiO2 100 %; iSTAT Hematocrit 34 % (42-52); iSTAT Hemoglobin 11.6 g/dl (14.0-18.0); iSTAT Potassium 3.4 mmol/L (3.3-5.0); iSTAT Site R Radial; iSTAT Sodium 142 mmol/L (135-144)
[2020-09-03 04:33] LABS: Hemoglobin 12.1 g/dL (14.0-18.0); Mean Corpuscular Volume 91.6 fL (80-100); Mean Platelet Volume 9.7 fL (7.4-10.4); Nucleated RBC # (auto) 0.04 K/uL (0-0); Nucleated RBC % (auto) 0.3 %; Platelet Count 504 K/uL (130-400); RDW Coefficient of Variation 13.8 % (11.5-14.5); RDW Standard Deviation 45.6 fL (36.4-46.3); Red Blood Count 4.04 M/uL (4.7-6.1); White Blood Count 16.62 K/uL (4.8-10.8)
[2020-09-03 04:56] LABS: Mean Corpuscular Hgb Conc 32.7 g/dL (32-36)
[2020-09-03 04:57] LABS: BUN Creatinine Ratio 27.6 (10-20); Calcium 8.4 mg/dl (8.5-10.1); Creatinine Clr Calc Pharmacy 61.8 ml/min; Est GFR (African American) 83.3; Est GFR (Non-African American) 71.9; Magnesium 2.5 mg/dl (1.8-2.4); Potassium 3.6 mmol/L (3.5-5.1)
[2020-09-03] MEDS: ENOXAPARIN 80 MG/0.8 ML SYR SQ SCH ×2 (05:45→17:22)
--- NOTE | 2020-09-03 07:01 | XRay Report ---
XR chest 1V portable CLINICAL HISTORY: Shortness of breath COMPARISON STUDY: 08/30/2020 FINDINGS: There are postsurgical changes of a midline sternotomy. There are bilateral airspace opacit ies. Diagnostic considerations include pulmonary edema versus a bilateral pneumonia. There are streak y mediastinal air collections. Pneumomediastinum must be considered.[ IMPRESSION: 1. Developing diffuse airspace opacities, pulmonary edema versus bilateral pneumonia. 2. Suspected pneumomediastinum. ACT 112: Negative or not required by law. Electronically signed by: Raul Contreras M.D. 09/03/2020 7:00 AM
[2020-09-03] MEDS: INSULIN HUMAN NPH SC SCH (08:42)
[2020-09-03] MEDS: ESCITALOPRAM OXALATE 10 MG TAB PO SCH (08:57)
[2020-09-03] MEDS: predniSONE 10 MG TABLET PO SCH (08:57)
[2020-09-03] MEDS: FAMOTIDINE 20 MG TAB PO SCH (08:57)
[2020-09-03] MEDS: POTASSIUM CHLORIDE 20 MEQ/15 ML UDC PO SCH ×2 (08:58→21:14)
[2020-09-03] MEDS: ASPIRIN 81 MG ECTAB PO SCH (08:58)
[2020-09-03] MEDS: CLOPIDOGREL BISULFATE 75 MG TAB PO SCH (08:59)
[2020-09-03] MEDS: INSULIN GLARGINE SOLOSTAR 100 UNITS/ML 3 ML PEN SC SCH ×2 (09:00→21:14)
[2020-09-03] MEDS: INSULIN ASPART 100 UNITS/ML 3 ML PEN SC SCH ×4 (09:05→21:15)
[2020-09-03] MEDS: DEXTROSE 5% 1,000 ML IV SCH (12:43)
[2020-09-03] MEDS ORDERED: FUROSEMIDE 20 MG in SYRINGE 0 ML IV ONE (12:59)
--- NOTE | 2020-09-03 14:18 | Hospitalist Progress Note ---
Date of Service September 03, 2020 Assessment & Plan (1) History of cerebrovascular accident with residual effects: H/O recent large right MCA infarct with CT evidence of subacute left occipital lobe infract 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 Continue aspirin, Plavix, atorvastatin On Pureed diet Poor oral intake Palliative Care on board Needs follow-up with Neurology upon discharge Poor prognosis Sepsis Multiple source -COVID 19 pneumonia , acute cholecystitis , stage 4 sacral decub ulcer COVID-19 pneumonia Acute respiratory failure with hypoxia Received dexamethasone, Zosyn, remdesivir for few doses Remdesivir discontinued as likely will provide no clinical benefit as per pulmonary Appreciate pulmonology input Afebrile off antibiotics Normal procalcitonin Will complete prednisone Taper tomorrow Continue high flow oxygen Remains Critical Given persistent hypoxia, started on therapeutic Lovenox until PE ruled out Plan to get CTA to R/O PE as able and ECHO to R/O shunt Very poor prognosis Suspected pneumomediastinum CXR:Developing diffuse airspace opacities, pulmonary edema versus bilateral pneumonia. Suspected pneumomediastinum. Avoid BiPAP use if able We will repeat chest x-ray in the morning Poor Prognosis Discussed with Pulmonology (2) Acute respiratory failure with hypoxia: Multifactorial: COVID 19 pneumonia , Also contributing factors -acute CHF with possible diastolic dysfunction Continue IV diuretics as per nephrology Monitor volume status Management as above DNI/DNR status Elevated Troponin Likely secondary to type II [place]--demand Ischemia Troponin levels trended down Patient denies chest pain Appreciate Cardiology Input Dysphagia: Due to acute CVA Speech therapy evaluated Continue aspiration precautions Continue pured diet as tolerated Very poor oral intake Hypernatremia : Monitor sodium levels Continue Lasix as per Nephrology Appreciate nephrology input Sodium levels: 144>146>147>148>147>144>143 Continue D5W at 50 mL/hr lasix PRN Acute renal failure : Likely prerenal Cr: 1.46>0.98>1.07>1.04 Monitor renal function Nephrology Input Appreciated Hypokalemia Likely due to diuretics, poor oral intake Normal magnesium levels Replete electrolytes as needed Code Status DNI/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 Palliative care on board (3) Pneumonia due to COVID-19 virus: Admission and Anticipated Discharge Date Admission Date: August 21, 2020 Subjective Patient is seen and examined at bedside Desaturated on high flow overnight, was placed on BiPAP Chest x-ray today suggestive of developing pulmonary edema, pneumomediastinum Discussed with industrial service technician on-call Transitioned from BiPAP to high flow oxygen Decreased urine output today Currently on high flow: 35L, 90% FiO2 No distress on exam Minimal history--mostly nonverbal " I am fine" Review of Systems Review of Systems: All systems reviewed & are unremarkable except as noted in HPI & below Physical Exam Physical Exam: Physical Exam: Vitals signs as noted above General Appearance:Moderately built and nourished, no apparent distress Head: normocephalic, Atraumatic Eyes: normal inspection Neck: supple, Trachea midline Respiratory/Chest: Decreased breath sounds, CTA Cardiovascular: S1, S2, No murmur Abdomen/GI:Soft, Non tender, Bowel sounds present Extremities/Musculoskelatal:normal inspection, no edema Neurologic/Psych:Alert, awake, left-sided paralysis, right-sided hemiparesis, +Facial droop. +Slurred speech Skin: normal color, warm Results & Data Results & Data ([facility]) Vital Signs (Past 12 Hours) Vital Signs Temp Pulse Pulse Pulse Resp BP Pulse Ox 09/03/20 11:28 37.0 C 80 27 H 128/79 88 L 09/03/20 11:20 83 20 90 09/03/20 07:58 74 20 95 09/03/20 07:38 37.1 C 79 22 105/66 98 09/03/20 07:27 84 20 100 09/03/20 04:02 36.9 C 113 H 25 H 113/46 L 80 L 09/03/20 03:55 111 H 33 H Laboratory Results Short CBC 09/03/20 Range/Units 04:11 WBC 16.62 H (4.8-10.8) K/uL Hgb 12.1 L (14.0-18.0) g/dL Hct 37.0 L (42-52) % Plt Count 504 H (130-400) K/uL BMP 09/03/20 04:11 Sodium 143 Potassium 3.6 Chloride 107 Carbon Dioxide 34 H BUN 29 H Creatinine 1.04 Glucose 125 H Calcium 8.4 L
[2020-09-03] MEDS: ATORVASTATIN 40 MG TAB PO SCH (21:16)
[2020-09-04] MEDS ORDERED: METOPROLOL TARTRATE 1 MG/ML VIAL IV PRN (03:58)
[2020-09-04 04:47] LABS: Hematocrit (blood only) 34.3 % (42-52); Hemoglobin 11.3 g/dL (14.0-18.0); Mean Corpuscular Hemoglobin 30.1 pg (25-34); Mean Corpuscular Hgb Conc 32.9 g/dL (32-36); Mean Corpuscular Volume 91.5 fL (80-100); Mean Platelet Volume 9.8 fL (7.4-10.4); Platelet Count 451 K/uL (130-400); RDW Standard Deviation 46.3 fL (36.4-46.3); Red Blood Count 3.75 M/uL (4.7-6.1)
[2020-09-04 05:04] LABS: BUN Creatinine Ratio 31.1 (10-20); Calcium 8.1 mg/dl (8.5-10.1); Creatinine Clr Calc Pharmacy 66.7 ml/min; Est GFR (African American) 91.8; Est GFR (Non-African American) 79.2; Potassium 3.4 mmol/L (3.5-5.1)
[2020-09-04] MEDS: ENOXAPARIN 80 MG/0.8 ML SYR SQ SCH ×2 (05:44→17:39)
[2020-09-04] MEDS: INSULIN ASPART 100 UNITS/ML 3 ML PEN SC SCH ×4 (08:30→20:47)
--- NOTE | 2020-09-04 08:48 | XRay Report ---
XR chest 1V portable HISTORY: 70 years-old Male Follow up for Pneumomediastinum follow-up study in a patient with pneumom ediastinum COMPARISON: Chest radiograph 09/03/2020, CTA chest 08/21/2020 TECHNIQUE: Portable AP view of the chest FINDINGS: Cardiac silhouette is enlarged. Prior median sternotomy. Extensive bilateral airspace opacities have progressively worsened with intermixed interstitial densities. Right hemidiaphragmatic elevation. Pro bable trace pleural effusions. No pneumothorax. Suspected pneumomediastinum appears less apparent on today's study. Degenerative changes of the shoulders and spine. IMPRESSION: 1. Progressively worsened intermixed interstitial and alveolar opacities. Pulmonary edema versus pneu monia considered. 2. The previously questioned pneumomediastinum is less apparent on today's study. 3. Cardiomegaly. ACT 112: Negative or not required by law. The above report was generated using voice recognition software. It may contain grammatical, syntax o r spelling errors. Electronically signed by: José Miguel Zurita M.D. 09/04/2020 8:46 AM
[2020-09-04] MEDS: POTASSIUM CHLORIDE 20 MEQ/15 ML UDC PO SCH ×2 (09:17→20:49)
[2020-09-04] MEDS: ASPIRIN 81 MG ECTAB PO SCH (09:17)
[2020-09-04] MEDS: predniSONE 10 MG TABLET PO SCH (09:18)
[2020-09-04] MEDS: FUROSEMIDE 20 MG in SYRINGE 0 ML IV SCH (09:18)
[2020-09-04] MEDS: ESCITALOPRAM OXALATE 10 MG TAB PO SCH (09:18)
[2020-09-04] MEDS: FAMOTIDINE 20 MG TAB PO SCH (09:18)
[2020-09-04] MEDS: CLOPIDOGREL BISULFATE 75 MG TAB PO SCH (09:18)
[2020-09-04] MEDS: DEXTROSE 5% 1,000 ML IV SCH (09:21)
[2020-09-04] MEDS: INSULIN GLARGINE SOLOSTAR 100 UNITS/ML 3 ML PEN SC SCH ×2 (09:24→20:47)
[2020-09-04] MEDS ORDERED: FUROSEMIDE 20 MG in SYRINGE 0 ML IV ONE ×2 (09:45→13:30)
--- NOTE | 2020-09-04 09:58 | Pharmacy Report ---
Pharmacy Glycemic Short Note 2 - Date of Service September 04, 2020 - Glycemic Short BSG Results (Last 24 hours): 09/03/20 09/03/20 09/03/20 11:25 16:52 20:59 Glucose POC Glucose 134 H 117 H 142 H 09/04/20 09/04/20 04:15 07:31 Glucose 198 H POC Glucose 196 H Outpatient Anti-diabetic Regimen: * Lantus 10 units SC qHS * Metformin * A1c = 9.4 % 08/22/20 Risk Factors for Insulin Resistance: * Steroids: Dexamethasone 6 mg IV daily from 08/21 to 08/24. Prednisone 40 mg po daily started 08/26 * Infection: COVID-19 * IVF: D5W @ 50 mL/hr * Diet: T2DM ASSESSMENT: 09/04: * Patient has received 23 units of insulin over the past 24hrs * 20 units of Lantus for basal insulin * 3 units of NovoLog for bolus insulin coverage (CF + CR) * BSGs [phone] mg/dl * BSGs near adequately controlled. * AM fasting BSG elevated this morning. Could be secondary to increase in IV dextrose infusion rate from 40ml/hr to 50ml/hr. Pt is unable to come off BiPAP. Not eating. Will hold off on increasing Lantus for this BSG elevation. Pt will receive NovoLog correction. Will adjust tomorrow if pt requiring significant amount of correction. * Last dose of Prednisone 10mg today; this should yield an improvement in BSGs * Goal is to maintain BSGs <200 mg/dl (ideally <150 mg/dl) to prevent complications. 09/02: * Blood sugars much improved over the past 24 hours on 39 units of total insulin * NPH dose has been adjusted to reflect prednisone taper * Post prandials have been much better controlled. Will continue current scale. * Fasting BSGs have been adequate, will redistribute for a more equal BID dosing regimen * Patient is eating, PO intake minimal thus far today PLAN FOR INPATIENT GLYCEMIC CONTROL:no changes needed today. * Hold outpatient metformin * Basal insulin * Lantus 10 units BID * Bolus insulin * NovoLog per scale ACHS or Q6hrs while NPO * Goal Range: Low 110 mg/dL - High 140 mg/dL * Correction Factor: 15 mg/dL/unit * Nutritional / Prandial insulin per carb ratio of 1 unit per 6 grams CHO consumed
[2020-09-04] MEDS ORDERED: FUROSEMIDE 40 MG/4 ML VIAL IV ONE ×3 (10:00→13:45)
[2020-09-04] MEDS: POTASSIUM CHLORIDE / WTR 10 MEQ/100 ML PLCT IV SCH ×2 (10:01→11:07)
--- NOTE | 2020-09-04 13:55 | Hospitalist Progress Note ---
Date of Service September 04, 2020 Assessment & Plan (1) History of cerebrovascular accident with residual effects: H/O recent large right MCA infarct with CT evidence of subacute left occipital lobe infract 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 Continue aspirin, Plavix, atorvastatin Cannot take his medications regularly due to poorly condition Appreciate palliative care input and recommendation Prognosis remains poor Sepsis Multiple source -COVID 19 pneumonia , acute cholecystitis , stage 4 sacral decub ulcer COVID-19 pneumonia Acute respiratory failure with hypoxia Received dexamethasone, Zosyn, remdesivir for few doses Remdesivir discontinued as likely will provide no clinical benefit as per pulmonary Appreciate pulmonology input and recommendation Afebrile off antibiotics Remains Critical Given persistent hypoxia, started on therapeutic Lovenox until PE ruled out Plan to get CTA to R/O PE as able and ECHO to R/O shunt -if the patient can tolerate Very poor prognosis Suspected pneumomediastinum-ruled out CXR:Developing diffuse airspace opacities, pulmonary edema versus bilateral pneumonia. Suspected pneumomediastinum. 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 on the drier operator side Received a total of 60 mg intravenous Lasix since this morning of 09/04/2020 Requiring very high flow oxygen and BiPAP to maintain saturation DNI/DNR status Elevated Troponin Likely secondary to type II MA--demand Ischemia Troponin levels trended down Patient denies chest pain Appreciate Cardiology Input Dysphagia: Due to acute CVA Speech therapy evaluated Continue aspiration precautions Continue pured diet as tolerated Very poor oral intake Hypernatremia : Monitor sodium levels Continue Lasix as per Nephrology Appreciate nephrology input Sodium levels: 144>146>147>148>147>144>143 Continue D5W at 50 mL/hr Sodium level has been normalized Acute renal failure : Likely prerenal Cr: 1.46>0.98>1.07>1.04 Monitor renal function Was evaluated by yarn wrapper Creatinine has been normalized Electrolyte imbalance In part due to poor oral intake Monitor and supplement as needed Code Status DNI/DNR Disposition senior living prognosis remains guarded Palliative care on board Discussed with the daughter in detail We will continue current supportive care (3) Pneumonia due to COVID-19 virus: Admission and Anticipated Discharge Date Admission Date: August 21, 2020 Subjective 09/04/2020 The patient was seen and examined in Covid unit He remains very lethargic with moderate shortness of breath at rest and has not been eating or drinking Has been requiring BiPAP with 100% oxygen to maintain saturation Review of Systems Review of Systems: Unobtainable due to mental health condition Physical Exam Physical Exam: Moderate shortness work of breath at rest Constitutional: well developed, well nourished and + ill appearing Eyes: PERRL, conjunctivae normal, anicteric sclerae ENMT: external ear and nose normal, oropharynx normal Neck: trachea midline, no thyromegaly Respiratory: + respiratory distress and + labored breathing Auscultation: + diminished lung sounds and + crackles (Crackles at the bases) Cardiovascular: Rate/Rhythm: regular rate and regular rhythm Heart Sounds: no murmur Extremities: + edema (Trace edema bilaterally) Gastrointestinal (Abdomen): Inspection/Auscultation: normal bowel sounds; abdomen not distended Percussion/Palpation: abdomen soft; abdomen nontender Musculoskeletal: No acute arthritis in any joint Neurologic: Alert and awake. Very lethargic and weak. Responding to minimal commands Lymphatic: no cervical or axillary lymphadenopathy Results & Data Results & Data ([facility]) Vital Signs (Past 12 Hours) Vital Signs Temp Pulse Pulse Resp BP BP Pulse Ox 09/04/20 12:06 92 H 28 H 95 09/04/20 11:00 37.4 C 96 H 30 H 157/79 H 92 09/04/20 07:55 83 27 H 91 09/04/20 07:43 85 29 H 85 L 09/04/20 07:32 37.2 C 96 H 28 H 138/65 85 L 09/04/20 05:43 104 H 195/86 H 09/04/20 03:33 36.6 C 96 H 22 195/86 H 92 09/04/20 02:39 89 22 88 L Laboratory Results Short CBC 09/04/20 Range/Units 04:15 WBC 14.60 H (4.8-10.8) K/uL Hgb 11.3 L (14.0-18.0) g/dL Hct 34.3 L (42-52) % Plt Count 451 H (130-400) K/uL BMP 09/04/20 04:15 Sodium 138 Potassium 3.4 L Chloride 104 Carbon Dioxide 29 BUN 30 H Creatinine 0.96 Glucose 198 H Calcium 8.1 L Medications Administered Current Inpatient Medications Albuterol (Albut/Ipratrop 3mg/0.5mg Neb 3 Ml Vial) 3 ml NEB Q2H PRN PRN Reason: Shortness Of Breath Or Wheezing Stop: 09/24/20 06:29 Aspirin (Aspirin 81 Mg Ectab) [facility] [place] [facility] Stop: 09/26/20 08:59 Last Admin: 09/04/20 09:17 Dose: Not Given Documented by: Atorvastatin Calcium (Atorvastatin 40 Mg Tab) 80 mg PO [facility] Stop: 09/25/20 20:59 Last Admin: 09/03/20 21:16 Dose: 80 mg Documented by: Clopidogrel Bisulfate (Clopidogrel Bisulfate 75 Mg Tab) 75 mg PO [facility] Stop: 09/26/20 08:59 Last Admin: 09/04/20 09:18 Dose: Not Given Documented by: Dextrose (Dextrose 50% 50 Ml Syringe) 25 - 50 ml IV UD PRN; Protocol PRN Reason: Hypoglycemia Protocol Stop: 09/29/20 16:14 Enoxaparin Sodium (Enoxaparin 80 Mg/0.8 Ml Syr) 70 mg SQ Q12H [facility] Stop: 09/29/20 16:14 Last Admin: 09/04/20 05:44 Dose: 70 mg Documented by: Escitalopram Oxalate (Escitalopram Oxalate 10 Mg Tab) 10 mg PO [facility] Stop: 09/26/20 11:59 Last Admin: 09/04/20 09:18 Dose: Not Given Documented by: Famotidine (Famotidine 20 Mg Tab) 20 mg PO [facility] Stop: 09/26/20 08:59 Last Admin: 09/04/20 09:18 Dose: Not Given Documented by: Glucagon (Glucagon For Inj 1 Mg Vial) 1 mg IM UD PRN; Protocol PRN Reason: Hypoglycemia Protocol Stop: 09/29/20 16:14 Glucose (Glucose 40% Gel 15 Gm Tube) 15 - 30 gm PO UD PRN; Protocol PRN Reason: Hypoglycemia Protocol Stop: 09/29/20 16:14 Glucose (Glucose 10 Tabs/Tube) 4 - 8 tabs PO UD PRN; Protocol PRN Reason: Hypoglycemia Protocol Stop: 09/29/20 16:14 Dextrose (D5w) 1,000 mls @ 50 mls/hr IV .Q20H [facility] Stop: 09/30/20 10:59 Last Admin: 09/04/20 09:21 Dose: 50 mls/hr Documented by: Furosemide 20 mg/ Syringe 2 mls @ 4 mls/min IV DAILY [facility] Stop: 10/03/20 08:59 Last Admin: 09/04/20 09:18 Dose: 4 mls/min Documented by: Insulin Aspart (Insulin Aspart 100 Units/Ml 3 Ml Pen) 0 units SC ACHS [facility]; Protocol Stop: 09/21/20 17:59 Last Admin: 09/04/20 12:30 Dose: Not Given Documented by: Insulin Glargine (Insulin Glargine Solostar 100 Units/Ml 3 Ml Pen) 10 units SC BID [facility]; Protocol Stop: 10/02/20 08:59 Last Admin: 09/04/20 09:24 Dose: 10 units Documented by: Levalbuterol HCl (Levalbuterol Tartrate 15 Gm Hfa.Aer.Ad) 2 puffs INH Q6R PRN PRN Reason: Shortness Of Breath Or Wheezin Stop: 09/29/20 23:14 Metoprolol Tartrate (Metoprolol Tartrate 1 Mg/Ml Vial) 5 mg IV Q6 PRN PRN Reason: Hypertension Stop: 10/04/20 05:59 Last Admin: 09/04/20 05:43 Dose: 5 mg Documented by: Miscellaneous (Carbohydrates For Hypoglycemia ) 15 - 30 gm PO UD PRN PRN Reason: Hypoglycemia Treatment Stop: 09/29/20 16:14 Miscellaneous Information (Pharmacy Glycemic Mgmt Consult) 1 ea N/A UD PRN PRN Reason: Consult Stop: 09/21/20 09:11 Nitroglycerin (Nitroglycerin Sl 0.4 Mg/Tab Tab) 0.4 mg SL UD PRN PRN Reason: Chest Pain Stop: 09/21/20 00:05 Ondansetron HCl (Ondansetron Inj 2 Mg/Ml 2 Ml Vial) 4 mg IV Q6H PRN PRN Reason: Nausea Stop: 09/21/20 00:05 Polyethylene Glycol (Polyethylene (Miralax) 17 Gm Pack) 17 gm PO DAILY PRN PRN Reason: Constipation Stop: 09/27/20 13:13 Last Admin: 08/28/20 17:24 Dose: 17 gm Documented by: Potassium Chloride (Potassium Chloride 20 Meq/15 Ml Udc) 20 meq PO BID [facility] Stop: 09/26/20 09:14 Last Admin: 09/04/20 09:17 Dose: Not Given Documented by:
[2020-09-04] MEDS: ATORVASTATIN 40 MG TAB PO SCH (20:49)
[2020-09-04] MEDS ORDERED: MoRPHine SULFATE 2 MG/ML CARP IV STA (23:43)
[2020-09-05] MEDS: ENOXAPARIN 80 MG/0.8 ML SYR SQ SCH ×2 (05:33→17:33)
[2020-09-05] MEDS: DEXTROSE 5% 1,000 ML IV SCH (05:37)
[2020-09-05 05:42] LABS: Basophils # (auto) 0.02 K/uL (0-0.2); Basophils % (auto) 0.1 %; Eosinophils % (auto) 0.7 %; Hematocrit (blood only) 34.3 % (42-52); Hemoglobin 11.1 g/dL (14.0-18.0); Immature Granulocytes # (auto) 0.27 K/uL (0.00-0.02); Immature Granulocytes % (auto) 1.8 %; Lymphocytes # (auto) 1.04 K/uL (1.2-3.4); Mean Corpuscular Hemoglobin 29.7 pg (25-34); Mean Corpuscular Hgb Conc 32.4 g/dL (32-36); Mean Corpuscular Volume 91.7 fL (80-100); Mean Platelet Volume 10.2 fL (7.4-10.4); Monocytes # (auto) 0.69 K/uL (0.11-0.59); Monocytes % (auto) 4.6 %; Neutrophils # (auto) 12.76 K/uL (1.4-6.5); Neutrophils % (auto) 85.8 %; Platelet Count 337 K/uL (130-400); RDW Coefficient of Variation 14.1 % (11.5-14.5); RDW Standard Deviation 46.1 fL (36.4-46.3); Red Blood Count 3.74 M/uL (4.7-6.1); White Blood Count 14.88 K/uL (4.8-10.8)
[2020-09-05 06:41] LABS: Alanine Aminotransferase 22 U/L (12-78); Albumin Globulin Ratio 0.2 (0.9-2); Albumin Level 1.4 gm/dl (3.4-5.0); Alkaline Phosphatase 116 U/L (45-117); BUN Creatinine Ratio 31.6 (10-20); Bilirubin,Total 0.7 mg/dl (0.2-1); Blood Urea Nitrogen 32 mg/dl (7-18); Calcium 8.2 mg/dl (8.5-10.1); Carbon Dioxide 32 mmol/L (21-32); Chloride 103 mmol/L (98-107); Creatinine Clr Calc Pharmacy 63.3 ml/min; Est GFR (African American) 86.3; Est GFR (Non-African American) 74.5; Glucose 152 mg/dl (70-99); Phosphorus 3.1 mg/dl (2.5-4.9); Sodium 138 mmol/L (136-145); Total Protein 7.4 gm/dl (6.4-8.2)
[2020-09-05 08:11] LABS: Potassium 3.4 mmol/L (3.5-5.1)
[2020-09-05 08:15] LABS: Magnesium 2.3 mg/dl (1.8-2.4)
[2020-09-05] MEDS: INSULIN ASPART 100 UNITS/ML 3 ML PEN SC SCH ×4 (08:30→21:00)
[2020-09-05] MEDS: INSULIN GLARGINE SOLOSTAR 100 UNITS/ML 3 ML PEN SC SCH (08:30)
[2020-09-05] MEDS: FUROSEMIDE 20 MG in SYRINGE 0 ML IV SCH (08:55)
--- NOTE | 2020-09-05 09:42 | Pharmacy Report ---
Pharmacy Glycemic Short Note 2 - Date of Service September 05, 2020 - Glycemic Short BSG Results (Last 24 hours): 09/04/20 09/04/20 09/04/20 11:29 16:50 20:45 Glucose POC Glucose 132 H 85 89 09/05/20 09/05/20 05:02 07:41 Glucose 152 H POC Glucose 185 H Outpatient Anti-diabetic Regimen: * Lantus 10 units SC qHS * Metformin * A1c = 9.4 % 08/22/20 Risk Factors for Insulin Resistance: * Steroids: Dexamethasone 6 mg IV daily from 08/21 to 08/24. Prednisone 40 mg po daily started 08/26 tapered and DC on 09/04/20 * Infection: COVID-19 * IVF: D5W @ 50 mL/hr * Diet: T2DM ASSESSMENT: 09/05: * Patient has received 24 units of insulin over the past 24hrs * 20 units of Lantus for basal insulin * 4 units of NovoLog for bolus insulin coverage (CF + CR) * BSGs [phone] mg/dl * BSGs near adequately controlled. PO intake remains low. Regimen is mostly basal insulin d/t decreased CHO intake. * AM fasting BSG trending upwards. Will increase PM dose of Lantus * Last dose of Prednisone 10mg yesterday; this should yield an improvement in BSGs, will empirically loosen CF/CR. * Goal is to maintain BSGs <180 mg/dl (ideally <150 mg/dl) to prevent complications. 09/04: * Patient has received 23 units of insulin over the past 24hrs * 20 units of Lantus for basal insulin * 3 units of NovoLog for bolus insulin coverage (CF + CR) * BSGs [phone] mg/dl * BSGs near adequately controlled. * AM fasting BSG elevated this morning. Could be secondary to increase in IV dextrose infusion rate from 40ml/hr to 50ml/hr. Pt is unable to come off BiPAP. Not eating. Will hold off on increasing Lantus for this BSG elevation. Pt will receive NovoLog correction. Will adjust tomorrow if pt requiring significant amount of correction. * Last dose of Prednisone 10mg today; this should yield an improvement in BSGs * Goal is to maintain BSGs <180 mg/dl (ideally <150 mg/dl) to prevent complications. 09/02: * Blood sugars much improved over the past 24 hours on 39 units of total insulin * NPH dose has been adjusted to reflect prednisone taper * Post prandials have been much better controlled. Will continue current scale. * Fasting BSGs have been adequate, will redistribute for a more equal BID dosing regimen * Patient is eating, PO intake minimal thus far today PLAN FOR INPATIENT GLYCEMIC CONTROL: * Hold outpatient metformin * Basal insulin: increase PM dose * Lantus 10 units SQ AM + 12 units SQ PM * Bolus insulin: loosen * NovoLog per scale ACHS or Q6hrs while NPO * Goal Range: Low 110 mg/dL - High 140 mg/dL * Correction Factor: 20 mg/dL/unit * Nutritional / Prandial insulin per carb ratio of 1 unit per 7 grams CHO consumed
[2020-09-05] MEDS: FAMOTIDINE 20 MG TAB PO SCH (09:46)
[2020-09-05] MEDS: ESCITALOPRAM OXALATE 10 MG TAB PO SCH (09:46)
[2020-09-05] MEDS: CLOPIDOGREL BISULFATE 75 MG TAB PO SCH (09:46)
[2020-09-05] MEDS: ASPIRIN 81 MG ECTAB PO SCH (09:46)
[2020-09-05] MEDS: POTASSIUM CHLORIDE 20 MEQ/15 ML UDC PO SCH ×2 (09:46→20:44)
--- NOTE | 2020-09-05 12:44 | Hospitalist Progress Note ---
Date of Service September 05, 2020 Assessment & Plan (1) History of cerebrovascular accident with residual effects: H/O recent large right MCA infarct with CT evidence of subacute left occipital lobe infract 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 Continue aspirin, Plavix, atorvastatin Cannot take his medications regularly due to poorly condition Appreciate palliative care input and recommendation Remains stable but critical Prognosis remains poor Sepsis Multiple source -COVID 19 pneumonia , acute cholecystitis , stage 4 sacral decub ulcer COVID-19 pneumonia Acute respiratory failure with hypoxia Received dexamethasone, Zosyn, remdesivir for few doses Remdesivir discontinued as likely will provide no clinical benefit as per pulmonary Appreciate pulmonology input and recommendation Afebrile off antibiotics Remains Critical Given persistent hypoxia, started on therapeutic Lovenox until PE ruled out Further investigations will likely not improve the current condition of the patient Will ask palliative care to reevaluate tomorrow Very poor prognosis Suspected pneumomediastinum-ruled out CXR:Developing diffuse airspace opacities, pulmonary edema versus bilateral pneumonia. Suspected pneumomediastinum. 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 on the drier unloader side Received a total of 60 mg intravenous Lasix since this morning of 09/04/2020 Requiring very high flow oxygen and BiPAP to maintain saturation DNI/DNR status Elevated Troponin Likely secondary to type II AL--demand Ischemia Troponin levels trended down Patient denies chest pain Appreciate Cardiology Input Dysphagia: Due to acute CVA Speech therapy evaluated Continue aspiration precautions Continue pured diet as tolerated Oral intake remains very poor Hypernatremia : Monitor sodium levels Continue Lasix as per Nephrology Appreciate nephrology input Sodium levels: 144>146>147>148>147>144>143 Continue D5W at 50 mL/hr Sodium level has been normalized Acute renal failure : Likely prerenal Cr: 1.46>0.98>1.07>1.04 Monitor renal function Was evaluated by regional engineer Creatinine has been normalized Electrolyte imbalance In part due to poor oral intake Monitor and supplement as needed Code Status DNI/DNR Disposition correction prognosis remains guarded Palliative care on board Discussed with the daughter in detail We will continue current supportive care-we will discuss with the daughter this afternoon (3) Pneumonia due to COVID-19 virus: Admission and Anticipated Discharge Date Admission Date: August 21, 2020 Subjective 09/04/2020 The patient was seen and examined in Covid unit He remains very lethargic with moderate shortness of breath at rest and has not been eating or drinking Has been requiring BiPAP with 100% oxygen to maintain saturation 09/05/2020 The patient was seen and examined in Covid unit Remains very lethargic and requiring high flow oxygen to maintain saturation He has not been drinking and/or eating much Review of Systems Review of Systems: Unobtainable due to mental health condition Respiratory: + dyspnea (Moderate shortness of breath at rest) Physical Exam Physical Exam: Lying in bed comfortably without significant short of breath Constitutional: well developed, well nourished and + ill appearing Eyes: PERRL, conjunctivae normal, anicteric sclerae ENMT: external ear and nose normal, oropharynx normal Neck: trachea midline, no thyromegaly Respiratory: + respiratory distress and + labored breathing Auscultation: + diminished lung sounds and + crackles (Crackles at the bases) Cardiovascular: Rate/Rhythm: regular rate and regular rhythm Heart Sounds: no murmur Extremities: + edema (Trace edema bilaterally) Gastrointestinal (Abdomen): Inspection/Auscultation: normal bowel sounds; abdomen not distended Percussion/Palpation: abdomen soft; abdomen nontender Neurologic: Alert and awake. Generally very weak and lethargic. Minimal response to vocal commands. has left hemiplegia Lymphatic: no cervical or axillary lymphadenopathy Results & Data Results & Data ([facility]) Vital Signs (Past 12 Hours) Vital Signs Temp Pulse Pulse Resp BP Pulse Ox 09/05/20 11:56 36.7 C 79 18 105/71 97 09/05/20 11:26 68 19 96 09/05/20 08:19 75 18 95 09/05/20 07:35 36.6 C 70 24 106/57 L 95 09/05/20 04:12 37.0 C 70 22 105/69 97 09/05/20 03:04 71 18 97 09/05/20 00:46 87 Laboratory Results Short CBC 09/05/20 Range/Units 05:02 WBC 14.88 H (4.8-10.8) K/uL Hgb 11.1 L (14.0-18.0) g/dL Hct 34.3 L (42-52) % Plt Count 337 (130-400) K/uL BMP 09/05/20 09/05/20 05:02 07:29 Sodium 138 Potassium TNP 3.4 L Chloride 103 Carbon Dioxide 32 BUN 32 H Creatinine 1.01 Glucose 152 H Calcium 8.2 L Liver Function 09/05/20 09/05/20 Range/Units 05:02 07:29 Total Bilirubin 0.7 (0.2-1) mg/dl AST TNP 45 H ALT 22 (12-78) U/L Alkaline Phosphatase 116 (45-117) U/L Albumin 1.4 L (3.4-5.0) gm/dl Medications Administered Current Inpatient Medications Albuterol (Albut/Ipratrop 3mg/0.5mg Neb 3 Ml Vial) 3 ml NEB Q2H PRN PRN Reason: Shortness Of Breath Or Wheezing Stop: 09/24/20 06:29 Aspirin (Aspirin 81 Mg Ectab) 81 mg PO [facility] Stop: 09/26/20 08:59 Last Admin: 09/05/20 09:46 Dose: 81 mg Documented by: Atorvastatin Calcium (Atorvastatin 40 Mg Tab) 80 mg PO [facility] Stop: 09/25/20 20:59 Last Admin: 09/04/20 20:49 Dose: 80 mg Documented by: Clopidogrel Bisulfate (Clopidogrel Bisulfate 75 Mg Tab) 75 mg PO [facility] Stop: 09/26/20 08:59 Last Admin: 09/05/20 09:46 Dose: 75 mg Documented by: Dextrose (Dextrose 50% 50 Ml Syringe) 25 - 50 ml IV UD PRN; Protocol PRN Reason: Hypoglycemia Protocol Stop: 09/29/20 16:14 Enoxaparin Sodium (Enoxaparin 80 Mg/0.8 Ml Syr) 70 mg SQ Q12H [facility] Stop: 09/29/20 16:14 Last Admin: 09/05/20 05:33 Dose: 70 mg Documented by: Escitalopram Oxalate (Escitalopram Oxalate 10 Mg Tab) 10 mg PO [facility] Stop: 09/26/20 11:59 Last Admin: 09/05/20 09:46 Dose: 10 mg Documented by: Famotidine (Famotidine 20 Mg Tab) 20 mg PO QAM [facility] Stop: 09/26/20 08:59 Last Admin: 09/05/20 09:46 Dose: 20 mg Documented by: Glucagon (Glucagon For Inj 1 Mg Vial) 1 mg IM UD PRN; Protocol PRN Reason: Hypoglycemia Protocol Stop: 09/29/20 16:14 Glucose (Glucose 40% Gel 15 Gm Tube) 15 - 30 gm PO UD PRN; Protocol PRN Reason: Hypoglycemia Protocol Stop: 09/29/20 16:14 Glucose (Glucose 10 Tabs/Tube) 4 - 8 tabs PO UD PRN; Protocol PRN Reason: Hypoglycemia Protocol Stop: 09/29/20 16:14 Dextrose (D5w) 1,000 mls @ 50 mls/hr IV .Q20H [facility] Stop: 09/30/20 10:59 Last Admin: 09/05/20 05:37 Dose: 50 mls/hr Documented by: Furosemide 20 mg/ Syringe 2 mls @ 4 mls/min IV DAILY [facility] Stop: 10/03/20 08:59 Last Admin: 09/05/20 08:55 Dose: 4 mls/min Documented by: Insulin Aspart (Insulin Aspart 100 Units/Ml 3 Ml Pen) 0 units SC [facility]; Protocol Stop: 09/21/20 17:59 Last Admin: 09/05/20 08:30 Dose: 3 units Documented by: Insulin Glargine (Insulin Glargine Solostar 100 Units/Ml 3 Ml Pen) 12 units SC [facility]; Protocol Stop: 10/05/20 20:59 Insulin Glargine (Insulin Glargine Solostar 100 Units/Ml 3 Ml Pen) 10 units SC [facility]; Protocol Stop: 10/06/20 08:59 Levalbuterol HCl (Levalbuterol Tartrate 15 Gm Hfa.Aer.Ad) 2 puffs INH Q6R PRN PRN Reason: Shortness Of Breath Or Wheezin Stop: 09/29/20 23:14 Metoprolol Tartrate (Metoprolol Tartrate 1 Mg/Ml Vial) 5 mg IV Q6 PRN PRN Reason: Hypertension Stop: 10/04/20 05:59 Last Admin: 09/04/20 05:43 Dose: 5 mg Documented by: Miscellaneous (Carbohydrates For Hypoglycemia ) 15 - 30 gm PO UD PRN PRN Reason: Hypoglycemia Treatment Stop: 09/29/20 16:14 Miscellaneous Information (Pharmacy Glycemic Mgmt Consult) 1 ea N/A UD PRN PRN Reason: Consult Stop: 09/21/20 09:11 Morphine Sulfate (Morphine Sulfate 2 Mg/Ml Carp) 2 mg IV Q4H PRN PRN Reason: Pain Stop: 09/19/20 01:00 Nitroglycerin (Nitroglycerin Sl 0.4 Mg/Tab Tab) 0.4 mg SL UD PRN PRN Reason: Chest Pain Stop: 09/21/20 00:05 Ondansetron HCl (Ondansetron Inj 2 Mg/Ml 2 Ml Vial) 4 mg IV Q6H PRN PRN Reason: Nausea Stop: 09/21/20 00:05 Polyethylene Glycol (Polyethylene (Miralax) 17 Gm Pack) 17 gm PO DAILY PRN PRN Reason: Constipation Stop: 09/27/20 13:13 Last Admin: 08/28/20 17:24 Dose: 17 gm Documented by: Potassium Chloride (Potassium Chloride 20 Meq/15 Ml Udc) 20 meq PO BID [facility] Stop: 09/26/20 09:14 Last Admin: 09/05/20 09:46 Dose: 20 meq Documented by:
[2020-09-05] MEDS: POTASSIUM ACETATE 10 MEQ in 0.9 % SODIUM CHLORIDE 100 ML IV SCH ×2 (13:25→14:35)
[2020-09-05] MEDS: ATORVASTATIN 40 MG TAB PO SCH (20:44)
[2020-09-05] MEDS ORDERED: INSULIN GLARGINE SOLOSTAR 100 UNITS/ML 3 ML PEN SC SCH (21:00)
[2020-09-05] MEDS: MoRPHine SULFATE 2 MG/ML CARP IV PRN (23:14)
[2020-09-06] MEDS: INSULIN ASPART 100 UNITS/ML 3 ML PEN SC SCH ×3 (04:38→08:01)
[2020-09-06] MEDS: DEXTROSE 5% 1,000 ML IV SCH (04:46)
[2020-09-06] MEDS: ENOXAPARIN 80 MG/0.8 ML SYR SQ SCH (04:47)
[2020-09-06 06:29] LABS: Basophils # (auto) 0.02 K/uL (0-0.2); Basophils % (auto) 0.1 %; Eosinophils # (auto) 0.18 K/uL (0-0.5); Eosinophils % (auto) 1.2 %; Hematocrit (blood only) 31.2 % (42-52); Hemoglobin 9.9 g/dL (14.0-18.0); Immature Granulocytes # (auto) 0.18 K/uL (0.00-0.02); Immature Granulocytes % (auto) 1.2 %; Lymphocytes % (auto) 5.8 %; Mean Corpuscular Hemoglobin 29.2 pg (25-34); Mean Corpuscular Hgb Conc 31.7 g/dL (32-36); Mean Platelet Volume 9.7 fL (7.4-10.4); Monocytes # (auto) 0.81 K/uL (0.11-0.59); Monocytes % (auto) 5.3 %; Neutrophils # (auto) 13.31 K/uL (1.4-6.5); Neutrophils % (auto) 86.4 %; Platelet Count 308 K/uL (130-400); RDW Coefficient of Variation 14.2 % (11.5-14.5); RDW Standard Deviation 47.1 fL (36.4-46.3); Red Blood Count 3.39 M/uL (4.7-6.1)
[2020-09-06 07:04] LABS: BUN Creatinine Ratio 30.6 (10-20); Calcium 8.1 mg/dl (8.5-10.1); Creatinine Clr Calc Pharmacy 66.5 ml/min; Est GFR (African American) 90.7; Est GFR (Non-African American) 78.2; Magnesium 2.5 mg/dl (1.8-2.4); Phosphorus 2.7 mg/dl (2.5-4.9); Potassium 3.6 mmol/L (3.5-5.1)
[2020-09-06] MEDS: ESCITALOPRAM OXALATE 10 MG TAB PO SCH (08:17)
[2020-09-06] MEDS: CLOPIDOGREL BISULFATE 75 MG TAB PO SCH (08:17)
[2020-09-06] MEDS: ASPIRIN 81 MG ECTAB PO SCH (08:17)
[2020-09-06] MEDS: FAMOTIDINE 20 MG TAB PO SCH (08:17)
[2020-09-06] MEDS: POTASSIUM CHLORIDE 20 MEQ/15 ML UDC PO SCH (08:17)
[2020-09-06] MEDS ORDERED: INSULIN GLARGINE SOLOSTAR 100 UNITS/ML 3 ML PEN SC SCH (09:00)
[2020-09-06] MEDS: MoRPHine SULFATE 2 MG/ML CARP IV PRN ×3 (09:21→11:59)
[2020-09-06] MEDS: FUROSEMIDE 20 MG in SYRINGE 0 ML IV SCH (09:21)
--- NOTE | 2020-09-06 11:02 | Palliative Care Progress Note ---
Date of Service September 06, 2020 Assessment & Plan (1) Palliative care encounter: -Solitario continues to decline. Over the weekend he became and continues to be increasingly lethargic with worsening shortness of breath. -He has been refusing most things PO including nutrition. -He is currently on BiPAP and has been throughout the weekend. FiO2 100% and is maintaining SpO2 85-90%. -When I went to see him this morning, he was alert, but did not look at me when I spoke to him and did not answer any questions. -I reached out to Reji's daughter Shelby and discussed his care and prognosis at length. The hospitalist has been in close contact with them over the weekend. Discussed his grave prognosis and worsening lethargy and new diaphragmatic breathing. I did clearly state that he is dying. She asked me to call Reji's brother Aron and Reji's other two daughters, Dora and Melida. -I spoke with Aron, at length at [phone] and he agreed that he would like to see him comfortably. I offered a Zoom call with him but he declined. He said that he saw him last year and they had a very nice conversation rehashing their lives together. -I called Melida at [phone] who joined her sister Dora on the same call. I discussed the above and they were understanding of his grave prognosis. -I called Shelby back and she gave consent to proceed with comfort measures only. All non-comfort focused medications were discontinued, no further blood draws or vital signs aside from SpO2 for assessment purposes. -Offered ZOOM for Shelby and the other daughters but they declined. -Morphine 2 mg IV Q1 PRN ordered. Low threshold to start a Morphine gtt if necessary. Robinul ordered for secretions and Ativan ordered for agitation. -Life expectancy hours to possible a day. -Palliative will follow. Above discussed with hospitalist. (2) Hypoxia: (3) Confusion: (4) Pneumonia due to COVID-19 virus: (5) CAD (coronary artery disease): Admission and Anticipated Discharge Date Admission Date: August 21, 2020 Subjective Solitario continues to decline. He is increasingly lethargic with worsening shortness of breath He has been refusing most things PO including nutrition. He is currently on BiPAP and has been throughout the weekend. FiO2 100% See A/P for further details Review of Systems Review of Systems: [facility] System Assessment System Patient not responding to questions. Symptom assessment by observation. Pain: 0/3 Shortness of breath: 2/3 Anxiety: 0/3 Palliative Performance Scale: 20% Physical Exam Constitutional: + ill appearing and + frail appearing Respiratory: + labored breathing and + uses accessory muscles (diaphragmatic muscles) Auscultation: + diminished lung sounds and + rhonchi Cardiovascular: Heart Sounds: normal S1 and normal S2 Extremities: normal capillary refill and + edema (generalized edema) Gastrointestinal (Abdomen): normal bowel sounds, soft, nontender, no hepatosplenomegaly Skin: + pallor Psychiatric: Orientation: alert Eye Contact: + poor eye contact Insight: + severely impaired insight Judgement: + severely impaired judgement Genitourinary: selby catheter in place. decreased urine output. Results & Data ([facility]) Vital Signs (Past 12 Hours) Vital Signs Temp Pulse Pulse Resp BP Pulse Ox 09/06/20 07:36 37 C 79 20 134/68 87 L 09/06/20 07:31 86 24 90 09/06/20 03:54 37.0 C 79 24 106/58 L 91 09/06/20 03:44 66 22 95 09/06/20 00:55 76 09/06/20 00:03 37.1 C 69 21 129/74 93 09/05/20 23:01 88 26 H 86 L PG Care Time/CCT Total # of Minutes Spent Total Time Spent with Patient: Total time spent is greater than 50% in coordination of care (as documented) at patient's floor/unit and/or counseling patient: 65 Coding Level of Care Code 40975 Subseq Hosp Care Lvl 3 Diagnoses Palliative care encounter Z51.5 Hypoxia R09.02 Confusion R41.0 Pneumonia due to COVID-19 virus U07.1; J12.82 CAD (coronary artery disease) I25.10 Time Spent (min) 65 Time Spent Midlevel Total time spent 65 mintues with > 50% of that time spent assessing the patient, discussing goals of care with multiple family members, providing symptom management and collaborating with IDT
[2020-09-06] MEDS ORDERED: MoRPHine SULFATE 2 MG/ML CARP IV PRN (11:46)
[2020-09-06] MEDS ORDERED: LORazepam 0.5 MG/1 ML VIAL IV PRN (11:46)
[2020-09-06] MEDS ORDERED: GLYCOPYRROLATE 0.2 MG/ML VIAL IV PRN (11:46)
[2020-09-06] MEDS ORDERED: MoRPHine SULFATE 2 MG/ML CARP IV STA (12:30)
--- NOTE | 2020-09-07 07:20 | Discharge Summary ---
Date of Service September 07, 2020 Admission HPI Per Admitting Provider DICTATED BY: Kayode Meraz MD DATE OF ADMISSION: 08/21/2020 CHIEF COMPLAINT: COVID pneumonia, hypoxia. HISTORY OF PRESENT ILLNESS: This is a 70-year-old male with past medical history significant for diabetes, CAD status post CABG, history of CVA in the past, hypertension, hyperlipidemia, who was recently at [facility] with a stroke and left-sided weakness and at that time the family says they were considering comfort care, but he recovered. He was able to converse. He is not able to ambulate. He was sent to [facility] on 08/10/2020. During the hospitalization in the [facility], one of his daughters was power of insurance attorney and the patient was initially decided to be DNR/DNI. As per the family, since he came to [facility] he is declining. Last Sunday on 08/16/2020, he was diagnosed with COVID. He can stand with support, but could not ambulate and he is on pureed diet .Today was brought in because of worsening respiratory status and hypoxia. Oxygen saturation of 80% on room air and also the patient seemed to be more edematous. The patient is currently drowsy and opens eyes on calling. Moves extremities to painful stimuli, but not able to talk or give any history. As per the family, since coming to [facility], he is not talking much, but he could recognize family members and today when daughter called him, he told that he is having pain. He is also having severe decubitus ulcers in the back. In the ER, he was tachypneic, respiratory rate in is 20s to 30s and tachycardia,with his heart rate is in 100s, on OxyMask he is saturating okay. Has mild bibasilar crackles on examination. Initial lactate was 2.4, repeat was 1.2. ER started on empiric antibiotics. Sodium was 150. INR 1.2, potassium 3.4, phosphorus 2.3, calcium 7.9. Troponin was 0.5. BNP 10,480. Procalcitonin 0.2. CT of the head is showing large subacute appearing infarct in the right MCA territory with multifocal cortical based areas of petechial hemorrhage, no midline shift or hydrocephalus or herniation seen, and subacute versus chronic infarct in the left occipital lobe. Encephalomalacia with remote infarct in the inferior cerebellar hemisphere and also on CTA of the chest, there was no PE, but showing multifocal pneumonia. CT of the abdomen and pelvis showed possible cholecystitis. EKG was okay. The patient was DNR/DNI, but daughters want to keep him full code for now. Talked to two daughters one seems to be power of insurance attorney and also another daughter. One daughter says that when he is at [facility], the patient might be thinking about changing his code status to full code, so they want to keep him full code for now until further discussion with the family members. Admission Exam Per Admitting Provider GENERAL: The patient is lethargic, opens eyes on calling. Seems to be in mild respiratory distress. VITAL SIGNS: Temperature 37.7, pulse 62, respiratory rate 30, blood pressure 109/43, oxygen 99% on 6 liters OxyMask. HEENT: Pupils are equal and slightly sluggish to react. NECK: No neck masses seen. CARDIOVASCULAR: S1, S2 heard. Regular rate and rhythm. No murmur, no gallop. RESPIRATORY SYSTEM: Normal AP diameter, mild tachypnea. No wheezing. Mild bibasilar crackles. ABDOMEN: Soft, bowel sounds present. No distention. CENTRAL NERVOUS SYSTEM: Drowsy, opens eyes on calling and does not obey commands. Moves extremities for painful stimuli. EXTREMITIES: Mild pedal edema present. Principal Diagnosis The Patient . Acute respiratory Failure with Hypoxia Covid 19 pneumonia Stroke Discharge Data Allergies Allergy/AdvReac Type Severity Reaction Status Date / Time No Known Allergies Allergy Verified 08/21/20 16:22 Consultations 08/21/20 19:37 ED Decision to Admit Stat 08/22/20 00:06 Consult Case Management - Discharge Planning Routine 08/22/20 08:00 Consult General Surgery Routine Consult Neurology Routine Consult Pulmonology Routine 08/22/20 15:15 Consult Nephrology Routine 08/23/20 10:04 Consult Palliative Care Routine 08/23/20 15:56 Consult Cardiology Routine 08/30/20 16:11 Consult General Surgery Routine Ordered Studies 08/21/20 17:45 CT abd pelvis IV con only Stat CT angio chest PE protocol Stat 08/21/20 17:46 CT head/brain wo con Stat 08/30/20 21:47 CT angio chest PE protocol Urgent Hospital Course (1) History of cerebrovascular accident with residual effects: H/O recent large right MCA infarct with CT evidence of subacute left occipital lobe infract 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 Continue aspirin, Plavix, atorvastatin Cannot take his medications regularly due to poorly condition Appreciate palliative care input and recommendation Remains stable but critical Prognosis remains poor Sepsis Multiple source -COVID 19 pneumonia , acute cholecystitis , stage 4 sacral decub ulcer COVID-19 pneumonia Acute respiratory failure with hypoxia Received dexamethasone, Zosyn, remdesivir for few doses Remdesivir discontinued as likely will provide no clinical benefit as per pulmonary Appreciate pulmonology input and recommendation Afebrile off antibiotics Remains Critical Given persistent hypoxia, started on therapeutic Lovenox until PE ruled out Further investigations will likely not improve the current condition of the patient Will ask palliative care to reevaluate tomorrow Very poor prognosis Suspected pneumomediastinum-ruled out CXR:Developing diffuse airspace opacities, pulmonary edema versus bilateral pneumonia. Suspected pneumomediastinum. 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 Received a total of 60 mg intravenous Lasix since this morning of 09/04/2020 Requiring very high flow oxygen and BiPAP to maintain saturation DNI/DNR status Elevated Troponin Likely secondary to type II TX--demand Ischemia Troponin levels trended down Patient denies chest pain Appreciate Cardiology Input Dysphagia: Due to acute CVA Speech therapy evaluated Continue aspiration precautions Continue pured diet as tolerated Oral intake remains very poor Hypernatremia : Monitor sodium levels Continue Lasix as per Nephrology Appreciate nephrology input Sodium levels: 144>146>147>148>147>144>143 Continue D5W at 50 mL/hr Sodium level has been normalized Acute renal failure : Likely prerenal Cr: 1.46>0.98>1.07>1.04 Monitor renal function Was evaluated by pepper picker Creatinine has been normalized Electrolyte imbalance In part due to poor oral intake Monitor and supplement as needed Code Status DNI/DNR Disposition long-term prognosis remains guarded Palliative care on board Discussed with the daughter in detail We will continue current supportive care-we will discuss with the daughter this afternoon (3) Pneumonia due to COVID-19 virus: Total Time Total Time Spent Total Time Spent (In Minutes): 20 minutes Total Time Includes: Other Discharge Plan Discharge Items Patient Disposition: Discharge Diagnosis: on 09/06/2020 at 1305 hrs: Cases of : Acute respiratory failure with Hypoxia Covid 19 pneumonia Stroke Addtl Attending Provider Instructions: Family member informed
== END 2020-09-06 13:05 | disposition expired | DRG 871 ==
LOC: ED 15:30 → 2E 21:29 → SUATTDRO 21:29 → 2E 22:31